=== PATIENT | female | born 1940 | race Caucasian/White ===

== ENCOUNTER → 2017-08-12 17:38 | Outpatient (CLI) | payer MEDICARE, SELFPAY ==
--- NOTE | 2017-08-12 17:50 | MRI_ITS ---
STUDY: MRI BRAIN WITH AND WITHOUT CONTRAST REASON FOR EXAM: Female, 76 years old. Malignant melanoma staging TECHNIQUE: Standardized multiplanar fat and water weighted pulse sequences were obtained. 8 ml of Gadavist contrast material was administered intravenously for the contrast portion of the examination. COMPARISON: None. FINDINGS: Mild atrophy and periventricular white matter ischemic changes.. Chronic ischemic changes within the lance. Normal bilateral basal ganglia. Normal thalami. There is no extra-axial fluid accumulation. Normal flow voids within the major intracranial circulation suggesting patency by spin echo criteria. Normal venous enhancement. There is no enhancing intra-axial or extra-axial abnormality. Normal sella turcica, pituitary gland, infundibular stalk, optic chiasm and hypothalamus. Normal tectal plate and pineal gland. Normal midbrain, and medulla. Normal cerebellum. Normal basal cisterns. Normal bilateral temporal bones. Normal bilateral internal auditory canals. No demonstrated orbital abnormality, within the constraints of a routine brain study. Normal visualized paranasal sinuses. Normal calvarium and skull base. There are multiple small nodules within the scalp which enhance following contrast administration. These may be consistent with known neurofibromatosis however. Clinical correlation is recommended in this regard. Normal visualized upper cervical spine. MRI/Brain W/WO Contrast IMPRESSION: Mild atrophy and periventricular white matter ischemic changes with chronic ischemic changes in the lance but no evidence for acute infarct. No evidence for brain metastasis. 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 Electronically Signed: Suleman Wiley MD at 19:40 EDT , Service support ,
== END ==
PROVIDERS: Family Provider Family Medicine; PCP Family Medicine; Visit Provider Internal Medicine Hematology & Oncology
DX: C43.9 Malignant melanoma of skin, unspecified (principal)
CPT/HCPCS: 70553; A9585

== ENCOUNTER → 2017-08-23 08:42 | Outpatient (CLI) | payer MEDICARE, SELFPAY ==
--- NOTE | 2017-08-23 08:51 | NM_ITS ---
CLINICAL: 76-year-old female with history of malignant melanoma. WHOLE BODY 99m Tc MDP RADIONUCLIDE BONE SCINTIGRAPHY COMPARISON: None available FINDINGS: Following the intravenous administration of 25.5 mCi of 99m Tc MDP, whole body bone images reveal: 1. Increased radiopharmaceutical concentration is identified in the acromioclavicular and sternoclavicular compartments of both shoulders, ninth thoracic vertebra posteriorly on the left, bilateral wrist articulations, the right midfoot. 2. The remaining skeletal structures are scintigraphically unremarkable with normal-appearing renal images and urinary bladder activity identified. An increase in tracer concentration appears evident in the femoral and tibial components of the presumably asymptomatic bilateral knee arthroplasties most consistent with normal postsurgical change. Prominent uptake is defined at the sternomanubrial synchondrosis is consistent with a normal variant. NM/Bone Scan Whole Body IMPRESSION: 1. The increase in radiopharmaceutical concentration identified in the bilateral shoulders, thoracic spine, right and left wrists, the right midfoot is most consistent with degenerative arthritis. 2. There is no typical scintigraphic evidence of diffuse axial skeletal metastatic disease on the current examination. Electronically Signed: Baldo Sheikh DO at 23:05 EDT Tel , Service support ,
== END ==
PROVIDERS: Family Provider Family Medicine; PCP Family Medicine; Visit Provider Nurse Practitioner Family
DX: C43.9 Malignant melanoma of skin, unspecified (principal)
CPT/HCPCS: 78306

== ENCOUNTER → 2017-08-26 16:03 | Outpatient (CLI) | payer MEDICARE, SELFPAY ==
--- NOTE | 2017-08-26 16:05 | CT_ITS ---
STUDY: CT CHEST WITH CONTRAST REASON FOR EXAM: Female, 76 years old. Malignant melanoma of the skin. RADIATION DOSAGE (If Supplied By Facility): CTDIvol = ( 11.22 ) mGy, DLP = ( 314.95 ) mGycm TECHNIQUE: Transaxial imaging was performed following intravenous administration of 100 ml of Isovue 300 contrast material. Multiplanar coronal and sagittal images were reformatted. Individualized dose optimization techniques were used for this CT. COMPARISON: None. FINDINGS: The lungs are normal. There is no demonstrated pleural abnormality. Normal heart and pericardium. There are calcifications of the coronary arteries. Normal mediastinum. Normal hilar regions. Normal enhanced pulmonary arteries. There is atherosclerotic calcification of the aortic arch with tortuosity and elongation of the aortic arch and descending thoracic aorta. Degenerative changes of the thoracic spine with mildly exaggerated kyphosis. There is no axillary lymphadenopathy. There is no visualized skin lesions. There is fatty infiltration liver. There is a 1 cm fluid attenuation focus in the dome of the right liver. A 9 mm fluid attenuation focus is seen in segment 6. CT/Chest WITH Contrast IMPRESSION: 1. No acute cardiopulmonary disease. 2. Atherosclerotic changes of coronary arteries and thoracic aorta. 3. Probable hepatic cysts. Electronically Signed: Duke Vega DO at 17:08 EDT Tel [phone], Service support ,
== END ==
PROVIDERS: Family Provider Family Medicine; PCP Family Medicine; Visit Provider Nurse Practitioner Family
DX: C43.9 Malignant melanoma of skin, unspecified (principal)
CPT/HCPCS: 71260; Q9967

== ENCOUNTER → 2017-09-02 15:53 | Outpatient (CLI) | payer MEDICARE, SELFPAY | PROVIDERS: Family Provider Family Medicine; PCP Family Medicine; Visit Provider Internal Medicine Hematology & Oncology | DX: D50.9 Iron deficiency anemia, unspecified (principal); D64.9 Anemia, unspecified | CPT/HCPCS: 36415; 86850; 86900; 86920; 86922 ==

== ENCOUNTER 2017-09-08 05:35 | Day surgery (SDC) | payer MEDICARE, SELFPAY ==
[2017-09-08] VITALS (13 sets, daily range): BP systolic 96–118; BP diastolic 66–91; PULSE 113–132; RESP 16–24; TEMP 36.2–37.1; O2SAT 97–100; BMI 33.6
--- NOTE | 2017-09-08 | IMM_PTH ---
PATIENT: DENNISE ROBLEDO LOC: EN U#:[id number] AGE/SX: 77/F ROOM: RE09/08/[address]: Dr. Boston Hester MD : 1940 BED: DIS: 09/08/2017 SPEC #: [id number] RECD: 09/10/17 12:32 STATUS: TUAN RERodri #: [id number] PRECIOUS: 09/08/17 00:[address]: Boston Hester DEPT: IMMUNOHISTOCHEMISTRY RECD BY: Munira Roque ENTERED: 09/10/17 12:32 SP TYPE: IMMUNO OTHR DR: Dr. Jack Ernst MD Tissues: Stomach, NOS Procedures: H Pylori (initial) PHYSICIAN & INSTITUTION [place] [address] SPECIMEN INFORMATION: Tissue Source: Gastric mass biopsy Clinical Info: Iron deficiency anemia, weight loss Specimen Number: [id number] CPT code: 68519 METHODOLOGY: Deparaffinized sections of prefer/formalin-fixed tissue or PAP/DQ stained slides are incubated with monoclonal/polyclonal antibodies/oligonucleotide probes. Localization is made via biotin free immunoperoxidase method. Appropriate controls are performed and reacted as expected. Results on target cell population are indicated in the following table: RESULTS: ANTIBODY / CLONE RESULT H Pylori (polyclonal) negative These tests were developed and their performance characteristics determined by [facility]. They may not have been cleared or approved by the U.S. Food and Drug Administration. The FDA has determined that such clearance or approval is not necessary. INTERPRETATION: Gastric mass, biopsy: Negative for Helicobacter pylori organisms. SJ:leonarda 09/10/17
--- NOTE | 2017-09-08 08:10 | GASB_PTH ---
PATIENT: DENNISE ROBLEDO LOC: EN U#:[id number] AGE/SX: 77/F ROOM: RE09/08/[address]: Dr. Boston Hester MD : 1940 BED: DIS: 09/08/2017 SPEC #: [id number] RECD: 09/08/17 09:57 STATUS: TUAN ELIEL #: [id number] PRECIOUS: 09/08/17 08:[address]: Boston Hester DEPT: SURGICAL PATHOLOGY RECD BY: Baldo Daniels ENTERED: 09/08/17 10:20 SP TYPE: Gastric Bx OTHR DR: Dr. Jack Ernst MD Tissues: Gastric mucous membrane Procedures: Surgery Specimen Level IV HEADER OPERATION: EGD PRE-OP DIAGNOSIS: Iron deficiency anemia, weight loss TISSUE SUBMITTED: Gastric mass biopsies MICROSCOPIC DIAGNOSIS Gastric mass, biopsy: Mild gastritis. Negative for malignancy. SJ:leonarda 09/09/17 COMMENT The results of immunohistochemistry for Helicobacter pylori will be reported separately ([id number]). If there is a high suspicion of malignancy, rebiopsy of the mass is suggested if clinically indicated. This case is discussed with Dr. Hester on 09/10/17. Case has been reviewed in consultation with Dr. Hardy who concurs with the above diagnosis. IDC:TU MICROSCOPIC DESCRIPTION Slides are reviewed. The specimen shows fragments of gastric mucosa with chronic inflammatory cell infiltrates in the lamina propria consisting of lymphocytes and plasma cells, consistent with mild chronic gastritis. Inflammatory cell infiltrates consist of lymphocytes, plasma cells and a few eosinophils. GROSS DESCRIPTION Received in fixative is one container labeled with the patient's name and designated gastric mass biopsy. The specimen consists of multiple irregular fragments of light gonzalez soft tissue that in aggregate measure 1 x 0.5 x 0.1 cm. The specimen is totally submitted in one cassette. / AM:leonarda 09/08/17 TC:3 CPT: 15016
--- NOTE | 2017-09-08 08:26 | PCM.OPRPT ---
Problem List (1) Abnormal weight loss Status: Acute (2) Iron deficiency anemia Status: Chronic Qualifiers: Iron deficiency anemia type: unspecified iron deficiency Qualified Code(s): D50.9 - Iron deficiency anemia, unspecified Report of Operation Date of Procedure: 09/08/17 Pre-Operative Diagnosis: r63.4 abnormal weight loss. d50.9 iron deficiency anemia unspecified Post-Operative Diagnosis: Same plus gastric mass Surgery/Procedure Performed:: 84727 esophagogastroduodenoscopy with biopsy. 22113 colonoscopy Type of Anesthesia:: MAC Anesthesiologist: Donta Anand Description of Procedure: Patient was brought into the endoscopy suite. Back of her throat was sprayed with Cetacaine spray. Bite-block was placed. She was placed in the left lateral decubitus position. Graded anesthesia was given. Scope was inserted in the oropharynx and directed down through the esophagus into the stomach and into the duodenum without difficulty. Operative findings: 1. Duodenum: Normal appearance no mass lesions no ulcerations no signs of bleeding mucosal all look normal. 2. Stomach: There was a definitive gastric mass just in the prepyloric area. It is difficult to ascertain if this was arising from the pylorus or not. Numerous biopsies of this were obtained. I was able to get around it and into the duodenum. 3. Esophagus: Normal appearance no mass lesions no signs of esophagitis Z line was right at about 40 cm approximately rest of the esophagus looked entirely normal. There were no signs of active bleeding in her upper scope. Colonoscope was inserted into the rectum. Scope was directed through the sigmoid colon, descending colon, transverse colon, to the anastomosis. Operative findings: #1 cecum: Normal appearance no mass lesions normal ileocecal valve. 2. Ascending colon: Normal appearance no mass lesions. 3. Transverse colon: Normal appearance no mass lesions. 4. Descending colon: Normal appearance no mass lesions. 5. Sigmoid colon: Normal appearance no mass lesions. 6. Rectum: Normal appearance no mass lesions internal and external hemorrhoids were identified. Scope was withdrawn digital rectal exam was performed showing no masses within the anus. With a gastric mass she will need to have a CT scan of the abdomen and pelvis with IV and p.o. contrast. Given the fact that she is having elevated heart rate we will more likely needed contact medicine for admission and correction of said heart rate with getting her back on her normal diltiazem. - Admit VTE Documentation VTE Present on Admission: No VTE Mechan Device Prophylaxis: None VTE Pharm Prophylaxis ordered?: No Reason prophylaxis not ordered:: Treatment Not Indicated
--- NOTE | 2017-09-08 08:31 | OP.PCM_ITS ---
Problem List (1) Abnormal weight loss Status: Acute (2) Iron deficiency anemia Status: Chronic Qualifiers: Iron deficiency anemia type: unspecified iron deficiency Qualified Code(s) : D50.9 - Iron deficiency anemia, unspecified Report of Operation Date of Procedure: 09/08/17 Pre-Operative Diagnosis: r63.4 abnormal weight loss. d50.9 iron deficiency anemia unspecified Post-Operative Diagnosis: Same plus gastric mass Surgery/Procedure Performed:: 31502 esophagogastroduodenoscopy with biopsy. 41858 colonoscopy Type of Anesthesia:: MAC Anesthesiologist: Donta Anand Description of Procedure: Patient was brought into the endoscopy suite. Back of her throat was sprayed with Cetacaine spray. Bite-block was placed. She was placed in the left lateral decubitus position. Graded anesthesia was given. Scope was inserted in the oropharynx and directed down through the esophagus into the stomach and into the duodenum without difficulty. Operative findings: 1. Duodenum: Normal appearance no mass lesions no ulcerations no signs of bleeding mucosal all look normal. 2. Stomach: There was a definitive gastric mass just in the prepyloric area. It is difficult to ascertain if this was arising from the pylorus or not. Numerous biopsies of this were obtained. I was able to get around it and into the duodenum. 3. Esophagus: Normal appearance no mass lesions no signs of esophagitis Z line was right at about 40 cm approximately rest of the esophagus looked entirely normal. There were no signs of active bleeding in her upper scope. Colonoscope was inserted into the rectum. Scope was directed through the sigmoid colon, descending colon, transverse colon, to the anastomosis. Operative findings: #1 cecum: Normal appearance no mass lesions normal ileocecal valve. 2. Ascending colon: Normal appearance no mass lesions. 3. Transverse colon: Normal appearance no mass lesions. 4. Descending colon: Normal appearance no mass lesions. 5. Sigmoid colon: Normal appearance no mass lesions. 6. Rectum: Normal appearance no mass lesions internal and external hemorrhoids were identified. Scope was withdrawn digital rectal exam was performed showing no masses within the anus. With a gastric mass she will need to have a CT scan of the abdomen and pelvis with IV and p.o. contrast. Given the fact that she is having elevated heart rate we will more likely needed contact medicine for admission and correction of said heart rate with getting her back on her normal diltiazem. - Admit VTE Documentation VTE Present on Admission: No VTE Mechan Device Prophylaxis: None VTE Pharm Prophylaxis ordered?: No Reason prophylaxis not ordered:: Treatment Not Indicated
== END 2017-09-08 10:33 | disposition home or self-care (01) ==
LOC: EN 05:35 → AC 05:37
PROVIDERS: Family Provider Family Medicine; PCP Family Medicine; Visit Provider Surgery
PROC: 0DJD8ZZ Inspection of Lower Intestinal Tract, Via Natural or Artificial Opening Endoscopic (ICD-10-PCS; CPT 45378; principal; 2017-09-08 06:55)
DX: K29.70 Gastritis, unspecified, without bleeding (principal); K64.8 Other hemorrhoids; K64.4 Residual hemorrhoidal skin tags; D50.9 Iron deficiency anemia, unspecified; R63.4 Abnormal weight loss; N15.9 Renal tubulo-interstitial disease, unspecified; I10 Essential (primary) hypertension; C43.9 Malignant melanoma of skin, unspecified; Q85.00 Neurofibromatosis, unspecified; Z87.19 Personal history of other diseases of the digestive system; Z78.0 Asymptomatic menopausal state; Z96.653 Presence of artificial knee joint, bilateral; Z90.49 Acquired absence of other specified parts of digestive tract; Z79.82 Long term (current) use of aspirin; Z79.899 Other long term (current) drug therapy
CPT/HCPCS: 43239; 45378; 88305; 88342; J7120

== ENCOUNTER 2018-03-28 07:29 | Day surgery (SDC) | payer MEDICARE, SELFPAY ==
[2018-03-17 10:17] VITALS: BMI 31.3
[2018-03-28 07:59] VITALS: BP 120/68; PULSE 79; RESP 16; TEMP 36.9; O2SAT 98; BMI 30.9
[2018-03-28 08:16] LABS: Bedside Glucose 84 mg/dL (70-110)
[2018-03-28 08:45] VITALS: BP 120/68; BP 99/52; PULSE 85; RESP 14; TEMP 36.4; O2SAT 97
--- NOTE | 2018-03-28 08:48 | OP.ENDO_ITS ---
Patient Name: Dionne Frausto Procedure Date: 03/28/2018 8:29 AM Date of : 1940 Age: 77 Procedure: Upper GI endoscopy Indications: Chronic gastric ulcer Providers: Boston Hester MD Referring MD: Jack Ernst MD Requesting Provider: Nidhi Ruffin Medicines: See the Anesthesia note for documentation of the administered medications Patient Profile: This is a 77 year old female. Refer to note in patient chart for documentation of history and physical. Complications: No immediate complications. Procedure: Pre-Anesthesia Assessment: - Prior to the procedure, a History and Physical was performed, and patient medications and allergies were reviewed. The patient's tolerance of previous anesthesia was also reviewed. The risks and benefits of the procedure and the sedation options and risks were discussed with the patient. All questions were answered, and informed consent was obtained. Prior Anticoagulants: The patient has taken no previous anticoagulant or antiplatelet agents. ASA Grade Assessment: III - A patient with severe systemic disease. After reviewing the risks and benefits, the patient was deemed in satisfactory condition to undergo the procedure. After obtaining informed consent, the endoscope was passed under direct vision. Throughout the procedure, the patient's blood pressure, pulse, and oxygen saturations were monitored continuously. The gastroscope was introduced through the mouth, and advanced to the second part of duodenum. The upper GI endoscopy was accomplished without difficulty. The patient tolerated the procedure well. Scope In: 8:37:08 AM Scope Out: 8:41:01 AM Total Procedure Duration Time 0 hours 3 minutes 53 seconds Findings: The examined esophagus was normal. The entire examined stomach was normal. No biopsies or other specimens were collected for this exam. The examined duodenum was normal. No biopsies or other specimens were collected for this exam. A medium-sized hiatal hernia was present. Impression: - Normal esophagus. - Normal stomach. No specimens collected. - Normal examined duodenum. No specimens collected. - The site of the previous ulcer looked entirely normal. There was no mass seen. Recommendation: - Discharge patient to home. - Resume previous diet. - Continue present medications. - Repeat upper endoscopy in 1 year for surveillance. - Return to my office in 1 week. Procedure Code(s): --- Professional --- 46492, Esophagogastroduodenoscopy, flexible, transoral; diagnostic, including collection of specimen(s) by brushing or washing, when performed (separate procedure) Diagnosis Code(s): --- Professional --- K25.7, Chronic gastric ulcer without hemorrhage or perforation CPT copyright 2017 [employer]. All rights reserved. The codes documented in this report are preliminary and upon wind energy technician review may be revised to meet current compliance requirements. MD Boston Arnold MD 03/28/2018 8:47:48 AM This report has been signed electronically. Number of Addenda: 0 Note Initiated On: 03/28/2018 8:29 AM
[2018-03-28 08:50] VITALS: BP 120/68; BP 81/51; PULSE 80; RESP 14; O2SAT 96
[2018-03-28 08:55] VITALS: BP 107/63; BP 120/68; PULSE 77; RESP 14; O2SAT 98
[2018-03-28 09:04] VITALS: BP 108/71; BP 120/68; PULSE 84; RESP 16; TEMP 36.6; O2SAT 99
[2018-03-28 09:51] VITALS: BP 120/68
== END 2018-03-28 09:57 | disposition home or self-care (01) ==
LOC: EN 07:29 → AC 07:30
PROVIDERS: Family Provider Family Medicine; PCP Family Medicine; Referring Provider Surgery; Visit Provider Surgery
PROC: 0DJ08ZZ Inspection of Upper Intestinal Tract, Via Natural or Artificial Opening Endoscopic (ICD-10-PCS; CPT 43235; principal; 2018-03-28 08:40)
DX: K25.7 Chronic gastric ulcer without hemorrhage or perforation (principal); K44.9 Diaphragmatic hernia without obstruction or gangrene; D64.9 Anemia, unspecified; I10 Essential (primary) hypertension; I49.9 Cardiac arrhythmia, unspecified; K21.9 Gastro-esophageal reflux disease without esophagitis; K59.00 Constipation, unspecified; Q85.00 Neurofibromatosis, unspecified; Z85.820 Personal history of malignant melanoma of skin; Z87.19 Personal history of other diseases of the digestive system; Z78.0 Asymptomatic menopausal state; Z90.49 Acquired absence of other specified parts of digestive tract; Z79.82 Long term (current) use of aspirin; Z79.899 Other long term (current) drug therapy
CPT/HCPCS: 43235; 82962; J7120

== ENCOUNTER 2019-04-21 18:46 | Inpatient (IN) | payer MEDICARE, SELFPAY ==
[2018-09-05 13:47] VITALS: BMI 34.1
[2019-04-21 18:47] VITALS: BP 123/76; PULSE 77; RESP 18; TEMP 36.4; O2SAT 95; BMI 33.6
--- NOTE | 2019-04-21 21:26 | US_ITS ---
STUDY: VENOUS DOPPLER ULTRASOUND - RIGHT LOWER EXTREMITY REASON FOR EXAM: Female, 78 years old. RT FOOT SWELLING AT FIRST NOW LEG HURTING TECHNIQUE: Ultrasound evaluation of the deep vein system to include sunshine-scale imaging and compression was performed. Sunshine-scale imaging and Doppler sonographic evaluation, including duplex spectral analysis and qualitative color flow sonography, was performed. COMPARISON: None. FINDINGS: Common Femoral Vein: Normal compression, spontaneity and augmentation. Normal color Doppler. Common Femoral Vein/Greater Saphenous Junction: Normal compression. No internal echoes. Deep Femoral Vein: Not imaged Femoral Proximal: Normal compression. No internal echoes. Femoral Middle: Normal compression, spontaneity and augmentation. Normal color Doppler. Femoral Distal: Normal compression. No internal echoes. Popliteal Vein: Normal compression, spontaneity and augmentation. Normal color Doppler. Posterior Tibial Vein: Normal compression. No internal echoes. Peroneal Vein: Normal compression. No internal echoes. US/Venous Duplex Imag/Limited/Uni IMPRESSION: There is no evidence of deep venous fibrosis of the visualized venous structures of the right lower extremity. Electronically Signed: Serge De Oliveira MD at 22:18 EST , Service support ,
[2019-04-21 21:56] LABS: Absolute Lymphocyte Count 1.49 X10^3/uL (0.83-4.51); Absolute Neutrophil Count 13.7 X10^3/uL (2.0-7.7); Basophil# 0.06 X10^3/uL; Basophil% 0.3 % (0-1); Eosinophil# 0.03 X10^3/uL; Eosinophils% 0.2 % (0-5); Hematocrit 43.6 % (37-47); Hemoglobin 13.5 g/dL (12.0-15.0); Lymphocyte # 1.49 X10^3/ul (4.0); Lymphocyte % 8.7 % (19-41); Mean Corpuscular Volume 90.5 fL (81-99); Mean Platelet Vol. 10.1 fl (6.2-12.0); Monocyte# 1.42 X10^3/uL; Monocyte% 8.3 % (0-10); NRBC Flagged by Analyzer 0 % (0-5); Neutrophil # 13.72 X10^3/uL (2.7-7.7); Neutrophil % 79.8 % (47-70); Platelet Count 324 K/mm3 (150-450); RBC Distribution Width CV 13.9 % (11.6-14.6); RBC Distribution Width SD 45.2 fl (35.1-43.9); Red Blood Count 4.82 M/mm3 (4.2-5.4); White Blood Count 17.2 K/mm3 (4.4-11.0)
[2019-04-21 22:05] LABS: Erythrocyte Sedimentation Rate 28 mm/hr (0-30)
[2019-04-21 22:09] LABS: Anion Gap 7 (5-15); BUN 27 mg/dL (7-18); BUN/Creat Ratio 18.8 RATIO (10-20); Calcium,Total 9.6 mg/dL (8.5-10.1); Chloride 108 mmol/L (98-107); Creatinine, Serum 1.44 mg/dL (0.55-1.02); EST Glomerular Filtration Rate 37 mL/min (>60); Est Glom Filt Rate - Afr Amer 45 mL/min (>60); Estimated Creatinine Clearance 36.52 ml/min; Glucose 118 mg/dL (74-106); Potassium 3.9 mmol/L (3.5-5.1); Sodium Level 140 mmol/L (136-145)
--- NOTE | 2019-04-21 22:20 | ED.RN ---
lab called with lactic acid results of 2.2. Dr. Jl hu.
[2019-04-21 22:21] LABS: Lactic Acid 2.2 mmol/L (0.4-1.9)
[2019-04-21 22:27] VITALS: BP 135/88; PULSE 82; RESP 16; O2SAT 98
--- NOTE | 2019-04-21 23:52 | PCM.HP.STD ---
Problem List (1) Cellulitis of right leg Status: Acute (2) Iron deficiency anemia Status: Chronic Qualifiers: Iron deficiency anemia type: unspecified iron deficiency Qualified Code(s): D50.9 - Iron deficiency anemia, unspecified (3) Abnormal weight loss Status: Resolved (4) Chronic GI bleeding Status: Chronic (5) Subepithelial gastric mass Status: Inactive (6) Anemia Status: Chronic (7) History of total knee arthroplasty Status: Chronic (8) Benign essential hypertension Status: Chronic (9) Melanoma of skin Status: Chronic (10) Neurofibromatosis Status: Chronic History of Present Illness Date of Admission: 04/21/19 Chief Complaint: Swelling of right leg The patient is a 78 year old F with a significant history of neurofibromatosis; essential hypertension who presented to the emergency department with 2-week history of right leg swelling. Associated with her symptoms symptoms is erythema and pain of the same right leg extremity;. Patient denies any fever; chills, nausea or anorexia. Past Medical History Past Medical History (Chronic Problems): Chronic Problems (Last Reviewed 09/05/18 @ 13:45 by Lalitha Mccullough) Iron deficiency anemia (Chronic) Chronic GI bleeding (Chronic) Anemia (Chronic) History of total knee arthroplasty (Chronic) Benign essential hypertension (Chronic) Melanoma of skin (Chronic) Neurofibromatosis (Chronic) Medical History: Medical History (Last Reviewed 04/22/19 @ 08:58 by Clifford Simental MD) Anemia (Chronic) D64.9 Benign essential hypertension (Chronic) I10 Melanoma of skin (Chronic) C43.9 Neurofibromatosis (Chronic) Q85.00 Common bile duct dilatation K83.8 Constipation K59.00 Weight loss R63.4 Hypertension I10 Allergies niacin Adverse Reaction (Intermediate, Verified 04/21/19 18:46) Rash REDNESS TO SKIN Home Medications: Ambulatory Orders Medication Instructions Recorded Aspirin [Lo-Dose Aspirin EC] 81 mg PO DAILY 08/09/17 Benazepril HCl [Lotensin] 10 mg PO DAILY 08/09/17 Folic Acid 800 mcg PO DAILY 08/09/17 Atenolol [Tenormin] 25 mg PO DAILY 09/02/17 Hydrochlorothiazide [Hctz] 25 mg PO DAILY 10/26/17 docusate sodium 100 mg capsule 100 mg PO DAILY PRN 03/17/18 omeprazole 20 mg capsule,delayed 20 mg PO BID cap 03/17/18 release potassium chloride 10 mEq 10 meq PO DAILY 03/17/18 capsule,extended release Acetaminophen [Tylenol Extra 500 - 1,000 mg PO Q6H PRN PRN 04/22/19 Strength] Ferrous Sulfate [Iron] 325 mg PO DAILY 04/22/19 Surgical History: Surgical History (Last Reviewed 04/22/19 @ 08:58 by Clifford Simental MD) History of total knee arthroplasty (Chronic) Z96.659 History of appendectomy Z90.49 History of bilateral knee replacement Z96.653 History of cholecystectomy Z90.49 History of melanoma excision Z98.890, Z85.820 10-05-17 [facility] [address] LEFT LATERAL SHOULDER Lives: Alone Smoking Status: Never smoker Alcohol: None - *Family History Maternal Family History: Family History (Last Reviewed 04/22/19 @ 08:59 by Clifford Simental MD) Father Heart disease Lung disease Alcohol abuse Sister Brain tumor Non-Hodgkin lymphoma Grandmother Stomach cancer Mother Cancer Review of Systems Constitutional: Denies: Chills, Fever, Weight Change HEENT: Denies: Head Aches, Sinus Congestion, Sinus Drainage Cardiovascular: Reports: Edema - Right leg. Denies: Chest Pain, Palpitations Respiratory: Denies: Cough, Shortness of breath at rest, Sputum production Gastrointestinal: Denies: Abdominal Pain, Nausea, Vomiting Genitourinary: Denies: Dysuria Musculoskeletal: Reports: Leg Pain - Right leg. Denies: Joint Pain, Joint Tenderness Skin: Reports: Skin Changes - Erythema of right leg. Denies: Rash, Wounds Neurological: Denies: Numbness, Tingling, Focal weakness Psychiatric: Denies: Anxiety, Depression, Homicidal Ideations, Suicidal Ideations Hematologic/ Lymphatic: Denies: Easy Bruising, Easy Bleeding VTE Information - Inpt Only VTE Present on Admission: No VTE Mechan Device Prophylaxis: None VTE Pharm Prophylaxis ordered?: Yes Patient Problems: Active and Suspected Problems (Last Reviewed 09/05/18 @ 13:45 by Lalitha Mccullough) Cellulitis of right leg (Acute) - Physical Exam Vitals/I&O's: Vital Signs Temp Pulse Resp BP Pulse Ox 97.6 F L 82 16 135/88 H 98 04/21/19 18:47 04/21/19 22:27 04/21/19 22:27 04/21/19 22:27 04/21/19 22:27 Oxygen Delivery Method Room Air Weight: 73.028 kg Body Mass Index (BMI) 33.6 General: Alert, Oriented x3, Cooperative HEENT: Atraumatic, PERRLA, EOMI, Normocephalic Neck: Supple, No JVD, Negative Carotid Bruits Lungs: Clear to auscultation, Normal air movement Cardiovascular: Regular rate, Normal S1, Normal S2, No murmurs Abdomen: Bowel Sounds Present, Soft, Non Tender Extremities: Capillary Refill Less than 3 Seconds, Edema - Right leg, Tenderness - right leg Skin: - - Erythema of right leg. Fleshy colored lesions scattered throughout body. Musculoskeletal: No Tenderness to Palpation of Joints or Extremities Neurological: Cranial nerves II-XII grossly intact Psych/Mental Status: Normal Affect, Appropriate Laboratory Results 04/21/19 21:39: WBC 17.2 H, RBC 4.82, Hgb 13.5, Hct 43.6, MCV 90.5, MCH 28.0, MCHC 31.0 L, RDW Std Deviation 45.2 H, RDW Coeff of Bam 13.9, Plt Count 324, MPV 10.1, Immature Gran % (Auto) 2.700 H, Neut % (Auto) 79.8 H, Lymph % (Auto) 8.7 L, [place] % (Auto) 8.3, Eos % (Auto) 0.2, Baso % (Auto) 0.3, Absolute Neuts (auto) 13.7 H, Absolute Lymphs (auto) 1.49, Nucleated RBC % 0, ESR 28 04/21/19 21:39: Sodium 140, Potassium 3.9, Chloride 108 H, Carbon Dioxide 25.0, Anion Gap 7, BUN 27 H, Creatinine 1.44 H, Estim Creat Clear Calc 36.52, Est GFR (MDRD) Af Amer 45 L, Est GFR (MDRD) Non-Af 37 L, BUN/Creatinine Ratio 18.8, Glucose 118 H, Calcium 9.6, C-React Prot Ext Range 137.00 H 04/21/19 21:39: Lactic Acid 2.2 H* Assessment/Plan All Active Problems (Last Reviewed 09/05/18 @ 13:45 by Lalitha Mccullough) Abnormal weight loss (Resolved) Cellulitis of right leg (Acute) The patient is a 78 year old F with a significant history of neurofibromatosis; essential hypertension who presented to the emergency department with 2-week history of right leg swelling; erythema and pain of the same right lower extremity consistent with right leg cellulitis. Right leg cellulitis Ultrasound of the right leg at the emergency department was negative. Discussed with emergency department doctor to start patient on Ancef. Trend CBC and BMP. Lactic acid was elevated on presentation. SIRS criteria not present. Patient is not septic. Trend lactic acid. Consider Lasix if patient is not improving. ANISH On presentation creatinine was 1.44 Baseline creatinine is around 1.10. Gentle IV hydration. Avoid nephrotoxins. Hold ALEXX inhibitor held. Trend BMP. Hypertension Her blood pressure is stable in regard to her age ALEXX inhibitor held due to ANISH. Atenolol continued Trend blood pressure and adjust blood pressure medications. DVT prophylaxis Subcutaneous Lovenox. Code Visit Inpatient E&M: 83436 Init Hosp L3
--- NOTE | 2019-04-22 | ED.VISSUMM ---
- ER Visit Summary Date of Service: 04/22/19 Chief Complaint: Right lower extremity redness and swelling History of Present Illness: The patient is a 78 F presenting with right lower extremity redness and swelling which started yesterday. She went to urgent care today was sent to the ED for further evaluation. She denies fever. Denies chest pain or shortness of breath. Denies recent travel or recent surgery. No history of blood clots. Denies other complaints. Physical Examination: Vitals are stable. Patient is afebrile. Alert no acute distress. HEENT exam is unremarkable. Neck is supple. Lungs are clear and equal bilaterally. Heart is regular rate and rhythm. Abdomen is soft nontender nondistended. Extremities right lower extremity swelling and erythema. Normal distal pulses. Skin is warm and dry. No focal neurologic deficit. Remainder of exam is unremarkable. Emergency Department Course and Treatment: CBC shows white count 17.2. Chemistries show glucose 118, BUN 27, creatinine 1.44. Lactic acid 2.2. CRP 137. Ultrasound right lower extremity shows there is no evidence of deep venous fibrosis of the visualized venous structures of the right lower extremity. Discussed with the hospitalist. She was given Ancef IV. She will be admitted. Disposition: Admission Impression: Right lower extremity cellulitis This note was generated with [employer] dictation software. It may contain incorrect words, spelling, and punctuation that were not noted in review of the chart prior to signing ED Disposition - Plan for ED Patient: Disposition: Acute [facility]
[2019-04-22] MEDS: 0.9% Normal Saline 1,000 ML 999 ML IV (00:41)
[2019-04-22] MEDS: Cefazolin 1 GM/50 ML BAG IV ×4 (00:41→22:09)
[2019-04-22 01:15] VITALS: BMI 31.8
[2019-04-22 01:19] VITALS: BP 128/70; PULSE 85; RESP 24; TEMP 37.2; O2SAT 97
[2019-04-22 01:23] VITALS: BMI 31.9
[2019-04-22 01:46] LABS: Reflex Lactate? Y
[2019-04-22] MEDS: Acetaminophen 325 MG Tablet 650 MG PO ×2 (02:02→13:46)
[2019-04-22] MEDS: 0.9% Normal Saline 1,000 ML 100 ML IV (02:22)
[2019-04-22 02:50] LABS: Absolute Lymphocyte Count 0.83 X10^3/uL (0.83-4.51); Absolute Neutrophil Count 10.2 X10^3/uL (2.0-7.7); Basophil# 0.03 X10^3/uL; Basophil% 0.2 % (0-1); Eosinophil# 0.03 X10^3/uL; Eosinophils% 0.2 % (0-5); Hematocrit 35.5 % (37-47); Hemoglobin 11.2 g/dL (12.0-15.0); Lymphocyte # 0.83 X10^3/ul (4.0); Lymphocyte % 6.8 % (19-41); Mean Corp Hgb Conc 31.5 g/dL (32-36); Mean Corpuscular Hgb 27.9 pg (27.0-32.0); Mean Corpuscular Volume 88.3 fL (81-99); Mean Platelet Vol. 10.2 fl (6.2-12.0); Monocyte# 0.85 X10^3/uL; NRBC Flagged by Analyzer 0 % (0-5); Neutrophil # 10.23 X10^3/uL (2.7-7.7); Neutrophil % 83.8 % (47-70); Platelet Count 248 K/mm3 (150-450); RBC Distribution Width CV 13.8 % (11.6-14.6); RBC Distribution Width SD 44.5 fl (35.1-43.9); Red Blood Count 4.02 M/mm3 (4.2-5.4); White Blood Count 12.2 K/mm3 (4.4-11.0)
[2019-04-22 03:10] LABS: Anion Gap 5 (5-15); BUN 22 mg/dL (7-18); BUN/Creat Ratio 21.2 RATIO (10-20); Calcium,Total 8.5 mg/dL (8.5-10.1); Chloride 111 mmol/L (98-107); Creatinine, Serum 1.04 mg/dL (0.55-1.02); EST Glomerular Filtration Rate 54 mL/min (>60); Est Glom Filt Rate - Afr Amer 66 mL/min (>60); Estimated Creatinine Clearance 47.92 ml/min; Glucose 101 mg/dL (74-106); Potassium 3.7 mmol/L (3.5-5.1); Sodium Level 140 mmol/L (136-145)
[2019-04-22 06:21] VITALS: BP 116/59; PULSE 75; RESP 18; TEMP 37.2; O2SAT 96
[2019-04-22] MEDS: Aspirin E.C. 81 MG Tablet PO (07:45)
[2019-04-22] MEDS: Folic Acid 1 MG Tablet PO (07:45)
[2019-04-22] MEDS: Pantoprazole Sodium 20 MG Tablet PO ×2 (07:45→22:10)
[2019-04-22] MEDS: Enoxaparin 40 MG/0.4 ML Syringe SC (07:46)
[2019-04-22] MEDS: Atenolol 25 MG Tablet PO (07:48)
[2019-04-22] MEDS: 0.9% Saline Lock 10 ML Syringe IV ×2 (08:29→15:55)
[2019-04-22 08:33] VITALS: O2SAT 96
[2019-04-22] MEDS: Ferrous Sulfate 325 MG Tablet PO (09:06)
[2019-04-22 13:52] VITALS: BP 118/52; PULSE 94; RESP 18; TEMP 36.9; O2SAT 96
--- NOTE | 2019-04-22 15:15 | PCM.PN.HOSP ---
Patient Problems: Active and Suspected Problems (Last Reviewed 04/22/19 @ 08:58 by Clifford Simental MD) Cellulitis of right leg (Acute) Reason for Visit: Cellulitis. Patient has leukocytosis. Objective: No fever or chills. Patient has diffuse neurofibromatosis all over the body. Pain tenderness, swelling and induration is better on right lower leg. Vitals/I&O's: Vital Signs Temp Pulse Resp BP Pulse Ox 98.5 F 94 18 118/52 L 96 04/22/19 13:52 04/22/19 13:52 04/22/19 13:52 04/22/19 13:52 04/22/19 13:52 Oxygen Delivery Method Room Air Weight: 152 lb 8.958 oz Body Mass Index (BMI) 31.8 Intake and Output for Last 24 Hours 04/20/19 04/21/19 04/22/19 23:59 23:59 23:59 Intake Total 2099 Balance 2099 General: Alert, Oriented x3, Cooperative HEENT: Atraumatic, PERRLA, EOMI, Normocephalic Neck: Supple, No JVD, Negative Carotid Bruits Lungs: Clear to auscultation, Normal air movement, No rhonchi, No wheeze, No rales Cardiovascular: Regular rate, Regular Rhythm, Normal S1, Normal S2, No murmurs Abdomen: Bowel Sounds Present, Soft, Non Tender, Non-Distended Extremities: No edema, Capillary Refill Less than 3 Seconds Skin: Rash Present - Erythema, swelling and induration present on right lower leg. Tenderness resolved., - - Diffuse nodular lesions in all over the skin consistent with neurofibromatosis Musculoskeletal: No Tenderness to Palpation of Joints or Extremities, Arthritic Changes Lymphatic: No Cervical, Supraclavicular, or Inguinal Adenopathy Neurological: Cranial nerves II-XII grossly intact, Deep Tendon Reflexes 2+/4 and Symmetrical, Neuro grossly intact Psych/Mental Status: Normal Affect, Appropriate Laboratory Results 04/21/19 21:39: WBC 17.2 H, RBC 4.82, Hgb 13.5, Hct 43.6, MCV 90.5, MCH 28.0, MCHC 31.0 L, RDW Std Deviation 45.2 H, RDW Coeff of Bam 13.9, Plt Count 324, MPV 10.1, Immature Gran % (Auto) 2.700 H, Neut % (Auto) 79.8 H, Lymph % (Auto) 8.7 L, [place] % (Auto) 8.3, Eos % (Auto) 0.2, Baso % (Auto) 0.3, Absolute Neuts (auto) 13.7 H, Absolute Lymphs (auto) 1.49, Nucleated RBC % 0, ESR 28 04/21/19 21:39: Sodium 140, Potassium 3.9, Chloride 108 H, Carbon Dioxide 25.0, Anion Gap 7, BUN 27 H, Creatinine 1.44 H, Estim Creat Clear Calc 36.52, Est GFR (MDRD) Af Amer 45 L, Est GFR (MDRD) Non-Af 37 L, BUN/Creatinine Ratio 18.8, Glucose 118 H, Calcium 9.6, C-React Prot Ext Range 137.00 H 04/21/19 21:39: Lactic Acid 2.2 H* 04/22/19 02:40: WBC 12.2 H, RBC 4.02 L, Hgb 11.2 L, Hct 35.5 L, MCV 88.3, MCH 27.9, MCHC 31.5 L, RDW Std Deviation 44.5 H, RDW Coeff of Bam 13.8, Plt Count 248, MPV 10.2, Immature Gran % (Auto) 2.000 H, Neut % (Auto) 83.8 H, Lymph % (Auto) 6.8 L, [place] % (Auto) 7.0, Eos % (Auto) 0.2, Baso % (Auto) 0.2, Absolute Neuts (auto) 10.2 H, Absolute Lymphs (auto) 0.83, Nucleated RBC % 0 04/22/19 02:40: Sodium 140, Potassium 3.7, Chloride 111 H, Carbon Dioxide 24.0, Anion Gap 5, BUN 22 H, Creatinine 1.04 H, Estim Creat Clear Calc 47.92, Est GFR (MDRD) Af Amer 66, Est GFR (MDRD) Non-Af 54 L, BUN/Creatinine Ratio 21.2 H, Glucose 101, Calcium 8.5 04/22/19 02:40: Lactic Acid 1.0 Current Medications Acetaminophen (Tylenol) 650 mg PO Q6H PRN PRN PRN Reason: Pain Score 1-10/Temp > 100.7 F Last Admin: 04/22/19 13:46 Dose: 650 mg Documented by: Aspirin (Ecotrin) 81 mg PO DAILY [facility] Last Admin: 04/22/19 07:45 Dose: 81 mg Documented by: Atenolol (Tenormin (Beta Claudia)) 25 mg PO DAILY [facility] Last Admin: 04/22/19 07:48 Dose: 25 mg Documented by: Docusate Sodium (Colace) 100 mg PO DAILY PRN PRN PRN Reason: Constipation Enoxaparin Sodium (Lovenox) 40 mg SC DAILY [facility] Last Admin: 04/22/19 07:46 Dose: 40 mg Documented by: Ferrous Sulfate (Ferrous Sulfate) 325 mg PO DAILYCM [facility] Last Admin: 04/22/19 09:06 Dose: 325 mg Documented by: Folic Acid (Folic Acid) 1 mg PO DAILY@0800 [facility] Last Admin: 04/22/19 07:45 Dose: 1 mg Documented by: Glucagon () 1 mg IM .X1 PRN PRN Reason: Hypoglycemia Hydralazine HCl (Apresoline Iv) 5 mg IV Q4H PRN PRN PRN Reason: SBP > 160 Sodium Chloride () 250 mls @ 15 mls/hr IV .[id number] PRN PRN Reason: Saline Flush Sodium Chloride () 250 mls @ 15 mls/hr IV .[id number] PRN PRN Reason: Additional IVPB Infusion Cefazolin Sodium () 1 gm in 50 mls @ 100 mls/hr IV Q8 [facility] Last Admin: 04/22/19 13:47 Dose: 100 mls/hr Documented by: Dextrose (Dextrose 10%-Water) 250 mls @ 999 mls/hr IV .Q16M PRN; Protocol PRN Reason: HYPOGLYCEMIA Nutritional Formula (Lactose Free) (Ensure Enlive) 120 ml PO 4X/DAY [facility] Last Admin: 04/22/19 13:46 Dose: 120 ml Documented by: Ondansetron HCl (Zofran) 4 mg IV Q8H PRN PRN PRN Reason: NAUSEA/VOMITING Pantoprazole Sodium (Protonix) 20 mg PO BID [facility] Last Admin: 04/22/19 07:45 Dose: 20 mg Documented by: Potassium Chloride (K-Dur) 10 meq PO DAILY [facility] Last Admin: 04/22/19 07:45 Dose: 10 meq Documented by: Sodium Chloride () 10 - 40 ml IV UD PRN PRN Reason: SALINE FLUSH Last Admin: 04/22/19 08:29 Dose: 10 ml Documented by: STROKE Vital Signs/Narrative: Vital Signs Temp Pulse Resp BP Pulse Ox 04/22/19 13:52 98.5 F 94 18 118/52 L 96 Medical Necessity - Tobacco Use Smoking Status: Never smoker Assessment/Plan All Active Problems (Last Reviewed 04/22/19 @ 08:58 by Clifford Simental MD) Abnormal weight loss (Resolved) Cellulitis of right leg (Acute) The patient is a 78 year old F with a significant history of neurofibromatosis; essential hypertension who is being admitted on [facility] floor through ER for 2-week history of right leg swelling; erythema and pain of the same right lower extremity consistent with right leg cellulitis. 1. Right leg cellulitis: Patient does 04/22 Sirs criteria of leukocytosis with left shift. Lactic acidosis present. Ultrasound of right lower extremity is negative. On IV Ancef. Cellulitis is improving. Leukocytosis has decreased. Repeat lactic acid normal. Continue IV Ancef. 2. ANISH Baseline creatinine is around 1.10. On presentation creatinine was 1.44. Repeat BUN/creatinine 22/1.04. Discontinue IV fluid. ANISH is resolved. Resume benazepril from tomorrow a.m. Hold HCTZ. Hypertension Blood pressure is controlled. Atenolol continued DVT prophylaxis Subcutaneous Lovenox. Laboratory Results 04/21/19 21:39: WBC 17.2 H, RBC 4.82, Hgb 13.5, Hct 43.6, MCV 90.5, MCH 28.0, MCHC 31.0 L, RDW Std Deviation 45.2 H, RDW Coeff of Bam 13.9, Plt Count 324, MPV 10.1, Immature Gran % (Auto) 2.700 H, Neut % (Auto) 79.8 H, Lymph % (Auto) 8.7 L, [place] % (Auto) 8.3, Eos % (Auto) 0.2, Baso % (Auto) 0.3, Absolute Neuts (auto) 13.7 H, Absolute Lymphs (auto) 1.49, Nucleated RBC % 0, ESR 28 04/21/19 21:39: Sodium 140, Potassium 3.9, Chloride 108 H, Carbon Dioxide 25.0, Anion Gap 7, BUN 27 H, Creatinine 1.44 H, Estim Creat Clear Calc 36.52, Est GFR (MDRD) Af Amer 45 L, Est GFR (MDRD) Non-Af 37 L, BUN/Creatinine Ratio 18.8, Glucose 118 H, Calcium 9.6, C-React Prot Ext Range 137.00 H 04/21/19 21:39: Lactic Acid 2.2 H* 04/22/19 02:40: WBC 12.2 H, RBC 4.02 L, Hgb 11.2 L, Hct 35.5 L, MCV 88.3, MCH 27.9, MCHC 31.5 L, RDW Std Deviation 44.5 H, RDW Coeff of Bam 13.8, Plt Count 248, MPV 10.2, Immature Gran % (Auto) 2.000 H, Neut % (Auto) 83.8 H, Lymph % (Auto) 6.8 L, [place] % (Auto) 7.0, Eos % (Auto) 0.2, Baso % (Auto) 0.2, Absolute Neuts (auto) 10.2 H, Absolute Lymphs (auto) 0.83, Nucleated RBC % 0 04/22/19 02:40: Sodium 140, Potassium 3.7, Chloride 111 H, Carbon Dioxide 24.0, Anion Gap 5, BUN 22 H, Creatinine 1.04 H, Estim Creat Clear Calc 47.92, Est GFR (MDRD) Af Amer 66, Est GFR (MDRD) Non-Af 54 L, BUN/Creatinine Ratio 21.2 H, Glucose 101, Calcium 8.5 04/22/19 02:40: Lactic Acid 1.0 The patient is expected to be discharged tomorrow a.m. Code Visit Inpatient E&M: 16990 Subs Hosp L2
[2019-04-22 15:58] VITALS: BP 94/59; PULSE 91; RESP 18; TEMP 37.2; O2SAT 96
[2019-04-22 21:55] VITALS: BP 131/67; PULSE 78; RESP 16; TEMP 37.3; O2SAT 98
[2019-04-23 03:55] VITALS: BP 146/79; PULSE 98; RESP 16; TEMP 37.2; O2SAT 99
[2019-04-23] MEDS: Cefazolin 1 GM/50 ML BAG IV (05:09)
[2019-04-23 07:46] VITALS: O2SAT 97
[2019-04-23 08:05] VITALS: BP 113/56; PULSE 89; RESP 18; TEMP 36.9; O2SAT 96
[2019-04-23] MEDS: Aspirin E.C. 81 MG Tablet PO (08:07)
[2019-04-23] MEDS: Folic Acid 1 MG Tablet PO (08:07)
[2019-04-23] MEDS: Pantoprazole Sodium 20 MG Tablet PO (08:07)
[2019-04-23] MEDS: Atenolol 25 MG Tablet PO (08:08)
[2019-04-23] MEDS: Enoxaparin 40 MG/0.4 ML Syringe SC (08:08)
[2019-04-23] MEDS: Lisinopril 10 MG Tablet PO (08:10)
[2019-04-23] MEDS: Ferrous Sulfate 325 MG Tablet PO (08:10)
--- NOTE | 2019-04-23 12:08 | PCM.DC ---
- Discharge Diagnoses Current Active Problems: Current Active and Chronic Problems (Last Reviewed 04/22/19 @ 08:58 by Clifford Simental MD) Cellulitis of right leg (Acute) You will use the following diet at home:: Other - Resume previous diet Discharge Activity: - - make sure to elevate your legs when you are sitting in a chair to help keep the swelling down. Keep extremity elevated above heart level: Right Leg Call your doctor if you observe: Fever of 101 or Higher, Shortness of breath, Dizziness, Fainting spells, Swelling in the ankles, Chest pain, Uncontrolled pain, - - Call your PCP if severe diarrhea ( > 5 stools a day), painful sores in the mouth, painful swallowing, rash or itching. Taking a probiotic such as Lactobacillus or Kefir can help with loose stools while taking antibiotics. If you have vaginal itching or a white vaginal discharge you probably have a yeast infection from the antibiotics. If this happens you can orange picking supervisor Monistat vaginal cream at the drug store and you do not need a prescrition for this. The other alternative is to call your PCP and get a RX for Diflucan which is a pill you can take once to treat yeast. You do need a prescription for Diflucan to be able to get it from the pharmacy. Pending Tests on Discharge: none Allergies/Adverse Reactions: Allergies niacin Adverse Reaction (Intermediate, Verified 04/21/19 18:46) Rash REDNESS TO SKIN Medications to take at Discharge Aspirin [Lo-Dose Aspirin EC] 81 mg PO DAILY 08/09/17 Benazepril HCl [Lotensin] 10 mg PO DAILY 08/09/17 Folic Acid 800 mcg PO DAILY 08/09/17 Atenolol [Tenormin] 25 mg PO DAILY 09/02/17 Hydrochlorothiazide [Hctz] 25 mg PO DAILY 10/26/17 docusate sodium 100 mg capsule 100 mg PO DAILY PRN 03/17/18 omeprazole 20 mg capsule,delayed release 20 mg PO BID cap 03/17/18 potassium chloride 10 mEq capsule,extended release 10 meq PO DAILY 03/17/18 Acetaminophen [Tylenol] 500 - 1,000 mg PO Q6H PRN PRN 04/22/19 Ferrous Sulfate [Iron] 325 mg PO DAILY 04/22/19 Cefadroxil [Duracef] 500 mg PO BID #14 cap 04/23/19 The following prescriptions were given: Cefadroxil [Duracef] 500 mg PO BID #14 cap Transmission Status: Pending to [id number] Primary Care Physician: Jack Ernst MD [Primary Care Provider] - Please follow up with your Primary Care Physician in: 1 week Test Results: Test results from this visit will be discussed in further detail at your follow-up appointment, if applicable. Proposed Discharge Date: 04/23/19
--- NOTE | 2019-04-23 12:15 | DS.PCM_ITS ---
Discharge Date and Diagnosis - Problem List Patient Problems: Active and Suspected Problems (Last Reviewed 04/22/19 @ 08:58 by Clifford Simental MD) Cellulitis of right leg (Acute) Date of Admission: 04/21/19 Date of Discharge: 04/23/19 - Primary Discharge Diagnosis Active and Suspected Problems (Last Reviewed 04/22/19 @ 08:58 by Clifford Simental MD) Cellulitis of right leg (Acute) ANISH - resolved, more likely than not related to dehydration from HCTZ - Secondary Discharge Diagnosis Chronic Problems (Last Reviewed 04/22/19 @ 08:58 by Clifford Simental MD) Iron deficiency anemia (Chronic) Chronic GI bleeding (Chronic) Anemia (Chronic) History of total knee arthroplasty (Chronic) Benign essential hypertension (Chronic) Melanoma of skin (Chronic) Neurofibromatosis (Chronic) Hospital Course and Treatment Imaging Results: Clinical Impression(s) from Imaging Studies Venous Duplex 04/21/19 21:26 IMPRESSION: There is no evidence of deep venous fibrosis of the visualized venous structures of the right lower extremity. Electronically Signed: Serge De Oliveira MD at 22:18 EST , Service support , none Operations: None Procedures: None Summary of Care Provided: The patient is a 78 year old F with a past medical history of neurofibromatosis, chronic renal failure stage III, iron deficiency anemia, pretension, and obesity who presented to the ED at [facility] on 04/21/2019 complaining of swelling and redness of her right lower extremity. She denied fever or shaking chills. White blood cell count was elevated at 17.2 with a left shift at admission. Sed rate was 28 but the CRP was markedly elevated at 137. Lactic acid was elevated at 2.2. Creatinine was 1.44, up from 1.09 in August 2018. On physical examination there was redness, swelling and increased warmth to touch of the distal right lower extremity consistent with acute cellulitis. She was admitted to the hospital and started on Ancef. The ALEXX inhibitor was held due to acute kidney injury and she was hydrated. On 04/22/2019 the white blood cell count had decreased to 12.2 but she maintained a left shift. Following hydration the creatinine decreased to 1.04 and lisinopril was restarted for hypertension. Hydrochlorothiazide was not restarted. Since was afebrile for the duration of her hospital stay. On 04/23/19 she stated the swelling was much better and the redness was much better as well. She still had erythema of the distal RLE but, the erythema was well within the border marked at admission. There was mild increased warmth to touch and there were no openings in the skin. she was discharged home on Cefadrozil 500 mg BID for 7 days and instructed to take ALL of the medication to prevent a recurrence. She will follow up with Dr. Ernst in 1 week. Alert, sitting in the bedside recliner, legs are elevated, no apparent distress, appropriate, oriented x3 Lungs-clear to auscultation, not tachypneic, no conversational dyspnea, symmetric chest expansion Heart-irregular with controlled ventricular response, no murmurs, no gallop, normal S1, normal S2 Abdomen-obese, soft, nontender, nondistended, normal bowel sounds in all 4 quadrants, no guarding with palpation Please see above for the description of the RLE cellulitis. She has flesh colored nodules diffusely on her body due to neurofibromatosis This note was generated with [employer] dictation software. It may contain incorrect words, spelling, and punctuation that were not noted in checking the note before signing. Patient Problems: Active and Suspected Problems (Last Reviewed 04/22/19 @ 08:58 by Clifford Simental MD) Cellulitis of right leg (Acute) - Physical Exam Vitals/I&O's: Vital Signs Temp Pulse Resp BP Pulse Ox 98.4 F 89 18 113/56 L 96 04/23/19 08:05 04/23/19 08:05 04/23/19 08:05 04/23/19 08:05 04/23/19 08:05 Oxygen Delivery Method Room Air Weight: 152 lb 8.958 oz Body Mass Index (BMI) 31.8 Intake and Output for Last 24 Hours 04/21/19 04/22/19 04/23/19 23:59 23:59 23:59 Intake Total 2400 / 2400 250 / 250 Balance 2400 / 2400 250 / 250 Current Medications Acetaminophen (Tylenol) 650 mg PO Q6H PRN PRN PRN Reason: Pain Score 1-10/Temp > 100.7 F Last Admin: 04/22/19 13:46 Dose: 650 mg Documented by: Aspirin (Ecotrin) 81 mg PO DAILY [facility] Last Admin: 04/23/19 08:07 Dose: 81 mg Documented by: Atenolol (Tenormin (Beta Claudia)) 25 mg PO DAILY [facility] Last Admin: 04/23/19 08:08 Dose: 25 mg Documented by: Docusate Sodium (Colace) 100 mg PO DAILY PRN PRN PRN Reason: Constipation Enoxaparin Sodium (Lovenox) 40 mg SC DAILY [facility] Last Admin: 04/23/19 08:08 Dose: 40 mg Documented by: Ferrous Sulfate (Ferrous Sulfate) 325 mg PO DAILYCM [facility] Last Admin: 04/23/19 08:10 Dose: 325 mg Documented by: Folic Acid (Folic Acid) 1 mg PO DAILY@0800 [facility] Last Admin: 04/23/19 08:07 Dose: 1 mg Documented by: Glucagon () 1 mg IM .X1 PRN PRN Reason: Hypoglycemia Hydralazine HCl (Apresoline Iv) 5 mg IV Q4H PRN PRN PRN Reason: SBP > 160 Sodium Chloride () 250 mls @ 15 mls/hr IV .[id number] PRN PRN Reason: Saline Flush Cefazolin Sodium () 1 gm in 50 mls @ 100 mls/hr IV Q8 [facility] Last Infusion: 04/23/19 05:41 Dose: Infused Documented by: Dextrose (Dextrose 10%-Water) 250 mls @ 999 mls/hr IV .Q16M PRN; Protocol PRN Reason: HYPOGLYCEMIA Lisinopril (Zestril) 10 mg PO DAILY [facility] Last Admin: 04/23/19 08:10 Dose: 10 mg Documented by: Nutritional Formula (Lactose Free) (Ensure Enlive) 120 ml PO 4X/DAY [facility] Last Admin: 04/23/19 08:13 Dose: Not Given Documented by: Ondansetron HCl (Zofran) 4 mg IV Q8H PRN PRN PRN Reason: NAUSEA/VOMITING Pantoprazole Sodium (Protonix) 20 mg PO BID [facility] Last Admin: 04/23/19 08:07 Dose: 20 mg Documented by: Potassium Chloride (K-Dur) 10 meq PO DAILY [facility] Last Admin: 04/23/19 08:07 Dose: 10 meq Documented by: Sodium Chloride () 10 - 40 ml IV UD PRN PRN Reason: SALINE FLUSH Last Admin: 04/22/19 15:55 Dose: 10 ml Documented by: Discharge Activity: - - make sure to elevate your legs when you are sitting in a chair to help keep the swelling down. Keep extremity elevated above heart level: Right Leg Call your doctor if you observe: Fever of 101 or Higher, Shortness of breath, Dizziness, Fainting spells, Swelling in the ankles, Chest pain, Uncontrolled pain, - - Call your PCP if severe diarrhea ( > 5 stools a day), painful sores in the mouth, painful swallowing, rash or itching. Taking a probiotic such as Lactobacillus or Kefir can help with loose stools while taking antibiotics. If you have vaginal itching or a white vaginal discharge you probably have a yeast infection from the antibiotics. If this happens you can waste picker Monistat vaginal cream at the drug store and you do not need a prescrition for this. The other alternative is to call your PCP and get a RX for Diflucan which is a pill you can take once to treat yeast. You do need a prescription for Diflucan to be able to get it from the pharmacy. Home Medications: Medications to take at Discharge Aspirin [Lo-Dose Aspirin EC] 81 mg PO DAILY 08/09/17 Benazepril HCl [Lotensin] 10 mg PO DAILY 08/09/17 Folic Acid 800 mcg PO DAILY 08/09/17 Atenolol [Tenormin] 25 mg PO DAILY 09/02/17 Hydrochlorothiazide [Hctz] 25 mg PO DAILY 10/26/17 docusate sodium 100 mg capsule 100 mg PO DAILY PRN 03/17/18 omeprazole 20 mg capsule,delayed release 20 mg PO BID cap 03/17/18 potassium chloride 10 mEq capsule,extended release 10 meq PO DAILY 03/17/18 Acetaminophen [Tylenol] 500 - 1,000 mg PO Q6H PRN PRN 04/22/19 Ferrous Sulfate [Iron] 325 mg PO DAILY 04/22/19 Cefadroxil [Duracef] 500 mg PO BID #14 cap 04/23/19 Following Prescrptions Were Given to Patient: Cefadroxil [Duracef] 500 mg PO BID #14 cap Transmission Status: Pending to [facility] Primary Care Physician: Jack Ernst MD [Primary Care Provider] - Please follow up with your Primary Care Physician in: 1 week Minutes spent on discharge:: 30 Patient Condition:: Good Medical Necessity - Tobacco Use Smoking Status: Never smoker Tobacco Use: Non-smoker Meaningful Use Info Meaningful Use Diagnoses (Choose all that apply): None applicable Code Visit Inpatient E&M: 18315 Disch Hosp
--- NOTE | 2019-04-24 14:59 | CASEMGMT ---
RN SANDEE BARKSDALE PHONE CALL DC DATE: 04.21.2019 DC Disposition: Home Diagnosis on Discharge: Cellulitis R leg LACE/STRATA: 12/20 Intro role of CM to patient via phone. Pt states she is doing well, no concerns re: medications, f/u or instructions. No care improvement suggestions were given. Aida RHODESN RN ACM
== END 2019-04-23 12:47 | disposition home or self-care (01) | DRG 603 ==
LOC: ED 23:59 → MS3 04-22 01:24
PROVIDERS: Admitting Provider Hospitalist; Emergency Provider Emergency Medicine; Family Provider Family Medicine; PCP Family Medicine; Visit Provider Internal Medicine
DX: L03.115 Cellulitis of right lower limb (principal); N17.9 Acute kidney failure, unspecified; Q85.00 Neurofibromatosis, unspecified; I10 Essential (primary) hypertension; D50.9 Iron deficiency anemia, unspecified
CPT/HCPCS: 80048; 83605; 85025; 85652; 86140; 93971; 97161; 97165; 97802; 99284; J7030; A4216

== ENCOUNTER 2022-06-12 09:53 | Emergency (ER) | payer MEDICARE, SELFPAY ==
[2022-06-12 09:54] VITALS: BP 145/89; PULSE 81; RESP 18; TEMP 36.2; O2SAT 95
[2022-06-12 10:01] VITALS: BMI 31.1
--- NOTE | 2022-06-12 10:18 | VDLE_ITS ---
Reason For Study: LEG PAIN RIGHT LEFT CFV is compressible, spontaneous, competent CFV is compressible, spontaneous, competent, and demonstrates pulsatile venous flow. and demonstrates pulsatile venous flow. FV is compressible, spontaneous, competent and demonstrates pulsatile venous flow. POP V is compressible, spontaneous, competent and demonstrates pulsatile venous flow. T/P Trunk is compressible. PTV is compressible. RT PerV is compressible. Edema noted in Rt calf. Procedure This is a venous duplex using B-mode, color flow and spectral Doppler. Exam performed portable in ED. The exam was diagnostic. A preliminary report was called and/or faxed to ED RN responsible for patient. VL/Venous Duplex US, Unilateral Interpretation Summary There is no evidence of right lower extremity deep vein thrombosis. Right great saphenous vein appears patent and compressible segmentally. Normal flow patterns left common f emoral vein Pulsatile venous flow was noted bilaterally consistent with proximal venous hyp ertension or obstruction Ordering Physician: Esperanza Mack Referring Physician: MD Jack Ernst Performed By: Arnaldo Gaming RVT
--- NOTE | 2022-06-12 10:33 | EDS_ITS ---
HPI History of Present Illness Chief Complaint: Lower Extremity Injury Informant: patient Narrative Narrative: Patient is an 81-year-old female with history of cellulitis of her lower extremities, chronic lymphedema and neurofibromatosis presenting with increased pain and redness of her right foot. She states that started yesterday. Feels like her prior cellulitis. Is worse when she tries to move her foot or walk on it. Denies any associated trauma. Denies any systemic symptoms including fever, chills, nausea, vomiting or generalized malaise. Does not follow with podiatry. Denies any other complaints at this time. Denies any history of DVT or PE. Is not on any blood thinners. [facility] Medical History (Updated 06/12/22 @ 12:[address] Esperanza Mack, ) Anemia Benign essential hypertension Common bile duct dilatation Constipation Hypertension Melanoma of skin Neurofibromatosis Weight loss Home Medications Folic Acid 800 mcg PO DAILY supplement 08/09/17 [History Last Taken 04/21/19] aspirin 81 mg tablet,delayed release 81 mg PO DAILY heart health 08/09/17 [History Last Taken 04/21/19] benazepril 20 mg tablet 10 mg PO DAILY HTN 08/09/17 [History Last Taken 04/21/19] atenolol 25 mg tablet 25 mg PO DAILY HTN 09/02/17 [History Last Taken 04/21/19] hydrochlorothiazide 25 mg tablet 25 mg PO DAILY diuretic 10/26/17 [History Last Taken 04/21/19] docusate sodium 100 mg capsule 100 mg PO DAILY PRN Constipation 03/17/18 [History Last Taken Unknown] omeprazole 20 mg capsule,delayed release 20 mg PO BID GERD 03/17/18 [History Last Taken 04/21/19] potassium chloride 10 mEq capsule,extended release 10 meq PO DAILY supplement 03/17/18 [History Last Taken 04/21/19] acetaminophen 500 mg tablet 500 - 1,000 mg PO Q6H PRN PRN Pain Or Fever 04/22/19 [History Last Taken Unknown] ferrous sulfate 325 mg (65 mg iron) tablet 325 mg PO DAILY supplement 04/22/19 [History Last Taken 04/21/19] cefadroxil 500 mg capsule 500 mg PO BID #14 caps 04/23/19 [Rx Last Taken Unknown] cephalexin 500 mg capsule 500 mg PO Q6 #40 CAPSULES 06/12/22 [Rx Last Taken Unknown] Allergy/AdvReac Type Severity Reaction Status Date / Time niacin AdvReac Intermediate Rash Verified 04/21/19 18:46 Family History Father Heart disease Lung disease Alcohol abuse Sister Brain tumor Non-Hodgkin lymphoma Grandmother Stomach cancer Mother Cancer Surgical History History of appendectomy History of bilateral knee replacement History of cholecystectomy History of melanoma excision History of total knee arthroplasty Social History Smoking Status: Never smoker alcohol intake: never substance use type: does not use ROS ROS ED Constitutional Constitutional ED: Denies chills or fever(s) Cardiovascular Cardiovascular: Denies chest pain Respiratory/Chest Respiratory/Chest: Denies dyspnea Gastrointestinal Gastrointestinal: Denies nausea or vomiting Musculoskeletal Musculoskeletal: Reports other Details: right foot pain Integumentary Reports rash Neurologic Neurologic: Denies paresthesias or weakness Hematologic/Lymphatic Hematologic/Lymphatic: Denies easy bleeding or easy bruising EXAM Physical Exam Const Vital Signs: 06/12/22 09:54 Temperature 97.2 F L Temperature Source Temporal Pulse Rate 81 Respiratory Rate 18 Blood Pressure 145/89 H Blood Pressure Mean 107 Pulse Ox 95 Oxygen Delivery Method Room Air Positive well nourished and well developed General Appearance ED: well developed and NAD HEENT Reports moist mucous membranes normocephalic and atraumatic Neck Neck Narrative: Slight torticollis of the left neck which appears to be patient's baseline Chest Wall inspection of chest normal Resp normal respiratory effort and clear to auscultation bilaterally Cardio regular rate, regular rhythm and no murmurs Extremity Extremity Narrative: Nonpitting bilateral pedal edema. Range of motion intact patient is some mild tenderness. No significant pinpoint bony tenderness. No joint effusions appreciated. Neuro oriented x3 and moves all extremities Motor Exam: Negative for general weakness Psych mental status grossly normal Skin Skin Narrative: Multiple nodules throughout the patient's body consistent with her history of neurofibromatosis. Erythema of the dorsum of the right foot centered around the first through third MCP joint with associated warmth. No associated lymphangitic streaking. There is also mild area of erythema of the right distal forbes on the anterior aspect. No blistering or drainage appreciated. No area of fluctuance. No significant induration. MDM MDM MDM Narrative Medical decision making narrative: Patient is evaluated for 1 day of redness and increased pain of her right lower extremity. Differential includes cellulitis, DVT, trauma and gout. Patient does not have pain with light touch or pain on proportion so I have a lower suspicion for acute gouty arthritis. She denies any trauma so do not think imaging is indicated. Venous duplex obtained which is negative for DVT. Will be started on Keflex. No abscess or purulent drainage to lower suspicion for MRSA. Patient is given referral for podiatry. Is counseled on elevation and using compression stockings. Given return precautions. As patient has no systemic symptoms and overall is well-appearing with normal vital signs I do not think lab work is indicated. Patient agreeable plan of care and is eager to go home. Radiography Diagnostic Testing: Clinical Impression(s) from Imaging Studies Venous Doppler Study 06/12/22 10:18 Interpretation Summary There is no evidence of right lower extremity deep vein thrombosis. Right great saphenous vein appears patent and compressible segmentally. Normal flow patterns left common femoral vein Pulsatile venous flow was noted bilaterally consistent with proximal venous hypertension or obstruction Ordering Physician: Esperanza Mack Referring Physician: MD Klever Jack Performed By: Arnaldo Gaming RVT Discharge Plan Triage Chief Complaint: Lower Extremity Injury ED Provider: Esperanza Mack Dx/Rx/DC Orders Clinical Impression: Cellulitis of right leg, Pain and swelling of right lower leg Instructions: ED Cellulitis Prescriptions: New cephalexin 500 mg capsule 500 mg PO Q6 Qty: 40 0RF No Action potassium chloride 10 mEq capsule, extended release 10 meq PO DAILY docusate sodium 100 mg capsule 100 mg PO DAILY PRN (Reason: Constipation) aspirin 81 MG tablet,delayed release (DR/EC) 81 mg PO DAILY Label Comments: will stop 5 days prior benazepril 20 MG tablet 10 mg PO DAILY Folic Acid 800 mcg PO DAILY atenolol 25 MG tablet 25 mg PO DAILY hydrochlorothiazide 25 MG tablet 25 mg PO DAILY omeprazole 20 mg capsule,delayed release(DR/EC) 20 mg PO BID acetaminophen 500 MG tablet 500 - 1,000 mg PO Q6H PRN PRN (Reason: Pain Or Fever) ferrous sulfate 325 MG tablet 325 mg PO DAILY cefadroxil 500 MG capsule 500 mg PO BID Qty: 14 0RF Primary Care Provider: Jack Ernst Referrals: Suleman Andino DPM [Med Staff - Active Staff] - 2 Days for wound check Jack Ernst MD [Primary Care Provider] - Activity Restrictions/Additional Instructions: Take Tylenol as needed for pain. Use compression stockings as we discussed and try to elevate your leg is much as possible. Especially after 2 days if you have progression or worsening of your symptoms please return to the emergency room. Disposition Disposition: Home, Self Care Discharge Date/Time: 06/12/22 12:31
[2022-06-12] MEDS: Cephalexin 250 MG Capsule 500 MG PO (12:19)
== END 2022-06-12 12:31 | disposition home or self-care (01) ==
PROVIDERS: Emergency Provider Emergency Medicine; PCP Family Medicine; Visit Provider Emergency Medicine
DX: L03.115 Cellulitis of right lower limb (principal); M79.604 Pain in right leg; I10 Essential (primary) hypertension; M79.89 Other specified soft tissue disorders; M79.671 Pain in right foot; Z79.82 Long term (current) use of aspirin; Z79.899 Other long term (current) drug therapy; D64.9 Anemia, unspecified
CPT/HCPCS: 93971; 99283; A4216

== ENCOUNTER 2024-06-01 11:31 | Observation (INO) | payer MEDICARE, SELFPAY ==
[2024-06-01 11:32] VITALS: BP 131/82; PULSE 83; RESP 18; TEMP 36.4; O2SAT 96; BMI 26.9
--- NOTE | 2024-06-01 11:47 | CT_ITS ---
EXAM: BRAIN/HEAD WITHOUT CONTRAST CLINICAL HISTORY: Head injury due to a fall. COMPARISON: None. TECHNIQUE: Multiple axial tomographic images were obtained without intravenous contrast administration. Coronal and sagittal reconstruction were obtained as well. FINDINGS: There is evidence of hematoma within the soft tissues overlying the left frontal parietal bone in keeping with history of trauma. No skull fracture is seen. There is evidence of cerebral atrophy with decreased attenuation the periventricular white matter bilaterally suggestive of chronic ischemic change. Focal encephalomalacia is seen in the region of the right temporal lobe in keeping with prior infarct. 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 CT/Brain/Head without Contrast IMPRESSION: Scalp hematoma overlying the left frontal parietal bones. Cerebral atrophy. Reading Location: [place] [id number]
--- NOTE | 2024-06-01 11:47 | CT_ITS ---
PROCEDURE: SPINE THORACIC WITHOUT CONTRAS REASON FOR EXAM: Back pain following a fall. TECHNIQUE: Thoracic spine CT without contrast. COMPARISON: None. FINDINGS: Alignment: Normal. Bones: Diffuse osteopenia of the thoracic vertebrae. Findings suggestive of hemangioma of the T5 vertebrae. Multilevel disc space narrowing and disc degeneration and anterior spondylosis. Fusion at the T8-T9 level. Soft Tissues: Atherosclerotic calcification of the thoracic aorta. Coronary artery calcification. Bibasilar atelectasis slightly worse on the right side. Other: Visualized portions of the lungs are unremarkable. CT/Spine Thoracic without Contras IMPRESSION: NO ACUTE THORACIC FRACTURE. DEGENERATIVE CHANGES. One or more dose reduction techniques were used (e.g., Automated exposure contr ol, adjustment of the mA and/or kV according to patient size, use of iterative reconstruction technique). Reading Location: [place] [id number]
--- NOTE | 2024-06-01 11:47 | CT_ITS ---
PROCEDURE: SPINE CERVICAL WITHOUT CONTRAS REASON FOR EXAM: Head and neck injury due to a fall. TECHNIQUE: Cervical spine CT without contrast. Coronal and sagittal reconstruction was obtained as well. COMPARISON: None. FINDINGS: Alignment: There is grade 2 anterior listhesis of C4 on C5 most likely secondary to facet joint osteoarthritis. Vertebrae: No acute fracture C2-C3 level: Disc space narrowing. Facet joint osteoarthritis and hypertrophy worse on the right side. No significant stenosis seen. C3-C4: Moderate degree of disc space narrowing and spondylosis. Facet joint osteoarthritis and hypertrophy worse on the left side. C4-C5: Marked degree of disc space narrowing. Grade 2 anterior listhesis of C4 on C5. No evidence of fracture. Facet joint osteoarthritis and hypertrophy worse on the left side. C5-C6: Marked degree of disc space narrowing. Mild degree of bilateral neural foraminal stenosis. C6-C7 level. Marked degree of disc space narrowing. Soft Tissues: Calcification of the carotid bifurcations bilaterally. CT/Spine Cervical without Contras IMPRESSION: Multilevel disc space narrowing and facet joint osteoarthritis and anterior lis thesis of C4 on C5. No acute fracture is seen. One or more dose reduction techniques were used (e.g., Automated exposure contr ol, adjustment of the mA and/or kV according to patient size, use of iterative reconstruction technique). Reading Location: [place] [id number]
--- NOTE | 2024-06-01 11:47 | CT_ITS ---
PROCEDURE: SPINE LUMBAR WITHOUT CONTRAST REASON FOR EXAM: Back injury due to a recent fall. TECHNIQUE: Lumbar spine CT without contrast. Coronal and sagittal reconstruction was obtained as well. COMPARISON: None. FINDINGS: Vertebrae: Normal lumbar vertebral body heights. No evidence of fracture. No spondylolysis. Alignment: Grade 1 anterior listhesis of L5 on S1. L1-2: Mild degree of disc space narrowing. No significant stenosis seen. L2-3: Mild degree of disc space narrowing. L3-4: Mild degree of facet joint osteoarthritis and hypertrophy of the ligamentum flava. Mild bilateral neural foraminal stenosis worse on the right side. L4-5: Grade 1 anterior listhesis of L4 on L5. Facet joint osteoarthritis and hypertrophy. Disc space narrowing in this degeneration. Facet joint osteoarthritis and hypertrophy. L5-S1: Marked degree of disc space narrowing and disc degeneration. Grade 1 to grade 2 anterior listhesis of L5 on S1. Spondylolysis of the L5 pars interarticularis. Sacrum: Visualized upper sacrum and SI joints are unremarkable. Visualized retroperitoneal structures are unremarkable. Calcification of the abdominal aorta. CT/Spine Lumbar without Contrast IMPRESSION: LUMBAR DEGENERATIVE DISC AND FACET DISEASE. Anterior listhesis of L4 on L5 and L5-S1. 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 One or more dose reduction techniques were used (e.g., Automated exposure contr ol, adjustment of the mA and/or kV according to patient size, use of iterative reconstruction technique). Reading Location: [place] [address]
--- NOTE | 2024-06-01 11:47 | RAD_ITS ---
PROCEDURE: TIBIA FIBULA 2 VIEWS REASON FOR EXAM: Injury. TECHNIQUE: AP and lateral left tibia and fibula COMPARISON: None provided.. RAD/Tibia & Fibula 2 Views IMPRESSION: Prominent arterial calcification is seen. Partially visualized left total knee prosthesis without apparent complication. Loose intra-articular body may be present posteriorly. The left ankle demonstrates mild degenerative changes. Normal contour of the Achilles tendon is seen on lateral view. No acute fracture or dislocation is seen. If clinical concern persists, short-term follow-up imaging may be obtained to r ule out a currently occult fracture. Reading Location: [id number]
--- NOTE | 2024-06-01 11:47 | RAD_ITS ---
EXAM: FEMUR MIN 2 VIEWS CLINICAL HISTORY: Pain following a fall. COMPARISON: None. TECHNIQUE: Four views were obtained. FINDINGS: The patient is status post total knee replacement. There is good alignment. No acute fracture or dislocation is seen. RAD/Femur Min 2 Views IMPRESSION: No acute fracture or dislocation is seen. Patient is status post left knee replacement. Reading Location: [place] [address]
--- NOTE | 2024-06-01 11:47 | RAD_ITS ---
EXAM: HAND MIN 3 VIEWS CLINICAL HISTORY: Pain following injury. COMPARISON: None. TECHNIQUE: Four views were obtained. FINDINGS: Degenerative changes of the 1st carpometacarpal joint. Joint space narrowing in the proximal and distal interphalangeal joints suggestive of osteoarthritis. Soft tissue laceration overlying the distal phalanges of the 2nd and 3rd digits. Diffuse soft tissue swelling. RAD/Hand Min 3 Views IMPRESSION: Degenerative changes as described. Laceration overlying the distal phalanges of the 2nd and 3rd digits. Diffuse soft tissue swelling. Reading Location: [place] [id number]
--- NOTE | 2024-06-01 11:49 | EX.ED.GENINJ ---
HPI History of Present Illness Chief Complaint: Laceration Informant: patient and family Narrative Narrative: Brought in by EMS from home mechanical fall, head injury. Patient takes baby aspirin. Tetanus in last 5 years. Reports headache. Also bruising left knee /leg. Reports right thumb pain. She tripped over her cane coming on the house. She was going to lunch. Bilateral total knee arthroplasty in the past. Tetanus Immunization: <5 years [facility] Medical History (Updated 06/01/24 @ 17:[address] Kassandra Elizabeth DO) Constipation Common bile duct dilatation Weight loss Anemia Neurofibromatosis Melanoma of skin Hypertension Benign essential hypertension Home Medications ?Medication ?Instructions ?Recorded ?Last Taken ?Type aspirin 81 mg tablet,delayed 81 mg PO DAILY heart health 08/09/17 06/01/24 History release benazepril 20 mg tablet 10 mg PO DAILY HTN 08/09/17 06/01/24 History atenolol 25 mg tablet 25 mg PO DAILY HTN 09/02/17 06/01/24 History hydrochlorothiazide 25 mg tablet 25 mg PO DAILY diuretic 10/26/17 06/01/24 History docusate sodium 100 mg capsule 100 mg PO DAILY PRN Constipation 03/17/18 Unknown History omeprazole 20 mg capsule,delayed 20 mg PO BID GERD 03/17/18 06/01/24 History release potassium chloride 10 mEq 10 meq PO DAILY supplement 03/17/18 06/01/24 History capsule,extended release acetaminophen 325 mg tablet 325 mg PO DAILY PRN pain 06/01/24 Unknown History folic acid 800 mcg tablet 800 mcg PO DAILY 06/01/24 06/01/24 History mupirocin 2 % topical ointment 1 applic topical DAILY 06/01/24 06/01/24 History (Sukhdevany) Allergy/AdvReac Type Severity Reaction Status Date / Time niacin AdvReac Intermediate Rash Verified 06/01/24 11:32 Family History Father Heart disease Lung disease Alcohol abuse Sister Brain tumor Non-Hodgkin lymphoma Grandmother Stomach cancer Mother Cancer Surgical History History of melanoma excision History of cholecystectomy History of bilateral knee replacement History of appendectomy History of total knee arthroplasty Social History Smoking Status: Never smoker alcohol intake: never substance use type: does not use ROS ROS ED Constitutional Constitutional ED: Denies chills, fever(s) or sweats ENT ENT ED: Denies sore throat Cardiovascular Cardiovascular: Denies chest pain, leg edema, palpitations or racing heartbeat Respiratory/Chest Respiratory/Chest: Denies cough, dyspnea or dyspnea on exertion Gastrointestinal Gastrointestinal: Denies abdominal pain, diarrhea, nausea or vomiting Genitourinary Genitourinary ED: Denies dysuria, hematuria or urinary frequency Musculoskeletal Musculoskeletal: Reports extremity pain; Denies back pain or neck pain Integumentary Reports wounds; Denies rash Neurologic Neurologic: Reports headache(s); Denies paresthesias or weakness EXAM Physical Exam Const Vital Signs: 06/01/24 11:32 06/01/24 13:31 06/01/24 15:37 Temperature 97.6 F L Temperature Source Oral Pulse Rate 83 85 93 Respiratory Rate 18 16 20 H Blood Pressure 131/82 H 123/77 H 109/58 L Blood Pressure Mean 98 92 75 Pulse Ox 96 93 97 Oxygen Delivery Method Room Air Room Air Room Air 06/01/24 17:12 Temperature Temperature Source Pulse Rate 84 Respiratory Rate 30 H Blood Pressure 109/72 Blood Pressure Mean 84 Pulse Ox 98 Oxygen Delivery Method Room Air Positive well nourished and well developed Constitutional Narrative: GCS 15. General Appearance ED: well developed and NAD HEENT Reports moist mucous membranes HEENT Narrative: Dressing placed from the forehead, a total of 12 cm area of flap laceration left frontal area bleeding controlled with pressure. normocephalic and atraumatic Eyes General Eye ED: Yes normal appearance of both eyes Neck full ROM Chest Wall Chest: Negative for tenderness Resp normal respiratory effort and normal air movement Effort and Inspection: symmetric chest movement; Negative for respiratory distress Cardio regular rate, regular rhythm and no murmurs Peripheral Pulses: pulses 2+ throughout GI normal to inspection, nondistended, normoactive bowel sounds and non-tender Palpation: Negative for guarding or rebound tenderness present Back/Spine Back/Spine Narrative: Kyphosis thoracic spine tender palpation lower thoracic region. No step-offs. Extremity Extremity Narrative: Lower extremities negative logroll bilaterally. Bilateral scarring of both knees. Left lower leg: Ecchymosis medial aspect of the left knee. No deformities tender palpation proximal leg. Soft compartments. Pulses intact distally. Right upper extremity: Tender palpation at the MCP of the thumb no deformities. Full range of motion of the digits. General Extremety ED: Yes tenderness; Negative for edema General Extremity: Negative for edema Neuro oriented x3, CN's II-XII intact bilaterally and no sensory deficits noted Sensorium / Orientation: awake and alert Skin Skin Narrative: See above MDM MDM MDM Narrative Medical decision making narrative: Interventions / MDM: Differential diagnosis: Fall, scalp laceration, closed head injury, unstable gait Diagnosis considered but do not suspect: Intracranial hemorrhage however CT negative. My EKG interpretation: N/A Imaging independently reviewed and interpreted by myself: 2 view left femur: No fracture noted. 2 view left tib-fib: No fracture. 3 view right hand: No fracture. Also read by radiology. CT brain/cervical spine/thoracic lumbar spine: No intracranial hemorrhage no fracture degenerative changes noted of the spine. Patient repeat CT brain: No acute process External documents reviewed: N/A Test considered but not ordered:N/A ED course: Patient mechanical fall head injury stellate complex laceration left frontal. Pain thoracic on palpation pain to the knee and lower leg with history of prosthesis. Trauma scans head neck thoracic lumbar spine. X-ray left femur left lower leg ordered. Right hand x-ray ordered. Trauma scans all negative. X-rays were negative. Procedure note: Laceration repair: Normal sterile conditions. Total 8 cc local analgesia with 1% lidocaine without epinephrine used. Initial upper laceration repair using a total of 9, 4-0 nylon simple interrupted sutures. Additional 4, 5-0 nylon interrupted sutures repaired of the wound using the flap. Good approximation of the wound was performed. Hemostasis achieved. Patient tolerated procedure well. Bacitracin placed over the wound. 1530: Interim attempted ambulation the patient, per nursing with a cane she is unsteady going to the restroom. In the restroom she had bleeding from her fingertips he is trying to clean it she fell backwards hitting her head. She was brought back by wheelchair. She denies any worsening headache. There was small avulsions of the tips of the second and third digits with no active bleeding with dressing placed. With recurrent head injury, will reCT her brain. Will check labs. Nursing felt she is too unsteady to be at home she lives alone. Will plan for admission. 1645: I reviewed the CT brain, no intra hemorrhage noted. Labs are stable. Will discuss with hospitalist for admission. I spoke with Dr. Kassandra Elizabeth for admission. Re-evaluation: stable Disposition discussed with patient/family/significant other: Patient and family Case discussed with consulting clinician: Hospitalist This note was generated with [employer] dictation software. It may contain incorrect words, spelling, and punctuation that were not noted in checking the note before signing. Lab Data Attestation: I reviewed the patient's lab results. Labs: Laboratory Results - last 24 hr 06/01/24 16:00 WBC 7.9 RBC 4.01 L Hgb 11.3 L Hct 36.3 L MCV 90.5 MCH 28.2 MCHC 31.1 L RDW Std Deviation 46.0 H RDW Coeff of Bam 13.8 Plt Count 205 MPV 10.6 Immature Gran % (Auto) 1.400 H Neut % (Auto) 78.5 H Lymph % (Auto) 9.7 L [place] % (Auto) 9.1 Eos % (Auto) 1.0 Baso % (Auto) 0.3 Absolute Neuts (auto) 6.2 Absolute Lymphs (auto) 0.77 L Nucleated RBC % 0 PT 14.5 INR 1.1 APTT 26.3 Sodium 140 Potassium 4.4 Chloride 112 H Carbon Dioxide 23.0 Anion Gap 5 BUN 31 H Creatinine 1.02 Estim Creat Clear Calc 32.86 Est GFR (MDRD) Af Amer 66 Est GFR (MDRD) Non-Af 55 L BUN/Creatinine Ratio 30.4 H Glucose 116 H Calcium 9.0 Radiography Diagnostic Testing: Clinical Impression(s) from Imaging Studies Brain CT 06/01/24 11:47 IMPRESSION: Scalp hematoma overlying the left frontal parietal bones. Cerebral atrophy. Reading Location: [facility] 06/01/24 11:47 IMPRESSION: Multilevel disc space narrowing and facet joint osteoarthritis and anterior listhesis of C4 on C5. No acute fracture is seen. One or more dose reduction techniques were used (e.g., Automated exposure control, adjustment of the mA and/or kV according to patient size, use of iterative reconstruction technique). Reading Location: [facility] Femur X-Ray 06/01/24 11:47 IMPRESSION: No acute fracture or dislocation is seen. Patient is status post left knee replacement. Reading Location: [facility] Hand X-Ray 06/01/24 11:47 IMPRESSION: Degenerative changes as described. Laceration overlying the distal phalanges of the 2nd and 3rd digits. Diffuse soft tissue swelling. Reading Location: [facility] 06/01/24 11:47 IMPRESSION: LUMBAR DEGENERATIVE DISC AND FACET DISEASE. Anterior listhesis of L4 on L5 and L5-S1. Spondylolysis of the pars interarticularis of the L5 vertebrae. One or more dose reduction techniques were used (e.g., Automated exposure control, adjustment of the mA and/or kV according to patient size, use of iterative reconstruction technique). Reading Location: [facility] 06/01/24 11:47 IMPRESSION: NO ACUTE THORACIC FRACTURE. DEGENERATIVE CHANGES. One or more dose reduction techniques were used (e.g., Automated exposure control, adjustment of the mA and/or kV according to patient size, use of iterative reconstruction technique). Reading Location: [facility] Tibia/Fibula X-Ray 06/01/24 11:47 IMPRESSION: Prominent arterial calcification is seen. Partially visualized left total knee prosthesis without apparent complication. Loose intra-articular body may be present posteriorly. The left ankle demonstrates mild degenerative changes. Normal contour of the Achilles tendon is seen on lateral view. No acute fracture or dislocation is seen. If clinical concern persists, short-term follow-up imaging may be obtained to rule out a currently occult fracture. Reading Location: [id number] Discharge Plan Dx/Rx/DC Orders Clinical Impression: CHI (closed head injury), Fall, Complex laceration of scalp, Sprain of hand, thumb, right, Contusion of knee, left, Unstable gait Disposition Disposition: Acute Care Hospital [facility]
[2024-06-01] MEDS: Lidocaine 1% (20 ml mdv) 20 ML Vial INFILT (11:57)
[2024-06-01] MEDS: Acetaminophen 500 MG Tablet 1000 MG PO ×2 (13:12→20:30)
[2024-06-01 13:31] VITALS: BP 123/77; PULSE 85; RESP 16; O2SAT 93
--- NOTE | 2024-06-01 15:14 | EKG12_ITS ---
Test Reason : Blood Pressure : */* mmHG Vent. Rate : 75 BPM Atrial Rate : * BPM P-R Int : * ms QRS Dur : 66 ms QT Int : 418 ms P-R-T Axes : * -17 4 degrees QTcB Int : 466 ms Atrial fibrillation Inferior infarct , age undetermined Cannot rule out Anterior infarct , age undetermined Abnormal ECG Confirmed by ELFEGO CUEVAS, MIGUELITO ([id number]), metropolitan editor LILLIAM BAUMANN ([id number]) on 06/05/2024 8:10:26 AM Referred By: Confirmed By: MIGUELITO TELLES MD
--- NOTE | 2024-06-01 15:16 | ED.RN ---
THIS RN WALKED PATIENT TO BATHROOM PER DR. KLINE'S ORDER. DEBO RN HEARD A TRASHCAN FALL IN BATHROOM AND FOUND PATIENT ON FLOOR. PATIENT ALERT AND ORIENTED. PT DENIES INJURY OR PAIN. PT DENIES LOC. PT INFORMS NURSE THAT SHE TURNED TO GET A PAPER TOWEL, LETTING GO OF CANE. PT STATES SHE LOST BALANCE AND FELL BACKWARDS, LANDING ON BUTTOCKS. SHE STATES SHE MAY HAVE HIT HER HEAD LIGHTLY ON THE TRASH CAN BUT DENIES INCREASING HEADACHE. PATIENT ASSISTED TO BATHROOM AND TAKEN BACK TO ROOM IN WHEELCHAIR. VITALS STABLE WITH BP 113/74, HR 78, RR 14, AND SPO2 97% ON RA. MD AWARE. PER FAMILY, THERE HAS BEEN AN INCREASE IN FALLS AT HOME. PT DOES LIVE BY HERSELF AT HOME. PT HAD AN UNSTEADY GAIT WHEN WALKING.
--- NOTE | 2024-06-01 15:31 | CT_ITS ---
EXAM: BRAIN/HEAD WITHOUT CONTRAST CLINICAL HISTORY: 83-year-old female, head injury, fell and hit head. COMPARISON: CT head earlier same day at 12:03 p.m. MRI head 08/12/2017. TECHNIQUE: Routine CT imaging of the head without IV contrast. Additional multiplanar reformats were obtained. Dose reduction techniques were used including intermediate exposure control (AEC),iterative reconstruction technique, and/or mA and/or KV dose adjustments based on patient's size. FINDINGS: Moderate generalized cerebral and cerebellar volume loss with concordant prominence of the ventricles and subarachnoid spaces. Patchy supratentorial white matter hypodensities. Small lacunar type infarcts within the bilateral caudate heads and right basal ganglia. 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 The christianson-white matter interfaces are otherwise maintained. No acute intracranial hemorrhage or herniation. Large laceration and hematoma overlying the left frontoparietal scalp. The mastoids and visualized paranasal sinuses are well-aerated. The orbits are unremarkable. CT/Brain/Head without Contrast IMPRESSION: 1. Stable large laceration and hematoma overlying the left frontoparietal scalp . 2. No acute intracranial hemorrhage or herniation. 3. Unchanged findings of chronic microvascular ischemic changes and age-related changes as described. Reading Location: [id number]
[2024-06-01 15:37] VITALS: BP 109/58; PULSE 93; RESP 20; O2SAT 97
[2024-06-01 16:19] LABS: Absolute Lymphocyte Count 0.77 X10^3/uL (0.83-4.51); Absolute Neutrophil Count 6.2 X10^3/uL (2.0-7.7); Basophil# 0.02 X10^3/uL; Basophil% 0.3 % (0-1); Eosinophil# 0.08 X10^3/uL; Hematocrit 36.3 % (37-47); Hemoglobin 11.3 g/dL (12.0-15.0); Lymphocyte # 0.77 X10^3/ul (0.83-4.51); Lymphocyte % 9.7 % (19-41); Mean Corp Hgb Conc 31.1 g/dL (32-36); Mean Corpuscular Hgb 28.2 pg (27.0-32.0); Mean Corpuscular Volume 90.5 fL (81-99); Mean Platelet Vol. 10.6 fl (6.2-12.0); Monocyte# 0.72 X10^3/uL; Monocyte% 9.1 % (0-10); NRBC Flagged by Analyzer 0 % (0-5); Neutrophil # 6.24 X10^3/uL (2.7-7.7); Neutrophil % 78.5 % (47-70); Platelet Count 205 K/mm3 (150-450); RBC Distribution Width CV 13.8 % (11.6-14.6); Red Blood Count 4.01 M/mm3 (4.2-5.4); White Blood Count 7.9 K/mm3 (4.4-11.0)
[2024-06-01 16:25] LABS: International Normalized Ratio 1.1; Prothrombin Time (Protime)PT. 14.5 SECONDS (11.7-14.9)
[2024-06-01 16:30] LABS: Partial Thromboplast Time 26.3 Seconds (24.1-36.2)
[2024-06-01 16:34] LABS: Anion Gap 5 (5-15); BUN 31 mg/dL (7-18); BUN/Creat Ratio 30.4 RATIO (10-20); Chloride 112 mmol/L (98-107); Creatinine, Serum 1.02 mg/dL (0.55-1.02); EST Glomerular Filtration Rate 55 mL/min (>60); Est Glom Filt Rate - Afr Amer 66 mL/min (>60); Estimated Creatinine Clearance 32.86 ml/min; Glucose 116 mg/dL (74-106); Potassium 4.4 mmol/L (3.5-5.1); Sodium Level 140 mmol/L (136-145)
--- NOTE | 2024-06-01 17:11 | PCM.HP.STD ---
HPI - General General Date of Admission: 06/01/24 Date of Service: 06/01/24 Chief Complaint: Falls/gait instability HPI Narrative DENNISE ROBLEDO, is a 83 F who presented to the emergency department at [facility] on 06/01/2024 after sustaining a mechanical fall at home. She states she was on her ramp and is at baseline either uses a walker or a quad cane. At that time she was using her quad cane and tripped on it and fell forward. She hit her head and had multiple other injuries falling on both knees left greater than right and had pain in her right thumb. She has not been having frequent falls at home. She then was taken to the bathroom in the emergency department and fell in the bathroom. She states typically she uses a quad cane and they did not give her that in the emergency department and she lost her balance and fell there to. She did not initially want to be admitted however family was concerned about taking her home given the 2 falls she had a day and the pain she may have tomorrow and later tonight. She has been feeling well otherwise and not having any problems with any mobility issues other than her baseline gait instability for which she uses assistive device. She has had no systemic symptoms and denies any fever or chills. Vital signs on presentation showed temperature of 97.6, heart rate 83, respiratory rate 18, blood pressure is 131/82 and pulse ox was 96% on room air. CBC was unremarkable with the chronic stable anemia having a hemoglobin of 11.3. Coags are normal. Chemistry panel was unremarkable. Extensive imaging was performed due to the nature of her presentation. CT of the scalp showed a hematoma overlying the left parietal and frontal bones with cerebral atrophy but was otherwise unremarkable. CT of the cervical spine showed multilevel disc narrowing with arthritis and anterior listhesis of C4 and C5 but no acute fractures. Thoracic spine CT showed no acute abnormalities. 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 Femoral fracture shows no acute fracture or dislocation status post knee replacement. Hand x-ray showed degenerative changes with laceration over the distal phalanges of the second and third digits and soft tissue swelling. Left tibia and fibula x-ray relatively unremarkable with no significant bleeding noted acute fractures [facility] Medical History (Updated 06/01/24 @ 17:[address] Kassandra Elizabeth DO) Constipation Common bile duct dilatation Weight loss Anemia Neurofibromatosis Melanoma of skin Hypertension Benign essential hypertension Home Medications ?Medication ?Instructions ?Recorded ?Last Taken ?Type aspirin 81 mg tablet,delayed 81 mg PO DAILY heart health 08/09/17 06/01/24 History release benazepril 20 mg tablet 10 mg PO DAILY HTN 08/09/17 06/01/24 History atenolol 25 mg tablet 25 mg PO DAILY HTN 09/02/17 06/01/24 History hydrochlorothiazide 25 mg tablet 25 mg PO DAILY diuretic 10/26/17 06/01/24 History docusate sodium 100 mg capsule 100 mg PO DAILY PRN Constipation 03/17/18 Unknown History omeprazole 20 mg capsule,delayed 20 mg PO BID GERD 03/17/18 06/01/24 History release potassium chloride 10 mEq 10 meq PO DAILY supplement 03/17/18 06/01/24 History capsule,extended release acetaminophen 325 mg tablet 325 mg PO DAILY PRN pain 06/01/24 Unknown History folic acid 800 mcg tablet 800 mcg PO DAILY 06/01/24 06/01/24 History mupirocin 2 % topical ointment 1 applic topical DAILY 06/01/24 06/01/24 History (Centany) Allergy/AdvReac Type Severity Reaction Status Date / Time niacin AdvReac Intermediate Rash Verified 06/01/24 11:32 Family History Father Heart disease Lung disease Alcohol abuse Sister Brain tumor Non-Hodgkin lymphoma Grandmother Stomach cancer Mother Cancer Surgical History History of melanoma excision History of cholecystectomy History of bilateral knee replacement History of appendectomy History of total knee arthroplasty Social History Smoking Status: Never smoker alcohol intake: never substance use type: does not use ROS Constitutional Constitutional: Denies anorexia, change in weight, chills, fatigue, fever(s), malaise, night sweats, weakness or other Eyes Eyes: Denies blurry vision, change in eye color, change in vision, discharge from eye(s), double vision, erythema, eye pain, loss of vision or other ENT HEENT: Denies abnormal hearing, dysphagia, ear pain, epistaxis, headache(s), hearing loss, nasal congestion, nasal discharge, post nasal drip, sinus pressure, sore throat or other Respiratory/Chest Respiratory/Chest: Denies cough, dyspnea, excessive phlegm production, hemoptysis, productive cough, shortness of breath at rest, shortness of breath with exertion, wheezing or other Gastrointestinal Gastrointestinal: Denies abdominal pain, coffee ground emesis, constipation, diarrhea, dyspepsia, hematemesis, hematochezia, loose stools, melena, nausea, vomiting or other Genitourinary Genitourinary: Denies burning urination, difficulty urinating, dysuria, hematuria, nocturia, urinary frequency, urinary hesitancy, urinary incontinence, urinary urgency or other Neurologic Neurologic: Denies abnormal gait, abnormal speech, confusion, disequilibrium, dizziness, focal weakness, headache(s), numbness, paresthesias, seizure-like activity, seizures, syncope, tingling, tremor(s) or other Psychiatric Psychiatric: Denies anxiety, depression, homicidal ideation, suicidal ideation or other Endocrine Endocrinology: Denies change in body appearance, cold intolerance, excessive sweating, heat intolerance, polydipsia, polyuria or other Hematologic/Lymphatic Hematologic/Lymphatic: Denies anemia, easy bleeding, easy bruising, lymphadenopathy or other Allergic/Immunologic Allergic/Immunologic: Denies rhinitis, hives, eczemia, asthma or other Vital Signs Vital Signs Vital Signs: 06/01/24 11:32 06/01/24 13:31 06/01/24 15:37 Temperature 97.6 F L Temperature Source Oral Pulse Rate 83 85 93 Respiratory Rate 18 16 20 H Blood Pressure 131/82 H 123/77 H 109/58 L Blood Pressure Mean 98 92 75 Pulse Ox 96 93 97 Oxygen Delivery Method Room Air Room Air Room Air Weight Weight: 58.5 kg Body Mass Index (BMI) 26.9 Physical Exam Const alert, oriented x3, no apparent distress and well nourished Constitutional Narrative: Elderly, white female, sitting up in bed, family at bedside, patient anxious to go home but understands she needs to stay, appears comfortable, nontoxic HEENT normocephalic and moist oral mucous membranes HEENT Narrative: Mallampati 3, no thrush, large area of edema and ecchymosis of left frontal parietal area Eyes EOMs intact bilaterally and conjunctivae normal Eyes Narrative: No scleral icterus Neck supple Neck Narrative: Trachea midline Resp normal respiratory effort, no retractions, no use of accessory muscles and clear to auscultation bilaterally Auscultation: Negative for rales, rhonchi or wheezes Cardio regular rate, regular rhythm, S1 normal heart sound, S2 normal heart sound, no murmurs, no rub, no gallops and no clicks GI normal to inspection, nondistended, normoactive bowel sounds, soft to palpation and non-tender Extremity Extremity Narrative: Bilateral knee ecchymosis left greater than right with left-sided swelling, significant right thumb ecchymosis with swelling but no mobility deficits, scattered other ecchymotic areas, no clubbing or cyanosis, no significant edema Neuro oriented x3, moves all extremities and no focal motor deficits Speech: speech normal Psych affect normal Psych Narrative: Extremely pleasant, interacts appropriately Results Lab / Micro Data 06/01/24 16:00 06/01/24 16:00 Labs: Laboratory Results - last 24 hr 06/01/24 16:00: WBC 7.9, RBC 4.01 L, Hgb 11.3 L, Hct 36.3 L, MCV 90.5, MCH 28.2, MCHC 31.1 L, RDW Std Deviation 46.0 H, RDW Coeff of Bam 13.8, Plt Count 205, MPV 10.6, Immature Gran % (Auto) 1.400 H, Neut % (Auto) 78.5 H, Lymph % (Auto) 9.7 L, [place] % (Auto) 9.1, Eos % (Auto) 1.0, Baso % (Auto) 0.3, Absolute Neuts (auto) 6.2, Absolute Lymphs (auto) 0.77 L, Nucleated RBC % 0, PT 14.5, INR 1.1, APTT 26.3, Sodium 140, Potassium 4.4, Chloride 112 H, Carbon Dioxide 23.0, Anion Gap 5, BUN 31 H, Creatinine 1.02, Estim Creat Clear Calc 32.86, Est GFR (MDRD) Af Amer 66, Est GFR (MDRD) Non-Af 55 L, BUN/Creatinine Ratio 30.4 H, Glucose 116 H, Calcium 9.0 Imaging Radiology Impression Brain CT 06/01/24 11:47 IMPRESSION: Scalp hematoma overlying the left frontal parietal bones. Cerebral atrophy. Reading Location: [facility] 06/01/24 11:47 IMPRESSION: Multilevel disc space narrowing and facet joint osteoarthritis and anterior listhesis of C4 on C5. No acute fracture is seen. One or more dose reduction techniques were used (e.g., Automated exposure control, adjustment of the mA and/or kV according to patient size, use of iterative reconstruction technique). Reading Location: [facility] Femur X-Ray 06/01/24 11:47 IMPRESSION: No acute fracture or dislocation is seen. Patient is status post left knee replacement. Reading Location: [facility] Hand X-Ray 06/01/24 11:47 IMPRESSION: Degenerative changes as described. Laceration overlying the distal phalanges of the 2nd and 3rd digits. Diffuse soft tissue swelling. Reading Location: [facility] [address] 06/01/24 11:47 IMPRESSION: LUMBAR DEGENERATIVE DISC AND FACET DISEASE. Anterior listhesis of L4 on L5 and L5-S1. Spondylolysis of the pars interarticularis of the L5 vertebrae. One or more dose reduction techniques were used (e.g., Automated exposure control, adjustment of the mA and/or kV according to patient size, use of iterative reconstruction technique). Reading Location: [facility] [address] 06/01/24 11:47 IMPRESSION: NO ACUTE THORACIC FRACTURE. DEGENERATIVE CHANGES. One or more dose reduction techniques were used (e.g., Automated exposure control, adjustment of the mA and/or kV according to patient size, use of iterative reconstruction technique). Reading Location: [facility] Tibia/Fibula X-Ray 06/01/24 11:47 IMPRESSION: Prominent arterial calcification is seen. Partially visualized left total knee prosthesis without apparent complication. Loose intra-articular body may be present posteriorly. The left ankle demonstrates mild degenerative changes. Normal contour of the Achilles tendon is seen on lateral view. No acute fracture or dislocation is seen. If clinical concern persists, short-term follow-up imaging may be obtained to rule out a currently occult fracture. Reading Location: [address] Assessment & Plan Assessment/Plan (1) Unstable gait: (2) Contusion of knee, left: (3) Sprain of hand, thumb, right: (4) Complex laceration of scalp: (5) Fall: (6) CHI (closed head injury): (7) Debility: PLAN: Plan Mechanical fall/unstable gait -Patient with multiple areas of ecchymosis but no fractures identified on any imaging -If pain develops and is persistent may need further imaging -Scheduled Tylenol -As needed oxycodone -PT/OT consultation Case management/social work consultation for assistance with discharge planning Bilateral knee contusions -As noted above Sprain of right thumb -No fracture identified -Is quite ecchymotic -Will likely need OT after discharge Closed head injury without loss of consciousness -CT of the brain is unremarkable -Monitor clinically Scalp laceration -Closed by ED -Sutures to be removed in 7 to 10 days Neurofibromatosis -Chronic and stable Chronic anemia -Mild and stable GERD Can continue on PPI Essential hypertension -Continue home hydrochlorothiazide -Continue home benazepril -Continue home atenolol History of melanoma -Remote DVT prophylaxis -Subcu Lovenox CODE STATUS -Full code Charges/Coding Visit Charges Inpatient E&M: 92787 Init Hosp L2
[2024-06-01 17:12] VITALS: BP 109/72; PULSE 84; RESP 30; O2SAT 98
[2024-06-01 17:30] VITALS: BP 110/77; PULSE 104; RESP 22; TEMP 36.3; O2SAT 96
[2024-06-01 18:33] VITALS: BMI 24.7
[2024-06-01] MEDS: Menthol/Lanolin/Calamine/Znox 113 GM Tube 1 APPLIC TOPICAL (20:29)
[2024-06-01] MEDS: Pantoprazole Sodium 20 MG Tablet PO (20:31)
[2024-06-01 20:32] VITALS: BP 106/55; PULSE 77; RESP 14; TEMP 36.6; O2SAT 97
--- NOTE | 2024-06-01 23:00 | NURSING ---
This RN taking over care for this patient at this time.
[2024-06-02 03:45] VITALS: BP 121/73; PULSE 81; RESP 16; TEMP 36.7; O2SAT 98
[2024-06-02 05:26] VITALS: BMI 25.9
[2024-06-02] MEDS: Acetaminophen 500 MG Tablet 1000 MG PO ×2 (05:38→13:52)
[2024-06-02] MEDS: Menthol/Lanolin/Calamine/Znox 113 GM Tube 1 APPLIC TOPICAL ×2 (05:39→13:52)
[2024-06-02 06:43] LABS: Absolute Lymphocyte Count 0.73 X10^3/uL (0.83-4.51); Absolute Neutrophil Count 4.3 X10^3/uL (2.0-7.7); Basophil# 0.03 X10^3/uL; Basophil% 0.5 % (0-1); Eosinophil# 0.14 X10^3/uL; Eosinophils% 2.4 % (0-5); Hematocrit 35.6 % (37-47); Hemoglobin 11.2 g/dL (12.0-15.0); Lymphocyte # 0.73 X10^3/ul (0.83-4.51); Lymphocyte % 12.4 % (19-41); Mean Corp Hgb Conc 31.5 g/dL (32-36); Mean Corpuscular Hgb 28.1 pg (27.0-32.0); Mean Corpuscular Volume 89.2 fL (81-99); Mean Platelet Vol. 10.8 fl (6.2-12.0); Monocyte# 0.64 X10^3/uL; Monocyte% 10.9 % (0-10); NRBC Flagged by Analyzer 0 % (0-5); Neutrophil % 73.1 % (47-70); Platelet Count 195 K/mm3 (150-450); RBC Distribution Width CV 13.9 % (11.6-14.6); RBC Distribution Width SD 45.1 fl (35.1-43.9); Red Blood Count 3.99 M/mm3 (4.2-5.4); White Blood Count 5.9 K/mm3 (4.4-11.0)
[2024-06-02 06:59] LABS: ALB/GLOB Ratio 0.9 RATIO (0.9-2.4); AST(SGOT) 34 U/L (15-37); Alanine Aminotransfer ALT/SGPT 26 U/L (13-56); Albumin, Serum 3.4 g/dL (3.2-5.0); Alkaline Phosphatase 152 U/L (45-117); Anion Gap 6 (5-15); BUN 25 mg/dL (7-18); BUN/Creat Ratio 25.8 RATIO (10-20); Calcium,Total 9.2 mg/dL (8.5-10.1); Chloride 109 mmol/L (98-107); Creatinine, Serum 0.97 mg/dL (0.55-1.02); EST Glomerular Filtration Rate 58 mL/min (>60); Est Glom Filt Rate - Afr Amer 70 mL/min (>60); Estimated Creatinine Clearance 33.96 ml/min; Globulin 3.6 g/dL (2.2-4.2); Glucose 99 mg/dL (74-106); Magnesium 2.2 mg/dL (1.6-2.6); Phosphorus 3.2 mg/dL (2.5-4.9); Potassium 4.1 mmol/L (3.5-5.1); Sodium Level 140 mmol/L (136-145)
[2024-06-02 08:24] VITALS: O2SAT 95
[2024-06-02 08:26] VITALS: BP 114/65; PULSE 94; RESP 18; TEMP 36.7; O2SAT 94
[2024-06-02] MEDS: Folic Acid 1 MG Tablet PO (08:49)
[2024-06-02] MEDS: Aspirin E.C. 81 MG Tablet PO (08:49)
[2024-06-02] MEDS: oxyCODONE 5 MG Tablet PO (08:49)
[2024-06-02] MEDS: Mupirocin Ointment 22gm Tube 1 APPLIC TOPICAL (10:32)
[2024-06-02] MEDS: Enoxaparin 40 MG/0.4 ML Syringe SC (10:33)
[2024-06-02] MEDS: Potassium Chloride Oral Tablet 10 MEQ PO (10:33)
[2024-06-02] MEDS: Lisinopril 10 MG Tablet PO (10:34)
[2024-06-02] MEDS: Pantoprazole Sodium 20 MG Tablet PO (10:34)
[2024-06-02] MEDS: Atenolol 25 MG Tablet PO (10:34)
[2024-06-02 12:34] VITALS: BP 95/65; PULSE 78; RESP 17; TEMP 36.8; O2SAT 95
--- NOTE | 2024-06-02 14:29 | PCM.DC ---
Discharge Instructions Diet Discharge Diet: Low fat / Low cholesterol DC O2, CPAP, BIPAP needs Home O2 Discharge instructions: No Dressing / Incision Discharge Activity: Return to Normal Activity Dressing / Incision Call your doctor if you observe: Fever of 101 or Higher, Shortness of breath, Dizziness, Fainting spells, Swelling in the ankles, Chest pain and Increased palpitations (irregular heartbeat) Follow Up Care Test Results: Test results from this visit will be discussed in further detail at your follow-up appointment, if applicable. Discharge Plan Admission Admit Date/Time: 06/01/24 16:57 Attending Provider: Radhames Carter Primary Care Provider: Jack Ernst Consulting Providers: Kassandra Elizabeth Instructions Additional Instructions / Restrictions: Use Tylenol for pain control and follow-up with your primary care doctor in 7-10 days to check the healing of your wound and potentially remove sutures. Discharge Orders/Prescriptions Prescriptions: Continued potassium chloride 10 mEq capsule, extended release 10 meq PO DAILY docusate sodium 100 mg capsule 100 mg PO DAILY PRN (Reason: Constipation) aspirin 81 MG tablet,delayed release (DR/EC) 81 mg PO DAILY Patient Comments: will stop 5 days prior benazepril 20 MG tablet 10 mg PO DAILY atenolol 25 MG tablet 25 mg PO DAILY hydrochlorothiazide 25 MG tablet 25 mg PO DAILY omeprazole 20 mg capsule,delayed release(DR/EC) 20 mg PO BID mupirocin [Centany] 2 % ointment 1 applic topical DAILY folic acid 800 mcg tablet 800 mcg PO DAILY acetaminophen 325 mg tablet 325 mg PO DAILY PRN (Reason: pain) Referrals / Follow Up: Jack Ernst MD [Primary Care Provider] - Within 1 Week Disposition Disposition (needs filled in before D/C Order can be placed): Home, Self Care
--- NOTE | 2024-06-02 14:36 | CASEMGMT ---
Discharge Planning A list of HH providers including quality and resource use data and consistent with the patient's preferred geographic region, medical needs, and insurance network was created in [employer] Guide.? This list was provided to the RN SANDEE. Betty Lloyd, Discharge Planning Asst.
--- NOTE | 2024-06-02 15:03 | CASEMGMT ---
Addendum entered by Anayeli Baez 06/02/24 16:13: [facility] is able to accept patient with start of care for Wednesday. RN SANDEE updated patient and family Original Note: Patient has order for discharge. RN CM in to discuss needs at discharge, family at bedside. Patient and family interested in [facility], list provided and prefers [facility]. Patient and family had no further questions or concern. GURMEET IGNACIO made referral to [facility], awaiting acceptance.
--- NOTE | 2024-06-02 15:48 | CHAPLAIN ---
Type of Pastoral Visit _x__ Initial Visit ___ Follow-up Visit ___ On-call Visit ___ General Patient Visit ___ Spiritual Assessment ___ Family Conference ___ Bereavement ___ Rapid Response ___ Code Blue ___ Other (describe below) Pastoral Care Referral From _x__ Patient ___ Family ___ Nurse ___ Physician ___ Clinical Trials Systems Administrator ___ Financial Dealers ___ Other (describe below) Sacrament/Intervention _x__ Active listening ___ Anointing ___ Restorationism ___ Bereavement ___ Communion ___ Marla exploration ___ ___ Life review ___ Prayer ___ Reconciliation ___ Sacrament of Sick _x__ Supportive presence ___ Wedding ___ Other (describe below) Pastoral Comments patient has many bruises from a fall that is discussed in this visit; two nieces are with pt in the room; pt is to be discharged yet today and is happy about that; pt denies any further needs or concerns
--- NOTE | 2024-06-02 16:38 | PCM.DC.SUM ---
Providers Date of Admission: 06/01/24 Primary Care Physician: Dr. Jack Ernst MD Reason For Visit: FALLS/DEBILITY Diagnosis Discharge Diagnosis (1) Unstable gait: Status: Acute Code(s): R26.81 - Unsteadiness on feet (2) Contusion of knee, left: Status: Acute Code(s): S80.02XA - Contusion of left knee, initial encounter (3) Sprain of hand, thumb, right: Status: Acute Code(s): S63.601A - Unspecified sprain of right thumb, initial encounter (4) Complex laceration of scalp: Status: Acute Code(s): S01.01XA - Laceration without foreign body of scalp, initial encounter (5) Fall: Status: Acute Code(s): W19.XXXA - Unspecified fall, initial encounter (6) CHI (closed head injury): Status: Acute Code(s): S09.90XA - Unspecified injury of head, initial encounter (7) Debility: Status: Acute Code(s): R53.81 - Other malaise Medications at Discharge Home Medications aspirin 81 mg tablet,delayed release 81 mg PO DAILY heart health 08/09/17 benazepril 20 mg tablet 10 mg PO DAILY HTN 08/09/17 atenolol 25 mg tablet 25 mg PO DAILY HTN 09/02/17 hydrochlorothiazide 25 mg tablet 25 mg PO DAILY diuretic 10/26/17 docusate sodium 100 mg capsule 100 mg PO DAILY PRN Constipation 03/17/18 omeprazole 20 mg capsule,delayed release 20 mg PO BID GERD 03/17/18 potassium chloride 10 mEq capsule,extended release 10 meq PO DAILY supplement 03/17/18 acetaminophen 325 mg tablet 325 mg PO DAILY PRN pain 06/01/24 folic acid 800 mcg tablet 800 mcg PO DAILY 06/01/24 mupirocin 2 % topical ointment (Centany) 1 applic topical DAILY 06/01/24 Hospital Course Operations None Procedures None Summary of Care Provided Minutes Spent on Discharge: 36 Hospital Course: Per HPI: DENNISE ROBLEDO, is a 83 F who presented to the emergency department at [facility] on 06/01/2024 after sustaining a mechanical fall at home. She states she was on her ramp and is at baseline either uses a walker or a quad cane. At that time she was using her quad cane and tripped on it and fell forward. She hit her head and had multiple other injuries falling on both knees left greater than right and had pain in her right thumb. She has not been having frequent falls at home. She then was taken to the bathroom in the emergency department and fell in the bathroom. She states typically she uses a quad cane and they did not give her that in the emergency department and she lost her balance and fell there to. She did not initially want to be admitted however family was concerned about taking her home given the 2 falls she had a day and the pain she may have tomorrow and later tonight. She has been feeling well otherwise and not having any problems with any mobility issues other than her baseline gait instability for which she uses assistive device. She has had no systemic symptoms and denies any fever or chills. Vital signs on presentation showed temperature of 97.6, heart rate 83, respiratory rate 18, blood pressure is 131/82 and pulse ox was 96% on room air. CBC was unremarkable with the chronic stable anemia having a hemoglobin of 11.3. Coags are normal. Chemistry panel was unremarkable. Extensive imaging was performed due to the nature of her presentation. CT of the scalp showed a hematoma overlying the left parietal and frontal bones with cerebral atrophy but was otherwise unremarkable. CT of the cervical spine showed multilevel disc narrowing with arthritis and anterior listhesis of C4 and C5 but no acute fractures. Thoracic spine CT showed no acute abnormalities. 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 Femoral fracture shows no acute fracture or dislocation status post knee replacement. Hand x-ray showed degenerative changes with laceration over the distal phalanges of the second and third digits and soft tissue swelling. Left tibia and fibula x-ray relatively unremarkable with no significant bleeding noted acute fractures Hospital Course: 1. Weakness and debility with mechanical fall and a head laceration?83-year-old female presented to the hospital after a fall at home. She was brought in for evaluation and had no obvious fractures though she has some degenerative changes. In her fall at home she hit her head so she had a CT scan of the brain which was negative for any type of hemorrhage. While in the ER she tripped and fell in the bathroom and had a repeat CT scan of the brain which was negative. She was admitted for physical therapy evaluation and possible placement however she was able to walk 100 feet contact-guard so it does appear that as long as she has the right assistive device either a walker or quad cane she should be able to do well physically. I discussed with her and her sister the possibility for discharge today and they expressed understanding of the risks and benefits of going home and would be okay with going home today especially since she would not be able to be placed in halfway. She does have a head laceration that was repaired in the ER with multiple sutures that we will need to be followed up in the office for removal by her PCP. Given her age would recommend Tylenol or Advil for pain control, my concern would be that oxycodone would cause greater instability and high risk of fall at home. 2. Neurofibromatosis, chronic anemia, GERD, essential hypertension, history of melanoma are all chronic medical conditions which complicate her care. Her home medications were continued with appropriate Physical Exam Narrative General: Alert, Oriented x3, Cooperative, No apparent distress HEENT: Atraumatic, PERRLA, EOMI, Normocephalic left scalp laceration Oral: Moist Mucosa Neck: Supple, No JVD Lungs: Diminished, Normal air movement, No rhonchi, No wheeze, No rales Cardiovascular: Regular rate, Regular Rhythm, Normal S1, Normal S2, No murmurs Abdomen: Soft, Non Tender, Non-Distended, No Hepato-splenomegaly Extremities: No edema, Capillary Refill Less than 3 Seconds Skin: No rashes, No breakdown, multiple nodules consistent with her neurofibromatosis Musculoskeletal: Bilateral knee contusions with dressings over her right fingers Neurological: No focal neurological deficits, Motor Exam 5/5 strength throughout, Sensory exam intact to light touch and pain Psych/Mental Status: Normal Affect, Appropriate Weight / BMI Weight Weight: 124 lb 1.924 oz Body Mass Index (BMI) 25.9 ABG / Lab / Microbiology Data 06/02/24 05:20 06/02/24 05:20 Laboratory: Laboratory Results - last 24 hr 06/02/24 05:20: WBC 5.9, RBC 3.99 L, Hgb 11.2 L, Hct 35.6 L, MCV 89.2, MCH 28.1, MCHC 31.5 L, RDW Std Deviation 45.1 H, RDW Coeff of Bam 13.9, Plt Count 195, MPV 10.8, Immature Gran % (Auto) 0.700, Neut % (Auto) 73.1 H, Lymph % (Auto) 12.4 L, [place] % (Auto) 10.9 H, Eos % (Auto) 2.4, Baso % (Auto) 0.5, Absolute Neuts (auto) 4.3, Absolute Lymphs (auto) 0.73 L, Nucleated RBC % 0, Sodium 140, Potassium 4.1, Chloride 109 H, Carbon Dioxide 25.0, Anion Gap 6, BUN 25 H, Creatinine 0.97, Estim Creat Clear Calc 33.96, Est GFR (MDRD) Af Amer 70, Est GFR (MDRD) Non-Af 58 L, BUN/Creatinine Ratio 25.8 H, Glucose 99, Calcium 9.2, Phosphorus 3.2, Magnesium 2.2, Total Bilirubin 0.70, AST 34, ALT 26, Alkaline Phosphatase 152 H, Total Protein 7.0, Albumin 3.4, Globulin 3.6, Albumin/Globulin Ratio 0.9 Radiography Diagnostic Testing: Radiology Impression Brain CT 06/01/24 15:31 IMPRESSION: 1. Stable large laceration and hematoma overlying the left frontoparietal scalp. 2. No acute intracranial hemorrhage or herniation. 3. Unchanged findings of chronic microvascular ischemic changes and age-related changes as described. Reading Location: [facility] D/C Instructions Discharge Diet: Low fat / Low cholesterol Call your doctor if you observe: Fever of 101 or Higher, Shortness of breath, Dizziness, Fainting spells, Swelling in the ankles, Chest pain and Increased palpitations (irregular heartbeat) DC O2, CPAP, BIPAP Needs Home O2 Discharge instructions: No Meaningful Use Info Meaningful Use Meaningful Use Diagnoses (Choose all that apply): None applicable Ischemic Stroke Statin Dosing Therapy Reference: STATIN DOSE THERAPY REFERENCE: * Patients > 75 years receive moderate or high dose statin therapy. * Patients 75 years or YOUNGER should receive HIGH intensity statin dose unless contraindicated. You will be required to document reason for non-treatment if statin daily dose does not meet guidelines. HIGH DOSE STATIN THERAPY DAILY Atorvastatin > than or = to 40 mg Rosuvastatin > than or = to 20 mg Amlodipine + Atorvastatin > than or = to 2.5/40 mg Ezetimibe + Simvastatin 10/80 mg Simvastatin 80mg Discharge Plan Admission Admit Date/Time: 06/01/24 16:57 Attending Provider: Radhames Carter Primary Care Provider: Jack Ernst Consulting Providers: Kassandra Elizabeth Instructions Additional Instructions / Restrictions: Use Tylenol for pain control and follow-up with your primary care doctor in 7-10 days to check the healing of your wound and potentially remove sutures. Discharge Orders/Prescriptions Prescriptions: Continued potassium chloride 10 mEq capsule, extended release 10 meq PO DAILY docusate sodium 100 mg capsule 100 mg PO DAILY PRN (Reason: Constipation) aspirin 81 MG tablet,delayed release (DR/EC) 81 mg PO DAILY Patient Comments: will stop 5 days prior benazepril 20 MG tablet 10 mg PO DAILY atenolol 25 MG tablet 25 mg PO DAILY hydrochlorothiazide 25 MG tablet 25 mg PO DAILY omeprazole 20 mg capsule,delayed release(DR/EC) 20 mg PO BID mupirocin [Centany] 2 % ointment 1 applic topical DAILY folic acid 800 mcg tablet 800 mcg PO DAILY acetaminophen 325 mg tablet 325 mg PO DAILY PRN (Reason: pain) Referrals / Follow Up: Jack Ernst MD [Primary Care Provider] - Within 1 Week Disposition Disposition (needs filled in before D/C Order can be placed): Home Health Service Charges/Coding Visit Charges Inpatient E&M: 85619 Disch Hosp >30min
[2024-06-02 17:13] VITALS: BP 82/56; PULSE 79; RESP 16; TEMP 36.8; O2SAT 96
[2024-06-02 17:42] VITALS: BP 96/53; PULSE 73; RESP 16; O2SAT 96
--- NOTE | 2024-06-02 17:51 | NURSING ---
Regarding most recent physician notification. This RN notified Dr Carter via text, got pt vitals for discharge and BP was 82/56 heart rate 79. Map 65. Pt not reporting dizziness or feeling woozy. Been running on the lower side but this is the lowest reading by far. I already removed her IV. Dr Carter called this RN and replied that pt map is fine and requested that this RN tell her to stop taking her hydrochlorothiazide when she goes home. He also requested that this RN educate pt to stand up/change positions slowly and hold on to something while she is changing positions/standing. Requested that if family/patient is comfortable with going home, then to send pt home as planned but to tell her to hold the hydrochlorothiazide. This RN explained this conversation to the family, reiterating that the patient is to stop taking her hydrochlorothiazide as well as to make sure when the pt changes position from lying to sitting to take a small break to evaluate for dizziness and do the same when going from sitting to standing, taking a small break/pause to ensure that the pt is not feeling dizzy or lightheaded. The pt replied, I usually do that anyway This RN also explained to the pt to let the her primary care physician know about the blood pressure when they make the follow up appointment for the her suture removal. This RN gave the family some time to contemplate their decision. A family member came to the nurses station and told this RN, she decided she wants to go (referring to the pt). This RN went into the pts room where the pt confirmed that she would like to go home. This RN remeasured the pts blood pressure and the new blood pressure reading was 96/53 and the heart rate was 73. This RN reinforced teaching about changing positions slowly and making sure to hold on to something as she gets up to ambulate. The pt and family were provided with the discharge teaching paperwork and acknowledged that they will stop the hydrochlorothiazide. The family member mentioned to this RN as I was leaving the room that, someone is planning on staying with the pt this evening. This RN then exited the pts room and texted Dr. Carter, pt decided to go home. Dr. Carter responded, Ok. [END]
== END 2024-06-02 14:32 | disposition home health service (06) ==
LOC: ED 17:31 → PCU 18:07
PROVIDERS: Admitting Provider Internal Medicine; Emergency Provider Emergency Medicine; PCP Family Medicine; Visit Provider Family Medicine
DX: S01.01XA Laceration without foreign body of scalp, initial encounter (principal); Q85.00 Neurofibromatosis, unspecified; W01.0XXA Fall on same level from slipping, tripping and stumbling without subsequent striking against object, initial encounter; K21.9 Gastro-esophageal reflux disease without esophagitis; R53.81 Other malaise; S80.02XA Contusion of left knee, initial encounter; D64.9 Anemia, unspecified; S63.601A Unspecified sprain of right thumb, initial encounter; Z79.82 Long term (current) use of aspirin; M48.02 Spinal stenosis, cervical region; I10 Essential (primary) hypertension; R26.81 Unsteadiness on feet; Y92.019 Unspecified place in single-family (private) house as the place of occurrence of the external cause; Z79.899 Other long term (current) drug therapy; S80.01XA Contusion of right knee, initial encounter; S09.90XA Unspecified injury of head, initial encounter
CPT/HCPCS: 12004; 36415; 70450; 72125; 72128; 72131; 73130; 73552; 73590; 80048; 80053; 83735; 84100; 85025; 85610; 85730; 93005; 94668; 96372; 97162; 97166; 97802; 99221; 99252; 99285; A4216; G0378; G0463

== ENCOUNTER 2025-04-15 12:40 | Inpatient (IN) | payer MEDICARE, SELFPAY ==
[2025-04-15] VITALS (8 sets, daily range): BP systolic 91–133; BP diastolic 56–72; PULSE 75–100; RESP 16–20; TEMP 36.4–37.2; O2SAT 94–100; BMI 27.3; BMI 25.9
--- NOTE | 2025-04-15 13:24 | EX.ED.DYSGE1 ---
HPI History of Present Illness Chief Complaint: Edema Informant: patient Narrative Narrative: 84-year-old female is brought in by family with a chief complaint of bilateral lower leg swelling. They note the patient typically will have some mild swelling of the legs over the past 3 weeks they have gotten substantially worse. No reported fevers or shortness of breath. She does not know which she typically weighs. They note some sores have opened up on the legs and they are leaking fluid. She states she does not have any known kidney issues. She reportedly takes HCTZ at 25 mg a day. [facility] Medical History (Updated 04/15/25 @ 16:[address] Boston Gonzalez, DO) Constipation Common bile duct dilatation Weight loss Anemia Neurofibromatosis Melanoma of skin Hypertension Benign essential hypertension Home Medications ?Medication ?Instructions ?Recorded ?Last Taken ?Type aspirin 81 mg tablet,delayed 81 mg PO DAILY heart health 08/09/17 06/01/24 History release benazepril 20 mg tablet 10 mg PO DAILY HTN 08/09/17 06/01/24 History atenolol 25 mg tablet 25 mg PO DAILY HTN 09/02/17 06/01/24 History hydrochlorothiazide 25 mg tablet 25 mg PO DAILY diuretic 10/26/17 06/01/24 History docusate sodium 100 mg capsule 100 mg PO DAILY PRN Constipation 03/17/18 Unknown History omeprazole 20 mg capsule,delayed 20 mg PO BID GERD 03/17/18 06/01/24 History release potassium chloride 10 mEq 10 meq PO DAILY supplement 03/17/18 06/01/24 History capsule,extended release acetaminophen 325 mg tablet 325 mg PO DAILY PRN pain 06/01/24 Unknown History folic acid 800 mcg tablet 800 mcg PO DAILY 06/01/24 06/01/24 History mupirocin 2 % topical ointment 1 applic topical DAILY 06/01/24 06/01/24 History (Centany) Allergy/AdvReac Type Severity Reaction Status Date / Time niacin AdvReac Intermediate Rash Verified 04/15/25 12:40 Family History Father Heart disease Lung disease Alcohol abuse Sister Brain tumor Non-Hodgkin lymphoma Grandmother Stomach cancer Mother Cancer Surgical History History of melanoma excision History of cholecystectomy History of bilateral knee replacement History of appendectomy History of total knee arthroplasty Social History Smoking Status: Never smoker alcohol intake: never substance use type: does not use ROS ROS ED Constitutional Constitutional ED: Denies chills or weight loss Eyes Eyes: Denies change in vision or diplopia ENT ENT ED: Denies ear pain, rhinorrhea or sore throat Cardiovascular Cardiovascular: Denies chest pain, orthopnea, palpitations or racing heartbeat Respiratory/Chest Respiratory/Chest: Denies cough, dyspnea or orthopnea Gastrointestinal Gastrointestinal: Denies abdominal pain, diarrhea, nausea or vomiting Genitourinary Genitourinary ED: Denies dysuria, hematuria or urinary frequency Musculoskeletal Musculoskeletal: Reports other Details: Bilateral lower leg swelling ; Denies arthralgias or myalgias Integumentary Reports other Details: Open sores neurofibromatosis ; Denies abscess or rash Neurologic Neurologic: Denies headache(s) or weakness Psychiatric Psychiatric: Denies anxiety, depression, suicidal ideation or suicidal thoughts Endocrine Endocrinology: Denies polydipsia, polyphagia or polyuria Allergic/Immunologic Allergic/Immunologic ED: Denies mouth swelling, tongue swelling or urticaria EXAM Physical Exam Const Vital Signs: 04/15/25 12:40 04/15/25 14:11 04/15/25 14:40 Temperature 97.6 F L Temperature Source Temporal Pulse Rate 98 90 Respiratory Rate 16 18 Respiratory Effort Normal Respiratory Pattern Normal Blood Pressure 120/56 L Blood Pressure Mean 77 Pulse Ox 94 100 Oxygen Delivery Method Room Air Room Air Positive well nourished and well developed General Appearance ED: well developed and NAD HEENT Reports normocephalic, head/scalp atraumatic and moist mucous membranes Eyes PERRL and EOMs intact bilaterally Neck no lymphadenopathy, supple and no JVD Resp normal respiratory effort and clear to auscultation bilaterally Cardio regular rhythm and no murmurs Rhythm: abnormal rhythm irregularly irregular GI normal to inspection, nondistended, normoactive bowel sounds and non-tender Palpation: soft Back/Spine no CVA tenderness and normal ROM Extremity Extremity Narrative: There is significant lower extremity swelling bilaterally. They are leaking fluid from multiple sites. There are some open sores. There is some faint pink hue to the skin but not overt erythema or any lymphangitic streaking. The swelling extends up to around the tibial tuberosity most pronounced at the ankle joints. General Extremety ED: Yes edema General Extremity: edema bilateral lower extremity Details: severe Neuro oriented x3 and CN's II-XII intact bilaterally Sensorium / Orientation: alert Motor Exam: strength 5/5 throughout Psych mental status grossly normal Mood & Affect: Negative for depressed or tearful Skin no rashes or lesions noted and no wounds MDM MDM MDM Narrative Medical decision making narrative: Differential diagnosis includes but not limited to lymphedema congestive heart failure malnutrition acute kidney injury electrolyte abnormalities DVT cellulitis Patient's white count is mildly elevated 12.9 hemoglobin 12.1 platelet 247. Creatinine 1.39 with a BUN of 29 potassium 5 1 sodium 138. proBNP is significantly elevated at 3517 EKG shows atrial fibrillation at a rate of 96 bpm. She is not anticoagulated. My independent interpretation of the chest x-ray is no acute process. EKG shows atrial fibrillation at a rate of 96. Urinalysis demonstrates 10-25 white cells 1+ bacteria positive nitrates positive leukocyte esterase. Sent for culture the patient received a dose of Rocephin. Patient does not believe that she has a history of atrial fibrillation and family states that they do not recall that as a diagnosis. Plan of care is diuresis. I gave her 60 mg of Lasix. She will be admitted into the hospital. History & Record Review Discussion w/independent historian: Patient and Family Lab Data Attestation: I reviewed the patient's lab results. Labs: Laboratory Results - last 24 hr 04/15/25 04/15/25 14:05 15:20 WBC 12.9 H RBC 4.26 Hgb 12.1 Hct 37.8 MCV 88.7 MCH 28.4 MCHC 32.0 RDW Std Deviation 46.6 H RDW Coeff of Bam 14.7 H Plt Count 247 MPV 11.1 Immature Gran % (Auto) 0.600 Neut % (Auto) 82.4 H Lymph % (Auto) 7.4 L [place] % (Auto) 9.3 Eos % (Auto) 0.1 Baso % (Auto) 0.2 Absolute Neuts (auto) 10.7 H Absolute Lymphs (auto) 0.95 Nucleated RBC % 0 Sodium 138 Potassium 5.1 Chloride 104 Carbon Dioxide 23.0 Anion Gap 12 BUN 29 H Creatinine 1.31 H Estim Creat Clear Calc 25.28 L Est GFR (MDRD) Non-Af 40 L BUN/Creatinine Ratio 22.2 H Glucose 116 H Calcium 9.1 Magnesium 2.1 Total Bilirubin 1.07 Direct Bilirubin 0.55 H AST 42 H ALT 30 Alkaline Phosphatase 370 H NT pro BNP II 3517 H Total Protein 7.4 Albumin 3.9 Globulin 3.6 Urine Color Straw Urine Clarity Clear Urine pH 7.0 Ur Specific [place] 1.005 Urine Protein Negative Urine Glucose (UA) Normal Urine Ketones Negative Urine Occult Blood Negative Urine Nitrite Positive H Urine Bilirubin Negative Urine Urobilinogen Normal Ur Leukocyte Esterase 25 H Urine RBC 0-5 SEEN Urine WBC 10-25 SEEN Ur Squamous Epith Cells 0-5 SEEN Urine Bacteria 1+ Urine Mucus 0 SEEN Radiography Diagnostic Testing: Clinical Impression(s) from Imaging Studies Chest X-Ray 04/15/25 14:55 IMPRESSION: No acute cardiopulmonary findings. Reading Location: [facility] EK Initial EKG: Attestation: I personally reviewed and interpreted this EKG as follows: Comments: Atrial fibrillation ventricular rate of 96 bpm Management Discussion w/another healthcare provider: Hospitalist Discharge Plan Dx/Rx/DC Orders Clinical Impression: CHF (congestive heart failure), Lymphedema, Atrial fibrillation, UTI (urinary tract infection) Disposition Disposition: Acute Care [facility]
--- OUTSIDE RECORDS SUMMARY | 2025-04-15 13:35 | XMS RPT_ITS | CCD ---
Author Organization [facility] Care Team Providers Care Coordinate Measuring Machine Operator Name Role Phone ISABEL, DARINEL E Unavailable Unavailable ISABEL, DARINEL E Unavailable Unavailable ISABEL, DARINEL E Unavailable Unavailable ISABEL, DARINEL E Unavailable Unavailable CHARLENE ERNST Unavailable Unavailable CERVINO, A KATIANA Unavailable Unavailable ISABEL, DARINEL Unavailable Unavailable ISABEL, DARINEL Unavailable Unavailable ElderCharlene messer Unavailable Unavailable ISABEL, DARINEL Unavailable Unavailable ElderCharlene messer Unavailable Unavailable ISABEL, DARINEL Unavailable Unavailable ISABEL, DARINEL Unavailable Unavailable ElderCharlene messer Unavailable Unavailable ISABEL, DARINEL Unavailable Unavailable Charlene Ernst Unavailable Unavailable Charlene Ernst Unavailable Unavailable WIESEN, MANNY J Unavailable Unavailable WIESEN, MANNY J Unavailable Unavailable Charlene Ernst MD Primary Care Provider Charlene Ernst MD Primary Care Provider Charlene Ernst MD Primary Care Provider Charlene Ernst MD Primary Care Provider Nimo BOOM STICK WORKER.Aziza HERRMANN Unavailable Oneyda BOOM STICK WORKER.Hany HERRMANN Unavailable Kassandra Elizabeth Admitting Unavailable Radhames Carter Attending Unavailable Charlene Ernst Primary Care Unavailable Kassandra Elizabeth Consulting Unavailable Kassandra Elizabeth Consulting Unavailable Kassandra Elizabeth Admitting Unavailable Radhames Carter Attending Unavailable Charlene Ernst Primary Care Unavailable Radhames Carter Consulting Unavailable Wendy Elizabethyn Attending Unavailable CHARLENE ERNST Primary Care Unavailable JENNIFER CALLSSE Referring Unavailable AARON CALLE Attending Unavailable CHARLENE ERNST Primary Care Unavailable HANY CALL Attending Unavailable CHARLENE ERNST Primary Care Unavailable HANY CALL Attending Unavailable CHARLENE ERNST Primary Care Unavailable Allergies Allergy Classification Reported Allergen(s) Allergy Type Date of Onset Reaction(s) Facility Niacin (1 source) Niacin Drug Allergy 11-30-2006 [facility] (20 sources) niacin; Translations: [NIACIN] Drug Allergy 11-30-2006 [facility] Other [place] [facility] Medications Current Medications Medication Drug Class(es) Dates Sig (Normalized) Sig (Original) acetaminophen 325 mg oral capsule (20 sources) Start: 04-22-2019 acetaminophen 325 mg cap Acetaminophen Active 500 - 1000 MG EVERY 6 HOURS NEEDED April 22, 2019 1:31am 04/22/2019 Active Start: 04-22-2019 take 500-1000 mg by mouth every six hours as needed Acetaminophen Active 500 - 1000 MG PO EVERY 6 HOURS NEEDED April 22, 2019 12:00am Comment on above: Acetaminophen Active 500 - 1000 MG EVERY 6 HOURS NEEDED April 22, 2019 1:31am aspirin 81 mg delayed release oral tablet (20 sources) Platelet Aggregation Inhibitor, Nonsteroidal Anti-inflammatory Drug Start: 08-09-2017 take 81 mg by mouth once daily Aspirin Active 81 MG PO DAILY August 08, 2017 11:00pm Start: 09-03-2011 take 1 tablet by omar th once daily at mealtime Aspirin 81 mg Tab Take 1 tablet by mouth once daily. Take with food. 30 tablet 11 09/03/2011 Active Comment on above: Take 1 tablet by omar th once daily. Take with food. atenolol 25 mg oral tablet (20 sources) beta-Adrenergic Ambar Start: 10-02-2024 End: 10-02-2025 take 1 tablet by mouth once daily atenolol (TENORMIN) 25 mg tablet Indications: Essential hypertension, benign Take 1 tablet by mouth once daily. 90 tablet 3 10/02/2024 10/02/2025 Active Start: 09-02-2017 End: 09-29-2024 take 1 tablet by mouth once daily atenolol (TENORMIN) 25 mg tablet Indications: Essential hypertension, benign Take 1 tablet by mouth once daily. 90 tablet 3 08/24/2023 09/29/2024 Discontinued Comment on above: Take 1 tablet by omar th once daily. benazepril hydrochloride 20 mg oral tablet (20 sources) Angiotensin Converting Enzyme Inhibitor Start: 5 take 0.5 tablet by mouth once daily benazepril (LOTENSIN) 20 mg tablet Indications: Essential hypertension, benign Take 0.5 tablets by mouth once daily. 90 tablet 3 10/02/2024 Active Start: 09-07-2022 End: 09-29-2024 take 0.5 tablet by mouth once daily benazepril (LOTENSIN) 20 mg tablet Indications: Essential hypertension, benign Take 0.5 tablets by mouth once daily. 90 tablet 3 10/25/2023 09/29/2024 Discontinued Start: 08-29-2020 End: 10-17-2021 take 0.5 tablet by mouth once daily benazepril (LOTENSIN) 20 mg tablet Indications: Essential hypertension, benign Take 0.5 tablets by mouth once daily. 90 tablet 3 10/17/2021 Active Start: 08-09-2017 take 10 mg by mouth once daily Benazepril Active 10 MG PO DAILY August 08, 2017 11:00pm Comment on above: Take 0.5 tablets by mouth once daily. cefadroxil 500 mg oral capsule (1 source) Cephalosporin Antibacterial Start: 0 take 500 mg by mouth twice daily Cefadroxil Active 500 MG PO TWICE A DAY April 23, 2019 12:00am cephalexin 500 mg oral capsule (4 sources) Cephalosporin Antibacterial Start: 3 End: 3 take 1 capsule by mouth twice daily cephALEXin (KEFLEX) 500 mg capsule Indications: Cellulitis of right lower leg , Lymphedema Take 1 capsule by mouth two times a day for 7 days. 14 capsule 0 02/08/2023 02/15/2023 Active Start: 08-31-2022 End: 09-07-2022 take 1 capsule by mouth three times daily cephALEXin (KEFLEX) 500 mg capsule Indications: Abrasion of right lower extremity, initial encounter , Cellulitis of right lower leg Take 1 capsule by mouth three times daily for 7 days. 21 capsule 0 08/31/2022 09/07/2022 Active Start: 06-12-2022 take 500 mg by mouth every six hours Cephalexin Active 500 MG PO EVERY 6 HOURS June 12, 2022 12:00am Comment on above: Take 1 capsule by mo ut three times daily for 7 days. Take 1 capsule by mo uth two times a day for 7 days. ciprofloxacin 500 mg oral tablet (4 sources) Quinolone Antimicrobial Start: 06-09-19 End: 06-16-19 take 1 tablet by mouth twice daily ciprofloxacin HCl (CIPRO) 500 mg tablet Indications: UTI symptoms , Acute cystitis with hematuria Take 1 tablet by mouth two times a day for 7 days. 14 tablet 06/09/2024 06/16/2024 Active Start: 10-27-2021 End: 11-03-2021 take 1 tablet by mouth twice daily ciprofloxacin HCl (CIPRO) 500 mg tablet Indications: Acute cystitis with hematuria Take 1 tablet by mouth twice daily for 7 days. 14 tablet 0 10/27/2021 11/03/2021 Active Comment on above: Take 1 tablet by omar twice daily for 7 days. COMPOUNDED PRESCRIPTION (20 sources) Start: 10-01-2017 COMPOUNDED PRESCRIPTION Indications: Spondylosis of lumbosacral region, unspecified spinal osteoarthritis complication status , Primary osteoarthritis of both knees , Primary osteoarthritis of both hips 1 Electric Lift Chair/Recliner ICD-10: M47.817, M17.0, M16.0 1 Each 10/01/2017 Active Start: 10-01-2017 COMPOUNDED PRE SCRIPTION Indications: Spondylosis of lumbosacral region, unspecified spinal osteoarthritis complication status , Primary osteoarthritis of both knees , Primary osteoarthritis of both hips 1 Electric Lift Chair/Recliner ICD-10: M47.817, M17.0, M16.0 1 Each 0 10/01/2017 Active Start: 09-30-2017 COMPOUNDED PRE SCRIPTION Indications: Generalized weakness 1 Electric Lift Chair ICD-10: Generalized Weakness R53.1 1 Each 09/30/2017 Active Start: 09-30-2017 COMPOUNDED PRE SCRIPTION Indications: Generalized weakness 1 Electric Lift Chair ICD-10: Generalized Weakness R53.1 1 Each 0 09/30/2017 Active Start: 07-21-2017 COMPOUNDED PRE SCRIPTION Indications: Abnormality of gait Wheeled walker with seat and brakes. Patient needs 5 inch wheels. ICD-10: R26.9 Abnormality of gait 1 Each 07/21/2017 Active Start: 07-21-2017 COMPOUNDED PRE SCRIPTION Indications: Abnormality of gait Wheeled walker with seat and brakes. Patient needs 5 inch wheels. ICD-10: R26.9 Abnormality of gait 1 Each 0 07/21/2017 Active Comment on above: Wheeled walker with seat and brakes. Patient needs 5 inch wheels. ICD-10: R26.9 Abnormality of gait 1 Electric Lift Magdy r ICD-10: Generalized Weakness R53.1 1 Electric Lift Magdy r/Recliner ICD-10: M47.817, M17.0, M16.0 docusate sodium 100 mg oral capsule (20 sources) Start: 03-17-2018 take 100 mg by mouth once daily Docusate Sodium Active 100 MG PO DAILY March 17, 2018 12:00am take 1 capsule by mo [facility] twice daily as needed docusate sodium (COLACE) 100 mg capsule Take 100 mg by mouth twice daily. As needed Active Comment on above: Take 100 mg by mouth twice daily. As needed ferrous sulfate 325 mg oral tablet (4 sources) Start: 04-22-2019 take 325 mg by mouth once daily Ferrous Sulfate Active 325 MG PO DAILY April 22, 2019 12:00am Comment on above: Take 325 mg by mouth daily with breakfast. Folic Acid (20 sources) Start: 08-09-2017 take 800 ug by mouth once daily Folic Acid Active 800 MCG PO DAILY August 08, 2017 11:00pm Start: 07-21-2017 take 1 tablet by omar once daily folic acid 800 mcg tablet Indications: Folate deficiency Take 1 tablet by mouth once daily. 30 tablet 1 07/21/2017 Active Comment on above: Take 1 tablet by omar once daily. mupirocin 0.02 mg/mg topical ointment (20 sources) RNA Synthetase Inhibitor Antibacterial Start: 09-07-2022 End: 07-07-2024 mupirocin (BACTROBAN) 2 % ointment Indications: Cellulitis of skin , Abrasion of right lower extremity, subsequent encounter Apply to affected area three times a day. 15 g 02/15/2023 07/07/2024 Discontinued (Course of therapy completed) Start: 08-31-2022 mupirocin (JEFFERY TROBAN) 2 % ointment Apply to affected area three times daily. 15 g 0 08/31/2022 Active Comment on above: Apply to affected ar ea three times daily. Apply to affected ar ea three times a day. nitrofurantoin, macrocrystals 25 mg / nitrofurantoin, monohydrate 75 mg oral capsule (1 source) Nitrofuran Antibacterial Start: 10-18-19 End: 10-25-19 take 1 capsule by mouth twice daily nitrofurantoin monohydrate and macrocrystal (MACROBID) 100 mg capsule Indications: UTI symptoms Take 1 capsule by mouth twice daily for 7 days. 14 capsule 0 10/17/2021 10/24/2021 Active Comment on above: Take 1 capsule by mo [facility] twice daily for 7 days. omeprazole 20 mg delayed release oral capsule (20 sources) Proton Pump Inhibitor Start: 03-17-20 take 20 mg by mouth twice daily Omeprazole Active 20 MG PO TWICE A DAY March 17, 2018 10:14am Start: 10-26-2017 End: 03-17-2018 take 40 mg by mouth once daily Omeprazole Discontinued 40 MG PO DAILY October 25, 2017 11:00pm March 17, 2018 10:17am take 20 mg by mouth twice daily OMEPRAZOLE ORAL Take 20 mg by mouth twice daily. Active Comment on above: Take 20 mg by mouth twice daily. potassium chloride 10 meq extended release oral tablet (20 sources) Start: 10-02-2024 take 1 tablet by mouth once daily potassium chloride (K-TAB) 10 mEq tablet Indications: Low serum potassium level Take 1 tablet by mouth once daily. 90 tablet 3 10/02/2024 Active Start: 09-07-2022 End: 09-29-2024 take 1 tablet by mouth once daily potassium chloride (K-TAB) 10 mEq tablet Indications: Low serum potassium level Take 1 tablet by mouth once daily. 90 tablet 3 08/24/2023 09/29/2024 Discontinued Start: 08-29-2020 End: 10-17-2021 take 1 tablet by mouth once daily potassium chloride (K-TAB) 10 mEq tablet Indications: Low serum potassium level Take 1 tablet by mouth once daily. 90 tablet 3 10/17/2021 Active Start: 03-17-2018 take 10 mEq by mouth once erick y Potassium Chloride Active 10 MEQ PO DAILY March 17, 2018 12:00am Comment on above: Take 1 tablet by omar once daily. Take 1 tablet by omar th once daily Completed/Discontinued Medications Medication Drug Class(es) Dates Sig (Normalized) Sig (Original) doxycycline monohydrate 100 mg oral capsule (7 sources) Tetracycline- class Drug Start: 3 End: 4 take 1 capsule by mouth twice daily at mealtime doxycycline monohydrate (MONODOX) 100 mg capsule Indications: Cellulitis of skin Take 1 capsule by mouth two times a day. Take with food 20 capsule 0 02/15/2023 08/24/2023 Discontinued Comment on above: Take 1 capsule by mo [facility] two times a day. Take with food hydroCHLOROthiazide 25 mg oral tablet (20 sources) Thiazide Diuretic Start: 3 End: 5 take 1 tablet by mouth once daily hydroCHLOROthiazide 25 mg tablet Indications: Essential hypertension, benign Take 1 tablet by mouth once daily. 90 tablet 3 08/24/2023 06/06/2024 Discontinued (Course of therapy completed) Start: 10-26-2017 End: 10-17-2021 take 1 tablet by mouth once daily hydroCHLOROthiazide (HYDRODIURIL, ESIDRIX) 25 mg tablet Indications: Essential hypertension, benign Take 1 tablet by mouth once daily. 90 tablet 3 10/17/2021 Active Comment on above: [facility] Problems Active Problems Problem Classification Problem Date Documented Da te Episodic/Chronic Acute and unspecified renal failure (1 source) Injury of kidney; Translations: [Acute kidney failure, unspecified] 04-23-2019 Episodic Administrative/social admission (1 source) Impaired mobility; Translations: [Other reduced mobility] 08-24-2023 Episodic Cardiac dysrhythmias (20 sources) Paroxysmal atrial fibrillation; Translations: [Jane rhythm disorder] Onset: 1 05-02-2010 Chronic Chronic kidney disease (20 sources) Chronic kidney disease stage 3; Translations: [Chronic kidney disease, stage III (moderate)] Onset: 2 04-16-2022 Chronic Chronic kidney disease (1 source) Chronic kidney disease; Translations: [Stage 3a chronic kidney disease (HCC)] Onset: 2 Deficiency and other anemia (4 sources) Iron deficiency anemia; Translations: [Iron deficiency anemia, unspecified] Episodic Deficiency and other anemia (1 source) Anemia; Translations: [Anemia, unspecified] 04-22-2019 Episodic Deficiency and other anemia (1 source) Iron deficiency anemia, unspecified; Translations: [Iron deficiency anemia, unspecified iron deficiency anemia type] Onset: 5 Episodic Disorders of lipid metabolism (20 sources) Mixed hyperlipidemia; Translations: [Mixed hyperlipidemia] Onset: 8 08-19-2015 Chronic Essential hypertension (20 sources) Essential (primary) hypertension; Translations: [Benign essential hypertension] Onset: 7 Chronic Fluid and electrolyte disorders (20 sources) Low serum potassium level - finding; Translations: [Hypokalemia] Onset: 1 08-29-2020 Episodic Gastrointestinal hemorrhage (1 source) Chronic gastrointestinal hemorrhage; Translations: [Gastrointestinal hemorrhage, unspecified] 04-21-2019 Episodic Genitourinary symptoms and ill-defined conditions (20 sources) Urge incontinence of urine; Translations: [Urge incontinence] Onset: 1 08-29-2020 Chronic Genitourinary symptoms and ill-defined conditions (3 sources) Urinary symptoms ; Translations: [Unspecified symptoms and signs involving the genitourinary system] Episodic Heart valve disorders (20 sources) Non-rheumatic mitral regurgitation ; Translations: [Nonrheumatic mitral (valve) insufficiency] Onset: 8 08-03-2017 Chronic Hypertension with complications and secondary hypertension (20 sources) Chronic kidney disease stage 3 due to hypertension; Translations: [Hypertensive chronic kidney disease with stage 1 through stage 4 chronic kidney disease, or unspecified chronic kidney disease] Onset: 2 04-16-2022 Chronic Malaise and fatigue (1 source) Other malaise; Translations: [Other malaise] Onset: 5 Episodic Melanomas of skin (20 sources) Malignant melanoma of left upper limb, including shoulder; Translations: [Malignant melanoma] Onset: 8 08-23-2017 Chronic Nervous system congenital anomalies (1 source) Neurofibromatosis syndrome; Translations: [Neurofibromatosis, unspecified] 04-21-2019 Chronic Osteoarthritis (20 sources) Localized osteoarthrosis; Translations: [Unilateral primary osteoarthritis, unspecified knee] Onset: 7 03-16-2007 Chronic Other aftercare (1 source) Surgical follow-up; Translations: [Encounter for removal of sutures] 06-06-2024 Episodic Other aftercare (1 source) Post-discharge follow-up; Translations: [Encounter for follow-up examination after completed treatment for conditions other than malignant neoplasm] 06-09-2024 Episodic Other connective tissue disease (1 source) History of total knee arthroplasty; Translations: [Presence of unspecified artificial knee joint] 04-22-2019 Chronic Other connective tissue disease (1 source) Pain of right lower leg; Translations: [Pain in right lower leg] 06-12-2022 Episodic Other connective tissue disease (1 source) Paraparesis; Translations: [Other symptoms and signs involving the musculoskeletal system] 02-23-2023 Episodic Other diseases of veins and lymphatics (3 sources) Lymphedema; Translations: [Lymphedema, not elsewhere classified] 02-08-2023 Chronic Other injuries and conditions due to external causes (1 source) Closed injury of head; Translations: [Unspecified injury of head, subsequent encounter] 06-06-2024 Episodic Other injuries and conditions due to external causes (1 source) Unspecified injury of head, initial encounter; Translations: [Unspecified injury of head, initial encounter] Onset: 5 Episodic Other liver diseases (3 sources) Alkaline phosphatase raised; Translations: [Abnormal levels of other serum enzymes] Episodic Other nervous system disorders (2 sources) Abnormal gait; Translations: [Unsteadiness on feet] 06-06-2024 Episodic Other nutritional; endocrine; and metabolic disorders (1 source) Abnormal weight loss; Translations: [Abnormal weight loss] 04-21-2019 Episodic Residual codes; unclassified (1 source) Bilateral lower limb edema; Translations: [Localized edema] 08-24-2023 Episodic Residual codes; unclassified (1 source) Localized edema; Translations: [Localized edema] Onset: 5 Episodic Screening and history of mental health and substance abuse codes (2 sources) Encounter for screening for depression; Translations: [Encounter for screening examination for other mental health and behavioral disorders] Onset: 5 Episodic Skin and subcutaneous tissue infections (6 sources) Cellulitis of lower limb; Translations: [Cellulitis of right lower limb] 06-12-2022 Episodic Unclassified (2 sources) Unknown / UNK(Unknown) Onset: 7 Urinary tract infections (2 sources) Acute cystitis; Translations: [Acute cystitis with hematuria] Episodic Past or Other Problems Problem Classification Problem Date Documented Date Episodic/Chronic Appendicitis and other appendiceal conditions (20 sources) Acute appendicitis with generalized peritonitis; Translations: [Acute appendicitis with generalized peritonitis] Onset: 05-09-2008 Resolved: 08-22-2009 08-22-2009 Episodic E Codes: Fall (3 sources) Fall; Translations: [Unspecified fall, subsequent encounter] Onset: 06-02-2024 06-06-2024 Episodic Open wounds of head; neck; and trunk (4 sources) Scalp laceration; Translations: [Laceration without foreign body of scalp, subsequent encounter] Onset: 06-02-2024 06-06-2024 Episodic Other aftercare (1 source) Encounter for removal of sutures; Translations: [Encounter for staple removal] Onset: 06-09-2024 Episodic Other aftercare (1 source) Encounter for follow-up examination after completed treatment for conditions other than malignant neoplasm; Translations: [Hospital discharge follow-up] Onset: 06-09-2024 Episodic Other disorders of stomach and duodenum (20 sources) Mass of stomach; Translations: [Other diseases of stomach and duodenum] Onset: 09-30-2017 09-30-2017 Episodic Other injuries and conditions due to external causes (1 source) Unspecified injury of head, subsequent encounter; Translations: [Closed head injury, subsequent encounter] Onset: 06-09-2024 Episodic Other nervous system disorders (2 sources) Unsteadiness on feet; Translations: [Unsteadiness on feet] Onset: 06-02-2024 Episodic Residual codes; unclassified (20 sources) H/O Malignant melanoma; Translations: [Other specified postprocedural states] Onset: 08-23-2017 04-16-2022 Episodic Sprains and strains (3 sources) Sprain of right thumb; Translations: [Unspecified sprain of right thumb, subsequent encounter] Onset: 06-02-2024 06-06-2024 Episodic Superficial injury; contusion (5 sources) Abrasion of lower limb; Translations: [Abrasion, right lower leg, initial encounter] Onset: 06-02-2024 Episodic Results Test Name Value Interpretation Reference Range Facility [facility]OV[facility] 01-08-2025 [facility] DIONNE FRAUSTO ([id number]) 1940 F Date Time Provider Department 01/08/25 9:00 AM HANY CALL During your visit today, we recorded the following information about you: Pulse Respiration Blood pressure Weight 80/minute 16/minute 120/72 54 kg Hany Call, BASSEM.GRAIN ORIGINATION SPECIALIST 01/08/2025 9:25 AM Signed Chief Complaint Patient presents with: 6 Month Exam HPI Dionne Frausto is a 84 year old female who presents here today for above reason. Dionne Frausto is a 84-year-old female with a history of HTN, anemia, atrial fibrillation, and melanoma, presenting for a follow-up visit. Dionne reports doing well overall, taking it day by day. She is currently on atenolol and benazepril for blood pressure management, with the latter being taken at half a tablet once daily. She also uses a stool softener as needed for constipation and omeprazole for reflux, which is well-controlled. She is not currently taking an iron supplement but has a history of anemia. She is taking a potassium supplement, though she is unsure of the dosage. She denies any current issues with atrial fibrillation and is not under the care of a excel developer. She has a history of melanoma, which was excised, and reports no ongoing issues related to this. Dionne experienced a fall in May, after which hydrochlorothiazide was discontinued. She reports persistent lower extremity edema, which she notes has been a chronic issue. She also mentions frequent urination, which has been ongoing for quite some time. She denies any current symptoms of a urinary tract infection and denies experiencing weakness or confusion. She does not live alone and resides on a family compound. Past medical history, appointments, medications, allergies reviewed. EXAM: BP 120/72 Pulse 80 Resp 16 Wt 54 kg (119 lb) SpO2 100% BMI 24.87 kg/m? General Appearance: Well appearing, alert, in no acute distress, well-hydrated, well nourished.. Lungs: Lungs clear to auscultation. No wheezing, rhonchi, rales.. Heart: RRR without murmur, gallop, or rubs. No ectopy. Extremities: Edema: +2 non-pitting edema around the ankles and top of foot bilaterally. Baseline based on past visits. . Assessment and Plan 1. PAF (paroxysmal atrial fibrillation) ([facility]) (I48.0) No current symptoms of atrial fibrillation; managed with atenolol. - Continue atenolol as prescribed. 2. Malignant melanoma, unspecified site ([facility]) (C43.9) History of melanoma excised from the back; no current issues reported. - No follow-up required at this time. 3. Stage 3a chronic kidney disease (HCC) (N18.31) CKD has been stable but with intermittent underperformance; managed with benazepril. - Continue benazepril 10 mg daily. - Order repeat labs to monitor kidney function, liver enzymes, electrolytes, and iron levels. - Monitor potassium levels due to concurrent use of benazepril and potassium supplement. 4. Essential hypertension, benign (I10) Blood pressure well controlled on current regimen of atenolol and benazepril. - Continue current antihypertensive regimen. 5. Iron deficiency anemia, unspecified iron deficiency anemia type (D50.9) Reviewed previous labs from August, which showed no anemia; patient has a history of iron deficiency anemia but is not currently taking iron supplements. - Order repeat labs to monitor iron levels. 6. Localized edema (R60.0) Chronic lower extremity edema, likely related to lymphatic and vascular insufficiency; not cardiac in origin. - Educated patient on elevating legs when sitting and using ALEXX wraps during the day to manage edema. - Advised use of stamp machine servicer socks or slippers to prevent tripping hazards. 7. Screening for depression (Z13.31) 8. Encounter for screening examination for other mental health and behavioral disorders (Z13.39) Hany Call APRN.GRAIN ORIGINATION SPECIALIST RTO in 6 months, sooner if needed. This note was partly generated using TrabajoPanel voice recognition dictation and may contain some misspelled or inaccurate words missed on review. Recording using Pitchbrite software for draft documentation of the visit was discussed with the patient/authorized loan representative; all questions welcomed and answered. Patient/authorized loan representative agreed to proceed Allergies As of Date: 01/08/2025 Noted Allergy Reaction NIACIN 11/30/2006 9 - Itching Date Reviewed: 01/08/2025 Reviewed by: Kassandra Ramírez MA - Fully Assessed Reason for Visit: 6 Month Exam [189] Primary Visit Diagnosis:PAF (paroxysmal atrial fibrillation) (HCC) [I48.0] Other Visit Diagnoses:Malignant melanoma, unspecified site (HCC) [C43.9] Stage 3a chronic kidney disease (HCC) [N18.31] Essential hypertension, benign [I10] Iron deficiency anemia, unspecified iron deficiency anemia type [D50.9] Screening for depression [Z13.31] Encounter for screening examinatio (more content not included)... Normal [facility] CNOVon 07-07-2024 CNOV Office Visit (FAMPWS ) DIONNE FRAUSTO ([id number]) 1940 F Date Time Provider Department 07/07/24 9:00 AM HANY CALL During your visit today, we recorded the following information about you: Pulse Respiration Blood pressure 70/minute 16/minute 128/68 Hany Call APRN.GRAIN ORIGINATION SPECIALIST 07/07/2024 9:07 AM Signed Chief Complaint Patient presents with: Follow Up: 1 month HPI Dionne Frausto is a 83 year old female who presents here today for Above Complaints. Dionne is a 83-year-old female, with a history of HTN and a recent fall, presenting for a 1 month follow-up. Dionne reports no new falls since the incident last month, during which she sustained facial ecchymosis. She has been consistently using a rollator for ambulation. She denies any new pain, other than her usual weight-related discomfort. Last month, her HCTZ was discontinued due to hypotension. Since then, she has not noticed any significant changes in her condition. She has been monitoring her BP at home, with systolic readings in the 120s. She is currently on atenolol and benazepril for BP management. She had previously stopped taking aspirin, but has not yet resumed it. She has been participating in physical therapy, which she reports is going well. The therapy includes exercises aimed at strengthening her legs and improving stability. She has been given exercises to continue at home. She has a history of chronic lower extremity edema, but reports no increase in swelling since discontinuing HCTZ. She continues to elevate her legs as much as possible. She denies any new or ongoing fevers, chills, chest pain, or dyspnea. She completed a course of ciprofloxacin for a UTI caused by Klebsiella. She reports intermittent dysuria and is not currently taking iron supplements. Constitutional: (-) fever, (-) chills Cardiovascular: (-) chest pain Respiratory: (-) shortness of breath Genitourinary: (+) burning with urination Past medical history, appointments, medications, allergies reviewed. EXAM: BP 128/68 Pulse 70 Resp 16 SpO2 99% General Appearance: Well appearing, alert, in no acute distress, well-hydrated, well nourished.. Lungs: Lungs clear to auscultation. No wheezing, rhonchi, rales.. Heart: RRR without murmur, gallop, or rubs. No ectopy. Extremities: Pulses: 2+, Edema: +2 non pitting edema (consistent with prior exams) 1. Essential hypertension, benign (I10) Previously on hydrochlorothiazide, which was discontinued due to hypotension. Currently managed with atenolol and benazepril. Blood pressure readings have been in the 120s systolic. Aspirin therapy was paused but will be resumed as bruising has resolved. - Resume aspirin therapy. - Continue atenolol and benazepril. - Monitor blood pressure at home. - Follow-up in 6 months. 2. Dysuria (R30.0) Recent UTI treated with ciprofloxacin; urine culture showed Klebsiella. Currently experiencing intermittent burning sensation. - Ordered urinalysis to assess current status. - UA unremarkable, encouraged patient to keep hydrated. 3. Unstable gait (R26.81) No recent falls; using a rollator for mobility. Engaged in physical therapy focusing on leg strengthening and stability exercises. - Continue prescribed physical therapy exercises at home. - Elevate legs to reduce chronic swelling. 4. Iron deficiency anemia, unspecified iron deficiency anemia type (D50.9) Not currently on iron supplementation; maintaining iron levels through diet. - Ordered blood work to recheck iron levels in 6 months. RTO in 6 months, sooner if needed. This note was partly generated using TrabajoPanel voice recognition dictation and may contain some misspelled or inaccurate words missed on review. The patient consented to the use of Pitchbrite software for draft documentation of the visit consistent with [facility]?s Notice of Privacy Practices. Hany Call APRN.GRAIN ORIGINATION SPECIALIST 07/07/2024 8:57 AM Signed We discussed your follow-up after your fall last month: - You reported no new falls and no significant pain, aside from some usual discomfort related to your weight. Continue using your rollator for stability. - Physical therapy has been helpful, and you have exercises to continue at home. Please keep doing these exercises regularly to strengthen your legs and improve balance. - Keep elevating your legs as much as possible to help with chronic swelling. We discussed your blood pressure management: - Your blood pressure readings at home have been in the 120s for the top number, which is acceptable. I am not concerned about these levels as long as they do not go too high. - You are currently taking Atenolol and Benazepril for blood pressure. Continue these medications as prescribed. - We previously stopped Hydrochlorothiazide, and you have not noticed any changes in your legs or swelling sin (more content not included)... Normal [facility] UA DIP, URINE (POC)on 2024 BILIRUBIN UA (POCT) Negative Negative [facility] CLARITY UA (POCT) Cloudy [facility] COLOR UA (POCT) Dark yellow [facility] GLUCOSE UA (POCT) Negative Negative mg/dL [facility] Hemoglobin Ql (U) Negative Negative [facility] Interpretation and review of laboratory results Abnormal [facility] KETONE UA (POCT) Negative Negative mg/dL [facility] LEUKOCYTES UA (POCT) Negative Negative [facility] NITRITE UA (POCT) Negative Negative [facility] PH UA (POCT) 6 4.5 - 8.0 [facility] Protein Ql (U) 100 mg/dL Abnormal Negative [facility] SPECIFIC GRAVITY UA (POCT) 1.02 1.005 - 1.030 [facility] UROBILINOGEN UA (POCT) 1 Normal E.U./dL [facility] Location:[facility], [address], [place], [address] [facility] POINT OF CARE [facility] Krzysztof 06-12-2024 CNPN Telephone (FAMPWS) DIONNE FRAUSTO ([id number]) 1940 F Date Time Provider Department 06/12/24 [facility] During your visit today, we recorded the following information about you: Guerita Cleveland RN 06/12/2024 9:44 AM Signed Rosalinda OT calling from [facility] to report plan of care for patient and occupational therapy will visit patient 2 times a week for 3 weeks. Occupational therapy will work with patient on ADLs, IADLs. This was also a delay of care do to OT having a full schedule No Call back needed if agreeable GURMEET Haddad Jesse, APRN.ALIZE 06/12/2024 9:56 AM Signed Noted. Agree with plan. Hany Call APRN.GRAIN ORIGINATION SPECIALIST Allergies As of Date: 06/12/2024 Noted Allergy Reaction NIACIN 11/30/2006 9 - Itching Date Reviewed: 06/09/2024 Reviewed by: Briana Bahena LPN - Fully Assessed Reason for Visit: Occupation Therapy Plan of Care [Other] Prescriptions as of 06/12/2024 - ciprofloxacin HCl (CIPRO) 500 mg tablet Take 1 tablet by mouth two times a day for 7 days. - benazepril (LOTENSIN) 20 mg tablet Take 0.5 tablets by mouth once daily. - potassium chloride (K-TAB) 10 mEq tablet Take 1 tablet by mouth once daily. - atenolol (TENORMIN) 25 mg tablet Take 1 tablet by mouth once daily. - mupirocin (BACTROBAN) 2 % ointment Apply to affected area three times a day. - acetaminophen 325 mg cap Acetaminophen Active 500 - 1000 MG EVERY 6 HOURS NEEDED April 22, 2019 1:31am - docusate sodium (COLACE) 100 mg capsule Take 100 mg by mouth twice daily. As needed - OMEPRAZOLE ORAL Take 20 mg by mouth twice daily. - COMPOUNDED PRESCRIPTION 1 Electric Lift Chair/Recliner ICD-10: M47.817, M17.0, M16.0 - COMPOUNDED PRESCRIPTION 1 Electric Lift Chair ICD-10: Generalized Weakness R53.1 - folic acid 800 mcg tablet Take 1 tablet by mouth once daily. - COMPOUNDED PRESCRIPTION Wheeled walker with seat and brakes. Patient needs 5 inch wheels. ICD-10: R26.9 Abnormality of gait - Aspirin 81 mg Tab Take 1 tablet by mouth once daily. Take with food. Problem List As Of Date 06/12/2024 Noted Resolved BENIGN HYPERTENSION [I10] 11/02/2006 LOC OSTEOARTH NOS-L/LEG [M17.10] 03/16/2007 Mixed hyperlipidemia [E78.2] 11/04/2007 APPENDICITIS ACUTE W RUPTURE [K35.209] 05/09/2008 08/22/2009 Sinus arrhythmia [I49.8] 05/02/2010 Non-rheumatic mitral regurgitation [I34.0] 08/03/2017 History of melanoma excision [Z98.890, Z85.820] 08/23/2017 Gastric mass [K31.89] 09/30/2017 PAF (paroxysmal atrial fibrillation) (HCC) [I48*10/01/2017 Urge incontinence [N39.41] 08/29/2020 Low serum potassium level [E87.6] 08/29/2020 Chronic kidney disease, stage III (moderate) (H*04/16/2022 Hypertensive kidney disease with stage 3 chroni*04/16/2022 Malignant melanoma, unspecified site (HCC) [C43*08/24/2023 Encounter Status:Closed by HANY CALL on 06/12/24 Normal [facility] Bacteria Ur Culton 5 Bacteria identified Cx Nom (U) ORGANISM ID: [id number] >=100,000 CFU/ml Klebsiella pneumoniae ORGANISM ID: 1 (KLEBSIELLA PNEUMONIAE) ANTIBIOTIC INTERPRETATION NICOLETTE STATUS REFERENCE RANGE Ampicillin R F Cefazolin S <=4 F Susceptible 0-16 , Intermediate <0 or >16 , Resistant >16 For uncomplicated urinary tract infections, cefazolin results can be used to predict susceptibility or resistance to cephalexin. Ceftriaxone S <=1 F Susceptible <=1 , Intermediate >1 , Resistant >=4 Cefepime S <=1 F Susceptible <=2 , Susceptible-Dose Dependent >2 , Resistant >=16 Ertapenem S <=0.5 F Susceptible <=0.5 , Intermediate >.5 , Resistant >1 Meropenem S <=0.25 F Susceptible <=1 , Intermediate >1 , Resistant >2 Ampicillin/Sulbact S 4 F Susceptible <=8 , Intermediate >8 , Resistant >16 Piperacillin/Tazobac S <=4 F Susceptible <16 , Susceptible-Dose Dependent >=16 , Resistant >=32 Gentamicin S <=1 F Susceptible <=2 , Intermediate >2 , Resistant >=8 Tobramycin S <=1 F Susceptible <4 , Intermediate >=4 , Resistant >=8 Trimeth sulfameth S <=20 F Susceptible <=40 , Resistant >40 Ciprofloxacin S <=0.25 F Susceptible <0.5 , Intermediate >=.5 , Resistant >=1 Nitrofurantoin I 64 F Susceptible <=32 , Intermediate >32 , Resistant >64 Abnormal [facility] Comment on above: Performed By: #### 630-4 ####NEERU Roman [facility] [id number] [address] [address] [place] [facility] CNOVon 06-09-2024 CNOV Office Visit (FAMPWS ) DIONNE FRAUSTO ([id number]) 1940 F Date Time Provider Department 06/09/24 8:20 AM HANY CALLWS During your visit today, we recorded the following information about you: Pulse Respiration Blood pressure 80/minute 16/minute 117/68 Hany Call APRN.GRAIN ORIGINATION SPECIALIST 06/09/2024 9:40 AM Signed Chief Complaint Patient presents with: Transition Of Care: [facility] fall 06/01/2023 Possible suture removal HPI Dionne Frausto is a 83 year old female who presents here today for Hospital Discharge Follow up. follow up for fall, suture removal, head contusion. Patient is here for hospital follow-up and also evaluation for suture removal. Patient went to [facility] on June 01 as for sustaining a fall at the home. Using her cane, tripped on it, fell forward. Hit her head, knee, right hand. CBC unremarkable, stable chronic anemia with hemoglobin of 11.3. CMP unremarkable, CT of the scalp showed hematoma overlying the left parietal and frontal bones with cerebral atrophy but otherwise unremarkable. CT of the cervical spine showed multilevel disc narrowing with arthritis without any acute fractures. Thoracic spine CT showed no acute abnormalities. Lumbar spine showed no acute findings. X-ray of the right knee revealed no acute fracture or dislocation. X-ray of the right hand showed degenerative changes with no acute findings. Left tibia/fibula x-ray was unremarkable. She was admitted overnight, she received sutures to her scalp. She was discharged home on 06/02 in stable condition. Reviewing the emergency room documentation, there was a total of 9 sutures, simple interrupted sutures placed to the scalp. An additional 4 interrupted sutures also were placed using flap. For a total of 13 total sutures. Patient presents with family. She also has been receiving home PT, OT, nursing. She states that she is doing okay. Still has some swelling, discomfort of the left knee. On Wednesday she started to develop some lower back pain. She states that she gets a urinary tract infection when this occurs. Wondering if she needs to give a urine sample. She denies any urinary symptoms. She has not fallen since she is gone home. She is using walker, cane to ambulate. She denies any headaches, syncope, lightheadedness. Her blood pressure is well-controlled today without hydrochlorothiazide for the last 1 week. We will continue to hold and likely discontinue. Her aspirin has also been held for the last week, we will also continue to hold for the next 2 to 3 weeks. Past medical history, appointments, medications, allergies reviewed. EXAM: BP 117/68 (BP Position: Sitting) Pulse 80 Resp 16 SpO2 99% General Appearance: Well appearing, alert, in no acute distress, well-hydrated, well nourished. and Thin. Skin: Patient has 13 sutures present on the left side of her scalp. There is dried blood present. She has ecchymosis diffuse of her scalp, face, neck, and various stages including purple, red, yellow, green.. Eyes: Anicteric sclera. Pupils are equally round and reactive to light. Extraocular movements are intact. . Lungs: Lungs clear to auscultation. No wheezing, rhonchi, rales.. Heart: RRR without murmur, gallop, or rubs. No ectopy. Musculoskeletal: Left knee: There is swelling of the left knee with various stages of ecchymosis, it is tender. Right hand: There is mild ecchymosis in the thumb area, no swelling, patient is able to extend, flex her wrist, fingers without difficulty.. ASSESSMENT/PLAN: 1. Unstable gait - ICD9: 781.2, ICD10: R26.81 (primary diagnosis) -Continue to work with home health PT for now. Patient's family asked for referral to home health for further assistance long-term. They were referred over this summer previously, I gave them information for contacting the agency that was within patient is at work. They will make a call and let me know if I need to send any orders to that agency. 2. Contusion of left knee, subsequent encounter - ICD9: V58.89, 924.11, ICD10: S80.02XD -Advised to keep elevated, could expect some swelling in the lower left extremity as this resolved, can apply ice. X-ray in the ER was normal 3. Sprain of right thumb, unspecified site of digit, subsequent encounter - ICD9: V58.89, 842.10, ICD10: S63.601D -Improving, resolved almost. 4. Laceration of scalp, subsequent encounter - ICD9: V58.89, 873.0, ICD10: S01.01XD -See #5. Keep open to air 5. Encounter for staple removal - ICD9: V58.32, ICD10: Z48.02 -I was able to remove 5 sutures from her scalp and then noticed some movement with the edges of the laceration. Home health nursing had contacted me yesterday in regards to being able to take the rest out if needing. We will give home health a call to advise them that 8 sutures need to be removed either on Wednesday or Wednesday. Patient tolerated (more content not included)... Normal [facility] UA DIP, URINE (POC)on 2024 BILIRUBIN UA (POCT) Negative Negative [facility] CLARITY UA (POCT) Cloudy [facility] COLOR UA (POCT) Dark yellow [facility] GLUCOSE UA (POCT) Negative Negative mg/dL [facility] Hemoglobin Ql (U) Trace-intact Abnormal Negative [facility] Interpretation and review of laboratory results Abnormal [facility] KETONE UA (POCT) Negative Negative mg/dL [facility] LEUKOCYTES UA (POCT) Small Abnormal Negative [facility] NITRITE UA (POCT) Positive Abnormal Negative [facility] PH UA (POCT) 5.5 4.5 - 8.0 [facility] Protein Ql (U) Trace Abnormal Negative mg/dL [facility] SPECIFIC GRAVITY UA (POCT) 1.02 1.005 - 1.030 [facility] UROBILINOGEN UA (POCT) 0.2 Normal E.U./dL [facility] Location:[facility], [address] [place] [address], [place], [place], [id number] [place] [address] POINT OF CARE [facility] CNPXin 06-07-2024 CNPN Telephone (FAMWS) VENKATDIONNE ([id number]) 1940 F Date Time Provider Department 06/07/24 CHARLENE ERNST During your visit today, we recorded the following information about you: Shazia Klein LPN 06/07/2024 3:02 PM Signed Marley from [facility] calling did intake with patient today. PT had added nursing services for patient due to her having a fall. Patient has sutures in her forehead. Nursing is going to continue to monitor patient 1 time per week for the next 3 weeks. Will be in the office Wednesday in hopes to have sutures removed. If unable to be removed at that time nursing will be able to remove them in the home with order. Nurse today cleaned area well. If any additional order you may contact home health back otherwise no need to contact back. Hany Call APRN.CNP 06/08/2024 7:16 AM Signed Okay noted. I will take a look at the sutures on Wednesday. Hany Call APRN.Hany Cantu APRN.ALIZE 06/09/2024 12:08 PM Signed Can we please reach out to Marley with to update her. Please let her know that I was able to remove 5 sutures from her laceration today. Unfortunately the edges of the laceration started to shift. I believe that she will be able to remove remaining 8 sutures on Wednesday as this will be 11 days. Patient aware that home health nurse will remove. If having difficulties, the patient can always reschedule with me for removal. Hany Call APRN.Briana Morley LPN 06/09/2024 1:43 PM Signed Phone call to [facility], spoke with Kathrine, gave order for sutures to be removed by Wednesday. Verbalized understanding. Allergies As of Date: 06/07/2024 Noted Allergy Reaction NIACIN 11/30/2006 9 - Itching Date Reviewed: 08/24/2023 Reviewed by: Kassandra Ramírez MA - Fully Assessed Prescriptions as of 06/09/2024 - ciprofloxacin HCl (CIPRO) 500 mg tablet Take 1 tablet by mouth two times a day for 7 days. - benazepril (LOTENSIN) 20 mg tablet Take 0.5 tablets by mouth once daily. - potassium chloride (K-TAB) 10 mEq tablet Take 1 tablet by mouth once daily. - atenolol (TENORMIN) 25 mg tablet Take 1 tablet by mouth once daily. - mupirocin (BACTROBAN) 2 % ointment Apply to affected area three times a day. - acetaminophen 325 mg cap Acetaminophen Active 500 - 1000 MG EVERY 6 HOURS NEEDED April 22, 2019 1:31am - docusate sodium (COLACE) 100 mg capsule Take 100 mg by mouth twice daily. As needed - OMEPRAZOLE ORAL Take 20 mg by mouth twice daily. - COMPOUNDED PRESCRIPTION 1 Electric Lift Chair/Recliner ICD-10: M47.817, M17.0, M16.0 - COMPOUNDED PRESCRIPTION 1 Electric Lift Chair ICD-10: Generalized Weakness R53.1 - folic acid 800 mcg tablet Take 1 tablet by mouth once daily. - COMPOUNDED PRESCRIPTION Wheeled walker with seat and brakes. Patient needs 5 inch wheels. ICD-10: R26.9 Abnormality of gait - Aspirin 81 mg Tab Take 1 tablet by mouth once daily. Take with food. Problem List As Of Date 06/07/2024 Noted Resolved BENIGN HYPERTENSION [I10] 11/02/2006 LOC OSTEOARTH NOS-L/LEG [M17.10] 03/16/2007 Mixed hyperlipidemia [E78.2] 11/04/2007 APPENDICITIS ACUTE W RUPTURE [K35.209] 05/09/2008 08/22/2009 Sinus arrhythmia [I49.8] 05/02/2010 Non-rheumatic mitral regurgitation [I34.0] 08/03/2017 History of melanoma excision [Z98.890, Z85.820] 08/23/2017 Gastric mass [K31.89] 09/30/2017 PAF (paroxysmal atrial fibrillation) (HCC) [I48*10/01/2017 Urge incontinence [N39.41] 08/29/2020 Low serum potassium level [E87.6] 08/29/2020 Chronic kidney disease, stage III (moderate) (H*04/16/2022 Hypertensive kidney disease with stage 3 chroni*04/16/2022 Malignant melanoma, unspecified site (HCC) [C43*08/24/2023 Encounter Status:Closed by HANY CALL on 06/08/24 [facility]tof [facility] ([id number]) 1940 F Date Time Provider Department 06/06/24 [facility] During your visit today, we recorded the following information about you: Guerita Cleveland RN 06/06/2024 1:18 PM Signed Kathrine from [facility] calls to report medication discrepancies. Patient is on folic acid which flags because patient has an allergy to Niacin. Patient has hydrochlorothiazide on med list. Per niece patient was taken off of this medication during hospital stay due to low blood pressures. Aspirin 81 mg is on med list. Patient is not supposed to be taking this medication x 1 week due to extensive bruising. GURMEET Haddad Jesse, APRN.[facility] 06/06/2024 2:11 PM Signed Noted. HCTZ discontinued. Patient has been on folic acid since 2018. Okay to hold aspirin for 1 week. Hany Call APRN.Renu Clarke RN 06/12/2024 12:21 PM Signed Kathrine from [facility] called and is notified of providers message and instructions. She voices understanding. Renu Calle RN Allergies As of Date: 06/06/2024 Noted Allergy Reaction NIACIN 11/30/2006 9 - Itching Date Reviewed: 08/24/2023 Reviewed by: Kassandra Ramírez MA - Fully Assessed Reason for Visit: Medication Update [8346] Prescriptions as of 06/12/2024 - ciprofloxacin HCl (CIPRO) 500 mg tablet Take 1 tablet by mouth two times a day for 7 days. - benazepril (LOTENSIN) 20 mg tablet Take 0.5 tablets by mouth once daily. - potassium chloride (K-TAB) 10 mEq tablet Take 1 tablet by mouth once daily. - atenolol (TENORMIN) 25 mg tablet Take 1 tablet by mouth once daily. - mupirocin (BACTROBAN) 2 % ointment Apply to affected area three times a day. - acetaminophen 325 mg cap Acetaminophen Active 500 - 1000 MG EVERY 6 HOURS NEEDED April 22, 2019 1:31am - docusate sodium (COLACE) 100 mg capsule Take 100 mg by mouth twice daily. As needed - OMEPRAZOLE ORAL Take 20 mg by mouth twice daily. - COMPOUNDED PRESCRIPTION 1 Electric Lift Chair/Recliner ICD-10: M47.817, M17.0, M16.0 - COMPOUNDED PRESCRIPTION 1 Electric Lift Chair ICD-10: Generalized Weakness R53.1 - folic acid 800 mcg tablet Take 1 tablet by mouth once daily. - COMPOUNDED PRESCRIPTION Wheeled walker with seat and brakes. Patient needs 5 inch wheels. ICD-10: R26.9 Abnormality of gait - Aspirin 81 mg Tab Take 1 tablet by mouth once daily. Take with food. 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] 03/16/2007 Mixed hyperlipidemia [E78.2] 11/04/2007 APPENDICITIS ACUTE W RUPTURE [K35.209] 05/09/2008 08/22/2009 Sinus arrhythmia [I49.8] 05/02/2010 Non-rheumatic mitral regurgitation [I34.0] 08/03/2017 History of melanoma excision [Z98.890, Z85.820] 08/23/2017 Gastric mass [K31.89] 09/30/2017 PAF (paroxysmal atrial fibrillation) (HCC) [I48*10/01/2017 Urge incontinence [N39.41] 08/29/2020 Low serum potassium level [E87.6] 08/29/2020 Chronic kidney disease, stage III (moderate) (H*04/16/2022 Hypertensive kidney disease with stage 3 chroni*04/16/2022 Malignant melanoma, unspecified site (HCC) [C43*08/24/2023 Medications Discontinued During This Encounter Prescriptions - hydroCHLOROthiazide 25 mg tablet (Discontinued) Take 1 tablet by mouth once daily. Encounter Status:Closed by HANY CALL on 06/06/24 Normal [facility] CBC W/Diff, Automatedon - Absolute Lymph 0.73 X10 3/uL Low 0.83-4.51 [facility] [facility] Comment on above: Performed By: #### L100.0100, L500.4050, L501.2300, L501.5200 ####[facility] [address] [place], [address] Absolute Neut 4.3 X10 3/uL Normal 2.0-7.7 [facility] Comment on above: Performed By: #### L100.0100, L500.4050, L501.2300, L501.5200 ####[facility] [address] [place], [address] Basophils/100 WBC (Bld) 0.5 % Normal 0-1 [facility] Comment on above: Performed By: #### L100.0100, L500.4050, L501.2300, L501.5200 ####[facility] [address] [place], [address] Eosinophils/100 WBC (Bld) 2.4 % Normal 0-5 [facility] Comment on above: Performed By: #### L100.0100, L500.4050, L501.2300, L501.5200 ####[facility] [address] [place], [address] Erythrocyte distribution width (RBC) [Ratio] 13.9 % Normal 11.6-14.6 [facility] Comment on above: Performed By: #### L100.0100, L500.4050, L501.2300, L501.5200 ####[facility] [address] [place], [address] Hematocrit (Bld) [Volume fraction] 35.6 % Low 37-47 [facility] Comment on above: Performed By: #### L100.0100, L500.4050, L501.2300, L501.5200 ####[facility] [address] [place], [address] Hemoglobin (Bld) [Mass/Vol] 11.2 g/dL Low 12.0-15.0 [facility] Comment on above: Performed By: #### L100.0100, L500.4050, L501.2300, L501.5200 ####[facility] [address] [place], [address] IG% 0.700 Normal 0.0-0.9 [facility] Comment on above: Result Comment: IG% - Immature Granulocy unique (promyelocytes, myelocytes and metamyelocytes) > 1% indicates that a LEFT SHIFT is Present. Performed By: #### L 100.0100, L500.4050, L501.2300, L501.5200 ####[facility] [address] [place], [address] Lymphocytes/100 WBC (Bld) 12.4 % Low 19-41 [facility] Comment on above: Performed By: #### L100.0100, L500.4050, L501.2300, L501.5200 ####[facility] [address] [place], [address] MCH (RBC) [Entitic mass] 28.1 pg Normal 27.0-32.0 [facility] Comment on above: Performed By: #### L100.0100, L500.4050, L501.2300, L501.5200 ####[facility] [address] [place], [address] MCHC (RBC) [Mass/Vol] 31.5 g/dL Low 32-36 [facility] Comment on above: Performed By: #### L100.0100, L500.4050, L501.2300, L501.5200 ####[facility] [address] [place], [address] MCV (RBC) [Entitic vol] 89.2 fL Normal 81-99 [facility] Comment on above: Performed By: #### L100.0100, L500.4050, L501.2300, L501.5200 ####[facility] [address] [place], [address] Monocytes/100 WBC (Bld) 10.9 % High 0-10 [facility] Comment on above: Performed By: #### L100.0100, L500.4050, L501.2300, L501.5200 ####[facility] [address] [place], [address] Neutrophils/100 WBC (Bld) 73.1 % High 47-70 [facility] Comment on above: Performed By: #### L100.0100, L500.4050, L501.2300, L501.5200 ####[facility] [address] [place], [address] Nucleated RBC (Bld) [#/Vol] 0 10*3/uL Normal 0-5 [facility] Comment on above: Performed By: #### L100.0100, L500.4050, L501.2300, L501.5200 ####[facility] [address] [place], [address] Platelet mean volume (Bld) [Entitic vol] 10.8 fL Normal 6.2-12.0 [facility] Comment on above: Performed By: #### L100.0100, L500.4050, L501.2300, L501.5200 ####[facility] [address] [place], [address] Platelets (Bld) [#/Vol] 195 10*3/uL Normal 150-450 [facility] Comment on above: Performed By: #### L100.0100, L500.4050, L501.2300, L501.5200 ####[facility] [address] [place], [address] RBC (Bld) [#/Vol] 3.99 10*6/uL Low 4.2-5.4 [facility] Comment on above: Performed By: #### L100.0100, L500.4050, L501.2300, L501.5200 ####[facility] [address] [place], [address] RDW SD 45.1 fl High 35.1-43.9 [facility] Comment on above: Performed By: #### L100.0100, L500.4050, L501.2300, L501.5200 ####[facility] [address] [place], [address] WBC (Bld) [#/Vol] 5.9 10*3/uL Normal 4.4-11.0 [facility] Comment on above: Performed By: #### L100.0100, L500.4050, L501.2300, L501.5200 ####[facility] [address] [place], [address] [facility] ([id number]) 1940 F Date Time Provider Department 06/02/24 CHARLENE ERNST During your visit today, we recorded the following information about you: Corrie Kumar, RN 06/02/2024 4:18 PM Signed Aziza with [facility] calls to ask if provider will follow care orders for PT and OT following hospitalization for fall with lacerations. Patient has degeneration of spine and they would like to work with getting her back to baseline. Please call Aziza back at [phone]. Corrie Kumar, Hany Mann APRN.ALIZE 06/05/2024 10:22 AM Signed Okay to proceed with home PT/OT. Hany Call APRN.Sarah Breaux RN 06/05/2024 11:59 AM Signed Aziza - PT- [facility]- phoned and given provider's message below with verbalized understanding. Aziza-PT phoning with PT POC- will see pt 2 x's week for 4 weeks for lower extremitie strengthening, transfer, gait training, and balance. Aziza- PT asking provider if they can add SW referral to work on getting advanced directives set up with patient. Aziza- PT reports patient has 13 kina in her head for a fall, asking if Nursing can visit patient to look at the head wound with kina and dressing, and the antibacterial ointment patient is putting on it to make sure wound stays healthy? Please phone Aziza- PT with verbal: [phone] Charlene Ernst MD 06/05/2024 12:52 PM Signed OK for all the requests; Ok for verbal orders for all of them MD Asim Moses Rilee, MA 06/05/2024 1:44 PM Signed Call to Aziza, received confidential VM. Left detailed message with PCP's response below from Triage note. If questions to contact office and speak with Triage Nurse. Char Santa MA Allergies As of Date: 06/02/2024 Noted Allergy Reaction NIACIN 11/30/2006 9 - Itching Date Reviewed: 08/24/2023 Reviewed by: Kassandra Ramírez MA - Fully Assessed Reason for Visit: Orders [681] [facility] PT POC- requesting verbal [Other] Prescriptions as of 06/05/2024 - benazepril (LOTENSIN) 20 mg tablet Take 0.5 tablets by mouth once daily. - potassium chloride (K-TAB) 10 mEq tablet Take 1 tablet by mouth once daily. - atenolol (TENORMIN) 25 mg tablet Take 1 tablet by mouth once daily. - hydroCHLOROthiazide 25 mg tablet Take 1 tablet by mouth once daily. - mupirocin (BACTROBAN) 2 % ointment Apply to affected area three times a day. - acetaminophen 325 mg cap Acetaminophen Active 500 - 1000 MG EVERY 6 HOURS NEEDED April 22, 2019 1:31am - docusate sodium (COLACE) 100 mg capsule Take 100 mg by mouth twice daily. As needed - OMEPRAZOLE ORAL Take 20 mg by mouth twice daily. - COMPOUNDED PRESCRIPTION 1 Electric Lift Chair/Recliner ICD-10: M47.817, M17.0, M16.0 - COMPOUNDED PRESCRIPTION 1 Electric Lift Chair ICD-10: Generalized Weakness R53.1 - folic acid 800 mcg tablet Take 1 tablet by mouth once daily. - COMPOUNDED PRESCRIPTION Wheeled walker with seat and brakes. Patient needs 5 inch wheels. ICD-10: R26.9 Abnormality of gait - Aspirin 81 mg Tab Take 1 tablet by mouth once daily. Take with food. 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.10] 03/16/2007 Mixed hyperlipidemia [E78.2] 11/04/2007 APPENDICITIS ACUTE W RUPTURE [K35.209] 05/09/2008 08/22/2009 Sinus arrhythmia [I49.8] 05/02/2010 Non-rheumatic mitral regurgitation [I34.0] 08/03/2017 History of melanoma excision [Z98.890, Z85.820] 08/23/2017 Gastric mass [K31.89] 09/30/2017 PAF (paroxysmal atrial fibrillation) (HCC) [I48*10/01/2017 Urge incontinence [N39.41] 08/29/2020 Low serum potassium level [E87.6] 08/29/2020 Chronic kidney disease, stage III (moderate) (H*04/16/2022 Hypertensive kidney disease with stage 3 chroni*04/16/2022 Malignant melanoma, unspecified site (HCC) [C43*08/24/2023 Encounter Status:Closed by CHAR SANTA on 06/05/24 Normal [facility] Metabolic Prof radha 06-02-2024 Albumin [Mass/Vol] 3.4 g/dL Normal 3.2-5.0 [facility] Comment on above: Performed By: #### L100.0100, L500.4050, L501.2300, L501.5200 ####[facility] [address] [place], [address] Albumin/Globulin [Mass ratio] 0.9 {ratio} Normal 0.9-2.4 [facility] Comment on above: Performed By: #### L100.0100, L500.4050, L501.2300, L501.5200 ####[facility] [address] [place], [address] ALK P 152 U/L High 45-117 [facility] Comment on above: Performed By: #### L100.0100, L500.4050, L501.2300, L501.5200 ####[facility] [address] [place], [address] ALT [Catalytic activity/Vol] 26 U/L Normal 13-56 [facility] Comment on above: Performed By: #### L100.0100, L500.4050, L501.2300, L501.5200 ####[facility] [address] [place], [address] AST [Catalytic activity/Vol] 34 U/L Normal 15-37 [facility] Comment on above: Performed By: #### L100.0100, L500.4050, L501.2300, L501.5200 ####[facility] [address] [place], [address] Bilirubin [Mass/Vol] 0.70 mg/dL Normal 0.20-1.00 [facility] Comment on above: Result Comment: For patients on eltrombo pag therapy, use of Dimension [place] TBIL is not recommended. Performed By: #### L 100.0100, L500.4050, L501.2300, L501.5200 ####[facility] [address] [place], [address] BUN/CRE 25.8 RATIO High 10-20 [facility] Comment on above: Performed By: #### L100.0100, L500.4050, L501.2300, L501.5200 ####[facility] [address] [place], [address] CA,Total 9.2 mg/dL Normal 8.5-10.1 [facility] Comment on above: Performed By: #### L100.0100, L500.4050, L501.2300, L501.5200 ####[facility] [address] [place], [address] Chloride [Moles/Vol] 109 mmol/L High 98-107 [facility] Comment on above: Performed By: #### L100.0100, L500.4050, L501.2300, L501.5200 ####[facility] [address] [place], [address] CO2 [Moles/Vol] 25.0 mmol/L Normal 21.0-32.0 [facility] Comment on above: Performed By: #### L100.0100, L500.4050, L501.2300, L501.5200 ####[facility] [address] [place], [address] Creatinine [Mass/Vol] 0.97 mg/dL Normal 0.55-1.02 [facility] Comment on above: Result Comment: The validity of the calc ulated GFR GFRAA in patients over 70 years has not been determined. Clinical correlation is essential. Performed By: #### L 100.0100, L500.4050, L501.2300, L501.5200 ####[facility] [address] [place], [address] ECRCL 33.96 ml/min Normal [facility] Comment on above: Performed By: #### L100.0100, L500.4050, L501.2300, L501.5200 ####[facility] [address] [place], [address] EST GFR - AA 70 mL/min Normal >60 [facility] Comment on above: Result Comment: GFR Izaiah c Performed By: #### L 100.0100, L500.4050, L501.2300, L501.5200 ####[facility] [address] [place], [address] GAP 6 Normal 5-15 [facility] Comment on above: Performed By: #### L100.0100, L500.4050, L501.2300, L501.5200 ####[facility] [address] [place], [address] GFR/1.73 sq M.predicted among non-blacks MDRD (S/P/Bld) [Vol rate/Area] 58 mL/min/{1.73_m2} Low >60 [facility] Comment on above: Result Comment: Non- GFR Calc Performed By: #### L 100.0100, L500.4050, L501.2300, L501.5200 ####[facility] [address] [place], [address] Globulin (S) [Mass/Vol] 3.6 g/dL Normal 2.2-4.2 [facility] Comment on above: Performed By: #### L100.0100, L500.4050, L501.2300, L501.5200 ####[facility] [address] [place], [address] Glucose [Mass/Vol] 99 mg/dL Normal 74-106 [facility] Comment on above: Performed By: #### L100.0100, L500.4050, L501.2300, L501.5200 ####[facility] [address] [place], [address] Potassium [Moles/Vol] 4.1 mmol/L Normal 3.5-5.1 [facility] Comment on above: Performed By: #### L100.0100, L500.4050, L501.2300, L501.5200 ####[facility] [address] [place], [address] Sodium [Moles/Vol] 140 mmol/L Normal 136-145 [facility] Comment on above: Performed By: #### L100.0100, L500.4050, L501.2300, L501.5200 ####[facility] [address] [place], [address] T PROT 7.0 g/dL Normal 6.4-8.2 [facility] Comment on above: Performed By: #### L100.0100, L500.4050, L501.2300, L501.5200 ####[facility] [address] [place], [address] Urea nitrogen [Mass/Vol] 25 mg/dL High 7-18 [facility] Comment on above: Performed By: #### L100.0100, L500.4050, L501.2300, L501.5200 ####[facility] [address] [place], [address] Discharge Instructionon 05-20 Discharge Instruction [facility] Medical Records Department [address] [place] [address] Instructions for Home/Discharge Instructions 06/02/24 1429 MR#: [id number] Acct: [id number] Name: DIONNE FRAUSTO Rep #: [id number] : 1940 83 From: Radhames Carter MD PCP: Dr. Charlene Ernst MD Status:ADM JOLANTA Discharge Instructions Diet Discharge Diet: Low fat / Low cholesterol DC O2, CPAP, BIPAP needs Home O2 Discharge instructions: No Dressing / Incision Discharge Activity: Return to Normal Activity Dressing / Incision Call your doctor if you observe: Fever of 101 or Higher, Shortness of breath, Dizziness, Fainting spells, Swelling in the ankles, Chest pain and Increased palpitations (irregular heartbeat) Follow Up Care Test Results: Test results from this visit will be discussed in further detail at your follow-up appointment, if applicable. Discharge Plan Admission Admit Date/Time: 06/01/24 16:57 Attending Provider: Radhames Carter Primary Care Provider: Charlene Ernst Consulting Providers: Kassandra Elizabeth Instructions Additional Instructions / Restrictions: Use Tylenol for pain control and follow-up with your primary care doctor in 7-10 days to check the healing of your wound and potentially remove sutures. Discharge Orders/Prescriptions Prescriptions: Continued potassium chloride 10 mEq capsule, extended release 10 meq PO DAILY docusate sodium 100 mg capsule 100 mg PO DAILY PRN (Reason: Constipation) aspirin 81 MG tablet,delayed release (DR/EC) 81 mg PO DAILY Patient Comments: will stop 5 days prior benazepril 20 MG tablet 10 mg PO DAILY atenolol 25 MG tablet 25 mg PO DAILY hydrochlorothiazide 25 MG tablet 25 mg PO DAILY omeprazole 20 mg capsule,delayed release(DR/EC) 20 mg PO BID mupirocin [Centany] 2 % ointment 1 applic topical DAILY folic acid 800 mcg tablet 800 mcg PO DAILY acetaminophen 325 mg tablet 325 mg PO DAILY PRN (Reason: pain) Referrals / Follow Up: Charlene Ernst MD [Primary Care Provider] - Within 1 Week Disposition Disposition (needs filled in before D/C Order can be placed): Home, Self Care 06/02/24 1435 Radhames Carter MD CC: Dr. Kassandra Elizabeth DO; Dr. Charlene Ernst MD Signed Normal [facility] Magnesiumon 06-02-2024 Magnesium [Mass/Vol] 2.2 mg/dL Normal 1.6-2.6 [facility] Comment on above: Performed By: #### L100.0100, L500.4050, L501.2300, L501.5200 ####[facility] [address] [facility] [place], [address] Phosphoruson 06-02-2024 Phosphate [Mass/Vol] 3.2 mg/dL Normal 2.5-4.9 [facility] Comment on above: Performed By: #### L100.0100, L500.4050, L501.2300, L501.5200 ####[facility] [address] [facility] [place], [address] 12 Lead EKGon 06-01-2024 12 Lead EKG [facility] [address] [place] [address] 12 Lead EKG 06/01/24 1514 MR#: [id number] Acct: [id number] Name: DIONNE FRAUSTO Rep #: [id number] : 1940 83 From: Sofia Mckeon MD Attending Dr: Dr. Radhames Carter MD Status : DIS JOLANTA Ordering Dr: Anthony Lucero DO Date: 06/01/24 Location: [facility] Sex: F C Admitted: 06/01/24 Test Reason : Blood Pressure : */* mmHG Vent. Rate : 75 BPM Atrial Rate : * BPM P-R Int : * ms QRS Dur : 66 ms QT Int : 418 ms P-R-T Axes : * -17 4 degrees QTcB Int : 466 ms Atrial fibrillation Inferior infarct , age undetermined Cannot rule out Anterior infarct , age undetermined Abnormal ECG Confirmed by ELFEGO CUEVAS, MIGUELITO ([id number]), dry boss RENU BAUMANN ([id number]) on 06/05/2024 8:10:26 AM Referred By: Confirmed By: MIGUELITO MCKEON MD 06/05/24 0810 Date _ Sofia Mckeon MD CC: Dr. Charlene Ernst MD; Dr. Radhames Carter MD; Dr. Anthony Lucero DO Signed Normal [facility] Basic Metabolic Profile (BMP )on 06-01-2024 BUN/CRE 30.4 RATIO High 10-20 [facility] Comment on above: Performed By: #### L500.2500, L100.0100, L300.3900, L300.4310 ####[facility] [address] [place], [address] CA,Total 9.0 mg/dL Normal 8.5-10.1 [facility] Comment on above: Performed By: #### L500.2500, L100.0100, L300.3900, L300.4310 ####[facility] [address] [place], [address] Chloride [Moles/Vol] 112 mmol/L High 98-107 [facility] Comment on above: Performed By: #### L500.2500, L100.0100, L300.3900, L300.4310 ####[facility] [address] [place], [address] CO2 [Moles/Vol] 23.0 mmol/L Normal 21.0-32.0 [facility] Comment on above: Performed By: #### L500.2500, L100.0100, L300.3900, L300.4310 ####[facility] [address] [place], [address] Creatinine [Mass/Vol] 1.02 mg/dL Normal 0.55-1.02 [facility] Comment on above: Result Comment: The validity of the calc ulated GFR GFRAA in patients over 70 years has not been determined. Clinical correlation is essential. Performed By: #### L 500.2500, L100.0100, L300.3900, L300.4310 ####[facility] [address] [place], [address] ECRCL 32.86 ml/min Normal [facility] Comment on above: Performed By: #### L500.2500, L100.0100, L300.3900, L300.4310 ####[facility] [address] [place], [address] EST GFR - AA 66 mL/min Normal >60 [facility] Comment on above: Result Comment: GFR Izaiah c Performed By: #### L 500.2500, L100.0100, L300.3900, L300.4310 ####[facility] [address] [place], [address] GAP 5 Normal 5-15 [facility] Comment on above: Performed By: #### L500.2500, L100.0100, L300.3900, L300.4310 ####[facility] [address] [place], [address] GFR/1.73 sq M.predicted among non-blacks MDRD (S/P/Bld) [Vol rate/Area] 55 mL/min/{1.73_m2} Low >60 [facility] Comment on above: Result Comment: Non- GFR Calc Performed By: #### L 500.2500, L100.0100, L300.3900, L300.4310 ####[facility] [address] [place], [address] Glucose [Mass/Vol] 116 mg/dL High 74-106 [facility] Comment on above: Result Comment: Fasting Glucose result f rom 100 to 125 mg/dL suggests IMPAIRED HOMEOSTASIS per A.D.A. criteria. Performed By: #### L 500.2500, L100.0100, L300.3900, L300.4310 ####[facility] [address] [place], [address] Potassium [Moles/Vol] 4.4 mmol/L Normal 3.5-5.1 [facility] Comment on above: Performed By: #### L500.2500, L100.0100, L300.3900, L300.4310 ####[facility] [address] [place], [address] Sodium [Moles/Vol] 140 mmol/L Normal 136-145 [facility] Comment on above: Performed By: #### L500.2500, L100.0100, L300.3900, L300.4310 ####[facility] [address] [place], [address] Urea nitrogen [Mass/Vol] 31 mg/dL High 7-18 [facility] Comment on above: Performed By: #### L500.2500, L100.0100, L300.3900, L300.4310 ####[facility] [address] [place], [address] Brain/Head without Contrasto n 06-01-2024 Brain/Head without Contrast [facility] Imaging Services [address] [place] [address] Brain/Head without Contrast MR#: [id number] Acct: [id number] Name: DIONNE FRAUSTO Rep #: [id number] : 1940 F 83 From: Rafaela Ortiz nd, MD PCP: Dr. Charlene Ernst MD Status: REG ER Study: Brain/Head without Contrast Date of Exam: 05/20 07/11 Exam# [id number] Ordering Dr: Anthony Lucero DO EXAM: BRAIN/HEAD WITHOUT CONTRAST CLINICAL HISTORY: 83-year-old female, head injury, fell and hit head. COMPARISON: CT head earlier same day at 12:03 p.m. MRI head 08/12/2017. TECHNIQUE: Routine CT imaging of the head without IV contrast. Additional multiplanar reformats were obtained. Dose reduction techniques were used including intermediate exposure control (AEC),iterative reconstruction technique, and/or mA and/or KV dose adjustments based on patient's size. FINDINGS: Moderate generalized cerebral and cerebellar volume loss with concordant prominence of the ventricles and subarachnoid spaces. Patchy supratentorial white matter hypodensities. Small lacunar type infarcts within the bilateral caudate heads and right basal ganglia. 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 The christianson-white matter interfaces are otherwise maintained. No acute intracranial hemorrhage or herniation. Large laceration and hematoma overlying the left frontoparietal scalp. The mastoids and visualized paranasal sinuses are well-aerated. The orbits are unremarkable. CT/Brain/Head without Contrast IMPRESSION: 1. Stable large laceration and hematoma overlying the left frontoparietal scalp. 2. No acute intracranial hemorrhage or herniation. 3. Unchanged findings of chronic microvascular ischemic changes and age-related changes as described. Reading Location: [facility] CC: Dr. Charlene Ernst MD; Dr. Anthony Lucero DO Drug And Alcohol Counselor: Signed Normal [facility] Brain/Head without Contrast [facility] Imaging Services [address] [place] [address] [id number] Brain/Head without Contrast MR#: [id number] Acct: [id number] Name: DIONNE FRAUSTO Rep #: [id number] : 1940 F 83 From: Silvestre ferguson MD PCP: Dr. Charlene Ernst MD Status: REG Study: Brain/Head without Contrast Date of Exam: 05/20 07/11 Exam# [id number] Ordering Dr: Anthony Lucero DO EXAM: BRAIN/HEAD WITHOUT CONTRAST CLINICAL HISTORY: Head injury due to a fall. COMPARISON: None. TECHNIQUE: Multiple axial tomographic images were obtained without intravenous contrast administration. Coronal and sagittal reconstruction were obtained as well. FINDINGS: There is evidence of hematoma within the soft tissues overlying the left frontal parietal bone in keeping with history of trauma. No skull fracture is seen. There is evidence of cerebral atrophy with decreased attenuation the periventricular white matter bilaterally suggestive of chronic ischemic change. Focal encephalomalacia is seen in the region of the right temporal lobe in keeping with prior infarct. 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 CT/Brain/Head without Contrast IMPRESSION: Scalp hematoma overlying the left frontal parietal bones. Cerebral atrophy. Reading Location: [place] [address] CC: Dr. Charlene Ernst MD; Dr. Anthony Lucero DO Drug And Alcohol Counselor: Signed Normal [facility] CBC W/Diff, Automatedon 02- Absolute Lymph 0.77 X10 3/uL Low 0.83-4.51 [facility] Comment on above: Performed By: #### L500.2500, L100.0100, L300.3900, L300.4310 #### [facility] [address] [place], [address] Absolute Neut 6.2 X10 3/uL Normal 2.0-7.7 [facility] Comment on above: Performed By: #### L500.2500, L100.0100, L300.3900, L300.4310 #### [facility] [address] [place], [address] Basophils/100 WBC (Bld) 0.3 % Normal 0-1 [facility] Comment on above: Performed By: #### L500.2500, L100.0100, L300.3900, L300.4310 #### [facility] [address] [place], [address] Eosinophils/100 WBC (Bld) 1.0 % Normal 0-5 [facility] Comment on above: Performed By: #### L500.2500, L100.0100, L300.3900, L300.4310 #### [facility] [address] [place], [address] Erythrocyte distribution width (RBC) [Ratio] 13.8 % Normal 11.6-14.6 [facility] Comment on above: Performed By: #### L500.2500, L100.0100, L300.3900, L300.4310 #### [facility] [address] [place], [address] Hematocrit (Bld) [Volume fraction] 36.3 % Low 37-47 [facility] Comment on above: Performed By: #### L500.2500, L100.0100, L300.3900, L300.4310 #### [facility] [address] [place], [address] Hemoglobin (Bld) [Mass/Vol] 11.3 g/dL Low 12.0-15.0 [facility] Comment on above: Performed By: #### L500.2500, L100.0100, L300.3900, L300.4310 #### [facility] [address] [place], [address] IG% 1.400 High 0.0-0.9 [facility] Comment on above: Result Comment: IG% - Immature Granulocy unique (promyelocytes, myelocytes and metamyelocytes) > 1% indicates that a LEFT SHIFT is Present. Performed By: #### L 500.2500, L100.0100, L300.3900, L300.4310 #### [facility] [address] [place], [address] Lymphocytes/100 WBC (Bld) 9.7 % Low 19-41 [facility] Comment on above: Performed By: #### L500.2500, L100.0100, L300.3900, L300.4310 #### [facility] [address] [place], [address] MCH (RBC) [Entitic mass] 28.2 pg Normal 27.0-32.0 [facility] Comment on above: Performed By: #### L500.2500, L100.0100, L300.3900, L300.4310 #### [facility] [address] [place], [address] MCHC (RBC) [Mass/Vol] 31.1 g/dL Low 32-36 [facility] Comment on above: Performed By: #### L500.2500, L100.0100, L300.3900, L300.4310 #### [facility] [address] [place], [address] MCV (RBC) [Entitic vol] 90.5 fL Normal 81-99 [facility] Comment on above: Performed By: #### L500.2500, L100.0100, L300.3900, L300.4310 #### [facility] [address] [place], [address] Monocytes/100 WBC (Bld) 9.1 % Normal 0-10 [facility] Comment on above: Performed By: #### L500.2500, L100.0100, L300.3900, L300.4310 #### [facility] [address] [place], [address] Neutrophils/100 WBC (Bld) 78.5 % High 47-70 [facility] Comment on above: Performed By: #### L500.2500, L100.0100, L300.3900, L300.4310 #### [facility] [address] [place], [address] Nucleated RBC (Bld) [#/Vol] 0 10*3/uL Normal 0-5 [facility] Comment on above: Performed By: #### L500.2500, L100.0100, L300.3900, L300.4310 #### [facility] [address] [place], [address] Platelet mean volume (Bld) [Entitic vol] 10.6 fL Normal 6.2-12.0 [facility] Comment on above: Performed By: #### L500.2500, L100.0100, L300.3900, L300.4310 #### [facility] [address] [place], [address] Platelets (Bld) [#/Vol] 205 10*3/uL Normal 150-450 [facility] Comment on above: Performed By: #### L500.2500, L100.0100, L300.3900, L300.4310 #### [facility] [address] [place], [address] RBC (Bld) [#/Vol] 4.01 10*6/uL Low 4.2-5.4 [facility] Comment on above: Performed By: #### L500.2500, L100.0100, L300.3900, L300.4310 #### [facility] [address] [place], [address] RDW SD 46.0 fl High 35.1-43.9 [facility] Comment on above: Performed By: #### L500.2500, L100.0100, L300.3900, L300.4310 #### [facility] [address] [place], [address] WBC (Bld) [#/Vol] 7.9 10*3/uL Normal 4.4-11.0 [facility] Comment on above: Performed By: #### L500.2500, L100.0100, L300.3900, L300.4310 #### [facility] [address] [place], [address] Emergency Department Summary on 06-01-2024 Emergency Department Summary [facility] Medical Records Department [address] [place] [address] Emergency Department Summary 06/01/24 MR#: [id number] Acct: [id number] Name: DIONNE FRAUSTO Rep #: [id number] : 1940 83 From: Anthony Arndt PCP: Dr. Charlene Ernst MD Status:REG ER Location: ED HPI History of Present Illness Chief Complaint: Laceration Informant: patient and family Narrative Narrative: Brought in by EMS from home mechanical fall, head injury. Patient takes baby aspirin. Tetanus in last 5 years. Reports headache. Also bruising left knee /leg. Reports right thumb pain. She tripped over her cane coming on the house. She was going to lunch. Bilateral total knee arthroplasty in the past. Tetanus Immunization: <5 years [facility] Medical History (Updated 06/01/24 @ 17:[address] Kassandra Elizabeth, DO) Constipation Common bile duct dilatation Weight loss Anemia Neurofibromatosis Melanoma of skin Hypertension Benign essential hypertension Home Medications ???Medication ???Instructions ???Recorded ???Last Taken ???Type aspirin 81 mg tablet,delayed 81 mg PO DAILY heart health 06/01/24 History release benazepril 20 mg tablet 10 mg PO DAILY HTN 08/09/17 History atenolol 25 mg tablet 25 mg PO DAILY HTN 09/02/17 History hydrochlorothiazide 25 mg tablet 25 mg PO DAILY diuretic 10/26/17 0 06/01/24 History docusate sodium 100 mg capsule 100 mg PO DAILY PRN Constipation 1 05/17/17 Unknown History omeprazole 20 mg capsule,delayed 20 mg PO BID GERD 03/17/18 5 History release potassium chloride 10 mEq 10 meq PO DAILY supplement 8 06/01/24 History capsule,extended release acetaminophen 325 mg tablet 325 mg PO DAILY PRN pain 06/01/24 Unknown History folic acid 800 mcg tablet 800 mcg PO DAILY 06/01/24 06/01/24 History mupirocin 2 % topical ointment 1 applic topical DAILY 06/01/24 History (Centany) Allergy/AdvReac Type Severity Reaction Status Date / Time niacin AdvReac Intermediate Rash Verified 06/01/24 11:32 Family History Father Heart disease Lung disease Alcohol abuse Sister Brain tumor Non-Hodgkin lymphoma Grandmother Stomach cancer Mother Cancer Surgical History History of melanoma excision History of cholecystectomy History of bilateral knee replacement History of appendectomy History of total knee arthroplasty Social History Smoking Status: Never smoker alcohol intake: never substance use type: does not use ROS ROS ED Constitutional Constitutional ED: Denies chills, fever(s) or sweats ENT ENT ED: Denies sore throat Cardiovascular Cardiovascular: Denies chest pain, leg edema, palpitations or racing heartbeat Respiratory/Chest Respiratory/Chest: Denies cough, dyspnea or dyspnea on exertion Gastrointestinal Gastrointestinal: Denies abdominal pain, diarrhea, nausea or vomiting Genitourinary Genitourinary ED: Denies dysuria, hematuria or urinary frequency Musculoskeletal Musculoskeletal: Reports extremity pain; Denies back pain or neck pain Integumentary Reports wounds; Denies rash Neurologic Neurologic: Reports headache(s); Denies paresthesias or weakness EXAM Physical Exam Const Vital Signs: 06/01/24 11:32 06/01/24 13:31 06/01/24 15:37 Temperature 97.6 F L Temperature Source Oral Pulse Rate 83 85 93 Respiratory Rate 18 16 20 H Blood Pressure 131/82 H 123/77 H 109/58 L Blood Pressure Mean 98 92 75 Pulse Ox 96 93 97 Oxygen Delivery Method Room Air Room Air Room Air 06/01/24 17:12 Temperature Temperature Source Pulse Rate 84 Respiratory Rate 30 H Blood Pressure 109/72 Blood Pressure Mean 84 Pulse Ox 98 Oxygen Delivery Method Room Air Positive well nourished and well developed Constitutional Narrative: GCS 15. General Appearance ED: well developed and NAD HEENT Reports moist mucous membranes HEENT Narrative: Dressing placed from the forehead, a total of 12 cm area of flap laceration left frontal area bleeding controlled with pressure. normocephalic and atraumatic Eyes General Eye ED: Yes normal appearance of both eyes Neck full ROM Chest Wall Chest: Negative for tenderness Resp normal respiratory effort and normal air movement Effort and Inspection: symmetric chest movement; Negative for respiratory distress Cardio regular rate, regular rhythm and no murmurs Peripheral Pulses: pulses 2+ throughout GI normal to inspection, nondistended, normoactive bowel sounds and non-tender Palpation: Negative for guarding or rebound tenderness present Back/Spine Back/Spine Narrative: Kyph (more content not included)... Normal [facility] Femur Min 2 Viewson 06-01-19 25 Femur Min 2 Views [facility] Imaging Services [address] [place], [place] [address] Femur Min 2 Views MR#: [id number] Acct: [id number] Name: DIONNE FRAUSTO Andi Rep #: [id number] : 1940 F 83 From: Silvestre ferguson MD PCP: Dr. Charlene Ernst MD Status: REG ER Study: Femur Min 2 Views Date of Exam: 06/01/24 Exam# [id number] Ordering Dr: Anthony Lucero DO EXAM: FEMUR MIN 2 VIEWS CLINICAL HISTORY: Pain following a fall. COMPARISON: None. TECHNIQUE: Four views were obtained. FINDINGS: The patient is status post total knee replacement. There is good alignment. No acute fracture or dislocation is seen. RAD/Femur Min 2 Views IMPRESSION: No acute fracture or dislocation is seen. Patient is status post left knee replacement. Reading Location: [place] [address] CC: Dr. Charlene Ernst MD; Dr. Anthony Lucero DO Drug And Alcohol Counselor: Signed Normal [facility] H AND P Exam - Hospitaliston 06-01-2024 H&P Exam - Hospitalist [facility] Medical Records Department [address] [place] [address] H P Exam - Hospitalist 06/01/24 1711 MR#: [id number] Acct: [id number] Name: DIONNE FRAUSTO Rep #: [id number] : 1940 83 From: Kassandra Elizabeth DO PCP: Dr. Charlene Ernst MD Status:ADM [place] Location: [place] [address] HPI - General General Date of Admission: 06/01/24 Date of Service: 06/01/24 Chief Complaint: Falls/gait instability HPI Narrative DIONNE FRAUSTO, is a 83 F who presented to the emergency department at [facility] on 06/01/2024 after sustaining a mechanical fall at home. She states she was on her ramp and is at baseline either uses a walker or a quad cane. At that time she was using her quad cane and tripped on it and fell forward. She hit her head and had multiple other injuries falling on both knees left greater than right and had pain in her right thumb. She has not been having frequent falls at home. She then was taken to the bathroom in the emergency department and fell in the bathroom. She states typically she uses a quad cane and they did not give her that in the emergency department and she lost her balance and fell there to. She did not initially want to be admitted however family was concerned about taking her home given the 2 falls she had a day and the pain she may have tomorrow and later tonight. She has been feeling well otherwise and not having any problems with any mobility issues other than her baseline gait instability for which she uses assistive device. She has had no systemic symptoms and denies any fever or chills. Vital signs on presentation showed temperature of 97.6, heart rate 83, respiratory rate 18, blood pressure is 131/82 and pulse ox was 96% on room air. CBC was unremarkable with the chronic stable anemia having a hemoglobin of 11.3. Coags are normal. Chemistry panel was unremarkable. Extensive imaging was performed due to the nature of her presentation. CT of the scalp showed a hematoma overlying the left parietal and frontal bones with cerebral atrophy but was otherwise unremarkable. CT of the cervical spine showed multilevel disc narrowing with arthritis and anterior listhesis of C4 and C5 but no acute fractures. Thoracic spine CT showed no acute abnormalities. 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 Femoral fracture shows no acute fracture or dislocation status post knee replacement. Hand x-ray showed degenerative changes with laceration over the distal phalanges of the second and third digits and soft tissue swelling. Left tibia and fibula x-ray relatively unremarkable with no significant bleeding noted acute fractures [facility] Medical History (Updated 06/01/24 @ 17:[address] Kassandra Elizabeth, DO) Constipation Common bile duct dilatation Weight loss Anemia Neurofibromatosis Melanoma of skin Hypertension Benign essential hypertension Home Medications ???Medication ???Instructions ???Recorded ???Last Taken ???Type aspirin 81 mg tablet,delayed 81 mg PO DAILY heart health 06/01/24 History release benazepril 20 mg tablet 10 mg PO DAILY HTN 08/09/17 History atenolol 25 mg tablet 25 mg PO DAILY HTN 09/02/17 History hydrochlorothiazide 25 mg tablet 25 mg PO DAILY diuretic 10/26/17 0 06/01/24 History docusate sodium 100 mg capsule 100 mg PO DAILY PRN Constipation 1 05/17/17 Unknown History omeprazole 20 mg capsule,delayed 20 mg PO BID GERD 03/17/18 5 History release potassium chloride 10 mEq 10 meq PO DAILY supplement 8 06/01/24 History capsule,extended release acetaminophen 325 mg tablet 325 mg PO DAILY PRN pain 06/01/24 Unknown History folic acid 800 mcg tablet 800 mcg PO DAILY 06/01/24 06/01/24 History mupirocin 2 % topical ointment 1 applic topical DAILY 06/01/24 History (Centany) Allergy/AdvReac Type Severity Reaction Status Date / Time niacin AdvReac Intermediate Rash Verified 06/01/24 11:32 Family History Father Heart disease Lung disease Alcohol abuse Sister Brain tumor Non-Hodgkin lymphoma Grandmother Stomach cancer Mother Cancer Surgical History History of melanoma excision History of cholecystectomy History of bilateral knee replacement History of appendectomy History of total knee arthroplasty Social History Smoking Status: Never smoker alcohol intake: never substance use type: does not use ROS Constitutional Constitutional: Denies anorexia, change in weight, chills, fatigue, fever(s), malaise, night sweats, weakness or other Eyes Eyes: Denies blurry vision, change in eye color, gretchen (more content not included)... Normal [facility] Hand Min 3 Viewson 5 Hand Min 3 Views [facility] [address] [place], [place] [id number] Hand Min 3 Views MR#: [id number] Acct: [id number] Name: DIONNE FRAUSTO Rep #: [id number] : 1940 F 83 From: Silvestre ferguson MD PCP: Dr. Charlene Ernst MD Status: REG ER Study: Hand Min 3 Views Date of Exam: 06/01/24 Exam# [id number] Ordering Dr: Anthony Lucero DO EXAM: HAND MIN 3 VIEWS CLINICAL HISTORY: Pain following injury. COMPARISON: None. TECHNIQUE: Four views were obtained. FINDINGS: Degenerative changes of the 1st carpometacarpal joint. Joint space narrowing in the proximal and distal interphalangeal joints suggestive of osteoarthritis. Soft tissue laceration overlying the distal phalanges of the 2nd and 3rd digits. Diffuse soft tissue swelling. RAD/Hand Min 3 Views IMPRESSION: Degenerative changes as described. Laceration overlying the distal phalanges of the 2nd and 3rd digits. Diffuse soft tissue swelling. Reading Location: [facility] CC: Dr. Charlene Ernst MD; Dr. Anthony Lucero DO Drug And Alcohol Counselor: Signed Normal [facility] Partial Thromboplast Timeon 06-01-2024 aPTT Coag (Bld) [Time] 26.3 s Normal 24.1-36.2 [facility] Comment on above: Performed By: #### L500.2500, L100.0100, L300.3900, L300.4310 #### [facility] [address] [place], [address] Prothrombin Time w/INRon INR Coag (PPP) [Relative time] 1.1 {INR} Normal [facility] Comment on above: Performed By: #### L500.2500, L100.0100, L300.3900, L300.4310 #### [facility] [address] [place], [address] PT Coag (PPP) [Time] 14.5 s Normal 11.7-14.9 [facility] Comment on above: Performed By: #### L500.2500, L100.0100, L300.3900, L300.4310 #### [facility] [address] [place], [address] Spine Cervical without Contr ason 06-01-2024 Spine Cervical without Contras [facility] Imaging Services [address] [place] [address] Spine Cervical without Contras MR#: [id number] Acct: [id number] Name: DIONNE FRAUSTO Rep #: [id number] : 1940 F 83 From: Silvestre ferguson MD PCP: Dr. Charlene Ernst MD Status: REG ER Study: Spine Cervical without Contras Date of Exam: 0 06/01/24 Exam# [id number] Ordering Dr: Anthony Lucero DO PROCEDURE: SPINE CERVICAL WITHOUT CONTRAS REASON FOR EXAM: Head and neck injury due to a fall. TECHNIQUE: Cervical spine CT without contrast. Coronal and sagittal reconstruction was obtained as well. COMPARISON: None. FINDINGS: Alignment: There is grade 2 anterior listhesis of C4 on C5 most likely secondary to facet joint osteoarthritis. Vertebrae: No acute fracture C2-C3 level: Disc space narrowing. Facet joint osteoarthritis and hypertrophy worse on the right side. No significant stenosis seen. C3-C4: Moderate degree of disc space narrowing and spondylosis. Facet joint osteoarthritis and hypertrophy worse on the left side. C4-C5: Marked degree of disc space narrowing. Grade 2 anterior listhesis of C4 on C5. No evidence of fracture. Facet joint osteoarthritis and hypertrophy worse on the left side. C5-C6: Marked degree of disc space narrowing. Mild degree of bilateral neural foraminal stenosis. C6-C7 level. Marked degree of disc space narrowing. Soft Tissues: Calcification of the carotid bifurcations bilaterally. CT/Spine Cervical without Contras IMPRESSION: Multilevel disc space narrowing and facet joint osteoarthritis and anterior listhesis of C4 on C5. No acute fracture is seen. One or more dose reduction techniques were used (e.g., Automated exposure control, adjustment of the mA and/or kV according to patient size, use of iterative reconstruction technique). Reading Location: [place] [address] CC: Dr. Charlene Ernst MD; Dr. Anthony Lucero DO Drug And Alcohol Counselor: Signed Normal [facility] Spine Lumbar without Contras ton 06-01-2024 Spine Lumbar without Contrast [facility] Imaging Services [address] [place] [address] Spine Lumbar without Contrast MR#: [id number] Acct: [id number] Name: DIONNE FRAUSTO Rep #: [id number] : 1940 F 83 From: Silvestre ferguson MD PCP: Dr. Charlene Ernst MD Status: REG ER Study: Spine Lumbar without Contrast Date of Exam: Exam# [id number] Ordering Dr: Anthony Lucero DO PROCEDURE: SPINE LUMBAR WITHOUT CONTRAST REASON FOR EXAM: Back injury due to a recent fall. TECHNIQUE: Lumbar spine CT without contrast. Coronal and sagittal reconstruction was obtained as well. COMPARISON: None. FINDINGS: Vertebrae: Normal lumbar vertebral body heights. No evidence of fracture. No spondylolysis. Alignment: Grade 1 anterior listhesis of L5 on S1. L1-2: Mild degree of disc space narrowing. No significant stenosis seen. L2-3: Mild degree of disc space narrowing. L3-4: Mild degree of facet joint osteoarthritis and hypertrophy of the ligamentum flava. Mild bilateral neural foraminal stenosis worse on the right side. L4-5: Grade 1 anterior listhesis of L4 on L5. Facet joint osteoarthritis and hypertrophy. Disc space narrowing in this degeneration. Facet joint osteoarthritis and hypertrophy. L5-S1: Marked degree of disc space narrowing and disc degeneration. Grade 1 to grade 2 anterior listhesis of L5 on S1. Spondylolysis of the L5 pars interarticularis. Sacrum: Visualized upper sacrum and SI joints are unremarkable. Visualized retroperitoneal structures are unremarkable. Calcification of the abdominal aorta. CT/Spine Lumbar without Contrast IMPRESSION: LUMBAR DEGENERATIVE DISC AND FACET DISEASE. Anterior listhesis of L4 on L5 and L5-S1. Spondylolysis of the pars interarticularis of the L5 vertebrae. One or more dose reduction techniques were used (e.g., Automated exposure control, adjustment of the mA and/or kV according to patient size, use of iterative reconstruction technique). Reading Location: [facility] CC: Dr. Charlene Ernst MD; Dr. Anthony Lucero DO Drug And Alcohol Counselor: Signed Normal [facility] Spine Thoracic without Contr ason 06-01-2024 Spine Thoracic without Contras [facility] Imaging Services [address] [place] [address] Spine Thoracic without Contras MR#: [id number] Acct: [id number] Name: DIONNE FRAUSTO Rep #: [id number] : 1940 From: Silvestre ferguson MD PCP: Dr. Charlene Ernst MD Status: REG ER Study: Spine Thoracic without Contras Date of Exam: 0 06/01/24 Exam# [id number] Ordering Dr: Anthony Lucero DO PROCEDURE: SPINE THORACIC WITHOUT CONTRAS REASON FOR EXAM: Back pain following a fall. TECHNIQUE: Thoracic spine CT without contrast. COMPARISON: None. FINDINGS: Alignment: Normal. Bones: Diffuse osteopenia of the thoracic vertebrae. Findings suggestive of hemangioma of the T5 vertebrae. Multilevel disc space narrowing and disc degeneration and anterior spondylosis. Fusion at the T8-T9 level. Soft Tissues: Atherosclerotic calcification of the thoracic aorta. Coronary artery calcification. Bibasilar atelectasis slightly worse on the right side. Other: Visualized portions of the lungs are unremarkable. CT/Spine Thoracic without Contras IMPRESSION: NO ACUTE THORACIC FRACTURE. DEGENERATIVE CHANGES. One or more dose reduction techniques were used (e.g., Automated exposure control, adjustment of the mA and/or kV according to patient size, use of iterative reconstruction technique). Reading Location: [place] [address] CC: Dr. Charlene Ernst MD; Dr. Anthony Lucero DO Drug And Alcohol Counselor: Signed Normal [facility] Tibia Fibula 2 Viewson 06-01 Tibia Fibula 2 Views [facility] Imaging Services [address] [place], [place] [id number] Tibia Fibula 2 Views MR#: [id number] Acct: [id number] Name: DIONNE FRAUSTO Rep #: [id number] : 1940 From: Lj Peace PCP: Dr. Charlene Ernst MD Status: REG ER Study: Tibia Fibula 2 Views Date of Exam: 06/01/24 Exam# [id number] Ordering Dr: Anthony Lucero DO PROCEDURE: TIBIA FIBULA 2 VIEWS REASON FOR EXAM: Injury. TECHNIQUE: AP and lateral left tibia and fibula COMPARISON: None provided.. RAD/Tibia Fibula 2 Views IMPRESSION: Prominent arterial calcification is seen. Partially visualized left total knee prosthesis without apparent complication. Loose intra-articular body may be present posteriorly. The left ankle demonstrates mild degenerative changes. Normal contour of the Achilles tendon is seen on lateral view. No acute fracture or dislocation is seen. If clinical concern persists, short-term follow-up imaging may be obtained to rule out a currently occult fracture. Reading Location: [id number] CC: Dr. Charlene Ernst MD; Dr. Anthony Lucero DO Drug And Alcohol Counselor: Signed [facility] ([id number]) 1940 F Date Time Provider Department 02/04/24 HANY CALL During your visit today, we recorded the following information about you: Hany Call APRN.CNP 02/04/2024 10:25 AM Signed Patient overdue for [employer] wellness exam and routine follow-up. Can we please assist with getting her scheduled? Hany Call APRN.Briana Morley LPN 02/04/2024 10:44 AM Signed Phone call to tiara as instructed in phone notes. Requested an appointment around 4. Scheduled with Aziza. Allergies As of Date: 02/04/2024 Noted Allergy Reaction NIACIN 11/30/2006 9 - Itching Date Reviewed: 08/24/2023 Reviewed by: Kassandra Ramírez MA - Fully Assessed Reason for Visit: Results [95] Prescriptions as of 02/04/2024 - benazepril (LOTENSIN) 20 mg tablet Take 0.5 tablets by mouth once daily. - potassium chloride (K-TAB) 10 mEq tablet Take 1 tablet by mouth once daily. - atenolol (TENORMIN) 25 mg tablet Take 1 tablet by mouth once daily. - hydroCHLOROthiazide 25 mg tablet Take 1 tablet by mouth once daily. - mupirocin (BACTROBAN) 2 % ointment Apply to affected area three times a day. - acetaminophen 325 mg cap Acetaminophen Active 500 - 1000 MG EVERY 6 HOURS NEEDED April 22, 2019 1:31am - docusate sodium (COLACE) 100 mg capsule Take 100 mg by mouth twice daily. As needed - OMEPRAZOLE ORAL Take 20 mg by mouth twice daily. - COMPOUNDED PRESCRIPTION 1 Electric Lift Chair/Recliner ICD-10: M47.817, M17.0, M16.0 - COMPOUNDED PRESCRIPTION 1 Electric Lift Chair ICD-10: Generalized Weakness R53.1 - folic acid 800 mcg tablet Take 1 tablet by mouth once daily. - COMPOUNDED PRESCRIPTION Wheeled walker with seat and brakes. Patient needs 5 inch wheels. ICD-10: R26.9 Abnormality of gait - Aspirin 81 mg Tab Take 1 tablet by mouth once daily. Take with food. 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] 03/16/2007 Mixed hyperlipidemia [E78.2] 11/04/2007 APPENDICITIS ACUTE W RUPTURE [K35.209] 05/09/2008 08/22/2009 Sinus arrhythmia [I49.8] 05/02/2010 Non-rheumatic mitral regurgitation [I34.0] 08/03/2017 History of melanoma excision [Z98.890, Z85.820] 08/23/2017 Gastric mass [K31.89] 09/30/2017 PAF (paroxysmal atrial fibrillation) (HCC) [I48*10/01/2017 Urge incontinence [N39.41] 08/29/2020 Low serum potassium level [E87.6] 08/29/2020 Chronic kidney disease, stage III (moderate) (H*04/16/2022 Hypertensive kidney disease with stage 3 chroni*04/16/2022 Malignant melanoma, unspecified site (HCC) [C43*08/24/2023 Encounter Status:Closed by BRIANA BAHENA on 02/04/24 Normal [facility] Panel Informationon 10-15 [facility] US ABD RIGHT UPPER QUADRANTo n 09-28-2022 [facility], [facility] (POC)[facility] 2021 BILIRUBIN UA (POCT) Negative Negative [facility] CLARITY UA (POCT) Slightly Cloudy [facility] COLOR UA (POCT) Yellow [facility] GLUCOSE UA (POCT) Negative Negative mg/dL [facility] HEMOGLOBIN/BLOOD UA (POCT) Trace-intact Abnormal Negative [facility] KETONE UA (POCT) Negative Negative mg/dL [facility] LEUKOCYTES UA (POCT) Moderate Abnormal Negative [facility] NITRITE UA (POCT) Positive Abnormal Negative [facility] PH UA (POCT) 5.5 4.5 - 8.0 [facility] Protein Ql (U) Negative Negative mg/dL [facility] SPECIFIC GRAVITY UA (POCT) 1.020 1.005 - 1.030 [facility] UROBILINOGEN UA (POCT) 1.0 E.U./dL Normal E.U./dL [facility] ANES Chip 11-10-2017 ANES POST HNO ID: [id number] thor: Jessica Cabrera: AnesthesiologyAuthor Type: PhysicianType: Anesthesia PostOpFiled: 11/10/2017 2:43 PMNote Text:POST ANESTHESIA EVALUATION NOTESERVICE DATE: 11/10/2017SERVICE TIME: 2:43 PMDOB: 1940Vitals: 11/11/1811Temp: 36.5 ?C (97.7 ?F) 36.3 ?C (97.3 ?F) 11/11/1811P: 134/62 131/60 127/60 146/83 11/11/1811ulse: 96 96 81 84 11/11/1811Resp: 18 18 18 16 11/11/1811SpO2: 96% 96% 99% 96%Validated Vital Signs: YesPOST ANES STATUS: No apparent anesthetic complications. The patient isappropriately hydrated with stable respiratory and cardiovascular status.Patient has safe and adequate airway control. The patient has appropriatepain relief and no significant post operative nausea or vomiting. Thepatient has achieved baseline mental status.Further assessment by Anesthesia Service: NoneOther Remarks:SIGNATURE: Jessica Espino MD PATIENT NAME: Dionne FraustoDATE: November 10, 2017 : 2:43 PM PAGER/CONTACT #: [phone] [facility] ANES PREOPon 11-10-2017 ANES PREOP HNO ID: [id number] thor: Andres Mcnair IVService: AnesthesiologyAuthor Type: AnesthesiologistType: Anesthesia PreOpFiled: 11/10/2017 11:47 AMNote Text: ANESTHESIOLOGY DAY OF SURGERY NOTESERVICE DATE: 11/10/2017SERVICE TIME: 11:07 AMDOB: 1940Procedure(s) (LRB):ENDOSCOPY UPPER GI W/ TRANSENDOSCOPIC ULTRASOUND-GUIDED INTRAMURAL ORTRANSMURAL FINE NEEDLE ASPIRATION/BIOPSY(S) AND ULTRASOUND EXAM ESOPHAGUS(N/A)Surgeon(s):Manny Moy body mass index is 35.86 kg/m? as calculated from the following: Height as of 10/25/17: 147.3 cm (4' 10). Weight as of 10/25/17: 77.8 kg (171 lb 9.6 oz).Most recent hematocrit and potassium results:Hematocrit 32.0 07/16/2017Potassium 4.2 ECHOCONCLUSIONS:- Technically difficult exam due to suboptimal positioning and bodyhabitus.- Exam indication: Abnormal ECG- The left ventricle is normal in size. There is no left ventricularhypertrophy. Left ventricular systolic function is normal. EF = 60 ? 5%(visual est.) Grade II left ventricular diastolic dysfunction.- The right ventricle is normal in size. Right ventricular systolicfunction is normal.- The left atrial cavity is moderately dilated.- There is moderate (2+) mitral valve regurgitation. Regurgitant orificearea (PISA) is 0.22 cm?.- Definity contrast could not be administered d/t unavailability of staff.- Exam was compared with the prior CC echocardiographic exam performed on02/26/2009. degree of MR has progressed. ? Electronically signed Yury Espinosareshma07/12/2017 EKGDiagnosis:ATRIAL FIBRILLATIONCANNOT EXCLUDE INFERIOR MYOCARDIAL INFARCTION , AGE UNDETERMINEDABNORMAL ECGANES DOS/PREOP NOTE:Vitals: BP: 134/62Pulse: 96Resp: 18Temp: 36.5 ?C (97.7 ?F)TempSrc: Temporal ArterySpO2: 96%ACTIVE PROBLEM LISTEssential Hypertension, BenignLocalized Osteoarthrosis Not Specified Whether Primary Or Secondary, LowerLegMixed HyperlipidemiaSinus ArrhythmiaNon-Rheumatic Mitral RegurgitationMalignant Melanoma (Hcc)Gastric MassPaf (Paroxysmal Atrial Fibrillation) (Hcc)PAST MEDICAL HISTORYDiagnosis Date- Malignant melanoma (HCC) 07/2017- Neurofibromatosis (HCC)- Unspecified essential hypertension Essential hypertensionPAST SURGICAL HISTORYProcedure Laterality Date- COLONOSCOPY 09/08/2017 Mir- EGD 09/08/2017 Mir- LAPAROSCOPY, SURGICAL, APPENDECTOMY 06-25-08- PAST SURGICAL HISTORY OF Left 09/2017 melanoma excision @ [facility] shoulder- REMOVAL GALLBLADDER 1985 Cholecystectomy- TOTAL KNEE REPLACEMENT Bilateral 2016FAMILY HISTORYProblem Relation Age of Onset- Cancer Mother site unknown- Coronary Artery Disease Father- Cancer Sister leukemia- No Family History No Family History colon cancer/polypsSocial History:Social HistorySubstance Use Topics- Smoking status: Never Smoker- Smokeless tobacco: Never Used- Alcohol use NoCurrent Outpatient Prescriptions on File Prior to Encounter:OMEPRAZOLE ORAL Take 20 mg by mouth once daily.hydroCHLOROthiazide (HYDRODIURIL, ESIDRIX) 25 mg tablet Take 1 tablet bymouth once daily.atenolol (TENORMIN) 25 mg tablet Take 1 tablet by mouth once daily.benazepril (LOTENSIN) 20 mg tablet Take 0.5 tablets by mouth once daily.naproxen sodium (ALEVE) 220 mg cap Take 2 capsules by mouth as needed.Aspirin 81 mg Tab Take 1 tablet by mouth once daily. Take with food.COMPOUNDED PRESCRIPTION 1 Electric Lift Chair/ReclinerICD-10: M47.817,M17.0, M16.0COMPOUNDED PRESCRIPTION 1 Electric Lift ChairICD-10: Generalized TbqbnrgiW73.1folic acid 800 mcg tablet Take 1 tablet by mouth once daily.COMPOUNDED PRESCRIPTION Wheeled walker with seat and brakes. Patientneeds 5 inch wheels.ICD-10: R26.9 Abnormality of gaitNo current facility-administered medications on file prior to encounter.Current Outpatient Prescriptions:OMEPRAZOLE ORAL Take 20 mg by mouth once daily. Disp: Rfl:hydroCHLOROthiazide (HYDRODIURIL, ESIDRIX) 25 mg tablet Take 1 tablet bymouth once daily. Disp: 90 tablet Rfl: 3atenolol (TENORMIN) 25 mg tablet Take 1 tablet by mouth once daily. Disp:30 tablet Rfl: 6benazepril (LOTENSIN) 20 mg tablet Take 0.5 tablets by mouth once daily.Disp: 90 tablet Rfl: 3naproxen sodium (ALEVE) 220 mg cap Take 2 capsules by mouth as needed.Disp: Rfl:Aspirin 81 mg Tab Take 1 tablet by mouth once daily. Take with food. Disp:30 tablet Rfl: 11COMPOUNDED PRESCRIPTION 1 Electric Lift Chair/ReclinerICD-10: M47.817,M17.0, M16.0 Disp: 1 Each Rfl: 0COMPOUNDED PRESCRIPTION 1 Electric Lift ChairICD-10: Generalized OhvfyjurR16.1 Disp: 1 Each Rfl: 0folic acid 800 mcg tablet Take 1 tablet by mouth once daily. Disp: 30tablet Rfl: 1COMPOUNDED PRESCRIPTION Wheeled walker with seat and brakes. Patientneeds 5 inch wheels.ICD-10: R26.9 Abnormality of gait Disp: 1 Each Rfl: 0No current facility-administered medications for this encounter.Allergies:ALLERGIESAller gen Reactions- Niacin ItchingDOS EXAM: Adequate NPO Status: YesAnesthetic Risks, Benefits, Alternatives, Personnel and Consent Discussed:YesPatient agrees to proceed: YesPrevious Anesthesia: No history of adverse eventAirway Assessment: MP 3; Neck ROM: Limited Extension; Airway Evaluation:Short Neck, Thick neck, Short Thyromental Distance and Non-CompliantSubmandibular SpaceSymptoms of Sleep Apnea: Snoring, Observed apnea, Hypertension, BMI > 35,Age over 50 (77 year old) and Neck circumference > 15.75 inchesDentition: Dentures: bothAdditional Physical Exam:Lungs: Patient health status unchanged since recent history and physical.See history and physical for exam findings.Cardiac: Patient health status unchanged since recent history andphysical. See history and physical for exam findings.Additional Pertinent Findings: N/ABlood Products: Not anticipated for this procedureAnesthetic Plan: MAC with general as back upAnesthetic Monitoring: Standard ASA MonitorsPain Management Plan: Parenteral or Oral and per Surgical ServiceASA Class: 3Other Medical Problems: NoneChronic Beta Ambar medication administered within 24 hours: Nanda have interviewed and examined the patient. I have reviewed the medicalrecord and/or the pre-anesthesia evaluation, pertinent labs, and testresults.Significant changes in the patient's condition since the History andPhysical, not otherwise documented in primary service progress notes: NoThis contains updated information obtained within 48 hours ofSurgery/Procedure.SIGNATURE: Andres Mcnair IV, DO PATIENT NAME: Dionne FraustoDATE: November 10, 2017 : 11:07 AM CSN: [id number] Normal [facility] CYTOLOGYon 11-10-2017 [facility]TOLOGY [facility]: [id number] Physician: MANNY LAUREANOPECWILLY SUBMITTEDA: STOMACH, FINE NEEDLE ASPIRATE F INAL DIAGNOSISA. STOMACH, FINE NEEDLE ASPIRATENegative for malignant cells.Benign gastric epithelium.Lico Cooley M.D. Ph.D. (Electronic Signature) C LINICAL DATA Thickened gastric foldADEQUACY INTERPRETATIONRapid Evaluation: Passes 1, 4 Benign gastric epithelium Passes 2,3 Non-diagnostic Per Dr Gaurav Sanz spoke with Dr Brown on November 11, 2017. Each letter in the above intra-procedural assessment refers to aunique site. The specific site is indicated in the final diagnosis portionof the report. Each number in this assessment references a discreteevaluation episode. Intra-procedural assessment performed at [facility], [address] [place] [address] GROSS DESCRIPTIONA. 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 [facility] Comment on above: Performed By: #### FNSTOM ####[address] [place] [address] PROGRESSon 11-10-2017 Protein HNO ID: [id number] thor: Lennie WellsRn) SUMMER Vargaservice: PICC TeamAuthor Type: Registered NurseType: Progress NotesFiled: 11/10/2017 11:50 AMNote Text:PICC/VASCULAR ACCESS PROGRESS NOTESERVICE DATE: 11/10/2017SERVICE TIME: [id number] AMRequested to see patient who has had unsuccessful IV attempts, needs newIV. Using ultrasound guidance, A peripheral IV was started in the Leftforearm with a Angio cath: 20 gauge. and A Saline lock was inserted perprotocol 1 1/4 inches in length, on first attempt. Brisk blood return andflushed without difficulty with 10 mL saline. No symptoms ofcomplications.SIGNATURE: Lenine Vargas RN PATIENT NAME: Dionne FraustoDATE: November 10, 2017 : 11:50 AM PAGER/CONTACT #: [phone] [facility] PT EDon 11-10-2017 PT ED HNO ID: [id number] thor: Fauzia WellsRn) SUMMER Guzmanervice: NursingAuthor Type: Registered NurseType: Patient EducationFiled: 11/10/2017 1:34 PMNote Text:POST OP LEARNING RESPONSEINSTRUCTION PROVIDED TO: Patient and family memberMETHOD OF INSTRUCTION: Individual instructionPATIENT / FAMILY RESPONSE: Verbalizes understanding of: TVPV-SRQGYJXHNHVOZPMEESHVA-Cafnkgh actions to take to reduce postoperative complicationsFOLLOW-UP PLAN: Complete - No need for follow-upSUPPLEMENTAL MATERIAL: NoneREFERRAL (RECOMMENDATION): NoneElectronically Signed By: Fauzia Guzman RN In Department: [facility] PT ED HNO ID: [id number] thor: Michelle (Rn) SUMMER Meanservice: NursingAuthor Type: Registered NurseType: Patient EducationFiled: 11/10/2017 10:57 AMNote Text:PRE OP LEARNING ASSESSMENTPROCEDURE/SURGERY: GI PROCEDURES: EGDREADINESS TO LEARNCOGNITIVE ABILITY: Alert and orientedMOTIVATION TO LEARN: EagerFAMILY SUPPORT: High - Very involved in pt carePATIENT LEARNS BEST BY: Verbal InstructionFACTORS AFFECTING LEARNING: NonePHYSICAL LIMITATIONS AFFECTING LEARNING: NoneElectronically Signed By: Michelle Means RN In Department: [facility] digestive health [facility] SURGICAL PATHOLOGYon 018 SURGICAL PATHOLOGY [facility]: [id number] Physician: MANNY BROWN FINAL DIAGNOSISGastric antrum, biopsy - Scant superficial fragments of gastric foveolarhyperplasia, see comment.IG/plj 11/11/2017 COMMENTThe findings are consistent with changes adjacent to an ulcer. There is noevidence of intestinal metaplasia, dysplasia or infiltrative lesion.Anneliese Green M.D., Ph.D.(Electronic Signature) SPECIMEN SUBMITTEDA: GASTRIC ANTRUM, BIOPSY CLINICAL DATAGASTRIC MASS / WEIGHT LOSS / ANEMIAA. COLD BIOPSY GROSS DESCRIPTIONA. Received in formalin is one piece of gonzalez-red, soft tissue measuring 0.2x 0.1 x 0.1 cm. Totally submitted in one cassette.Gross examination performed at [facility], [address] [place] [id number] 11/10/2017 7:06:22 PMPatient ID #: [id number] of Report: 11/11/2017Date of Procedure: 11/10/2017Date of Receipt: 11/10/2017Submitted by: MANNY MCCORMACKocation: HLSOPDiagnostic interpretation performed at [facility], [address] [place] [address]. [facility] Comment on above: Performed By: #### PATHS ####[place] [address] NURSING PROGon 10-26-2017 NURSING PROG HNO ID: [id number] thor: Erum (Rn) Gonzalez, RNService: (none)Author Type: Registered NurseType: Nursing Progress NoteFiled: 10/26/2017 2:31 PMNote Text:PACC Nurse Progress NoteHistory AND Physical:PACC Visit Date: 10/19/17Original HANDP Date: N/AED visit Date: N/AOutside HANDP Scanned Date: N/ALabs Within Last 6 Months:CBC: Date 09/15/17BMP/CMP: Date 08/09/17 * labs within acceptable limits per anesthesia guidelines for plannedprocedure.Imaging Within Last 12 Months:See chartCardiac Testing:EKG in last 12 Months: Yes: Date: 07/12/17, Comment: confirmedECHO 07/2017: LVEF 60%, Stage 2 diastolic dysfunction, moderate MV regurg;Followed by Dr. Hall-visit on 10/01 for pre-op clearance; No CP, AZ,DVT/PE, Syncope.Last Menstrual Period:LMP Date: N/APostmenopausal >1yr: Yes,S/P Hysterectomy: N/ABMI Percentile (PEDS):N/ARisk Assessment:Cardiac Date: 10/01/17 Dr Gonzalez. - As noted :I've advised her to proceed with surgery as planned. Risk ofperioperative cardiac complications is low to intermediate. No furtherdiagnostic studies are recommended prior to surgery. No guarantees weremadeAnesthesia Review:N/ANarrative:BMI 35.87PAF-no RSFSP-jylbomjJGC-mm RXAnemia HANDH (9.3/31.3Gastric MassModerate mitral regurgStage 2 diastolic dysfunction-LVEF 60%Pre-op Considerations:N/AChart Check:Denis Styles 2017 2:26 PM [facility] HOSPon 10-21-2017 HOSP Patient:Cooper Frausto GMRN: Height:4' 10(1.473 m)Weight:171 lb 9.6 oz (77.837 kg)Outpatient Medications as of 11/10/17:OMEPRAZOLE ORALhydroCHLOROthiazide (HYDRODIURIL, ESIDRIX) 25 mg tabletCOMPOUNDED PRESCRIPTIONCOMPOUNDED PRESCRIPTIONatenolol (TENORMIN) 25 mg tabletbenazepril (LOTENSIN) 20 mg tabletnaproxen sodium (ALEVE) 220 mg capfolic acid 800 mcg tabletCOMPOUNDED PRESCRIPTIONAspirin 81 mg TabAdmission/Clinic Administered Medications as of 11/10/17:Patient has no admission medications.Problem List:Essential hypertension, benign [I10]Localized osteoarthrosis not specified whether primary or secondary, lower leg[M17.10]Mixed hyperlipidemia [E78.2]Sinus arrhythmia [I49.9]Non-rheumatic mitral regurgitation [I34.0]Malignant melanoma (HCC) [C43.9]Gastric mass [K31.9]PAF (paroxysmal atrial fibrillation) (HCC) [I48.0]Allergies:NiacinDate Verified: 11/10/17Lab ValuesNo results within the last 30 days for the following basenames: K,HCTProgress Notes ([facility]):China Fernandez APRN.GRAIN ORIGINATION SPECIALIST 10/24/2017 2:29 PM SignedPlease inform patient that urine culture did not show any growth of bacteriarequiring treatment.Advise due to blood in the urine that she follow up with PCP for furtherevaluation of this.Baljeet Johns MD 10/27/2017 9:17 AM SignedRepeat urinalysis at least 1 day before her follow up with PCP. Order isplaced. Give sample at the lab.Belinda Bo Ma 10/27/2017 9:24 AM SignedLeft message to call back.Belinda Delgadillo RN 10/27/2017 9:54 AM SignedPatient's niece, Marcela notified of results and provider's instructions. Debverbalizes understanding, verified by read back and will relay to patient.Scheduled appointment with Hany Call CNP on 11/01/17, will come to lab onSaturday. 10/30 and repease UA prior.Kati Delgadillo, RNProgress Notes ([facility]):Brendon Siddiqui MD 10/22/2017 7:36 PM SignedPatient presents with:UTI: UTI, lower back and burning X 1 weekHPI:Symptoms for 2 weeks.Dysuria: YesFrequency: drinking more than usualHematuria: NoNausea: NoFever or chills: NoBack pain: bilateral upper lumbar pain, worse with sitting too longAbdominal pain: NoPrior UTI: YesPersonal history of kidney stones: NoMEDICATIONS:Current Outpatient Prescriptions:OMEPRAZOLE ORAL Take 20 mg by mouth once daily.hydroCHLOROthiazide (HYDRODIURIL, ESIDRIX) 25 mg tablet Take 1 tablet by mouthonce daily.COMPOUNDED PRESCRIPTION 1 Electric Lift Chair/ReclinerICD-10: M47.817, M17.0,M16.0COMPOUNDED PRESCRIPTION 1 Electric Lift ChairICD-10: Generalized Weakness R53.1atenolol (TENORMIN) 25 mg tablet Take 1 tablet by mouth once daily.benazepril (LOTENSIN) 20 mg tablet Take 0.5 tablets by mouth once daily.naproxen sodium (ALEVE) 220 mg cap Take 2 capsules by mouth as needed.folic acid 800 mcg tablet Take 1 tablet by mouth once daily.COMPOUNDED PRESCRIPTION Wheeled walker with seat and brakes. Patient needs 5inch wheels.ICD-10: R26.9 Abnormality of gaitAspirin 81 mg Tab Take 1 tablet by mouth once daily. Take with food.No current facility-administered medications for this visit.ALLERGIES:ALLERGIESAllergen Reactions- Niacin ItchingVITALS:BP 128/78 Pulse 64 Temp 36.9 ?C (98.4 ?F) (Tympanic) Wt 75.8 kg (167lb) BMI 34.90 kg/m?PHYSICAL EXAM: GEN: NAD HEENT: EOMI, conjunctiva clear, moist mucous membranes HEART: regular rate and rhythm, no murmurs LUNGS: clear to auscultation, no wheezes or crackles, no increased WOB ABDOMEN: Soft, nondistended, no masses, +suprapubic discomfort BACK: bilateral upper lumbar tenderness EXT: Recently healed incision back of the left shoulder SKIN: Multiple neurofibromas.Component CultureLatest Ref Rng AND Units07/12/2017 12:56 AM >=100,000 CFU/ml (A) Ecoli07/12/2017 12:56 AM 50,000 - <100,000 CFU/ml flora07/24/2017 10:47 AM 10,000 - <50,000 CFU/ml GN rod07/24/2017 10:47 AM <10,000 CFU/ml . . .flora08/02/2017 <10,000 CFU/ml . . .mixed08/23/2017 50,000 - <100,000 CFU/ml (A) . . .E coliComponent Latest Ref Rng AND Units 07/12/2017 07/24/2017 08/02/2017 08/23/2017Color Yellow Yellow YellowClarity Clear Cloudy (A) Cloudy (A)Glucose, Urine Neg mg/dL neg Negative Negative NegBilirubin, Urine Neg neg Negative Negative NegKetones, Urine Neg neg Negative Negative NegSpecific Jones, Ur 1.005 - 1.030 1.020 1.021 1.013 1.015Hemoglobin/Blood,Ur Neg non hemo mod 1+ (A) Negative Non-Hem TracepH, Urine 4.5 - 8.0 6.0 5.0 5.0 7.0Protein, Urine Neg mg/dL trace Negative Negative NegUrobilinogen Normal Normal NormalNitrites Neg positive Negative Negative NegLeukest Negative Trace (A) NegativeComments SEE COMMENT SEE COMMENTUrine Nicolette Comment SEE COMMENT SEE COMMENTWBC, Urine 0 - 5 /HPF 6-10 (A) 0-5RBC, Urine 0 - 3 /HPF 3-5 (A) 0-3Cast 0 /LPF >10 hyalin castEpithelial Cells /HPF few fewUrobilinogen, Urine Normal (<1.1) EU normal NormLeukocytes Neg mod ModColor/Appearance comment: bright Straw Yellow/HazyASSESSMENT/PLAN:1. Low back pain without sciatica, unspecified back pain laterality, unspecifiedchronicity - ICD9: 724.2, ICD10: M54.5 (primary diagnosis)2. Dysuria - ICD9: 788.1, ICD10: R30.03. Proteinuria, unspecified type - ICD9: 791.0, ICD10: R80.9- UA DIP B/O - trace blood, no LE, no nitrite. Will await culture beforetreating with antibiotic if indicated.- URINE CULTUREUA is also positive for 100 protein, moderate ketone, and 2 urobilinogen. Shedenies fasting or OTC UTI medicine. Plan to repeat UA next week. - UA withmicro.Brendon Siddiqui MD [facility] LYMPH NODE IMAGINGon - Lymphocytes * * *Final Report* * *DATE OF EXAM: Oct 05 2017 11:38AM YARI 0033 - [place] LYMPH NODE IMAGING / REASON: melanoma left lateral shoulder C43.62 * * * * Physician Interpretation * * * * NM LYMPH NODE IMAGINGINDICATION: melanoma left lateral shoulder C43.62TECHNIQUE: A total of 430 ?Ci of filtered sulfur colloid were into equal amounts into 4 separate syringes. Intradermal injections with 25G needles were performed in 3 locations surrounding the scar in the posterior lateral left shoulder. Anterior and lateral images were obtained.FINDING: Significant activity is seen in the injection sites in the periareolar region. Delayed images, there is a focus of increased uptake on the lateral image that likely is within the left axilla. However, similar activity cannot be identified on the anterior image.IMPRESSION: Probable single left axillary sentinel lymph node.Drug And Alcohol Counselor: PSCB Transcribe Date/Time: Oct 05 2017 11:39ADictated by : MARIA EUGENIA EATON MDThis examination was interpreted and the report reviewed and electronically signed by: MARIA EUGENIA EATON MD on Oct 05 2017 11:40AM [id number] [facility] CNOVon 09-01-2017 CNOV Office Visit (AGCARDWST) ANGELINA FRAUSTO ([id number]) [address] [facility] Time Provider Department09/01/17 11:00 AM DARINEL HALL During your visit today, we recorded the following information about you: Pulse Blood pressure Weight 90/minute 122/70 72.1 kgDarinel Hall MD 09/29/2017 10:16 AM AddendumPERTINENT CARDIAC HISTORYAtrial arrhythmiaHTNHLAnemiaWeight lossNeurofibromatosisADHERENCE TO GUIDELINESACE-I or ARB for HF with prior LVEF<40 (NQF 0081) - N/AASA or Plavix for ASHD (NQF 0067) - N/ABeta ambar for ASHD with prior [place] or prior LVEF<40 (NQF 0070) - N/ABeta ambar for HF with prior LVEF<40 (NQF 0083) - N/AACE-I or ARB for ASHD with DM or prior LVEF<40 (NQF 0066) - N/AStatin therapy for ASHD or FHL or DM - N/ABMI documented and plan if >25 (NQF 0421) - lifestyle recommendation formTobacco use screening and referral (NQF 0028) - lifestyle recommendation formRecommendation for whole food, plant based diet - lifestyle recommendation formCLINICAL IMPRESSION/PLAN:Dionne Frausto has atrial fibrillation and is at risk of thromboemboliccomplications. However, she has had an unexplained anemia, significant weightloss and an evaluation which is currently in progress.I recommended that she start atenolol 25 milligrams daily. I've asked her tocontact me when her colonoscopy and hematology evaluations are completed. If itis deemed safe, she should be started on anticoagulation with warfarin with INRadjusted between 2 and 2.5. I would like to keep her a little on the low sidewhile she is anemic.I will see her as originally scheduled. I've asked her to contact me with vitalsigns next week so that we may adjust her other medications. We may need todiscontinue benazepril.Written and verbal health teaching given to patient, patient verbalizesunderstanding and agrees with treatment plan.DIAGNOSIS FOR VISIT:Atrial fibrillationHISTORY OF PRESENT ILLNESSDionne Frausto returns for discussion of findings of her recent Holtermonitor.She's had no recent chest discomfort. Exercise tolerance is stable. She isunaware of any palpitations. She's had no shortness of breath. She deniessyncope, TIAs, amaurosis. She's had no gross blood loss.colonoscopy is scheduled for next week. She also has follow-up with hematologyregarding her anemia.ALLERGIES:ALLERGIESAllergen Reactions- Niacin ItchingCURRENT OUTPATIENT MEDICATIONS:benazepril (LOTENSIN) 20 mg tablet Take 0.5 tablets by mouth once daily.cephALEXin (KEFLEX) 500 mg capsule Take 1 capsule by mouth twice daily for 7days.naproxen sodium (ALEVE) 220 mg cap Take 2 capsules by mouth as needed.folic acid 800 mcg tablet Take 1 tablet by mouth once daily.COMPOUNDED PRESCRIPTION Wheeled walker with seat and brakes. Patient needs 5inch wheels.ICD-10: R26.9 Abnormality of gaitAspirin 81 mg Tab Take 1 tablet by mouth once daily. Take with food.PHYSICAL EXAMINATION:VITAL SIGNS: BP 93/65 Pulse 90 Wt 158 lb 14.4 oz (72.1kg)Chest: Clear to percussion and auscultation. Trachea is midline. Air entry isequal. Cardiac: Irregularly irregular rhythm. S1 and S2 are normal. PMI isnondisplaced. There is a soft systolic ejection murmur. Carotids are briskwithout bruits. JVP is less than 10 cm. Abdomen: Soft and nontender. Thereare no pulsatile masses or bruits. No liver enlargement. Bowel sounds areactive. Extremities: Trace edema. Pulses are intact and symmetrical.Event monitor was reviewed. She is having a clear episodes of atrialfibrillation, in addition to her multifocal atrial tachycardia.Electronically Signed:Debi Franco 2017 11:31 [facility]: Sesar Moses Provider: CHARLENE ERNST [[id number]]Allergies As of Date: 09/01/2017 Noted Allergy ReactionNIACIN 11/30/2006 9 - ItchingDate Reviewed: 09/01/2017Reviewed by: Monserrat (Rn) Chuy - Fully AssessedReason for Visit: Established Patient [175] Cmt: Discuss anticoagulationPrimary Visit Diagnosis:PAF (paroxysmal atrial fibrillation) (HCC) [I48.0]Order(s):atenolol (TENORMIN) 25 mg tabletTake 1 tablet by mouth once daily.Disp: 30 tabletRfl: 6Prescriptions as of 09/01/2017 Sig: BENAZEPRIL 20 MG TABLET Take 0.5 tablets by mouth onc* CEPHALEXIN 500 MG CAPSULE Take 1 capsule by mouth twice* NAPROXEN SODIUM 220 MG CAPSULE Take 2 capsules by mouth as n* FOLIC ACID 800 MCG TABLET Take 1 tablet by mouth once d* COMPOUNDED PRESCRIPTION Wheeled walker with seat and * ASPIRIN 81 MG TABLET Take 1 tablet by mouth once d* ATENOLOL 25 MG TABLET Take 1 tablet by mouth once d*Problem List As Of Date 09/01/2017 Noted Resolved BENIGN HYPERTENSION [I10] INVALID FOR* LOC OSTEOARTH NOS-L/LEG [M17.10] INVALID FOR* Mixed hyperlipidemia [E78.2] INVALID FOR* APPENDICITIS ACUTE W RUPTURE [K35.2] INVALID FOR*08/22/2009 Sinus arrhythmia [I49.9] INVALID FOR* Non-rheumatic mitral regurgitation [I34.0] INVALID FOR* More... Malignant melanoma (HCC) [C43.9] INVALID FOR*Prescriptions ordered this encounter Disp Refills Start End ATENOLOL 25 MG TABLET 30 t* 6 09/01/2017 Route: ORAL Sig: Take 1 tablet by mouth once daily.Follow-up and Disposition History RecordedEncounter Number: [id number] Status:Closed by DARINEL HALL MD on 09/01/17 [facility] PROGRESSon 09-01-2017 PROGRESS HNO ID: [id number] thor: Darinel [place]: (none)Author Type: PhysicianType: Progress NotesFiled: 09/29/2017 10:16 AMNote Text:PERTINENT CARDIAC HISTORYAtrial arrhythmiaHTNHLAnemiaWeight lossNeurofibromatosisADHERENCE TO GUIDELINESACE-I or ARB for HF with prior LVEF<40 (NQF 0081) - N/AASA or Plavix for ASHD (NQF 0067) - N/ABeta ambar for ASHD with prior [place] or prior LVEF<40 (NQF 0070) - N/ABeta ambar for HF with prior LVEF<40 (NQF 0083) - N/AACE-I or ARB for ASHD with DM or prior LVEF<40 (NQF 0066) - N/AStatin therapy for ASHD or FHL or DM - N/ABMI documented and plan if >25 (NQF 0421) - lifestyle recommendation formTobacco use screening and referral (NQF 0028) - lifestyle recommendationformRecommendation for whole food, plant based diet - lifestyle recommendationformCLINICAL IMPRESSION/PLAN:Dionne Frausto has atrial fibrillation and is at risk of thromboemboliccomplications. However, she has had an unexplained anemia, significantweight loss and an evaluation which is currently in progress.I recommended that she start atenolol 25 milligrams daily. I've asked herto contact me when her colonoscopy and hematology evaluations arecompleted. If it is deemed safe, she should be started on anticoagulationwith warfarin with INR adjusted between 2 and 2.5. I would like to keepher a little on the low side while she is anemic.I will see her as originally scheduled. I've asked her to contact me withvital signs next week so that we may adjust her other medications. We mayneed to discontinue benazepril.Written and verbal health teaching given to patient, patient verbalizesunderstanding and agrees with treatment plan.DIAGNOSIS FOR VISIT:Atrial fibrillationHISTORY OF PRESENT ILLNESSDionne Frausto returns for discussion of findings of her recent Holtermonitor.She's had no recent chest discomfort. Exercise tolerance is stable. She isunaware of any palpitations. She's had no shortness of breath. She deniessyncope, TIAs, amaurosis. She's had no gross blood loss.colonoscopy is scheduled for next week. She also has follow-up withhematology regarding her anemia.ALLERGIES:ALLERGIESAllergen Reactions- Niacin ItchingCURRENT OUTPATIENT MEDICATIONS:benazepril (LOTENSIN) 20 mg tablet Take 0.5 tablets by mouth once daily.cephALEXin (KEFLEX) 500 mg capsule Take 1 capsule by mouth twice daily for7 days.naproxen sodium (ALEVE) 220 mg cap Take 2 capsules by mouth as needed.folic acid 800 mcg tablet Take 1 tablet by mouth once daily.COMPOUNDED PRESCRIPTION Wheeled walker with seat and brakes. Patientneeds 5 inch wheels.ICD-10: R26.9 Abnormality of gaitAspirin 81 mg Tab Take 1 tablet by mouth once daily. Take with food.PHYSICAL EXAMINATION:VITAL SIGNS: BP 93/65 Pulse 90 Wt 158 lb 14.4 oz (72.1kg)Chest: Clear to percussion and auscultation. Trachea is midline. Airentry is equal. Cardiac: Irregularly irregular rhythm. S1 and S2 arenormal. PMI is nondisplaced. There is a soft systolic ejection murmur.Carotids are brisk without bruits. JVP is less than 10 cm. Abdomen: Softand nontender. There are no pulsatile masses or bruits. No liverenlargement. Bowel sounds are active. Extremities: Trace edema. Pulsesare intact and symmetrical.Event monitor was reviewed. She is having a clear episodes of atrialfibrillation, in addition to her multifocal atrial tachycardia.Electronically Signed:Debi Franco 2017 11:31 [facility]: Charlene Ernst MD [facility] CNNURSEon 08-25-2017 [facility] [place] ANGELINA FRAUSTO ([id number]) 1940 FDate Time Provider Department08/25/17 1:45 PM NURSE CARD JORDANA ALANIS AGCARDWST During your visit today, we recorded the following information about you:Renu Gibbs (Marcela) 08/25/2017 2:06 PM SignedLifeWatch holter plus applied and instructions given.Patient verbalized understanding.Albert Smyth Provider: DARINEL HALL [[id number]]Allergies As of Date: 08/25/2017 Noted Allergy ReactionNIACIN 11/30/2006 9 - ItchingDate Reviewed: 08/25/2017Reviewed by: Renu Gibbs) - Fully AssessedReason for Visit: Nurse Visit [792]Primary Visit Diagnosis:PAF (paroxysmal atrial fibrillation) (HCC) [I48.0]Prescriptions as of 08/25/2017 Sig: BENAZEPRIL 20 MG TABLET Take 0.5 tablets by mouth onc* SULFAMETHOXAZOLE 800 MG-TRIME* Take 1 tablet by mouth twice * NAPROXEN SODIUM 220 MG CAPSULE Take 2 capsules by mouth. FOLIC ACID 800 MCG TABLET Take 1 tablet by mouth once d* COMPOUNDED PRESCRIPTION Wheeled walker with seat and * ASPIRIN 81 MG TABLET Take 1 tablet by mouth once d*Problem List As Of Date 08/25/2017 Noted Resolved BENIGN HYPERTENSION [I10] INVALID FOR* LOC OSTEOARTH NOS-L/LEG [M17.10] INVALID FOR* Mixed hyperlipidemia [E78.2] INVALID FOR* APPENDICITIS ACUTE W RUPTURE [K35.2] INVALID FOR*08/22/2009 Sinus arrhythmia [I49.9] INVALID FOR* Non-rheumatic mitral regurgitation [I34.0] INVALID FOR* More... Malignant melanoma (HCC) [C43.9] INVALID FOR* Status:Closed by RENU GIBBS MA on 08/25/17 [facility] Office Visit (AGCARDWST) ANGELINA FRAUSTO ([id number]) 1940 FDate Time Provider Department08/25/17 1:00 PM DARINEL HALL AGCARDWST During your visit today, we recorded the following information about you: Pulse Blood pressure Weight Height 80/minute 90/60 72.9 kg 1.473 Darinel Hale 08/27/2017 11:52 AM SignedPERTINENT CARDIAC HISTORYAtrial arrhythmiaHTNHLAnemiaWeight lossADHERENCE TO GUIDELINESACE-I or ARB for HF with prior LVEF<40 (NQF 0081) - N/AASA or Plavix for ASHD (NQF 0067) - N/ABeta ambar for ASHD with prior [place] or prior LVEF<40 (NQF 0070) - N/ABeta ambar for HF with prior LVEF<40 (NQF 0083) - N/AACE-I or ARB for ASHD with DM or prior LVEF<40 (NQF 0066) - N/AStatin therapy for ASHD or FHL or DM - N/ABMI documented and plan if >25 (NQF 0421) - lifestyle recommendation formTobacco use screening and referral (NQ 0028) - lifestyle recommendation formRecommendation for whole food, plant based diet - lifestyle recommendation formCLINICAL IMPRESSION/PLAN:Dionne Frausto has chronic hypertension which is still somewhat overtreated.She has had improvement in blood pressure since amlodipine was discontinued.Her exercise tolerance has improved somewhat and she is less lightheaded.Her rhythm is not atrial fibrillation, but she has a fairly disorganized atrialrhythm and certainly could be having some intermittent atrial fibrillation. I'mreluctant to initiate anticoagulation, given her unexplained anemia.Holter monitor will be obtained see if we can document the presence of atrialfibrillation.Blood pressure is still over treated. I have recommended that she decreasebenazepril to 10 milligrams daily. She may benefit from low-dose diuretictherapy.I've asked her to call if she feels that there is a change in exercisetolerance or rhythm. I will be in touch with her after we see the results ofher event monitor.I will see her in one month.Thank you for asking me to see and make recommendations on Dionne Frausto.This report is available to you in the shared medical record.Written and verbal health teaching given to patient, patient verbalizesunderstanding and agrees with treatment plan.DIAGNOSIS FOR VISIT:SVTHypertensionHISTORY OF PRESENT ILLNESSDionne Frausto is a 76-year-old woman who is seen in consultation at [facility] [place] CNP, for recommendations regarding abnormal heartrhythm and low blood pressure.She denies any previous history of cardiac disease. She has been strugglingwith mild anemia. She's had no bleeding issues. There is no sign or symptom ofobstructive sleep apnea.Recent EKG suggested the presence of atrial fibrillation. She is unaware of anyirregularity.She denies chest discomfort. She's had no orthopnea, edema, TIAs, amaurosis,claudication, syncope or near-syncope.She has had significant weight loss over the last few years.ALLERGIES:ALLERGIESAllergen Reactions- Niacin ItchingCURRENT OUTPATIENT MEDICATIONS:sulfamethoxazole-trime thoprim (BACTRIM DS) 800-160 mg per tablet Take 1 tabletby mouth twice daily for 7 days.naproxen sodium (ALEVE) 220 mg cap Take 2 capsules by mouth.folic acid 800 mcg tablet Take 1 tablet by mouth once daily.COMPOUNDED PRESCRIPTION Wheeled walker with seat and brakes. Patient needs 5inch wheels.ICD-10: R26.9 Abnormality of gaitbenazepril (LOTENSIN) 20 mg tablet Take 1 tablet by mouth once daily.Aspirin 81 mg Tab Take 1 tablet by mouth once daily. Take with food.PAST MEDICAL HISTORYDiagnosis Date- Malignant melanoma (HCC) 07/2017- Neurofibromatosis (HCC)- Unspecified essential hypertension Essential hypertensionPAST SURGICAL HISTORYProcedure Laterality Date- LAPAROSCOPY, SURGICAL, APPENDECTOMY 06-25-08- REMOVAL GALLBLADDER CholecystectomyFAMILY HISTORYProblem Relation Age of Onset- Cancer Mother site unknown- Coronary Artery Disease Father- Cancer Sister leukemiaSocial History Marital status: Single Spouse name: Years of education: Number of children:Social History Main Topics Smoking status: Never Smoker Smokeless tobacco: Never Used Alcohol use: No Drug use: NoREVIEW OF SYSTEMS: General: No chills, fever, weight loss, night sweats.SHEENT: No change in vision or auditory acuity. Respiratory: No productivecough. Cardiac: As noted above. GI: No melena. : No dysuria.Musculoskeletal: No myalgias. Neurologic: No strokes. Chronic headaches.Psychiatric: No depression. Endocrine: No diabetes. Hematologic: Chronicanemia.PHYSICAL EXAMINATION: S/he is alert and in no distressVITAL SIGNS: BP 90/60 Pulse 80 Ht 4' 10 (1.47m) Wt 160 lb 12.8 oz(72.9kg) BMI 33.62 kg/(m2).SHEENT: Skin is warm and dry. There are numerous lesions of neurofibromatosis.Pupils are round and reactive. Retinal vessels are grossly unremarkable. Noxanthelasmas appreciated. Pharynx is benign. There is no oral cyanosis.Neck: supple. No adenopathy or thyroid enlargement. Chest: Clear topercussion and auscultation. Trachea is midline. Air entry is equal. Thereis no chest wall tenderness. Cardiac: Mildly irregular rhythm. S1 and S2 arenormal. PMI is nondisplaced. There is a soft systolic ejection murmur. Noclick is heard. Carotids are brisk without bruits. JVP is less than 10 cm.Abdomen: Soft and nontender. There are no pulsatile masses or bruits. Noliver enlargement. Bowel sounds are active. : Deferred. Extremities: Traceedema. Pulses are intact and symmetrical. No clubbing or cyanosis. Nofemoral bruits. Neurologic: Grossly normal motor and sensory. S/he is alertand oriented x4. Musculoskeletal: No joint deformities.EKG shows a chaotic atrial mechanism. Rates is well controlled. There is noevidence of atrial fibrillation. Prior EKG of 2010 showed similar findings.Previous stress test showed no evidence of ischemia. Left ventricular functionwas normal.Hemoglobin was 9.4. There is moderate renal insufficiency. TSH is normal.Echocardiogram was personally reviewed. There is normal left ventricularfunction. Left atrium is moderately dilated. There is moderate mitralinsufficiency.Electronically Signed:Debi Franco 2017 1:34 [facility]: Charlene Ernst Kenneth E 08/25/2017 1:34 PM SignedLIFESTYLE CHANGEA healthy lifestyle is the most important component of your overall treatmentplan. Please give serious thought to the following areas and commit to makinglong term changes.EAT A WHOLE FOOD, PLANT BASED DIETThe nutrition your body gets is more important than the medicine you take.What matters most is the overall way you eat. We encourage you to minimize theuse of animal products (which include dairy and all meats except fatty fish)and use whole, unprocessed plant foods to provide your protein, vitamins andother nutrients. We have a lot of information to share with you on this topic.This is not a diet. It is a way of life that you will keep with you.EXERCISE REGULARLYIt is not important to spend hours in the gym, lifting weights and perspiringheavily. A total of 2-3 hours per week of aerobic (causing you to bemoderately short of breath) exercise is sufficient to improve your health.Talk to us before you begin a new exercise program, if you have heart diseaseor experience shortness of breath or chest pain.REDUCE STRESSChronic emotional and physical stress leads to disease. Ways of reducingstress include meditation, visualization, prayer, yoga and other forms ofrelaxation therapy. Consistency is the schneider. Find a technique that works foryou and do it every day.CULTIVATE RELATIONSHIPSLoneliness and isolation have a major negative impact on health. Seek outothers who can love, care for and nurture you. Avoid hurtful relationships.MAINTAIN IDEAL BODY WEIGHTThe best way to do this is to do all the things above. Our bodies naturallyfind the right weight if we keep moving and feed ourselves the right food. Ifyour BMI is greater than 25, we strongly recommend a referral to a weightmanagement program. Please speak to us or your family physician aboutavailable programs.AVOID NICOTINE IN ALL FORMSThis includes all tobacco products, whether chewed, smoked, vaped, or rubbed onthe skin. Smoking cessation programs, which can make use of tobaccosubstitutes, medications to suppress cravings and behavior management, areavailable. Please contact your family physician about programs in your area.Referring Provider: DARINEL HALL [[id number]]Allergies As of Date: 08/25/2017 Noted Allergy ReactionNIACIN 11/30/2006 9 - ItchingDate Reviewed: 08/25/2017Reviewed by: Renu Gibbs) - Fully AssessedReason for Visit: New Patient [172]Primary Visit Diagnosis:PAF (paroxysmal atrial fibrillation) ([facility]) [I48.0] Other Visit Diagnoses:Essential hypertension [I10] Essential hypertension, benign [I10]Order(s):EVENT MONITOR [[id number]] Order #: [id number]: 1 benazepril (LOTENSIN) 20 mg tabletTake 0.5 tablets by mouth once daily.Disp: 90 tabletRfl: 3Prescriptions as of 08/25/2017 Sig: BENAZEPRIL 20 MG TABLET Take 0.5 tablets by mouth onc*X SULFAMETHOXAZOLE 800 MG-TRIME* Take 1 tablet by mouth twice * NAPROXEN SODIUM 220 MG CAPSULE Take 2 capsules by mouth. FOLIC ACID 800 MCG TABLET Take 1 tablet by mouth once d* COMPOUNDED PRESCRIPTION Wheeled walker with seat and * ASPIRIN 81 MG TABLET Take 1 tablet by mouth once d*Problem List As Of Date 08/25/2017 Noted Resolved BENIGN HYPERTENSION [I10] INVALID FOR* LOC OSTEOARTH NOS-L/LEG [M17.10] INVALID FOR* Mixed hyperlipidemia [E78.2] INVALID FOR* APPENDICITIS ACUTE W RUPTURE [K35.2] INVALID FOR*08/22/2009 Sinus arrhythmia [I49.9] INVALID FOR* Non-rheumatic mitral regurgitation [I34.0] INVALID FOR* More... Malignant melanoma (HCC) [C43.9] INVALID FOR* Other instructions from your clinician: LIFESTYLE CHANGE A healthy lifestyle is the most important component of your overall treatment plan. 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 EAT A WHOLE FOOD, PLANT BASED DIET The nutrition your body gets is more important than the medicine you take. What matters most is the overall way you eat. We encourage you to minimize the use of animal products (which include dairy and all meats except fatty fish) and use whole, unprocessed plant foods to provide your protein, vitamins and other nutrients. We have a lot of information to share with you on this topic. This is not a diet. It is a way of life that you will keep with you. EXERCISE REGULARLY It is not important to spend hours in the gym, lifting weights and perspiring heavily. A total of 2-3 hours per week of aerobic (causing you to be moderately short of breath) exercise is sufficient to improve your health. Talk to us before you begin a new exercise program, if you have heart disease or experience shortness of breath or chest pain. REDUCE STRESS Chronic emotional and physical stress leads to disease. Ways of reducing stress include meditation, visualization, prayer, yoga and other forms of relaxation therapy. Consistency is the schneider. Find a technique that works for you and do it every day. CULTIVATE RELATIONSHIPS Loneliness and isolation have a major negative impact on health. Seek out others who can love, care for and nurture you. Avoid hurtful relationships. MAINTAIN IDEAL BODY WEIGHT The best way to do this is to do all the things above. Our bodies naturally find the right weight if we keep moving and feed ourselves the right food. If your BMI is greater than 25, we strongly recommend a referral to a weight management program. Please speak to us or your family physician about available programs. AVOID NICOTINE IN ALL FORMS This includes all tobacco products, whether chewed, smoked, vaped, or rubbed on the skin. Smoking cessation programs, which can make use of tobacco substitutes, medications to suppress cravings and behavior management, are available. Please contact your family physician about programs in your area.Prescriptions ordered this encounter Disp Refills Start End BENAZEPRIL 20 MG TABLET 90 t* 3 08/25/2017 Class: Med Update Route: ORAL Sig: Take 0.5 tablets by mouth once daily.Medications Discontinued During This Encounter benazepril (LOTENSIN) 20 mg tablet 90 t* 3 07/12/2017 08/25/2017 Route: ORAL Sig: Take 1 tablet by mouth once daily. Disc: Reason for discontinue is not on file.Follow-up and Disposition History RecordedEncounter Number: [id number] Status:Closed by DARINEL HALL MD on 08/27/17 [facility] PROGRESSon 08-25-2017 PROGRESS HNO ID: [id number] thor: Renu Gibbs (Marcela)Service: (none)Author Type: Medical AssistantType: Progress NotesFiled: 08/25/2017 2:06 PMNote Text:LifeWatch holter plus applied and instructions given.Patient verbalized understanding.Renu Gibbs MA [facility] PROGRESS HNO ID: [id number] thor: Darinel Hall EService: (none)Author Type: PhysicianType: Progress NotesFiled: 08/27/2017 11:52 AMNote Text:PERTINENT CARDIAC HISTORYAtrial arrhythmiaHTNHLAnemiaWeight lossADHERENCE TO GUIDELINESACE-I or ARB for HF with prior LVEF<40 (NQF 0081) - N/AASA or Plavix for ASHD (NQF 0067) - N/ABeta ambar for ASHD with prior [place] or prior LVEF<40 (NQF 0070) - N/ABeta ambar for HF with prior LVEF<40 (NQF 0083) - N/AACE-I or ARB for ASHD with DM or prior LVEF<40 (NQF 0066) - N/AStatin therapy for ASHD or FHL or DM - N/ABMI documented and plan if >25 (NQF 0421) - lifestyle recommendation formTobacco use screening and referral (NQF 0028) - lifestyle recommendationformRecommendation for whole food, plant based diet - lifestyle recommendationformCLINICAL IMPRESSION/PLAN:Dionne Frausto has chronic hypertension which is still somewhatovertreated. She has had improvement in blood pressure since amlodipinewas discontinued. Her exercise tolerance has improved somewhat and she isless lightheaded.Her rhythm is not atrial fibrillation, but she has a fairly disorganizedatrial rhythm and certainly could be having some intermittent atrialfibrillation. I'm reluctant to initiate anticoagulation, given herunexplained anemia.Holter monitor will be obtained see if we can document the presence ofatrial fibrillation.Blood pressure is still over treated. I have recommended that she decreasebenazepril to 10 milligrams daily. She may benefit from low-dose diuretictherapy.I've asked her to call if she feels that there is a change in exercisetolerance or rhythm. I will be in touch with her after we see the resultsof her event monitor.I will see her in one month.Thank you for asking me to see and make recommendations on Dionne Leal. This report is available to you in the shared medical record.Written and verbal health teaching given to patient, patient verbalizesunderstanding and agrees with treatment plan.DIAGNOSIS FOR VISIT:SVTHypertensionHISTORY OF PRESENT ILLNESSDionne Frausto is a 76-year-old woman who is seen in consultation at [facility] of Hany Call CNP, for recommendations regarding abnormal heartrhythm and low blood pressure.She denies any previous history of cardiac disease. She has beenstruggling with mild anemia. She's had no bleeding issues. There is nosign or symptom of obstructive sleep apnea.Recent EKG suggested the presence of atrial fibrillation. She is unawareof any irregularity.She denies chest discomfort. She's had no orthopnea, edema, TIAs,amaurosis, claudication, syncope or near-syncope.She has had significant weight loss over the last few years.ALLERGIES:ALLERGIESAllergen Reactions- Niacin ItchingCURRENT OUTPATIENT MEDICATIONS:sulfamethoxazole-trime thoprim (BACTRIM DS) 800-160 mg per tablet Take 1tablet by mouth twice daily for 7 days.naproxen sodium (ALEVE) 220 mg cap Take 2 capsules by mouth.folic acid 800 mcg tablet Take 1 tablet by mouth once daily.COMPOUNDED PRESCRIPTION Wheeled walker with seat and brakes. Patientneeds 5 inch wheels.ICD-10: R26.9 Abnormality of gaitbenazepril (LOTENSIN) 20 mg tablet Take 1 tablet by mouth once daily.Aspirin 81 mg Tab Take 1 tablet by mouth once daily. Take with food.PAST MEDICAL HISTORYDiagnosis Date- Malignant melanoma (HCC) 07/2017- Neurofibromatosis (HCC)- Unspecified essential hypertension Essential hypertensionPAST SURGICAL HISTORYProcedure Laterality Date- LAPAROSCOPY, SURGICAL, APPENDECTOMY 06-25-08- REMOVAL GALLBLADDER CholecystectomyFAMILY HISTORYProblem Relation Age of Onset- Cancer Mother site unknown- Coronary Artery Disease Father- Cancer Sister leukemiaSocial History Marital status: Single Spouse name: Years of education: Number of children:Social History Main Topics Smoking status: Never Smoker Smokeless tobacco: Never Used Alcohol use: No Drug use: NoREVIEW OF SYSTEMS: General: No chills, fever, weight loss, night sweats. SHEENT: No change in vision or auditory acuity. Respiratory: Noproductive cough. Cardiac: As noted above. GI: No melena. : Nodysuria. Musculoskeletal: No myalgias. Neurologic: No strokes. Chronicheadaches. Psychiatric: No depression. Endocrine: No diabetes.Hematologic: Chronic anemia.PHYSICAL EXAMINATION: S/he is alert and in no distressVITAL SIGNS: BP 90/60 Pulse 80 Ht 4' 10 (1.47m) Wt 160 lb 12.8 oz(72.9kg) BMI 33.62 kg/(m2).SHEENT: Skin is warm and dry. There are numerous lesions ofneurofibromatosis. Pupils are round and reactive. Retinal vessels aregrossly unremarkable. No xanthelasmas appreciated. Pharynx is benign.There is no oral cyanosis. Neck: supple. No adenopathy or thyroidenlargement. Chest: Clear to percussion and auscultation. Trachea ismidline. Air entry is equal. There is no chest wall tenderness.Cardiac: Mildly irregular rhythm. S1 and S2 are normal. PMI isnondisplaced. There is a soft systolic ejection murmur. No click isheard. Carotids are brisk without bruits. JVP is less than 10 cm.Abdomen: Soft and nontender. There are no pulsatile masses or bruits. Noliver enlargement. Bowel sounds are active. : Deferred. Extremities:Trace edema. Pulses are intact and symmetrical. No clubbing or cyanosis. No femoral bruits. Neurologic: Grossly normal motor and sensory. S/heis alert and oriented x4. Musculoskeletal: No joint deformities.EKG shows a chaotic atrial mechanism. Rates is well controlled. There isno evidence of atrial fibrillation. Prior EKG of 2010 showed similarfindings.Previous stress test showed no evidence of ischemia. Left ventricularfunction was normal.Hemoglobin was 9.4. There is moderate renal insufficiency. TSH is normal.Echocardiogram was personally reviewed. There is normal left ventricularfunction. Left atrium is moderately dilated. There is moderate mitralinsufficiency.Electronically Signed:Debi Franco 2017 1:34 PMCC: Charlene Ernst [facility] Vital Signs Date Time Vital Sign Value Performing Clinician Facility 07-07-2024 08:50-0400 Diastolic blood pressure 68 mm[Hg] Hany Call APRN.GRAIN ORIGINATION SPECIALIST Work Phone: [facility] 07-07-2024 08:50-0400 Systolic blood pressure 128 mm[Hg] Hany Call APRN.GRAIN ORIGINATION SPECIALIST Work Phone: [facility] 07-07-2024 08:41-0400 Heart rate 70 /min Hany Call APRN.GRAIN ORIGINATION SPECIALIST Work Phone: [facility] 07-07-2024 08:41-0400 Respiratory rate 16 /min Hany Call APRN.GRAIN ORIGINATION SPECIALIST Work Phone: [facility] 07-07-2024 08:41-0400 SaO2% (BldA) [Mass fraction] 99 % Hany Call APRN.GRAIN ORIGINATION SPECIALIST Work Phone: [facility] 06-09-2024 08:15-0500 Diastolic blood pressure 68 mm[Hg] Hany Call APRN.GRAIN ORIGINATION SPECIALIST Work Phone: [facility] 06-09-2024 08:15-0500 Heart rate 80 /min Hany Oneyda BOOM STICK WORKER.GRAIN ORIGINATION SPECIALIST Work Phone: [facility] 06-09-2024 08:15-0500 Respiratory rate 16 /min Hany Oneyda BOOM STICK WORKER.GRAIN ORIGINATION SPECIALIST Work Phone: [facility] 06-09-2024 08:15-0500 SaO2% (BldA) [Mass fraction] 99 % Hany Oneyda BOOM STICK WORKER.GRAIN ORIGINATION SPECIALIST Work Phone: [facility] 06-09-2024 08:15-0500 Systolic blood pressure 117 mm[Hg] Hany Oneyda BOOM STICK WORKER.GRAIN ORIGINATION SPECIALIST Work Phone: [facility] 02-19-2023 14:02-0400 Body temperature 98.6 [degF] Hany Oneyda BOOM STICK WORKER.GRAIN ORIGINATION SPECIALIST Work Phone: [facility] 02-19-2023 14:02-0400 Body weight 65.32 kg Hany Oneyda BOOM STICK WORKER.GRAIN ORIGINATION SPECIALIST Work Phone: [facility] 02-19-2023 14:02-0400 Diastolic blood pressure 64 mm[Hg] Hany Oneyda BOOM STICK WORKER.GRAIN ORIGINATION SPECIALIST Work Phone: [facility] 02-19-2023 14:02-0400 Heart rate 73 /min Hany Oneyda BOOM STICK WORKER.GRAIN ORIGINATION SPECIALIST Work Phone: [facility] 02-19-2023 14:02-0400 Respiratory rate 16 /min Hany Oneyda BOOM STICK WORKER.GRAIN ORIGINATION SPECIALIST Work Phone: [facility] 02-19-2023 14:02-0400 SaO2% (BldA) [Mass fraction] 98 % Hany Oneyda BOOM STICK WORKER.GRAIN ORIGINATION SPECIALIST Work Phone: [facility] 02-19-2023 14:02-0400 Systolic blood pressure 112 mm[Hg] Hany Oneyda BOOM STICK WORKER.GRAIN ORIGINATION SPECIALIST Work Phone: [facility] 02-15-2023 09:51-0400 Body weight 65.77 kg Trudy Boggs BOOM STICK WORKER.FIELD ASSOCIATE Work Phone: [facility] 02-15-2023 09:51-0400 Diastolic blood pressure 59 mm[Hg] Trudy Boggs BOOM STICK WORKER.FIELD ASSOCIATE Work Phone: [facility] 02-15-2023 09:51-0400 Heart rate 77 /min Trudy Boggs BOOM STICK WORKER.FIELD ASSOCIATE Work Phone: [facility] 02-15-2023 09:51-0400 Respiratory rate 16 /min Trudy Boggs BOOM STICK WORKER.FIELD ASSOCIATE Work Phone: [facility] 02-15-2023 09:51-0400 Systolic blood pressure 112 mm[Hg] Trudy Boggs BOOM STICK WORKER.FIELD ASSOCIATE Work Phone: [facility] 02-08-2023 10:59-0400 Body temperature 98.29 [degF] Brendon Siddiqui MD Work Phone: [facility] 02-08-2023 10:59-0400 Body weight 66.22 kg Brendon Siddiqui MD Work Phone: [facility] 02-08-2023 10:59-0400 Diastolic blood pressure 72 mm[Hg] Brendon Siddiqui MD Work Phone: [facility] 02-08-2023 10:59-0400 Heart rate 80 /min Brendon Siddiqui MD Work Phone: [facility] 02-08-2023 10:59-0400 Respiratory rate 18 /min Brendon Siddiqui MD Work Phone: [facility] 02-08-2023 10:59-0400 SaO2% (BldA) [Mass fraction] 100 % Brendon Siddiqui MD Work Phone: [facility] 02-08-2023 10:59-0400 Systolic blood pressure 122 mm[Hg] Brendon Siddiqui MD Work Phone: [facility] 08-31-2022 11:54-0400 Body temperature 98.71 [degF] Cheyanne Sequeira PA-C Work Phone: [facility] 08-31-2022 11:54-0400 Body weight 65.77 kg Cheyanne Bogner PA-C Work Phone: [facility] 08-31-2022 11:54-0400 Diastolic blood pressure 70 mm[Hg] Cheyanne Bogner PA-C Work Phone: [facility] 08-31-2022 11:54-0400 Heart rate 74 /min Cheyanne Bogner PA-C Work Phone: [facility] 08-31-2022 11:54-0400 Respiratory rate 16 /min Cheyanne Bogner PA-C Work Phone: [facility] 08-31-2022 11:54-0400 SaO2% (BldA) [Mass fraction] 95 % Cheyanne Bogner PA-C Work Phone: [facility] 08-31-2022 11:54-0400 Systolic blood pressure 122 mm[Hg] Cheyanne Bogner PA-C Work Phone: [facility] 06-12-2022 10:01-0500 Body mass index (BMI) [Ratio] 31.1 kg/m2 [facility] 06-12-2022 10:01-0500 Body weight 67.6 kg [facility] 06-12-2022 09:54-0500 Body height 147.32 cm [facility] 06-12-2022 09:54-0500 Body temperature 97.2 [degF] [facility] 06-12-2022 09:54-0500 Diastolic blood pressure 89 mm[Hg] [facility] 06-12-2022 09:54-0500 Heart rate 81 /min [facility] 06-12-2022 09:54-0500 Respiratory rate 18 /min [facility] 06-12-2022 09:54-0500 SaO2% (BldA) [Mass fraction] 95 % [facility] 06-12-2022 09:54-0500 Systolic blood pressure 145 mm[Hg] [facility] 10-17-2021 10:59-0400 Body temperature 98.29 [degF] Hany Call APRN.CNP Work Phone: [facility] 10-17-2021 10:59-0400 Body weight 63.5 kg Hany Oneyda BOOM STICK WORKER.GRAIN ORIGINATION SPECIALIST Work Phone: [facility] 10-17-2021 10:59-0400 Diastolic blood pressure 70 mm[Hg] Hany Oneyda BOOM STICK WORKER.GRAIN ORIGINATION SPECIALIST Work Phone: [facility] 10-17-2021 10:59-0400 Heart rate 64 /min Hany Oneyda BOOM STICK WORKER.GRAIN ORIGINATION SPECIALIST Work Phone: [facility] 10-17-2021 10:59-0400 Respiratory rate 14 /min Hany Oneyda BOOM STICK WORKER.GRAIN ORIGINATION SPECIALIST Work Phone: [facility] 10-17-2021 10:59-0400 Systolic blood pressure 110 mm[Hg] Hany Oneyda BOOM STICK WORKER.GRAIN ORIGINATION SPECIALIST Work Phone: [facility] Encounters Encounter Date Encounter Type Care Provider Facility Start: 01-08-2025 End: 01-08-2025 ambulatory HANY ONEYDA Facility:[facility] Start: 09-29-2024 End: 10-02-2024 Refill Hany Oneyda BOOM STICK WORKER.GRAIN ORIGINATION SPECIALIST Work Phone: [facility] Comment on above: Refill Request Start: 07-25-2024 End: 07-25-2024 ambulatory Hany Call BOOM STICK WORKER.GRAIN ORIGINATION SPECIALIST Work Phone: [facility] Comment on above: Feet swelling Start: 07-07-2024 End: 07-07-2024 ambulatory HANY ONEYDA Facility:[facility] Start: 07-07-2024 End: 07-07-2024 Office outpatient visit 25 minutes Hany Oneyda BOOM STICK WORKER.GRAIN ORIGINATION SPECIALIST Work Phone: [facility] Comment on above: Essential hypertensi on, benign (Primary Dx); Dysuria; Unstable gait; Iron deficiency anemia, unspecified iron deficiency anemia type Start: 06-12-2024 End: 06-12-2024 Follow-up encounter Hany Call BOOM STICK WORKER.GRAIN ORIGINATION SPECIALIST Work Phone: [facility] Start: 06-12-2024 End: 06-12-2024 Telephone encounter Charlene Ernst MD Work Phone: [facility] Comment on above: Occupation Therapy P familia of Care Start: 06-09-2024 End: 06-09-2024 ambulatory HANY CALL Facility:[facility] Start: 06-09-2024 End: 06-09-2024 Office outpatient visit 40 minutes Hany Call APRN.GRAIN ORIGINATION SPECIALIST Work Phone: [facility] Comment on above: Unstable gait (Prima ry Dx); Contusion of left knee, subsequent encounter; Sprain of right thumb, unspecified site of digit, subsequent encounter; Laceration of scalp, subsequent encounter; Encounter for staple removal; Fall, subsequent encounter; Closed head injury, subsequent encounter; Hospital discharge follow-up; Essential hypertension, benign; UTI symptoms; Acute cystitis with hematuria Start: 06-07-2024 End: 06-08-2024 Telephone encounter Charlene Ernst MD Work Phone: [facility] Start: 06-06-2024 End: 06-06-2024 Patient Outreach Briana Bahena LPN [facility] Comment on above: Transition Of Care ( [facility] D/C 06/02/2024) Medication Update Start: 06-02-2024 End: 06-05-2024 Telephone encounter Charlene Ernst MD Work Phone: [facility] Comment on above: Orders; [facility] HH PT PO C- requesting verbal Start: 06-01-2024 End: 06-02-2024 ambulatory Kassandra Elizabeth Facility:[facility] Start: 02-04-2024 End: 02-04-2024 Telephone encounter Hany Call APRN.GRAIN ORIGINATION SPECIALIST Work Phone: [facility] Comment on above: Results Start: 10-25-2023 ambulatory Glo Stack MA [facility] [place] Start: 10-25-2023 Patient encounter procedure Glo Stack MA [facility] Comment on above: Population Health Na vigation Outreach (Medication Adherence) Refill Request Start: 10-23-2023 Refill Hany NAVARRO RN.GRAIN ORIGINATION SPECIALIST Work Phone: [facility] Comment on above: Refill Request Start: 09-24-2023 Telephone encounter Charlene almazan MD Work Phone: [facility] [place] Comment on above: [facility]Home Care ) Start: 2023 Telephone encounter Charlene almazan MD Work Phone: [facility] [place] Comment on above: Results Start: 08-24-2023 End: 08-24-2023 ambulatory Charlene Ernst MD Work Phone: [facility] Comment on above: Iron deficiency anem ia, unspecified iron deficiency anemia type (Primary Dx); Low serum potassium level; Essential hypertension, benign; Bilateral leg edema; Impaired mobility; Malignant melanoma, unspecified site (HCC); PAF (paroxysmal atrial fibrillation) (HCC); Stage 3 chronic kidney disease, unspecified whether stage 3a or 3b CKD (HCC) Start: 08-24-2023 End: 08-24-2023 Telemedicine consultation with patient Charlene Ernst MD Work Phone: [facility] Start: 08-11-2023 ambulatory Raquel Arevalo [facility] [place] [facility] Start: 08-11-2023 Patient encounter procedure Raquel Arevalo MA [facility] [place] [facility] Comment on above: Population Health Na vigation Outreach ([facility] AW[facility]/HCC and care gaps ) Start: 06-02-2023 ambulatory Raquel Hobbs MA [facility] [place] [facility] Comment on above: Population Health Na vigation Outreach (HCC Gaps) Start: 03-30-2023 Telephone encounter Hany hanks APRN.GRAIN ORIGINATION SPECIALIST Work Phone: [facility] [place] Comment on above: Medication Request Start: 02-23-2023 Telephone encounter Charlene almazan MD Work Phone: [facility] [place] Start: 02-19-2023 End: 02-19-2023 Office outpatient visit 15 minutes Hany Call APRN.GRAIN ORIGINATION SPECIALIST Work Phone: [facility] Comment on above: Cellulitis of skin ( Primary Dx) Start: 02-15-2023 End: 02-15-2023 Office outpatient visit 15 minutes Trudy Boggs APRN.FIELD ASSOCIATE Work Phone: [facility] [place] Comment on above: Cellulitis of skin ( Primary Dx); Abrasion of right lower extremity, subsequent encounter; Lymphedema Start: 02-08-2023 End: 02-08-2023 Patient encounter procedure Brendon Siddiqui MD Work Phone: [facility] Comment on above: Cellulitis of right lower leg (Primary Dx); Lymphedema; Stage 3 chronic kidney disease, unspecified whether stage 3a or 3b CKD (HCC) Start: 10-15-2022 End: 10-15-2022 Subsequent hospital visit by physician [facility] Work Phone: Nuclear Medicine Comment on above: Elevated alkaline ph osphatase measurement [R74.8] Start: 09-28-2022 End: 09-28-2022 Subsequent hospital visit by physician [facility] Work Phone: Radiology Comment on above: Elevated alkaline ph osphatase measurement [R74.8] Start: 09-15-2022 Telephone encounter Hany hanks APRN.GRAIN ORIGINATION SPECIALIST Work Phone: [facility] Comment on above: Results Start: 08-31-2022 End: 08-31-2022 Office outpatient visit 25 minutes Cheyanne Sequeira PA-C Work Phone: [facility] Comment on above: Abrasion of right lo wer extremity, initial encounter (Primary Dx); Cellulitis of right lower leg Start: 06-12-2022 End: 06-12-2022 [facility] Start: 02-22-2022 ambulatory Hany NAVARRO RN.GRAIN ORIGINATION SPECIALIST [facility] Start: 02-22-2022 Letter encounter Hany ARIASGRAIN ORIGINATION SPECIALIST Work Phone: [facility] Comment on above: Letter for postal se rvice Start: 02-19-2022 Telephone encounter Charlene almazan MD Work Phone: [facility] Comment on above: Patient Question Start: 11-10-2021 Telephone encounter Charlene almazan MD Work Phone: [facility] [place] Comment on above: Results Start: 10-27-2021 Telephone encounter Hany hanks APRN.GRAIN ORIGINATION SPECIALIST Work Phone: [facility] [place] Comment on above: Results Start: 10-17-2021 End: 10-17-2021 Patient encounter procedure Hany Call APRN.GRAIN ORIGINATION SPECIALIST Work Phone: [facility] [place] Comment on above: UTI symptoms (Primar y Dx); Low serum potassium level; Essential hypertension, benign Start: 09-20-2021 Refill [place] NAVARRO RN.GRAIN ORIGINATION SPECIALIST, DNP Work Phone: [facility] [place] Comment on above: Refill Request Start: 09-08-2021 Refill Charlene underwood MD Work Phone: [facility] [place] Comment on above: Refill Request Start: 11-10-2017 End: 11-11-2017 Patient encounter MANNY Mei [facility] Start: 10-05-2017 Ambulatory [facility] Start: 10-01-2017 Ambulatory DARINEL READING Facility :[facility] Start: 09-01-2017 End: 09-01-2017 [facility] Start: 08-25-2017 End: 08-25-2017 [facility] Start: 08-25-2017 End: 08-25-2017 [facility] Procedures Date Procedure Procedure Detail Performing Clinician Start: 07-07-2024 Urnls dip stick/tabl et rgnt auto w/o microscopy Hany Call APRN.GRAIN ORIGINATION SPECIALIST Work Phone: Start: 06-09-2024 Urnls dip stick/tabl et rgnt auto w/o microscopy Hany Call APRN.CNP Work Phone: Start: 10-15-2022 Bone &/joint imaging whole body Hany Call APRN.CNP Work Phone: Start: 09-28-2022 Us abdominal real ti me w/image limited Hany Call APRN.CNP Work Phone: Start: 10-17-2021 Urnls dip stick/tabl et rgnt auto w/o microscopy Hany Call APRN.CNP Work Phone: Plan of Treatment Date Care Activity Detail Author Start: 08-27-2026 [facility] Start: 09-07-2025 DIABETES SCREEN DIABETES SCREEN [facility] Start: 09-07-2025 [facility] Start: 01-08-2025 End: 01-08-2025 Patient encounter procedure 01/08/2025 9:00 AM EDT Office Visit [facility] [place] [address], [place] [id number] Hany Call APRN.GRAIN ORIGINATION SPECIALIST [address] [place] [address] 6 month follow up [facility] [place] Comment on above: 6 month follow up Start: 01-07-2025 End: 04-08-2025 CBC W Auto Differential panel - Blood COMPLETE BLOOD COUNT AND DIFFERENTIAL Lab Routine Iron deficiency anemia, unspecified iron deficiency anemia type Expected: 01/07/2025 (Approximate), Expires: 04/08/2025 [facility] Comment on above: Expected: 01/07/2025 (Approximate), Expires: 04/08/2025 Start: 01-07-2025 End: 04-08-2025 Comprehensive metabolic 2000 panel - Serum or Plasma COMPREHENSIVE METABOLIC PANEL Lab Routine Essential hypertension, benign Expected: 01/07/2025 (Approximate), Expires: 04/08/2025 [facility] Work Phone: Comment on above: Expected: 01/07/2025 (Approximate), Expires: 04/08/2025 Start: 01-07-2025 End: 04-08-2025 Iron and Iron binding capacity panel - Serum or Plasma IRON AND TIBC Lab Routine Iron deficiency anemia, unspecified iron deficiency anemia type Expected: 01/07/2025 (Approximate), Expires: 04/08/2025 [facility] Comment on above: Expected: 01/07/2025 (Approximate), Expires: 04/08/2025 Start: 12-18-2024 Influenza vaccination Influenz a Vaccine (Season Ended) [facility] Start: 10-17-2024 DIABETES SCREEN DIABETES SCREEN [facility] Start: 07-07-2024 End: 07-07-2024 Patient encounter procedure 07/07/2024 9:00 AM EDT Office Visit [facility] [address] [facility] [place] [address] Hany Call, BOOM STICK WORKER.GRAIN ORIGINATION SPECIALIST [address] [facility] [place] [address] 1 month follow up Family [facility] Comment on above: 1 month follow up Start: 06-09-2024 End: 06-09-2024 Patient encounter procedure Family [facility] Comment on above: 06/02/24 [facility] ER F/U - Fall, head injury (7-10 days for suture removal) 06/02/24 [facility] ER F/U - Fall, head injury (7-10 days for suture removal) [facility] Start: 04-19-2024 Advance Directive Discussion Advance Directive Discussion [facility] Start: 04-19-2024 Medicare Advantage Annual Wellness Visit Medicare Advantage Annual Wellness Visit [facility] Start: 03-01-2024 End: 03-01-2024 Patient encounter procedure 03/01/2024 4:00 PM EST Office Visit Family [facility] [address], [place] [id number] Aziza Suero, BOOM STICK WORKER.GRAIN ORIGINATION SPECIALIST [address] [place] [address] Medicare Wellness [facility] Comment on above: Medicare Wellness Start: 12-19-2023 Covid-19 Vaccine ( season) Covid-19 Vaccine ( season) [facility] Start: 12-19-2023 Influenza vaccination C [facility] Start: 09-04-2023 DIABETES SCREEN DIABETES SCREEN [facility] Start: 08-24-2023 End: 11-23-2023 CBC panel - Blood by Automated count COMPLETE BLOOD COUNT Lab Routine Essential hypertension, benign Iron deficiency anemia, unspecified iron deficiency anemia type Expected: 08/24/2023, Expires: 11/23/2023 [facility] Comment on above: Expected: 08/24/2023 , Expires: 11/23/2023 Start: 08-24-2023 End: 11-23-2023 Comprehensive metabolic 2000 panel - Serum or Plasma COMPREHENSIVE METABOLIC PANEL Lab Routine Essential hypertension, benign Expected: 08/24/2023 (Approximate), Expires: 11/23/2023 [facility] Work Phone: Comment on above: Expected: 08/24/2023 (Approximate), Expires: 11/23/2023 Start: 08-24-2023 End: 11-23-2023 Iron and Iron binding capacity panel - Serum or Plasma IRON AND TIBC Lab Routine Essential hypertension, benign Iron deficiency anemia, unspecified iron deficiency anemia type Expected: 08/24/2023, Expires: 11/23/2023 [facility] Comment on above: Expected: 08/24/2023 , Expires: 11/23/2023 Start: 04-19-2023 Advance Directive Discussion Advance Directive Discussion [facility] Start: 04-19-2023 Behavioral Health Screening Behavioral Health Screening [facility] Start: 04-19-2023 Depression Assessment Depression Ass essment [facility] Start: 12-18-2022 Covid-19 Vaccine ( season) Covid-19 Vaccine ( season) [facility] Start: 12-18-2022 Influenza vaccination C [facility] Start: 09-15-2022 End: 11-15-2022 ALK PHOS ISOENZYM BL ALK PHOS ISOENZYM BL Lab Routine Elevated alkaline phosphatase measurement Expected: 09/15/2022, Expires: 11/15/2022 [facility] Work Phone: Comment on above: Expected: 09/15/2022 , Expires: 11/15/2022 Start: 08-31-2022 End: 10-31-2022 Bacteria identified in Wound by Culture [facility] Work Phone: Comment on above: Expected: 08/31/2022 , Expires: 10/31/2022 Start: 04-19-2022 ADVANCE DIRECTIVE DISCUSSION ADVANCE DIRECTIVE DISCUSSION [facility] Start: 04-19-2022 DEPRESSION ASSESSMENT DEPRESSION ASS ESSMENT [facility] Start: 12-18-2021 Influenza vaccination [facility] Start: 11-03-2021 End: 01-03-2022 Urinalysis complete panel - Urine UA WITH CULTURE IF INDICATED Lab Routine Acute cystitis with hematuria Expected: 11/03/2021 (Approximate), Expires: 01/03/2022 [facility] Work Phone: Comment on above: Expected: 11/03/2021 (Approximate), Expires: 01/03/2022 Start: 09-22-2021 End: 11-22-2021 CBC W Auto Differential panel - Blood CBC + DIFF Lab Routine Iron deficiency anemia, unspecified iron deficiency anemia type Expected: 09/22/2021, Expires: 11/22/2021 [facility] Work Phone: Comment on above: Expected: 09/22/2021 , Expires: 11/22/2021 Start: 09-22-2021 End: 11-22-2021 Comprehensive metabolic 2000 panel - Serum or Plasma COMP METABOLIC PANEL Lab Routine Low serum potassium level Expected: 09/22/2021, Expires: 11/22/2021 [facility] Work Phone: Comment on above: Expected: 09/22/2021 , Expires: 11/22/2021 Start: 09-22-2021 End: 11-22-2021 FERRITIN BLD FERRITIN BLD Lab Routine Iron deficiency anemia, unspecified iron deficiency anemia type Expected: 09/22/2021, Expires: 11/22/2021 [facility] Work Phone: Comment on above: Expected: 09/22/2021 , Expires: 11/22/2021 Start: 09-22-2021 End: 11-22-2021 IRON + TIBC IRON + TIBC Lab Routine Iron deficiency anemia, unspecified iron deficiency anemia type Expected: 09/22/2021, Expires: 11/22/2021 [facility] Work Phone: Comment on above: Expected: 09/22/2021 , Expires: 11/22/2021 Start: 08-02-2021 COVID-19 VACCINE (4 - Booster for Moderna series) COVID-19 VACCINE (4 - Booster for Moderna series) [facility] Start: 05-29-2021 COVID-19 VACCINE (4 - Booster for Moderna series) COVID-19 VACCINE (4 - Booster for Moderna series) [facility] Start: 04-19-2021 ADVANCE DIRECTIVE DISCUSSION ADVANCE DIRECTIVE DISCUSSION [facility] Start: 04-19-2021 DEPRESSION ASSESSMENT DEPRESSION ASS ESSMENT [facility] Start: 01-27-2021 COVID-19 VACCINE (3 - Booster for Moderna series) COVID-19 VACCINE (3 - Booster for Moderna series) [facility] Start: 08-29-2014 RSV Vaccine (1 - 1-d ose 75+ series) RSV Vaccine (1 - 1-dose 75+ series) [facility] Start: 06-26-2008 Urine microalbumin profile [facility] Start: 1999 RSV Vaccine (1 - 1-d ose 60+ series) RSV Vaccine (1 - 1-dose 60+ series) [facility] Start: 08-29-1989 SHINGRIX VACCINE (1 of 2) SHINGRIX VACCINE (1 of 2) [facility] Start: 08-29-1958 SHINGRIX VACCINE (1 of 2) SHINGRIX VACCINE (1 of 2) [facility] Start: 08-29-1957 Anxiety Screening Anxiety Screening [facility] Start: 08-29-1957 Depression Screening Depression Scre ening [facility] Bacteria identified in Urine by Culture URINE CULTURE Microbiology Routine UTI symptoms 10/17/2021 11:20 AM EDT [facility] Work Phone: Bacteria identified in Urine by Culture BACTERIAL CULTURE, URINE Microbiology Routine UTI symptoms 06/09/2024 9:08 AM EST [facility] Work Phone: Patient Education ED Cellulitis [facility] Work Phone: Patient referral [facility] Work Phone: [facility] Immunizations Immunization Date Immunization Notes Care Provider Fa gadiel 07-30-2020 COVID-19 vaccine, fu ll dose (MODERNA) Charlene Ernst MD Work Phone: [facility] Work Phone: 01-17-2019 Influenza virus vaccine [facility] 01-17-2019 influenza, seasonal, injectable, preservative free Charlene Ernst MD Work Phone: [facility] Work Phone: 01-17-2019 influenza virus vacc ine, unspecified formulation Brendon Siddiqui MD Work Phone: [facility] 08-19-2015 pneumococcal conjuga te vaccine, 13 valent Charlene Ernst MD Work Phone: [facility] 01-04-2014 influenza, high dose seasonal, preservative-free Charlene Ernst MD Work Phone: [facility] Work Phone: 04-24-2010 pneumococcal polysaccharide vaccine, 23 valent Charlene Ernst MD Work Phone: [facility] 02-14-2009 influenza virus vacc ine, unspecified formulation Charlene Ernst MD Work Phone: [facility] 06-25-2008 tetanus and diphther ia toxoids, adsorbed, preservative free, for adult use (2 Lf of tetanus toxoid and 2 Lf of diphtheria toxoid) Charlene Ernst MD Work Phone: [facility] Payers Date Payer Category Payer Self-pay [id number] 2021 Medicare (Managed Care) RENE WALKER O [id number] 2021 Unknown ANTHEM BLUE CROS S AND BLUE SHIELD ANTHEM [employer] HMO [id number] 2021-Present [phone] [address] [place] [address] O [id number] 2021 Unknown [id number] 2021 Medicare [id number] 2017 Medicare AETNA MEDICARE A ETNA MEDICARE PPO [id number] 2017-Present [phone] [address] [place] [address] PPO [id number] 2006 Unknown RENE [id number] 2004 Medicare MEDICARE PART A B [id number] Medicare [id number] Unknown [id number] Unknown [id number] Unknown [id number] Social History Date Type Detail Facility Start: 07-12-2017 End: 08-31-2022 Tobacco smoking status NHIS Never smoked tobacco [facility] Start: 12-04-2020 End: 07-07-2024 Alcohol intake Current non-drinker of alcohol (finding) [facility] Start: 1940 Sex Assigned At Female [facility] Work Phone: Start: 10-07-2021 End: 11-08-2021 Exposure to SARS-CoV-2 (event) Not sure [facility] Start: 07-12-2017 End: 08-31-2022 Tobacco use and exposure Smokeless tobacco non-user [facility] Start: 06-12-2022 Tobacco smoking status NHIS Unknown if ever smoked [facility] Start: 04-22-2019 None [facility] Start: 04-22-2019 Alone [facility] Start: 04-23-2019 Non-smoker [facility] Start: 09-07-2022 End: 02-08-2023 History of Social function [facility] Work Phone: Start: 09-07-2022 End: 02-08-2023 Tobacco use panel [facility] Work Phone: Adult Depression Screening Assessment 0 [facility] Work Phone: Start: 08-29-2020 Gender identity Identifies as female gender (finding) [facility] Work Phone: Start: 08-29-2020 Sexual orientation Heterosexual (finding) [facility] Work Phone: Has the [employer], [employer], or [employer] threatened to shut off services in your home in past 12Mo No [facility] Do you belong to any clubs or organizations such as christianity groups, unions, fraternal or athletic groups, or school groups? Yes [facility] Are you now , , , , never or living with a partner? Never [facility] How often to you hav e a drink containing alcohol? Never [facility] How hard is it for y ou to pay for the very basics like food, housing, medical care, and heating Not very hard [facility] Do you feel stress - tense, restless, nervous, or anxious, or unable to sleep at night because your mind is troubled all the time - these days [OSQ] Only a little [facility] (I/We) worried whekwaku er (my/our) food would run out before (I/we) got money to buy more. Never true [facility] Functional Status Date Assessment Result Facility 02-14-2014 Are you deaf, or do you have serious difficulty hearing No 02/14/2014 10:08 AM EDT Kassandra Ramírez MA No [facility] 02-14-2014 Are you blind, or do you have serious difficulty seeing, even when wearing glasses No 02/14/2014 10:08 AM EDT Kassandra Ramírez MA No [facility] 02-14-2014 Do you have serious difficulty walking or climbing stairs Yes 02/14/2014 10:08 AM EDT Kassandra Ramírez MA Yes [facility] 02-14-2014 Do you have difficul ty dressing or bathing No 02/14/2014 10:08 AM EDT Kassandra Ramírez MA No [facility] 02-14-2014 Because of a physica l, mental, or emotional condition, do you have difficulty doing errands alone such as visiting a physician's office or shopping No 02/14/2014 10:08 AM Kassandra Dumont MA No [facility] Mental Status Date Assessment Result Facility 02-14-2014 Because of a physica l, mental, or emotional condition, do you have serious difficulty concentrating, remembering, or making decisions No 02/14/2014 10:08 AM EDKassandra Engel MA No [facility] Clinical Notes 05-09-2008 to 01-08-2025 Telephone Encounter - Hany Call APRN.ALIZE - 10/02/2024 8:08 AM EDTTelephone Encounter - Hany Call APRN.CNP - 10/02/2024 8:08 AM EDTPatient InstructionsPatient InstructionsPatient Instructions Note Date & Type Note Facility 01-08-2025 Note HNO ID: [id number] Author: HANY CALL APRN.ALIZE Service: ? Author Type: Nurse Practitioner Type: Progress Notes Filed: 01/08/2025 09:25 Note Text: Chief Complaint Patient presents with: 6 Month Exam HPI Dionne Frausto is a 84 year old female who presents here today for above reason. Dionne Frausto is a 84-year-old female with a history of HTN, anemia, atrial fibrillation, and melanoma, presenting for a follow-up visit. Dionne reports doing well overall, taking it day by day. She is currently on atenolol and benazepril for blood pressure management, with the latter being taken at half a tablet once daily. She also uses a stool softener as needed for constipation and omeprazole for reflux, which is well-controlled. She is not currently taking an iron supplement but has a history of anemia. She is taking a potassium supplement, though she is unsure of the dosage. She denies any current issues with atrial fibrillation and is not under the care of a excel developer. She has a history of melanoma, which was excised, and reports no ongoing issues related to this. Dionne experienced a fall in May, after which hydrochlorothiazide was discontinued. She reports persistent lower extremity edema, which she notes has been a chronic issue. She also mentions frequent urination, which has been ongoing for quite some time. She denies any current symptoms of a urinary tract infection and denies experiencing weakness or confusion. She does not live alone and resides on a family compound. Past medical history, appointments, medications, allergies reviewed. EXAM: BP 120/72 Pulse 80 Resp 16 Wt 54 kg (119 lb) SpO2 100% BMI 24.87 kg/m? General Appearance: Well appearing, alert, in no acute distress, well-hydrated, well nourished.. Lungs: Lungs clear to auscultation. No wheezing, rhonchi, rales.. Heart: RRR without murmur, gallop, or rubs. No ectopy. Extremities: Edema: +2 non-pitting edema around the ankles and top of foot bilaterally. Baseline based on past visits. . Assessment and Plan 1. PAF (paroxysmal atrial fibrillation) ([facility]) (I48.0) No current symptoms of atrial fibrillation; managed with atenolol. - Continue atenolol as prescribed. 2. Malignant melanoma, unspecified site ([facility]) (C43.9) History of melanoma excised from the back; no current issues reported. - No follow-up required at this time. 3. Stage 3a chronic kidney disease (HCC) (N18.31) CKD has been stable but with intermittent underperformance; managed with benazepril. - Continue benazepril 10 mg daily. - Order repeat labs to monitor kidney function, liver enzymes, electrolytes, and iron levels. - Monitor potassium levels due to concurrent use of benazepril and potassium supplement. 4. Essential hypertension, benign (I10) Blood pressure well controlled on current regimen of atenolol and benazepril. - Continue current antihypertensive regimen. 5. Iron deficiency anemia, unspecified iron deficiency anemia type (D50.9) Reviewed previous labs from August, which showed no anemia; patient has a history of iron deficiency anemia but is not currently taking iron supplements. - Order repeat labs to monitor iron levels. 6. Localized edema (R60.0) Chronic lower extremity edema, likely related to lymphatic and vascular insufficiency; not cardiac in origin. - Educated patient on elevating legs when sitting and using ALEXX wraps during the day to manage edema. - Advised use of stamp machine servicer socks or slippers to prevent tripping hazards. 7. Screening for depression (Z13.31) 8. Encounter for screening examination for other mental health and behavioral disorders (Z13.39) Hany Call APRN.CNP RTO in 6 months, sooner if needed. This note was partly generated using [employer] voice recognition dictation and may contain some misspelled or inaccurate words missed on review. Recording using [employer] software for draft documentation of the visit was discussed with the patient/authorized loan representative; all questions welcomed and answered. Patient/authorized loan representative agreed to proceed [facility] 10-02-2024 Telephone encounter Note The following approved medication requests have been transmitted electronically. Requested Prescriptions Pending Prescriptions Disp Refills potassium chloride (K-TAB) 10 mEq tablet 90 tablet 3 Sig: Take 1 tablet by mouth once daily. Hany Call APRN.CNP [facility] 10-02-2024 Miscellaneous Notes The following approved medication requests have been transmitted electronically. Requested Prescriptions Pending Prescriptions Disp Refills potassium chloride (K-TAB) 10 mEq tablet 90 tablet 3 Sig: Take 1 tablet by mouth once daily. Hany Call APRN.CNP Prescription Refill Information The patient has been identified by name and date of : Yes Caregiver verified no other encounters exist for this prescription request: Yes Caregiver confirmed with patient/requestor that no other refills are due, in the near future, with this provider at this time: No The last office visit in the department: 07/07/24 Does the patient have a future office visit with this provider/department: Yes Requested Prescriptions Pending Prescriptions Disp Refills potassium chloride (K-TAB) 10 mEq tablet 90 tablet 3 Sig: Take 1 tablet by mouth once daily. Kassandra Ramírez MA September 29, 2024 9:28 AM documented in this encounter [facility] 10-02-2024 Telephone encounter Note The following approved medication requests have been transmitted electronically. Requested Prescriptions Pending Prescriptions Disp Refills benazepril (LOTENSIN) 20 mg tablet 90 tablet 3 Sig: Take 0.5 tablets by mouth once daily. Hany Call APRN.CNP [facility] 10-02-2024 Telephone encounter Note The following approved medication requests have been transmitted electronically. Requested Prescriptions Pending Prescriptions Disp Refills atenolol (TENORMIN) 25 mg tablet 90 tablet 3 Sig: Take 1 tablet by mouth once daily. Hany Call APRN.CNP [facility] 10-02-2024 Miscellaneous Notes The following approved medication requests have been transmitted electronically. Requested Prescriptions Pending Prescriptions Disp Refills benazepril (LOTENSIN) 20 mg tablet 90 tablet 3 Sig: Take 0.5 tablets by mouth once daily. Hany Call APRN.CNP Prescription Refill Information The patient has been identified by name and date of : Yes Caregiver verified no other encounters exist for this prescription request: Yes Caregiver confirmed with patient/requestor that no other refills are due, in the near future, with this provider at this time: No The last office visit in the department: 07/07/24 Does the patient have a future office visit with this provider/department: Yes Requested Prescriptions Pending Prescriptions Disp Refills benazepril (LOTENSIN) 20 mg tablet 90 tablet 3 Sig: Take 0.5 tablets by mouth once daily. Kassandra Ramírez MA September 29, 2024 9:29 AM documented in this encounter [facility] 10-02-2024 Miscellaneous Notes The following approved medication requests have been transmitted electronically. Requested Prescriptions Pending Prescriptions Disp Refills atenolol (TENORMIN) 25 mg tablet 90 tablet 3 Sig: Take 1 tablet by mouth once daily. Hany Call APRN.CNP Prescription Refill Information The patient has been identified by name and date of : Yes Caregiver verified no other encounters exist for this prescription request: Yes Caregiver confirmed with patient/requestor that no other refills are due, in the near future, with this provider at this time: No The last office visit in the department: 07/07/24 Does the patient have a future office visit with this provider/department: Yes Requested Prescriptions Pending Prescriptions Disp Refills atenolol (TENORMIN) 25 mg tablet 90 tablet 3 Sig: Take 1 tablet by mouth once daily. Kassandra Ramírez MA September 29, 2024 9:29 AM documented in this encounter [facility] 09-29-2024 Telephone encounter Note Prescription Refill Information The patient has been identified by name and date of : Yes Caregiver verified no other encounters exist for this prescription request: Yes Caregiver confirmed with patient/requestor that no other refills are due, in the near future, with this provider at this time: No The last office visit in the department: 07/07/24 Does the patient have a future office visit with this provider/department: Yes Requested Prescriptions Pending Prescriptions Disp Refills benazepril (LOTENSIN) 20 mg tablet 90 tablet 3 Sig: Take 0.5 tablets by mouth once daily. Kassandra Ramírez MA September 29, 2024 9:29 AM [facility] 09-29-2024 Telephone encounter Note Prescription Refill Information The patient has been identified by name and date of : Yes Caregiver verified no other encounters exist for this prescription request: Yes Caregiver confirmed with patient/requestor that no other refills are due, in the near future, with this provider at this time: No The last office visit in the department: 07/07/24 Does the patient have a future office visit with this provider/department: Yes Requested Prescriptions Pending Prescriptions Disp Refills atenolol (TENORMIN) 25 mg tablet 90 tablet 3 Sig: Take 1 tablet by mouth once daily. Kassandra Ramírez MA September 29, 2024 9:29 AM [facility] 09-29-2024 Telephone encounter Note Prescription Refill Information The patient has been identified by name and date of : Yes Caregiver verified no other encounters exist for this prescription request: Yes Caregiver confirmed with patient/requestor that no other refills are due, in the near future, with this provider at this time: No The last office visit in the department: 07/07/24 Does the patient have a future office visit with this provider/department: Yes Requested Prescriptions Pending Prescriptions Disp Refills potassium chloride (K-TAB) 10 mEq tablet 90 tablet 3 Sig: Take 1 tablet by mouth once daily. Kassandra Ramírez MA September 29, 2024 9:28 AM [facility] 07-25-2024 Telephone encounter Note Advised via mychart that pt needs an appointment to evaluate the swelling. Kassandra Ramírez MA [facility] 07-25-2024 Miscellaneous Notes Advised via mychart that pt needs an appointment to evaluate the swelling. Kassandra Ramírez MA documented in this encounter [facility] 07-07-2024 Instructions Hany Call APRN.GRAIN ORIGINATION SPECIALIST - 07/07/2024 8:57 AM EDT We discussed your follow-up after your fall last month: - You reported no new falls and no significant pain, aside from some usual discomfort related to your weight. Continue using your rollator for stability. - Physical therapy has been helpful, and you have exercises to continue at home. Please keep doing these exercises regularly to strengthen your legs and improve balance. - Keep elevating your legs as much as possible to help with chronic swelling. We discussed your blood pressure management: - Your blood pressure readings at home have been in the 120s for the top number, which is acceptable. I am not concerned about these levels as long as they do not go too high. - You are currently taking Atenolol and Benazepril for blood pressure. Continue these medications as prescribed. - We previously stopped Hydrochlorothiazide, and you have not noticed any changes in your legs or swelling since discontinuing it. - Restart taking Aspirin daily, as the bruising from your fall has resolved. We discussed your urinary symptoms: - You mentioned occasional burning with urination. To ensure your previous urinary tract infection (UTI) was fully treated, we collected a urine sample today for testing. - You were previously treated with Ciprofloxacin for a UTI caused by Klebsiella. We will review the results of today s urine test and contact you if further treatment is needed. We discussed your overall health and follow-up: - You are not currently taking iron supplements, and your iron levels will be rechecked at your next visit to ensure they remain stable. - I have ordered blood work to be completed in 6 months to monitor your iron levels and overall health. - Your next follow-up appointment is scheduled for 6 months from now. Please continue your current care plan and contact us if you experience any new or worsening symptoms. documented in this encounter [facility] 07-07-2024 Note HNO ID: [id number] Author: HANY CALL APRN.CNP Service: ? Author Type: Nurse Practitioner Type: Progress Notes Filed: 07/07/2024 09:07 Note Text: Chief Complaint Patient presents with: Follow Up: 1 month HPI Dionne Frausto is a 83 year old female who presents here today for Above Complaints. Dionne is a 83-year-old female, with a history of HTN and a recent fall, presenting for a 1 month follow-up. Dionne reports no new falls since the incident last month, during which she sustained facial ecchymosis. She has been consistently using a rollator for ambulation. She denies any new pain, other than her usual weight-related discomfort. Last month, her HCTZ was discontinued due to hypotension. Since then, she has not noticed any significant changes in her condition. She has been monitoring her BP at home, with systolic readings in the 120s. She is currently on atenolol and benazepril for BP management. She had previously stopped taking aspirin, but has not yet resumed it. She has been participating in physical therapy, which she reports is going well. The therapy includes exercises aimed at strengthening her legs and improving stability. She has been given exercises to continue at home. She has a history of chronic lower extremity edema, but reports no increase in swelling since discontinuing HCTZ. She continues to elevate her legs as much as possible. She denies any new or ongoing fevers, chills, chest pain, or dyspnea. She completed a course of ciprofloxacin for a UTI caused by Klebsiella. She reports intermittent dysuria and is not currently taking iron supplements. Constitutional: (-) fever, (-) chills Cardiovascular: (-) chest pain Respiratory: (-) shortness of breath Genitourinary: (+) burning with urination Past medical history, appointments, medications, allergies reviewed. EXAM: BP 128/68 Pulse 70 Resp 16 SpO2 99% General Appearance: Well appearing, alert, in no acute distress, well-hydrated, well nourished.. Lungs: Lungs clear to auscultation. No wheezing, rhonchi, rales.. Heart: RRR without murmur, gallop, or rubs. No ectopy. Extremities: Pulses: 2+, Edema: +2 non pitting edema (consistent with prior exams) 1. Essential hypertension, benign (I10) Previously on hydrochlorothiazide, which was discontinued due to hypotension. Currently managed with atenolol and benazepril. Blood pressure readings have been in the 120s systolic. Aspirin therapy was paused but will be resumed as bruising has resolved. - Resume aspirin therapy. - Continue atenolol and benazepril. - Monitor blood pressure at home. - Follow-up in 6 months. 2. Dysuria (R30.0) Recent UTI treated with ciprofloxacin; urine culture showed Klebsiella. Currently experiencing intermittent burning sensation. - Ordered urinalysis to assess current status. - UA unremarkable, encouraged patient to keep hydrated. 3. Unstable gait (R26.81) No recent falls; using a rollator for mobility. Engaged in physical therapy focusing on leg strengthening and stability exercises. - Continue prescribed physical therapy exercises at home. - Elevate legs to reduce chronic swelling. 4. Iron deficiency anemia, unspecified iron deficiency anemia type (D50.9) Not currently on iron supplementation; maintaining iron levels through diet. - Ordered blood work to recheck iron levels in 6 months. RTO in 6 months, sooner if needed. This note was partly generated using TrabajoPanel voice recognition dictation and may contain some misspelled or inaccurate words missed on review. The patient consented to the use of ambient Re.nooble software for draft documentation of the visit consistent with [facility]?s Notice of Privacy Practices. [facility] 07-07-2024 History of Present illness Narrative Chief Complaint Patient presents with: Follow Up: 1 month HPI Dionne Frausto is a 83 year old female who presents here today for Above Complaints. Dionne is a 83-year-old female, with a history of HTN and a recent fall, presenting for a 1 month follow-up. Dionne reports no new falls since the incident last month, during which she sustained facial ecchymosis. She has been consistently using a rollator for ambulation. She denies any new pain, other than her usual weight-related discomfort. Last month, her HCTZ was discontinued due to hypotension. Since then, she has not noticed any significant changes in her condition. She has been monitoring her BP at home, with systolic readings in the 120s. She is currently on atenolol and benazepril for BP management. She had previously stopped taking aspirin, but has not yet resumed it. She has been participating in physical therapy, which she reports is going well. The therapy includes exercises aimed at strengthening her legs and improving stability. She has been given exercises to continue at home. She has a history of chronic lower extremity edema, but reports no increase in swelling since discontinuing HCTZ. She continues to elevate her legs as much as possible. She denies any new or ongoing fevers, chills, chest pain, or dyspnea. She completed a course of ciprofloxacin for a UTI caused by Klebsiella. She reports intermittent dysuria and is not currently taking iron supplements. Constitutional: (-) fever, (-) chills Cardiovascular: (-) chest pain Respiratory: (-) shortness of breath Genitourinary: (+) burning with urination Past medical history, appointments, medications, allergies reviewed. EXAM: BP 128/68 Pulse 70 Resp 16 SpO2 99% General Appearance: Well appearing, alert, in no acute distress, well-hydrated, well nourished.. Lungs: Lungs clear to auscultation. No wheezing, rhonchi, rales.. Heart: RRR without murmur, gallop, or rubs. No ectopy. Extremities: Pulses: 2+, Edema: +2 non pitting edema (consistent with prior exams) 1. Essential hypertension, benign (I10) Previously on hydrochlorothiazide, which was discontinued due to hypotension. Currently managed with atenolol and benazepril. Blood pressure readings have been in the 120s systolic. Aspirin therapy was paused but will be resumed as bruising has resolved. - Resume aspirin therapy. - Continue atenolol and benazepril. - Monitor blood pressure at home. - Follow-up in 6 months. 2. Dysuria (R30.0) Recent UTI treated with ciprofloxacin; urine culture showed Klebsiella. Currently experiencing intermittent burning sensation. - Ordered urinalysis to assess current status. - UA unremarkable, encouraged patient to keep hydrated. 3. Unstable gait (R26.81) No recent falls; using a rollator for mobility. Engaged in physical therapy focusing on leg strengthening and stability exercises. - Continue prescribed physical therapy exercises at home. - Elevate legs to reduce chronic swelling. 4. Iron deficiency anemia, unspecified iron deficiency anemia type (D50.9) Not currently on iron supplementation; maintaining iron levels through diet. - Ordered blood work to recheck iron levels in 6 months. RTO in 6 months, sooner if needed. This note was partly generated using Friendshippron voice recognition dictation and may contain some misspelled or inaccurate words missed on review. The patient consented to the use of Pitchbrite software for draft documentation of the visit consistent with [facility] s Notice of Privacy Practices. documented in this encounter [facility] 06-12-2024 Telephone encounter Note Noted. Agree with plan. Hany Call APRN.CNP [facility] 06-12-2024 Miscellaneous Notes Noted. Agree with plan. Hany Call APRN.CNP Rosalinda OT calling from [facility] to report plan of care for patient and occupational therapy will visit patient 2 times a week for 3 weeks. Occupational therapy will work with patient on ADLs, IADLs. This was also a delay of care do to OT having a full schedule No Call back needed if agreeable Guerita Cleveland RN documented in this encounter [facility] 06-12-2024 Telephone encounter Note Patient notified of results and provider's instructions. Patient verbalizes understanding. Guerita Cleveland RN [facility] 06-12-2024 Miscellaneous Notes Patient notified of results and provider's instructions. Patient verbalizes understanding. Guerita Cleveland RN Please let the patient know that her urine culture did grow Klebsiella pneumonia bacteria. Continue ciprofloxacin as prescribed as this will treat this bacteria adequately. Hany Call APRN.CNP documented in this encounter [facility] 06-12-2024 Telephone encounter Note Rosalinda OT calling from [facility] to report plan of care for patient and occupational therapy will visit patient 2 times a week for 3 weeks. Occupational therapy will work with patient on ADLs, IADLs. This was also a delay of care do to OT having a full schedule No Call back needed if agreeable Guerita Celveland RN [facility] 06-12-2024 Telephone encounter Note Please let the patient know that her urine culture did grow Klebsiella pneumonia bacteria. Continue ciprofloxacin as prescribed as this will treat this bacteria adequately. Hany Call APRN.CNP [facility] 06-09-2024 Instructions Hany Call APRN.CNP - 06/09/2024 8:34 AM EST Okay to continue with tylenol. Okay to hold asipirin for next 2-3 weeks until bruising improving Discontinued HCTZ (water pill) 4. (5) sutures removed. Okay to have the remaining 8 sutures removed on Wednesday or Wednesday by home nursing. 5.DNR signed and scanned to chart. 6. Call home health care 7. Urine sample showed likely UTI. Start cipro 500 mg twice daily for 7 days. We will send a urine culture. CASEY Yang [facility] in [facility]# [phone] Hany Call APRN.GRAIN ORIGINATION SPECIALIST documented in this encounter [facility] 06-09-2024 History of Present illness Narrative Chief Complaint Patient presents with: Transition Of Care: [facility] fall 06/01/2023 Possible suture removal HPI Dionne Frausto is a 83 year old female who presents here today for Hospital Discharge Follow up. follow up for fall, suture removal, head contusion. Patient is here for hospital follow-up and also evaluation for suture removal. Patient went to [facility] on June 01 as for sustaining a fall at the home. Using her cane, tripped on it, fell forward. Hit her head, knee, right hand. CBC unremarkable, stable chronic anemia with hemoglobin of 11.3. CMP unremarkable, CT of the scalp showed hematoma overlying the left parietal and frontal bones with cerebral atrophy but otherwise unremarkable. CT of the cervical spine showed multilevel disc narrowing with arthritis without any acute fractures. Thoracic spine CT showed no acute abnormalities. Lumbar spine showed no acute findings. X-ray of the right knee revealed no acute fracture or dislocation. X-ray of the right hand showed degenerative changes with no acute findings. Left tibia/fibula x-ray was unremarkable. She was admitted overnight, she received sutures to her scalp. She was discharged home on 06/02 in stable condition. Reviewing the emergency room documentation, there was a total of 9 sutures, simple interrupted sutures placed to the scalp. An additional 4 interrupted sutures also were placed using flap. For a total of 13 total sutures. Patient presents with family. She also has been receiving home PT, OT, nursing. She states that she is doing okay. Still has some swelling, discomfort of the left knee. On Wednesday she started to develop some lower back pain. She states that she gets a urinary tract infection when this occurs. Wondering if she needs to give a urine sample. She denies any urinary symptoms. She has not fallen since she is gone home. She is using walker, cane to ambulate. She denies any headaches, syncope, lightheadedness. Her blood pressure is well-controlled today without hydrochlorothiazide for the last 1 week. We will continue to hold and likely discontinue. Her aspirin has also been held for the last week, we will also continue to hold for the next 2 to 3 weeks. Past medical history, appointments, medications, allergies reviewed. EXAM: BP 117/68 (BP Position: Sitting) Pulse 80 Resp 16 SpO2 99% General Appearance: Well appearing, alert, in no acute distress, well-hydrated, well nourished. and Thin. Skin: Patient has 13 sutures present on the left side of her scalp. There is dried blood present. She has ecchymosis diffuse of her scalp, face, neck, and various stages including purple, red, yellow, green.. Eyes: Anicteric sclera. Pupils are equally round and reactive to light. Extraocular movements are intact. . Lungs: Lungs clear to auscultation. No wheezing, rhonchi, rales.. Heart: RRR without murmur, gallop, or rubs. No ectopy. Musculoskeletal: Left knee: There is swelling of the left knee with various stages of ecchymosis, it is tender. Right hand: There is mild ecchymosis in the thumb area, no swelling, patient is able to extend, flex her wrist, fingers without difficulty.. ASSESSMENT/PLAN: 1. Unstable gait - ICD9: 781.2, ICD10: R26.81 (primary diagnosis) -Continue to work with home health PT for now. Patient's family asked for referral to home health for further assistance long-term. They were referred over this summer previously, I gave them information for contacting the agency that was within patient is at work. They will make a call and let me know if I need to send any orders to that agency. 2. Contusion of left knee, subsequent encounter - ICD9: V58.89, 924.11, ICD10: S80.02XD -Advised to keep elevated, could expect some swelling in the lower left extremity as this resolved, can apply ice. X-ray in the ER was normal 3. Sprain of right thumb, unspecified site of digit, subsequent encounter - ICD9: V58.89, 842.10, ICD10: S63.601D -Improving, resolved almost. 4. Laceration of scalp, subsequent encounter - ICD9: V58.89, 873.0, ICD10: S01.01XD -See #5. Keep open to air 5. Encounter for staple removal - ICD9: V58.32, ICD10: Z48.02 -I was able to remove 5 sutures from her scalp and then noticed some movement with the edges of the laceration. Home health nursing had contacted me yesterday in regards to being able to take the rest out if needing. We will give home health a call to advise them that 8 sutures need to be removed either on Wednesday or Wednesday. Patient tolerated 6. Fall, subsequent encounter - ICD9: V58.89, E888.9, ICD10: W19.XXXD -Continue with plan to use cane or walker for ambulation 7. Closed head injury, subsequent encounter - ICD9: V58.89, 959.01, ICD10: S09.90XD -Stable, varying stages of ecchymosis, discussed that we will take time for this to resolve. Logically intact 8. Hospital discharge follow-up - ICD9: V67.59, ICD10: Z09 -See above 9. Essential hypertension, benign - ICD9: 401.1, ICD10: I10 -Well-controlled, continue with plan to not take hydrochlorothiazide 10. UTI symptoms - ICD9: 788.99, ICD10: R39.9 -Patient having distinct lower back pain that she states is usually with her urinary tract infections. See #11. - UA DIP, URINE (POC) - BACTERIAL CULTURE, URINE - CIPROFLOXACIN 500 MG TABLET 11. Acute cystitis with hematuria - ICD9: 595.0, ICD10: N30.01 -UA positive for leuks, nitrates, protein, trace blood. Treat with Cipro, send urine culture. - CIPROFLOXACIN 500 MG TABLET Hany Call APRN.GRAIN ORIGINATION SPECIALIST F/u 1 month. DNR CCA signed and scanned to chart I spent a total of 45 minutes on the date of the service which included preparing to see the patient, [id number] patient care, completing clinical documentation, obtaining and/or reviewing separately obtained history, performing a medically appropriate examination, counseling and educating the patient/family/caregiver, and ordering medications, tests, or procedures. RTO in 1 months, sooner if needed. This note was partly generated using Friendshippron voice recognition dictation and may contain some misspelled or inaccurate words missed on review. documented in this encounter [facility] 06-09-2024 Note HNO ID: [id number] Author: HANY CALL APRN.CNP Service: ? Author Type: Nurse Practitioner Type: Progress Notes Filed: 06/09/2024 09:40 Note Text: Chief Complaint Patient presents with: Transition Of Care: [facility] fall 06/01/2023 Possible suture removal HPI Dionne Frausto is a 83 year old female who presents here today for Hospital Discharge Follow up. follow up for fall, suture removal, head contusion. Patient is here for hospital follow-up and also evaluation for suture removal. Patient went to [facility] on June 01 as for sustaining a fall at the home. Using her cane, tripped on it, fell forward. Hit her head, knee, right hand. CBC unremarkable, stable chronic anemia with hemoglobin of 11.3. CMP unremarkable, CT of the scalp showed hematoma overlying the left parietal and frontal bones with cerebral atrophy but otherwise unremarkable. CT of the cervical spine showed multilevel disc narrowing with arthritis without any acute fractures. Thoracic spine CT showed no acute abnormalities. Lumbar spine showed no acute findings. X-ray of the right knee revealed no acute fracture or dislocation. X-ray of the right hand showed degenerative changes with no acute findings. Left tibia/fibula x-ray was unremarkable. She was admitted overnight, she received sutures to her scalp. She was discharged home on 06/02 in stable condition. Reviewing the emergency room documentation, there was a total of 9 sutures, simple interrupted sutures placed to the scalp. An additional 4 interrupted sutures also were placed using flap. For a total of 13 total sutures. Patient presents with family. She also has been receiving home PT, OT, nursing. She states that she is doing okay. Still has some swelling, discomfort of the left knee. On Wednesday she started to develop some lower back pain. She states that she gets a urinary tract infection when this occurs. Wondering if she needs to give a urine sample. She denies any urinary symptoms. She has not fallen since she is gone home. She is using walker, cane to ambulate. She denies any headaches, syncope, lightheadedness. Her blood pressure is well-controlled today without hydrochlorothiazide for the last 1 week. We will continue to hold and likely discontinue. Her aspirin has also been held for the last week, we will also continue to hold for the next 2 to 3 weeks. Past medical history, appointments, medications, allergies reviewed. EXAM: BP 117/68 (BP Position: Sitting) Pulse 80 Resp 16 SpO2 99% General Appearance: Well appearing, alert, in no acute distress, well-hydrated, well nourished. and Thin. Skin: Patient has 13 sutures present on the left side of her scalp. There is dried blood present. She has ecchymosis diffuse of her scalp, face, neck, and various stages including purple, red, yellow, green.. Eyes: Anicteric sclera. Pupils are equally round and reactive to light. Extraocular movements are intact. . Lungs: Lungs clear to auscultation. No wheezing, rhonchi, rales.. Heart: RRR without murmur, gallop, or rubs. No ectopy. Musculoskeletal: Left knee: There is swelling of the left knee with various stages of ecchymosis, it is tender. Right hand: There is mild ecchymosis in the thumb area, no swelling, patient is able to extend, flex her wrist, fingers without difficulty.. ASSESSMENT/PLAN: 1. Unstable gait - ICD9: 781.2, ICD10: R26.81 (primary diagnosis) -Continue to work with home health PT for now. Patient's family asked for referral to home health for further assistance long-term. They were referred over this summer previously, I gave them information for contacting the agency that was within patient is at work. They will make a call and let me know if I need to send any orders to that agency. 2. Contusion of left knee, subsequent encounter - ICD9: V58.89, 924.11, ICD10: S80.02XD -Advised to keep elevated, could expect some swelling in the lower left extremity as this resolved, can apply ice. X-ray in the ER was normal 3. Sprain of right thumb, unspecified site of digit, subsequent encounter - ICD9: V58.89, 842.10, ICD10: S63.601D -Improving, resolved almost. 4. Laceration of scalp, subsequent encounter - ICD9: V58.89, 873.0, ICD10: S01.01XD -See #5. Keep open to air 5. Encounter for staple removal - ICD9: V58.32, ICD10: Z48.02 -I was able to remove 5 sutures from her scalp and then noticed some movement with the edges of the laceration. Home health nursing had contacted me yesterday in regards to being able to take the rest out if needing. We will give home health a call to advise them that 8 sutures need to be removed either on Wednesday or Wednesday. Patient tolerated 6. Fall, subsequent encounter - ICD9: V58.89, E888.9, ICD10: W19.XXXD -Continue with plan to use cane or walker for ambulation 7. Closed head injury, subsequent encounter - ICD9: V58.89, 959.01, ICD10: S09.90XD -Stable, varying stages (more content not included)... [facility] 06-08-2024 Telephone encounter Note [place] noted. I will take a look at the sutures on Wednesday. Hany Call APRN.ALIZE [facility] 06-08-2024 Miscellaneous Notes [place] noted. I will take a look at the sutures on Wednesday. Hany Call APRN.CNP Marley from [facility] HH calling did intake with patient today. PT had added nursing services for patient due to her having a fall. Patient has sutures in her forehead. Nursing is going to continue to monitor patient 1 time per week for the next 3 weeks. Will be in the office Wednesday in hopes to have sutures removed. If unable to be removed at that time nursing will be able to remove them in the home with order. Nurse today cleaned area well. If any additional order you may contact home health back otherwise no need to contact back. documented in this encounter [facility] 06-07-2024 Telephone encounter Note Marley from [facility] calling did intake with patient today. PT had added nursing services for patient due to her having a fall. Patient has sutures in her forehead. Nursing is going to continue to monitor patient 1 time per week for the next 3 weeks. Will be in the office Wednesday in hopes to have sutures removed. If unable to be removed at that time nursing will be able to remove them in the home with order. Nurse today cleaned area well. If any additional order you may contact home health back otherwise no need to contact back. [facility] 06-06-2024 Telephone encounter Note Noted. HCTZ discontinued. Patient has been on folic acid since 2018. Okay to hold aspirin for 1 week. Hany Call APRN.CNP [facility] 06-06-2024 Miscellaneous Notes Noted. HCTZ discontinued. Patient has been on folic acid since 2018. Okay to hold aspirin for 1 week. Hany Call APRN.CNP Kathrine from [facility] calls to report medication discrepancies. Patient is on folic acid which flags because patient has an allergy to Niacin. Patient has hydrochlorothiazide on med list. Per niece patient was taken off of this medication during hospital stay due to low blood pressures. Aspirin 81 mg is on med list. Patient is not supposed to be taking this medication x 1 week due to extensive bruising. Guerita Cleveland RN documented in this encounter [facility] 06-06-2024 Telephone encounter Note Kathrine from [facility] calls to report medication discrepancies. Patient is on folic acid which flags because patient has an allergy to Niacin. Patient has hydrochlorothiazide on med list. Per niece patient was taken off of this medication during hospital stay due to low blood pressures. Aspirin 81 mg is on med list. Patient is not supposed to be taking this medication x 1 week due to extensive bruising. Guerita Cleveland RN [facility] 06-06-2024 Note HNO ID: [id number] Author: HANY CALL APRN.CNP Service: ? Author Type: Nurse Practitioner Type: Progress Notes Filed: 06/06/2024 09:07 Note Text: Noted. Hany Call APRN.CNP [facility] 06-06-2024 History of Present illness Narrative Noted. Hany Call APRN.CNP .TRANSITION CARE MANAGEMENT (TCM) INITIAL CONTACT Provider Action/FYI: Patient does have a head laceration that was repaired in [facility] ER with multiple sutures that will need to be removed. Only recommended to take Tylenol or Advil for pain control. Initial contact with patient post discharge, spoke to No answer, patient already scheduled.. Patient identified by name and . TCM Eligibility Documentation No recent care coordination documentation related to TCM found. SUMMARY: -Pt discharged from [facility] on 06/02/2024. -Follow up appointment on 06/09/2024. -Medication review done . -Admitted for: 1) Unstable gait 2)Contusion of left knee:Acute 3) Sprain of right thumb 4) Complex laceration of scalp 5) Fall 6) Closed head injury 7) Debility CONCERNS: Family concerned about recent falls NEW MEDICATIONS: No new medications MEDS HELD/DISCONTINUED: none BRIEF HOSPITAL COURSE: Weakness and debility with mechanical fall and a head laceration documented in this encounter [facility] 06-06-2024 Note HNO ID: [id number] Author: BRIANA BAHENA LPN Service: ? Author Type: LICENSED NURSE Type: Progress Notes Filed: 06/06/2024 09:07 Note Text: .TRANSITION CARE MANAGEMENT (TCM) INITIAL CONTACT Provider Action/FYI: Patient does have a head laceration that was repaired in [facility] ER with multiple sutures that will need to be removed. Only recommended to take Tylenol or Advil for pain control. Initial contact with patient post discharge, spoke to No answer, patient already scheduled.. Patient identified by name and . TCM Eligibility Documentation No recent care coordination documentation related to TCM found. SUMMARY: -Pt discharged from [facility] on 06/02/2024. -Follow up appointment on 06/09/2024. -Medication review done . -Admitted for: 1) Unstable gait 2)Contusion of left knee:Acute 3) Sprain of right thumb 4) Complex laceration of scalp 5) Fall 6) Closed head injury 7) Debility CONCERNS: Family concerned about recent falls NEW MEDICATIONS: No new medications MEDS HELD/DISCONTINUED: none BRIEF HOSPITAL COURSE: Weakness and debility with mechanical fall and a head laceration [facility] 06-06-2024 Note Patient Outreach (FA MPWS) DIONNE FRAUSTO ([id number]) 1940 F Date Time Provider Department 06/06/24 BRIANA BAHENA During your visit today, we recorded the following information about you: Briana Bahena LPN 06/06/2024 9:07 AM Signed .TRANSITION CARE MANAGEMENT (TCM) INITIAL CONTACT Provider Action/FYI: Patient does have a head laceration that was repaired in [facility] ER with multiple sutures that will need to be removed. Only recommended to take Tylenol or Advil for pain control. Initial contact with patient post discharge, spoke to No answer, patient already scheduled.. Patient identified by name and . TCM Eligibility Documentation No recent care coordination documentation related to TCM found. SUMMARY: -Pt discharged from [facility] on 06/02/2024. -Follow up appointment on 06/09/2024. -Medication review done . -Admitted for: 1) Unstable gait 2)Contusion of left knee:Acute 3) Sprain of right thumb 4) Complex laceration of scalp 5) Fall 6) Closed head injury 7) Debility CONCERNS: Family concerned about recent falls NEW MEDICATIONS: No new medications MEDS HELD/DISCONTINUED: none BRIEF HOSPITAL COURSE: Weakness and debility with mechanical fall and a head laceration Hany Call APRN.CNP 06/06/2024 9:07 AM Signed Noted. Hany Call APRN.CNP Allergies As of Date: 06/06/2024 Noted Allergy Reaction NIACIN 11/30/2006 9 - Itching Date Reviewed: 08/24/2023 Reviewed by: Kassandra Ramírez MA - Fully Assessed Reason for Visit: Transition Of Care [4074] Cmt: [facility] D/C 06/02/2024 Prescriptions as of 06/06/2024 - benazepril (LOTENSIN) 20 mg tablet Take 0.5 tablets by mouth once daily. - potassium chloride (K-TAB) 10 mEq tablet Take 1 tablet by mouth once daily. - atenolol (TENORMIN) 25 mg tablet Take 1 tablet by mouth once daily. - hydroCHLOROthiazide 25 mg tablet Take 1 tablet by mouth once daily. - mupirocin (BACTROBAN) 2 % ointment Apply to affected area three times a day. - acetaminophen 325 mg cap Acetaminophen Active 500 - 1000 MG EVERY 6 HOURS NEEDED April 22, 2019 1:31am - docusate sodium (COLACE) 100 mg capsule Take 100 mg by mouth twice daily. As needed - OMEPRAZOLE ORAL Take 20 mg by mouth twice daily. - COMPOUNDED PRESCRIPTION 1 Electric Lift Chair/Recliner ICD-10: M47.817, M17.0, M16.0 - COMPOUNDED PRESCRIPTION 1 Electric Lift Chair ICD-10: Generalized Weakness R53.1 - folic acid 800 mcg tablet Take 1 tablet by mouth once daily. - COMPOUNDED PRESCRIPTION Wheeled walker with seat and brakes. Patient needs 5 inch wheels. ICD-10: R26.9 Abnormality of gait - Aspirin 81 mg Tab Take 1 tablet by mouth once daily. Take with food. 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] 03/16/2007 Mixed hyperlipidemia [E78.2] 11/04/2007 APPENDICITIS ACUTE W RUPTURE [K35.209] 05/09/2008 08/22/2009 Sinus arrhythmia [I49.8] 05/02/2010 Non-rheumatic mitral regurgitation [I34.0] 08/03/2017 History of melanoma excision [Z98.890, Z85.820] 08/23/2017 Gastric mass [K31.89] 09/30/2017 PAF (paroxysmal atrial fibrillation) (HCC) [I48*10/01/2017 Urge incontinence [N39.41] 08/29/2020 Low serum potassium level [E87.6] 08/29/2020 Chronic kidney disease, stage III (moderate) (H*04/16/2022 Hypertensive kidney disease with stage 3 chroni*04/16/2022 Malignant melanoma, unspecified site (HCC) [C43*08/24/2023 Encounter Status:Closed by HANY CALL on 06/06/24 [facility] 06-05-2024 Telephone encounter Note Call to Az[facility], received confidential VM. Left detailed message with PCP's response below from Triage note. If questions to contact office and speak with Triage Nurse. Char Santa MA [facility] 06-05-2024 Miscellaneous Notes Call to Aziza, received confidential VM. Left detailed message with PCP's response below from Triage note. If questions to contact office and speak with Triage Nurse. Char Santa MA OK for all the requests; Ok for verbal orders for all of them Charlene Ernst MD [facility] - PT- [facility]- phoned and given provider's message below with verbalized understanding. [facility]-PT phoning with PT POC- will see pt 2 x's week for 4 weeks for lower extremitie strengthening, transfer, gait training, and balance. [facility]- PT asking provider if they can add SW referral to work on getting advanced directives set up with patient. [facility]- PT reports patient has 13 kina in her head for a fall, asking if Nursing can visit patient to look at the head wound with kina and dressing, and the antibacterial ointment patient is putting on it to make sure wound stays healthy? Please phone [facility]- PT with verbal: [phone] Okay to proceed with home PT/OT. Hany Call APRN.GRAIN ORIGINATION SPECIALIST [facility] with [facility] calls to ask if provider will follow care orders for PT and OT following hospitalization for fall with lacerations. Patient has degeneration of spine and they would like to work with getting her back to baseline. Please call Aziza back at [phone]. Corrie Kumar RN documented in this encounter [facility] 06-05-2024 Telephone encounter Note OK for all the requests; Ok for verbal orders for all of them Charlene Ernst MD [facility] 06-05-2024 Telephone encounter Note Aziza Hines PT- [facility]- phoned and given provider's message below with verbalized understanding. [facility]-PT phoning with PT POC- will see pt 2 x's week for 4 weeks for lower extremitie strengthening, transfer, gait training, and balance. [facility]- PT asking provider if they can add SW referral to work on getting advanced directives set up with patient. [facility]- PT reports patient has 13 kina in her head for a fall, asking if Nursing can visit patient to look at the head wound with kina and dressing, and the antibacterial ointment patient is putting on it to make sure wound stays healthy? Please phone Sue PT with verbal: [phone] [facility] 06-05-2024 Telephone encounter Note Okay to proceed with home PT/OT. Hany Call APRN.GRAIN ORIGINATION SPECIALIST [facility] 06-02-2024 Note [facility] Medical Records Department [address] [place] [id number] Discharge Summary 06/02/24 1638 MR#: [id number] Acct: [id number] Name: DIONNE FRAUSTO Rep #: [id number] : 1940 83 From: Radhames Carter MD PCP: Dr. Charlene Ernst MD Status:ADM JOLANTA Location: [place] [address] Providers Date of Admission: 06/01/24 Primary Care Physician: Dr. Charlene Ernst MD Reason For Visit: FALLS/DEBILITY Diagnosis Discharge Diagnosis (1) Unstable gait: Status: Acute Code(s): R26.81 - Unsteadiness on feet (2) Contusion of knee, left: Status: Acute Code(s): S80.02XA - Contusion of left knee, initial encounter (3) Sprain of hand, thumb, right: Status: Acute Code(s): S63.601A - Unspecified sprain of right thumb, initial encounter (4) Complex laceration of scalp: Status: Acute Code(s): S01.01XA - Laceration without foreign body of scalp, initial encounter (5) Fall: Status: Acute Code(s): W19.XXXA - Unspecified fall, initial encounter (6) CHI (closed head injury): Status: Acute Code(s): S09.90XA - Unspecified injury of head, initial encounter (7) Debility: Status: Acute Code(s): R53.81 - Other malaise Medications at Discharge Home Medications aspirin 81 mg tablet,delayed release 81 mg PO DAILY heart health 08/09/17 benazepril 20 mg tablet 10 mg PO DAILY HTN 08/09/17 atenolol 25 mg tablet 25 mg PO DAILY HTN 09/02/17 hydrochlorothiazide 25 mg tablet 25 mg PO DAILY diuretic 10/26/17 docusate sodium 100 mg capsule 100 mg PO DAILY PRN Constipation 03/17/18 omeprazole 20 mg capsule,delayed release 20 mg PO BID GERD 03/17/18 potassium chloride 10 mEq capsule,extended release 10 meq PO DAILY supplement 03/17/18 acetaminophen 325 mg tablet 325 mg PO DAILY PRN pain 06/01/24 folic acid 800 mcg tablet 800 mcg PO DAILY 06/01/24 mupirocin 2 % topical ointment (Centany) 1 applic topical DAILY 06/01/24 Hospital Course Operations None Procedures None Summary of Care Provided Minutes Spent on Discharge: 36 Hospital Course: Per HPI: DIONNE FRAUSTO, is a 83 F who presented to the emergency department at [facility] on 06/01/2024 after sustaining a mechanical fall at home. She states she was on her ramp and is at baseline either uses a walker or a quad cane. At that time she was using her quad cane and tripped on it and fell forward. She hit her head and had multiple other injuries falling on both knees left greater than right and had pain in her right thumb. She has not been having frequent falls at home. She then was taken to the bathroom in the emergency department and fell in the bathroom. She states typically she uses a quad cane and they did not give her that in the emergency department and she lost her balance and fell there to. She did not initially want to be admitted however family was concerned about taking her home given the 2 falls she had a day and the pain she may have tomorrow and later tonight. She has been feeling well otherwise and not having any problems with any mobility issues other than her baseline gait instability for which she uses assistive device. She has had no systemic symptoms and denies any fever or chills. Vital signs on presentation showed temperature of 97.6, heart rate 83, respiratory rate 18, blood pressure is 131/82 and pulse ox was 96% on room air. CBC was unremarkable with the chronic stable anemia having a hemoglobin of 11.3. Coags are normal. Chemistry panel was unremarkable. Extensive imaging was performed due to the nature of her presentation. CT of the scalp showed a hematoma overlying the left parietal and frontal bones with cerebral atrophy but was otherwise unremarkable. CT of the cervical spine showed multilevel disc narrowing with arthritis and anterior listhesis of C4 and C5 but no acute fractures. Thoracic spine CT showed no acute abnormalities. 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 Femoral fracture shows no acute fracture or dislocation status post knee replacement. Hand x-ray showed degenerative changes with laceration over the distal phalanges of the second and third digits and soft tissue swelling. Left tibia and fibula x-ray relatively unremarkable with no significant bleeding noted acute fractures Hospital Course: 1. Weakness and debility with mechanical fall and a head laceration???83-year-old female presented to the hospital after a fall at home. She was brought in for evaluation and had no obvious fractures though she has some degenerative changes. In her fall at home she hit her head so she had a CT scan of the brain which was negative for any type of hemorrhage. While in the ER she tripped and fell in the bathroom and had a repeat CT scan of the brain which was negative. She was admitted for physical therapy evaluatio (more content not included)... [facility] 06-02-2024 Telephone encounter Note Aziza with [facility] calls to ask if provider will follow care orders for PT and OT following hospitalization for fall with lacerations. Patient has degeneration of spine and they would like to work with getting her back to baseline. Please call Aziza back at [phone]. Corrie Kumar, RN [facility] 02-04-2024 Telephone encounter Note Phone call to nikendell as instructed in phone notes. Requested an appointment around 4. Scheduled with Aziza. [facility] 02-04-2024 Miscellaneous Notes Phone call to niece as instructed in phone notes. Requested an appointment around 4. Scheduled with [facility]. Patient overdue for [employer] wellness exam and routine follow-up. Can we please assist with getting her scheduled? Hany Call APRN.CNP documented in this encounter [facility] 02-04-2024 Telephone encounter Note Patient overdue for [employer] wellness exam and routine follow-up. Can we please assist with getting her scheduled? Hany Call APRN.CNP [facility] 10-25-2023 Miscellaneous Notes The following approved medication requests have been transmitted electronically. Requested Prescriptions Pending Prescriptions Disp Refills benazepril (LOTENSIN) 20 mg tablet 90 tablet 3 Sig: Take 0.5 tablets by mouth once daily. Hany Call APRN.CNP [place]-08/24/23 Labs-08/27/26 NOV-none Fabi Rahman LPN documented in this encounter [facility] 10-25-2023 Telephone encounter Note The following approved medication requests have been transmitted electronically. Requested Prescriptions Pending Prescriptions Disp Refills benazepril (LOTENSIN) 20 mg tablet 90 tablet 3 Sig: Take 0.5 tablets by mouth once daily. Hany Call APRN.GRAIN ORIGINATION SPECIALIST [facility] 10-25-2023 Telephone encounter Note [place]-08/24/23 Labs-08/27/26 NOV-none Fabi Rahman LPN [facility] 10-25-2023 History of Present illness Narrative POPULATION HEALTH NAVIGATION OUTREACH Action/I Medication Adherence Patient is on Medication Adherence List for review of the below medications: BENAZEPRIL HCL 20 MG TABLET due 10/20/2023 Pharmacy: [address] [phone] [facility] [phone] Refused Disp Refills Start End benazepril (LOTENSIN) 20 mg tablet [Pharmacy Med Name: Benazepril HCl 20 MG Oral Tablet] 50 tablet 0 10/25/2023 Sig - Route: Take 1/2 (one-half) tablet by mouth once daily - ORAL Class: Normal LAYLA: No Reason for Refusal: Patient should contact Prescriber first Refused By: Fabi Rahman LPN Patient due in six months for a Follow Up per office visit 08/24/2023 with Charlene Ernst MD Outcome: 1st attempt - Left Message 2nd attempt - Letsmakehart message sent Reason for Outreach Med Adherence Patient Contacted: Unable or unnecessary to reach patient: Left message MyChart message sent Navigation Signature: Glo Stack MA October 25, 2023 7:36 AM documented in this encounter [facility] 09-24-2023 Telephone encounter Note Charlene Ernst MD If home care services are needed and [facility] is the agency of choice, please place a new order under Consult to [facility] so that we can proceed. Also, per CMS guidelines your office note needs to include a discussion of HHC with the following: - why is HHC needed - why is the patient homebound - what is the diagnosis that HHC is seeing the patient for. Thank you, Lian Rojas LPN [facility] Work Phone: 09-24-2023 Miscellaneous Notes Charlene Ernst MD If home care services are needed and [facility] is the agency of choice, please place a new order under Consult to [facility] so that we can proceed. Also, per CMS guidelines your office note needs to include a discussion of HHC with the following: - why is HHC needed - why is the patient homebound - what is the diagnosis that C is seeing the patient for. Thank you, Lian Rojas LPN documented in this encounter [facility] 09-24-2023 Telephone encounter Note Marco López, phoned to report [facility] agency in network for patient: [facility] in [place], [place] Reports pcp will need to send referral, insurance info, & H & P to this company. Printed and faxed the requested information to [facility]. Marco informed patient's niece of this information. [facility] 09-24-2023 Miscellaneous Notes Marco López, phoned to report HHC agency in network for patient: [facility] in [facility] [phone] Reports pcp will need to send referral, insurance info, & H & P to this company. Printed and faxed the requested information to [facility]. Marco informed patient's niece of this information. Patients niece called with Rene stating they had not heard anything regarding the home health for patient. Referral has been placed but does not appear it has been sent. Niece thought they were waiting to hear from insurance. I let Rene know that we need to know which agency is covered and we can send them the information. They will call office back with decision on where referral needs to be sent. documented in this encounter [facility] 09-24-2023 Telephone encounter Note Patients niece called with Rene stating they had not heard anything regarding the home health for patient. Referral has been placed but does not appear it has been sent. Niece thought they were waiting to hear from insurance. I let Rene know that we need to know which agency is covered and we can send them the information. They will call office back with decision on where referral needs to be sent. [facility] 2023 Telephone encounter Note Letter mailed to pt home of results. Kassandra Ramírez MA [facility] 2023 Miscellaneous Notes Letter mailed to pt home of results. Kassandra Ramírez MA Please notify patient that her lab results are stable. Her blood count is good. Stay on the same medications and follow up in 6 months as planned Charlene Ernst MD documented in this encounter [facility] 2023 Telephone encounter Note Please notify patient that her lab results are stable. Her blood count is good. Stay on the same medications and follow up in 6 months as planned Charlene Ernst MD [facility] 08-24-2023 History of Present illness Narrative Chief Complaint Patient presents with: Discussion: Would like to discuss getting Home Health Care HPI: This Team Access Model visit is a virtual/phone encounter. It required patient-provider interaction for the medical decision making as documented below. Patient was offered a virtual/telemedicine appointment in lieu of an office visit due to recommendations to reduce patient exposure to COVID-19. Patient is aware of limitations of performing the visit without a face to face visit in the office setting and agrees. I have communicated my name and active licensure. The patient's identity and physical location were verified at the time of this visit. Either the patient or their legal loan representative has been informed of the risks and benefits of -- and alternatives to -- treatment through a remote evaluation and consents to proceed with the evaluation remotely. Pt tiara is on the video call with her to assist her with the VV. Does not have an advanced directive. Denies feeling depression, hopelessness, anxiousness, excessive worrying. Discuss Home Health to come to the home. No specific HH agency that they are requesting to get assistance from. Would like to see how much assistance insurance will allow pt to get at this time. She wants help with having medications managed and checked, checks on legs due to having b/l leg swelling with blisters, getting some help with bathing/showering if needed. She is able to do the bathing/showering on her own but would like to know someone is there if she needs assistance. Would like for them to come out a few days a week. Family tries to come out and help her as much as they can. She is able to cook for herself. Edema: Norbert legs; has water blisters at times. No redness, no sign of infection or wounds. She has been putting triple antibiotic ointment on the legs. Had a water blister on the weekend that popped. Uses a walker. Has had a few falls with not major injures. HTN: Taking Atenolol 25 mg daily, Lotensin 20 mg half pill daily and HCTZ 25 mg daily. Uses Potassium Chloride 10 mEq daily. No chest pains, dizziness, or SOB. Does check BP occ at home with readings WNL. No bowel, Gi, or urinary issues. Taking Omeprazole 20 mg BID and Colace 100 mg prn. Past medical history, appointments, medications, allergies reviewed. Previous Medical History PAST MEDICAL HISTORY Diagnosis Date Malignant melanoma (HCC) 07/2017 Neurofibromatosis (HCC) Unspecified essential hypertension Essential hypertension Previous Surgical History PAST SURGICAL HISTORY Procedure Laterality Date ARTHRP KNE CONDYLE&PLATU MEDIAL&LAT COMPARTMENTS Bilateral 2015 CHOLECYSTECTOMY 1985 Cholecystectomy COLONOSCOPY 09/08/2017 Mir EGD 09/08/2017 Mir EGD N/A 03/28/2018 Dr. Hester at [facility] LAPAROSCOPIC APPENDECTOMY 06-25-08 PAST SURGICAL HISTORY OF Left 09/2017 melanoma excision @ [facility] shoulder Family History FAMILY HISTORY Problem Relation Age of Onset Cancer Mother site unknown Coronary Artery Disease Father Leukemia Sister leukemia Brain Cancer Sister Hypertension Sister Diabetes Sister Intersitial Lung Disease Sister Cancer Brother Hypertension Brother Colon Cancer Brother No Family History No Family History colon cancer/polyps Patient Allergies ALLERGIES Allergen Reactions Niacin Itching Current Medications Current Outpatient Medications on File Prior to Visit Medication Sig mupirocin (BACTROBAN) 2 % ointment Apply to affected area three times a day. doxycycline monohydrate (MONODOX) 100 mg capsule Take 1 capsule by mouth two times a day. Take with food atenolol (TENORMIN) 25 mg tablet Take 1 tablet by mouth once daily. benazepril (LOTENSIN) 20 mg tablet Take 0.5 tablets by mouth once daily. hydroCHLOROthiazide 25 mg tablet Take 1 tablet by mouth once daily. potassium chloride (K-TAB) 10 mEq tablet Take 1 tablet by mouth once daily. acetaminophen 325 mg cap Acetaminophen Active 500 - 1000 MG EVERY 6 HOURS NEEDED April 22, 2019 1:31am docusate sodium (COLACE) 100 mg capsule Take 100 mg by mouth twice daily. As needed OMEPRAZOLE ORAL Take 20 mg by mouth twice daily. COMPOUNDED PRESCRIPTION 1 Electric Lift Chair/Recliner ICD-10: M47.817, M17.0, M16.0 COMPOUNDED PRESCRIPTION 1 Electric Lift Chair ICD-10: Generalized Weakness R53.1 folic acid 800 mcg tablet Take 1 tablet by mouth once daily. COMPOUNDED PRESCRIPTION Wheeled walker with seat and brakes. Patient needs 5 inch wheels. ICD-10: R26.9 Abnormality of gait Aspirin 81 mg Tab Take 1 tablet by mouth once daily. Take with food. No current facility-administered medications on file prior to visit. Social History Social History Tobacco Use Smoking status: Never Smokeless tobacco: Never Vaping Use Vaping Use: Never used Substance Use Topics Alcohol use: No Drug use: No EXAM: There were no vitals taken for this visit. Health Maintenance List Shingrix Vaccine(1 of 2) Never done RSV Vaccine(1 - 1-dose 60+ series) Never done DTaP,Tdap,Td Vaccine(1 - Tdap) due on 06/26/2008 Covid-19 Vaccine( season) due on 12/18/2022 Advance Directive Discussion due on 04/19/2023 Behavioral Health Screening Never done Influenza Vaccine(Season Ended) due on 12/19/2023 Diabetes Screening due on 09/07/2025 Bone Density Screening Completed Pneumococcal Vaccine: 65+ Completed Data reviewed none ASSESSMENT/PLAN: 1. Iron deficiency anemia, unspecified iron deficiency anemia type - ICD9: 280.9, ICD10: D50.9 (primary diagnosis) Check labs - COMPLETE BLOOD COUNT - IRON AND TIBC 2. Low serum potassium level - ICD9: 276.8, ICD10: E87.6 - POTASSIUM CHLORIDE ER 10 MEQ TABLET,EXTENDED RELEASE 3. Essential hypertension, benign - ICD9: 401.1, ICD10: I10 - Controlled - Continue current medications - Recommend home blood pressure monitoring, to bring results to next visit - Encouraged sodium restriction, DASH or Mediterranean diet - Recommend regular aerobic exercise - Check labs - ATENOLOL 25 MG TABLET - HYDROCHLOROTHIAZIDE 25 MG TABLET - COMPREHENSIVE METABOLIC PANEL - COMPLETE BLOOD COUNT - IRON AND TIBC - NON-[facility] 4. Bilateral leg edema - ICD9: 782.3, ICD10: R60.0 - NON-[facility] 5. Impaired mobility - ICD9: 799.89, ICD10: Z74.09 - NON-[facility] OK for [facility]: will have them check with insurance to see what agency they can use Notify of lab results Follow up in 6 months I agree with the Chief Complaint, ROS, and Past Histories independently gathered by the clinical manager support services and the remaining scribed note accurately describes my personal service to the patient. Charlene Ernst MD The documentation for this note was completed by Kassandra Ramírez MA acting as scribe for Charlene Ernst MD. August 24, 2023 1:57 PM. Kassandra Ramírez MA documented in this encounter [facility] 08-11-2023 History of Present illness Narrative POPULATION HEALTH NAVIGATION OUTREACH Action/FYI Spoke to patient regarding Annual Medicare Wellness and patient declined scheduling. Reason for Outreach Care Gap/HCC or Scheduling Wellness Visits Care Gaps due: Medicare Annual Wellness Visit Patient Contacted: Spoke to patient/parent/or legal guardian Patient identified by name and : Yes Care Gap/HCC/Scheduling Wellness actions taken: Patient declined: Not interested in scheduling HCC related Navigation Signature: Raquel Arevalo MA August 11, 2023 10:17 AM documented in this encounter [facility] 06-02-2023 History of Present illness Narrative POPULATION HEALTH NAVIGATION OUTREACH Action/FYI HCC Gaps Due for: Annual Wellness Left VM; MyChart message sent Patient Identified by Name and : NO Outreach Outcome/Action Unable to reach patient: Left message MyChart message sent Did you use a PCP flex slot to schedule this appointment? N/A Reason for Outreach HCC or suspected condition Payer: Payor: [employer] / Plan: [employer] MEDICARE ADVANTAGE HMO / Product Type: HMO / Care Gap Reviewed:: Annual Wellness visit Reminder: Reminder note to check Health Maintenance for items below Health Maintenance items due: Shingrix Vaccine(1 of 2) Never done RSV Vaccine(1 - 1-dose 60+ series) Never done DTaP,Tdap,Td Vaccine(1 - Tdap) due on 06/26/2008 Influenza Vaccine(1) due on 12/18/2022 Covid-19 Vaccine(4 - 2022-24 season) due on 12/18/2022 Advance Directive Discussion due on 04/19/2023 Depression Assessment due on 04/19/2023 Navigation Signature: Raquel Hobbs MA June 02, 2023 11:50 AM documented in this encounter [facility] 03-30-2023 Miscellaneous Notes Noted Hany Call APRN.CNP Patient's niece returned call. Message given as stated below: I understand the patient is having difficulty with mobility but she has been able to come to appointments within the last month. She really does need evaluated in person. She can get in with 1 of us or go to express care for evaluation to determine if she has cellulitis or venous stasis. Hany Call APRN.CNP I offered to schedule an appt for patient. Niece declined and said she would speak to her aunt about it. Unable to reach patient's niece Marcela. Left VM to return call to office. Please read below and advise. Lalitha Low MA I understand the patient is having difficulty with mobility but she has been able to come to appointments within the last month. She really does need evaluated in person. She can get in with 1 of us or go to express care for evaluation to determine if she has cellulitis or venous stasis. Hany Call APRN.CNP Patient niece Marcela calling aunt has norbert legs red and swollen and has open areas and blisters seeping began after thanksgi again. Marcela said very difficult to get [facility], she does not move about well at all. Asking for antibiotic rx to be sent to [facility]. Niece has not be successful doing a my chart virtual visit previously. Please advise documented in this encounter [facility] 02-23-2023 Miscellaneous Notes Order faxed to [facility]. Kassandra Ramírez Ma Order printed Charlene Ernst MD Patient is requesting a lift chair because her current chair is not working right. Patient has fallen on 02/18/23 and has cellulitis which is improving somewhat. with her health problems it is hard for her to walk and hard to come into office. Please place order for lift chair, last chair was from [facility] documented in this encounter [facility] 02-19-2023 History of Present illness Narrative FYI: This patient was seen during an extended IT system downtime that began February 19, 2023 at a regional facility. This means that important medical information may be missing from the record. If available, paper documentation can be referenced in the Scanned Documents tab of Chart Review. Hany Call APRN.ALIZE documented in this encounter [facility] 02-15-2023 History of Present illness Narrative SUBJECTIVE: Shingrix Vaccine(1 of 2) Never done RSV Vaccine(1 - 1-dose 60+ series) Never done DTaP,Tdap,Td Vaccine(1 - Tdap) due on 06/26/2008 Advance Directive Discussion due on 04/19/2022 Influenza Vaccine(1) due on 12/18/2022 Covid-19 Vaccine( season) due on 12/18/2022 HPI Dionne Frausto is a 82 year old female. PMH significant for ACTIVE PROBLEM LIST Essential Hypertension, Benign Localized Osteoarthrosis Not Specified Whether Primary Or Secondary, Lower Leg Mixed Hyperlipidemia Sinus Arrhythmia Non-Rheumatic Mitral Regurgitation History of Melanoma Excision Gastric Mass Paf (Paroxysmal Atrial Fibrillation) (Hcc) Urge Incontinence Low Serum Potassium Level Chronic Kidney Disease, Stage Iii (Moderate) (Hcc) Hypertensive Kidney Disease With Stage 3 Chronic Kidney Disease (Hcc) PCP: Charlene Ernst MD Dionne Frausto was seen and express care on February 08, 2023. Noted right leg chronically larger than the left. Lesion present on right forbes. Large blister broke open and seeping watery fluid. Treated with cephalexin. Advised to elevate legs and reduce sodium in diet. Recheck with primary care within a week. No prior Lasix use noted. Wound culture 08/31/2022. Presents with SO that helps with HPI. Today reports leg wound seems about the same. Has been washing with soap and water. Has been using [id number] topical treatment, vitamin D to the open wound. Has been covering. Afebrile. Serous and serosanguineous drainage, small to moderate amount. Review of Systems Constitutional: Negative. Skin: Positive for wound. Objective BP 112/59 Pulse 77 Resp 16 Wt 65.8 kg (145 lb) BMI 30.31 kg/m Physical Exam Vitals and nursing note reviewed. Constitutional: Appearance: Normal appearance. HENT: Head: Normocephalic and atraumatic. Eyes: Conjunctiva/sclera: Conjunctivae normal. Cardiovascular: Rate and Rhythm: Normal rate. Pulmonary: Effort: Pulmonary effort is normal. Skin: General: Skin is warm and dry. Comments: Right forbes medial aspect partial-thickness wound with pink wound base, serous drainage surrounding erythema and warmth, circumferential Neurological: Mental Status: She is alert. no pitting edema ALLERGIES Allergen Reactions Niacin Itching Medication cephALEXin (KEFLEX) 500 mg capsule Take 1 capsule by mouth two times a day for 7 days. atenolol (TENORMIN) 25 mg tablet Take 1 tablet by mouth once daily. benazepril (LOTENSIN) 20 mg tablet Take 0.5 tablets by mouth once daily. hydroCHLOROthiazide 25 mg tablet Take 1 tablet by mouth once daily. potassium chloride (K-TAB) 10 mEq tablet Take 1 tablet by mouth once daily. acetaminophen 325 mg cap Acetaminophen Active 500 - 1000 MG EVERY 6 HOURS NEEDED April 22, 2019 1:31am docusate sodium (COLACE) 100 mg capsule Take 100 mg by mouth twice daily. As needed OMEPRAZOLE ORAL Take 20 mg by mouth twice daily. COMPOUNDED PRESCRIPTION 1 Electric Lift Chair/Recliner ICD-10: M47.817, M17.0, M16.0 COMPOUNDED PRESCRIPTION 1 Electric Lift Chair ICD-10: Generalized Weakness R53.1 folic acid 800 mcg tablet Take 1 tablet by mouth once daily. COMPOUNDED PRESCRIPTION Wheeled walker with seat and brakes. Patient needs 5 inch wheels. ICD-10: R26.9 Abnormality of gait Aspirin 81 mg Tab Take 1 tablet by mouth once daily. Take with food. mupirocin (BACTROBAN) 2 % ointment Apply to affected area three times a day. doxycycline monohydrate (MONODOX) 100 mg capsule Take 1 capsule by mouth two times a day. Take with food PAST MEDICAL HISTORY Diagnosis Date Malignant melanoma (HCC) 07/2017 Neurofibromatosis (HCC) Unspecified essential hypertension Essential hypertension Social History Tobacco Use Smoking status: Never Smokeless tobacco: Never Vaping Use Vaping Use: Never used Substance Use Topics Alcohol use: No Drug use: No Component Latest Ref Rng & Units 09/07/2022 09/17/2022 WBC 3.70 - 11.00 k/uL 5.97 RBC 3.90 - 5.20 m/uL 4.26 Hemoglobin 11.5 - 15.5 g/dL 12.1 Hematocrit 36.0 - 46.0 % 39.2 MCV 80.0 - 100.0 fL 92.0 MCH 26.0 - 34.0 pg 28.4 MCHC 30.5 - 36.0 g/dL 30.9 RDW-CV 11.5 - 15.0 % 14.4 Platelet Count 150 - 400 k/uL 262 MPV 9.0 - 12.7 fL 10.5 Neut% % 69.6 Abs Neut (ANC) 1.45 - 7.50 k/uL 4.16 Lymph% % 13.1 Abs Lymph 1.00 - 4.00 k/uL 0.78 (L) Holmes% % 13.9 Abs Holmes <0.87 k/uL 0.83 Eosin% % 1.7 Abs Eosin <0.46 k/uL 0.10 Baso% % 0.7 Abs Baso <0.11 k/uL 0.04 Immature Gran % % 1.0 IMMATURE GRANS (ABS) <0.10 k/uL 0.06 NRBC /100 WBC 0.0 Absolute nRBC <0.01 k/uL <0.01 DTYPE Auto Protein, Total 6.3 - 8.0 g/dL 7.4 Albumin 3.9 - 4.9 g/dL 4.2 Calcium 8.5 - 10.2 mg/dL 9.6 Bilirubin, Total 0.2 - 1.3 mg/dL 0.6 Alkaline Phosphatase 34 - 123 U/L 203 (H) 219 (H) AST 13 - 35 U/L 31 ALT 7 - 38 U/L 16 Glucose 74 - 99 mg/dL 99 BUN 7 - 21 mg/dL 21 Creatinine 0.58 - 0.96 mg/dL 1.06 (H) Sodium 136 - 144 mmol/L 138 Potassium 3.7 - 5.1 mmol/L 4.5 Chloride 97 - 105 mmol/L 106 (H) CO2 22 - 30 mmol/L 21 (L) Anion Gap 9 - 18 mmol/L 11 eGFR >=60 mL/min/1.73m 52 (L) Alk Phos Bone % 10.7 - 68.3 % 25.4 Bone Fraction 12.9 - 52.6 U/L 55.6 (H) Alk Phos Liver % 26.0 - 86.2 % 74.6 Liver Fraction 16.0 - 69.3 U/L 163.4 (H) Alk Phos Intestine % 0.0 - 24.2 % 0.0 Intestine Fraction 0.0 - 16.3 U/L 0.0 Iron 41 - 186 ug/dL 35 (L) TIBC 232 - 386 ug/dL 250 Transferrin Saturation 15.0 - 57.0 % 14.0 (L) Ferritin 14.7 - 205.1 ng/mL 612.0 (H) ASSESSMENT/PLAN: 1. Cellulitis of skin - ICD9: 682.9, ICD10: L03.90 (primary diagnosis) - MUPIROCIN 2 % TOPICAL OINTMENT - DOXYCYCLINE MONOHYDRATE 100 MG CAPSULE 2. Abrasion of right lower extremity, subsequent encounter - ICD9: V58.89, ICD10: S80.811D - MUPIROCIN 2 % TOPICAL OINTMENT 3. Lymphedema - ICD9: 457.1, ICD10: I89.0 Presents today for follow-up, not noting much difference with current treatment. We will switch to doxycycline. Add Bactroban topically and cover with dressing. Wash daily with soap and water. Elevate leg when seated. Consider wound center if not progressing to healing or referral to PT for for lymphedema treatment. Trudy Boggs APRN.[employer] ASS[employer]ATE Medical Decision Making: Problems: Low: Acute, uncomplicated illness or injury Risk: Moderate: Drug management Medical Decision Making Level: 3 - Low documented in this encounter [facility] 02-08-2023 History of Present illness Narrative Patient presents with: LESION, SKIN: open sore on right lower leg x couple weeks HPI: Skin Lesion: Location: right forbes Duration: about 3 weeks. Right leg is chronically larger than the left leg. Pruritis/Pain: sore to touch Change: started as a blister. Left leg is starting to hurt a little now also. Drainage/blister/pustule/ulceratio n: large blister broke open, seeping watery fluid Treatment: anything - first aid cream, calamine, alcohol Denies fever, chills, malaise, body aches. Denies chest pain, shortness of breath, wheezing, palpitations. PAST MEDICAL HISTORY Diagnosis Date Malignant melanoma (HCC) 07/2017 Neurofibromatosis (HCC) Unspecified essential hypertension Essential hypertension MEDICATIONS: mupirocin (BACTROBAN) 2 % ointment Apply to affected area three times daily. atenolol (TENORMIN) 25 mg tablet Take 1 tablet by mouth once daily. benazepril (LOTENSIN) 20 mg tablet Take 0.5 tablets by mouth once daily. hydroCHLOROthiazide 25 mg tablet Take 1 tablet by mouth once daily. potassium chloride (K-TAB) 10 mEq tablet Take 1 tablet by mouth once daily. acetaminophen 325 mg cap Acetaminophen Active 500 - 1000 MG EVERY 6 HOURS NEEDED April 22, 2019 1:31am docusate sodium (COLACE) 100 mg capsule Take 100 mg by mouth twice daily. As needed OMEPRAZOLE ORAL Take 20 mg by mouth twice daily. COMPOUNDED PRESCRIPTION 1 Electric Lift Chair/Recliner ICD-10: M47.817, M17.0, M16.0 COMPOUNDED PRESCRIPTION 1 Electric Lift Chair ICD-10: Generalized Weakness R53.1 folic acid 800 mcg tablet Take 1 tablet by mouth once daily. COMPOUNDED PRESCRIPTION Wheeled walker with seat and brakes. Patient needs 5 inch wheels. ICD-10: R26.9 Abnormality of gait Aspirin 81 mg Tab Take 1 tablet by mouth once daily. Take with food. ALLERGIES: ALLERGIES Allergen Reactions Niacin Itching VITALS: BP 122/72 Pulse 80 Temp 36.8 C (98.3 F) Resp 18 Wt 66.2 kg (146 lb) SpO2 100% BMI 30.51 kg/m Last 6 Encounter Wt Readings: Date: Wt: 02/08/2023 66.2 kg (146 lb) 09/07/2022 64.6 kg (142 lb 6.4 oz) 08/31/2022 65.8 kg (145 lb) 10/17/2021 63.5 kg (140 lb) 12/04/2020 69.9 kg (154 lb) 08/29/2020 72.1 kg (159 lb) PHYSICAL EXAM: GEN: pleasant, no acute distress, alert. Scattered flesh-colored tumors. accompanied by her daughter. HEENT: PERRL, EOMI, MMM NECK: sits with head tilted to the side HEART: regular rate, regular rhythm, no murmurs LUNGS: clear to auscultation, no wheezes or crackles, no increased WOB; kyphosis EXT: 4+ edema of the right lower leg, 3+ on the left. 4 cm shallow ulceration with red moist base right mid forbes with serous drainage. Faint pink erythema and warmth lower one third of the right leg below the level of the ulcer. ASSESSMENT/PLAN: 1. Cellulitis of right lower leg - ICD9: 682.6, ICD10: L03.115 (primary diagnosis) 2. Lymphedema - ICD9: 457.1, ICD10: I89.0 3. Stage 3 chronic kidney disease, unspecified whether stage 3a or 3b CKD (HCC) - ICD9: 585.3, ICD10: N18.30 Start - CEPHALEXIN 500 MG CAPSULE Elevate legs, reduce sodium in diet. Schedule follow-up with primary care later this week. No past use of Lasix but may be useful if not improving. Brendon Siddiqui MD documented in this encounter [facility] 10-15-2022 History of Present illness Narrative RADIOLOGY SERVICE PROGRESS NOTE SERVICE DATE: 10/15/2022 SERVICE TIME: 10:00 AM PATIENT IDENTITY VERIFICATION COMPLETED USING TWO (2) STANDARD IDENTIFIERS: Name and Date of confirmed by patient verbally FALL SCREENING: Has the patient had 2 falls in the last year or 1 fall with injury or currently using an Ambulatory Assistive Device (Walker, Cane, Wheelchair, Crutches, etc.)? Yes, Patient High Risk for Falls What interventions were put in place to prevent falls during this visit? Instructed Patient to Call for Help if Needed, Offered Assistance with Transfers/Clothing, Instructed Patient to Remain Seated (Not on Exam Table) Until Exam, Increased Observations by Caregivers, and Escorted to/from Restroom PATIENT GENDER DATA: .female : No ALLERGIES: Reviewed and unchanged MEDICATIONS REVIEWED: No PATIENT RELEVANT IMPLANT DATA REVIEWED: Not Applicable CREATININE: Creatinine Date Value Ref Range Status 09/07/2022 1.06 (H) 0.58 - 0.96 mg/dL Final 10/17/2021 1.21 (H) 0.58 - 0.96 mg/dL Final 09/03/2020 0.96 0.58 - 0.96 mg/dL Final Estimated Glomerular Filtration Rate Date Value Ref Range Status 09/07/2022 52 (L) >=60 mL/min/1.73m Final Comment: Estimated Glomerular Filtration Rate (eGFR) is calculated using the 2020 CKD-EPI creatinine equation. This equation utilizes serum creatinine, sex, and age as parameters. The creatinine assay has traceable calibration to isotope dilution-mass spectrometry. Refer to KDIGO guidelines for clinical interpretation. In patients with unstable renal function, e.g. those with acute kidney injury, the eGFR may not accurately reflect actual GFR. eGFR- Date Value Ref Range Status 09/03/2020 >60 Final P.O.C.T. RESULTS: N/A October 15, [address] PERFORMED: No IV SITE: Ambulatory: A peripheral IV was started in the Left antecubital site with a Angio cath: 24 gauge. POST EXAM PIV STATUS: Discontinued PROCEDURE TYPE: NM INJECT: Whole Body Bone Scan. 21.9 mCi Tc99m MDP. No other medications given.. ADMINISTRATION TIME: 10:08 PATIENT DISCHARGED TO: Ambulatory patient, left NM department area. A Diagnostic radioactive procedure has taken place, with no further precautions necessary other than routine body substance precautions. More information regarding radiation safety can be found using this link: [email or web address] SIGNATURE: RT Peggy(R) PATIENT NAME: Dionne Frausto DATE: October 15, 2022 TIME: 1:20 PM PAGER/CONTACT #: documented in this encounter [facility] 09-28-2022 History of Present illness Narrative Radiology Service Progress Note PATIENT NAME: Dionne Frausto DATE OF SERVICE: September 28, 2022 TIME: 10:38 AM PATIENT IDENTITY VERIFICATION COMPLETED USING TWO (2) IDENTIFIERS: Name and Date of confirmed by patient verbally. FALL SCREENING: Has the patient had 2 falls in the last year or 1 fall with injury or currently using an Ambulatory Assistive Device (Walker, Cane, Wheelchair, Crutches, etc.)? Yes, Patient High Risk for Falls What interventions were put in place to prevent falls during this visit? Offered Assistance with Transfers/Clothing, Instructed Patient to Remain Seated (Not on Exam Table) Until Exam, and Increased Observations by Caregivers PATIENT GENDER DATA: Female. status: : No status: NO. PATIENT RELEVANT IMPLANT DATA REVIEWED: Not Applicable RADIOLOGY DEPARTMENT: Ultrasound PERIPHERAL IV DATA: Not applicable SIGNED BY: Erica Velasquez RDMS September 28, 2022 10:38 AM documented in this encounter [facility] 09-15-2022 Miscellaneous Notes Patient notified of results, verbalizes understanding of instructions. Lalitha Low MA Please let the patient know that her Iron levels are sufficient. Kidney function is stable. One of her liver enzymes is elevated. We should determine why. I placed an order for additional blood work. Continue current medications. Hany Call APRN.ALIZE documented in this encounter [facility] 08-31-2022 History of Present illness Narrative 08/31/2022 Patient presents with: Derm Problem: sore on bottom of right leg, redness and swollen x 5/4 SUBJECTIVE: This is a 82 year old that is here today for Complaint(s) of sore on right lower leg x 5/4. States she tripped and scraped leg. Area is now slightly red, and tender. No red streaking. Denies fever/chills. Has been trying to leave open to the air. + chronic NORBERT LE edema. . PAST MEDICAL HISTORY Diagnosis Date Malignant melanoma (HCC) 07/2017 Neurofibromatosis (HCC) Unspecified essential hypertension Essential hypertension ALLERGIES Niacin MEDICATIONS Current Outpatient Medications Medication Sig potassium chloride (K-TAB) 10 mEq tablet Take 1 tablet by mouth once daily. hydroCHLOROthiazide (HYDRODIURIL, ESIDRIX) 25 mg tablet Take 1 tablet by mouth once daily. benazepril (LOTENSIN) 20 mg tablet Take 0.5 tablets by mouth once daily. atenolol (TENORMIN) 25 mg tablet Take 1 tablet by mouth once daily. acetaminophen 325 mg cap Acetaminophen Active 500 - 1000 MG EVERY 6 HOURS NEEDED April 22, 2019 1:31am docusate sodium (COLACE) 100 mg capsule Take 100 mg by mouth twice daily. As needed OMEPRAZOLE ORAL Take 20 mg by mouth twice daily. COMPOUNDED PRESCRIPTION 1 Electric Lift Chair/Recliner ICD-10: M47.817, M17.0, M16.0 COMPOUNDED PRESCRIPTION 1 Electric Lift Chair ICD-10: Generalized Weakness R53.1 folic acid 800 mcg tablet Take 1 tablet by mouth once daily. COMPOUNDED PRESCRIPTION Wheeled walker with seat and brakes. Patient needs 5 inch wheels. ICD-10: R26.9 Abnormality of gait Aspirin 81 mg Tab Take 1 tablet by mouth once daily. Take with food. No current facility-administered medications for this visit. SOCIAL HISTORY Social History Tobacco Use Smoking status: Never Smokeless tobacco: Never Vaping Use Vaping Use: Never used Substance Use Topics Alcohol use: No Drug use: No REVIEW OF SYSTEMS See HPI OBJECTIVE: BP 122/70 Pulse 74 Temp 37.1 C (98.7 F) Resp 16 Wt 65.8 kg (145 lb) SpO2 95% BMI 30.31 kg/m APPEARANCE Well appearing, alert, in no acute distress, well-hydrated, well nourished. EXTREMITIES NORBERT LE edema. Right distal LE with mild erythema surrounding approximately 2.5 x 2 cm abrasion with good granulation tissue. and 3 cm x 2 cm abrasion medial and inferior on medial aspect of right LE. + mild TTP around inferior abrasion. + drainage noted. ASSESSMENT/PLAN: 1. Abrasion of right lower extremity, initial encounter - ICD9: 916.0, ICD10: S80.811A (primary diagnosis) Wounds dressed with non-stick bandage and bactroban and guaze. - CEPHALEXIN 500 MG CAPSULE 2. Cellulitis of right lower leg - ICD9: 682.6, ICD10: L03.115 - Begin treatment with Cephalaxin (Keflex) - No lymphangetic streaking, this was defined for patient to watch for and to seek medical care immediately if appears - Area of cellulitis defined with pen, seek further attention if this area continues to enlarge - Follow up for recheck in three to five days, sooner if any red flags-reviewed with patient. Consider consult to wound clinic if not healing. - CEPHALEXIN 500 MG CAPSULE Cr clearance- 37 Elevation of legs recommended. The patient indicates understanding of these issues and agrees with the plan. Cheyanne Sequeira PA-C 08/31/2022 documented in this encounter [facility] 02-23-2022 Miscellaneous Notes Letter created in [employer] encounter. Hany Call APRN.CNP The patient's niece, Marcela Metcalf, called to request a letter of medical recommendation that the mailbox is moved closer to the patient's house. Please contact the patient's niece if there are additional questions. documented in this encounter [facility] 02-23-2022 Miscellaneous Notes Letter created. Hany Call APRN.CNP documented in this encounter [facility] 11-10-2021 Miscellaneous Notes Pt notified of results via [employer]. Kassandra Ramírez Ma ----- Message from Hany Call APRN.CNP sent at 11/10/2021 4:44 PM EDT ----- Please let the patient know that her urine sample was normal, her UTI is gone. Hany Call CNP documented in this encounter [facility] 10-27-2021 Miscellaneous Notes Pt notified and verbalized understanding. Please let the patient know that her repeat urine culture shows continued growth of large amount of bacteria. I have called in a different antibiotic for her to start. I would like for her to again repeat the urine sample 2-3 days after finishing the antibiotic. The following approved medication requests have been transmitted electronically. Signed Prescriptions Disp Refills ciprofloxacin HCl (CIPRO) 500 mg tablet 14 tablet 0 Sig: Take 1 tablet by mouth twice daily for 7 days. Authorizing Provider: HANY CALL APRN.CNP. documented in this encounter [facility] 10-17-2021 Instructions Hany Call APRN.CNP - 10/17/2021 11:05 AM EDT 1. Get blood work completed 2. You have a UTI, we called in a prescription for you to start. We sent a culture to see if it grows any abnormal bacteria 3. Increase fluid intake to flush out infection. 4. Follow up if not improving 5. See us back in 6 months. Hany Call APRN.CNP documented in this encounter [facility] 10-17-2021 History of Present illness Narrative Chief Complaint Patient presents with: Refill Request HPI Dionne Frausto is a 81 year old female who presents here today for Chronic Medical Conditions.. HTN: Patient is compliant with meds Yes Monitors bp at home: Yes. Normal at home Denies side effects: Yes. Chest pain: No. Dyspnea: No. Edema: No. Palpitations: No. Syncope: No. Headache: No. Dizziness: No. History of iron deficiency. She is on daily iron. She is due for blood counts, labs. Has been having dysuria since Wednesday. Some lower back discomfort. Also some frequency and urgency. UA showing UTI present in the office today. Past medical history, appointments, medications, allergies reviewed. Previous Medical History PAST MEDICAL HISTORY Diagnosis Date Malignant melanoma (HCC) 07/2017 Neurofibromatosis (HCC) Unspecified essential hypertension Essential hypertension Previous Surgical History PAST SURGICAL HISTORY Procedure Laterality Date COLONOSCOPY 09/08/2017 Mir EGD 09/08/2017 Mir EGD N/A 03/28/2018 Dr. Hester at [facility] LAPAROSCOPY, SURGICAL, APPENDECTOMY 06-25-08 PAST SURGICAL HISTORY OF Left 09/2017 melanoma excision @ [facility] shoulder REMOVAL GALLBLADDER 1985 Cholecystectomy TOTAL KNEE REPLACEMENT Bilateral 2016 Family History FAMILY HISTORY Problem Relation Age of Onset Cancer Mother site unknown Coronary Artery Disease Father Leukemia Sister leukemia Brain Cancer Sister Hypertension Sister Diabetes Sister Intersitial Lung Disease Sister Cancer Brother Hypertension Brother Colon Cancer Brother No Family History No Family History colon cancer/polyps Patient Allergies ALLERGIES Allergen Reactions Niacin Itching Current Medications Current Outpatient Medications on File Prior to Visit Medication Sig potassium chloride (K-TAB) 10 mEq tablet Take 1 tablet by mouth once daily atenolol (TENORMIN) 25 mg tablet Take 1 tablet by mouth once daily. hydroCHLOROthiazide (HYDRODIURIL, ESIDRIX) 25 mg tablet Take 1 tablet by mouth once daily. acetaminophen 325 mg cap Acetaminophen Active 500 - 1000 MG EVERY 6 HOURS NEEDED April 22, 2019 1:31am benazepril (LOTENSIN) 20 mg tablet Take 0.5 tablets by mouth once daily. ferrous sulfate (IRON) 325 mg (65 mg iron) tablet Take 325 mg by mouth daily with breakfast. docusate sodium (STOOL SOFTENER) 100 mg capsule Take 100 mg by mouth twice daily. As needed OMEPRAZOLE ORAL Take 20 mg by mouth twice daily. COMPOUNDED PRESCRIPTION 1 Electric Lift Chair/Recliner ICD-10: M47.817, M17.0, M16.0 COMPOUNDED PRESCRIPTION 1 Electric Lift Chair ICD-10: Generalized Weakness R53.1 folic acid 800 mcg tablet Take 1 tablet by mouth once daily. COMPOUNDED PRESCRIPTION Wheeled walker with seat and brakes. Patient needs 5 inch wheels. ICD-10: R26.9 Abnormality of gait Aspirin 81 mg Tab Take 1 tablet by mouth once daily. Take with food. No current facility-administered medications on file prior to visit. Social History Social History Tobacco Use Smoking status: Never Smoker Smokeless tobacco: Never Used Vaping Use Vaping Use: Never used Substance Use Topics Alcohol use: No Drug use: No REVIEW OF SYSTEMS: as above Reviewed relevant PMHx, PSHx, Social Hx, current medications and allergies. EXAM: BP 110/70 Pulse 64 Temp 36.8 C (98.3 F) (Left Tympanic) Resp 14 Wt 63.5 kg (140 lb) BMI 29.26 kg/m General Appearance: Well appearing, alert, in no acute distress, well-hydrated, well nourished.. Positioned in a wheelchair. Back:No CVA tenderness Lungs: Lungs clear to auscultation. No wheezing, rhonchi, rales.. Heart: RRR without murmur, gallop, or rubs. No ectopy. Abdomen: soft, nondistended, nontender, no hepatosplenomegaly or masses Extremities: No deformities, edema Health Maintenance List SHINGRIX VACCINE(1 of 2) Never done DTAP,TDAP,TD(1 - Tdap) due on 06/26/2008 COVID-19 VACCINE(3 - Booster for Moderna series) due on 01/27/2021 ADVANCE DIRECTIVE DISCUSSION Never done INFLUENZA(1) due on 12/18/2021 DIABETES SCREEN due on 09/04/2023 BONE DENSITY Completed PNEUMOCOCCAL: 65+ Completed Data reviewed Component Latest Ref Rng & Units 10/17/2021 GLUCOSE UA (POCT) Negative mg/dL Negative BILIRUBIN UA (POCT) Negative Negative KETONE UA (POCT) Negative mg/dL Negative SPECIFIC GRAVITY UA (POCT) 1.005 - 1.030 1.020 HEMOGLOBIN/BLOOD UA (POCT) Negative Trace-intact (A) PH UA (POCT) 4.5 - 8.0 5.5 PROTEIN UA (POCT) Negative mg/dL Negative UROBILINOGEN UA (POCT) Normal E.U./dL 1.0 NITRITE UA (POCT) Negative Positive (A) LEUKOCYTES UA (POCT) Negative Moderate (A) COLOR UA (POCT) Yellow CLARITY UA (POCT) Slightly Cloudy ASSESSMENT/PLAN: 1. UTI symptoms - ICD9: 788.99, ICD10: R39.9 (primary diagnosis) - UA consistent with UTI. Send culture, encouraged to increase fluids, start macrobid. Update symptoms when culture comes back. - UA DIP, URINE (POC) - URINE CULTURE - NITROFURANTOIN MONOHYDRATE & MACROCRYSTAL 100 MG ORAL CAP 2. Low serum potassium level - ICD9: 276.8, ICD10: E87.6 - Check K+ - POTASSIUM CHLORIDE ER 10 MEQ TABLET,EXTENDED RELEASE 3. Essential hypertension, benign - ICD9: 401.1, ICD10: I10 - good control - Continue current medication(s) - Recommended regular aerobic exercise. - Recommend home blood pressure monitoring, to bring results in on next visit - Goal of BP <130/80 - HYDROCHLOROTHIAZIDE 25 MG TABLET - BENAZEPRIL 20 MG TABLET Hany Clal APRN.CNP RTO in 6 months, sooner if needed. This note was partly generated using [employer] voice recognition dictation and may contain some misspelled or inaccurate words missed on review. documented in this encounter [facility] 09-22-2021 Miscellaneous Notes Patient notified. Will have niece call back to schedule appointment. The following approved medication requests have been transmitted electronically. Signed Prescriptions Disp Refills potassium chloride (K-TAB) 10 mEq tablet 90 tablet 0 Sig: Take 1 tablet by mouth once daily LAYLA: No Authorizing Provider: HANY CALL MA Due for visit with PCP team. I sent in 90 days for now. The following approved medication requests have been transmitted electronically. Signed Prescriptions Disp Refills potassium chloride (K-TAB) 10 mEq tablet 90 tablet 0 Sig: Take 1 tablet by mouth once daily LAYLA: No Authorizing Provider: HANY CALL APRN.CNP Patient phones requesting refills as follows: Pending Prescriptions Disp Refills POTASSIUM CHLORIDE ER 10 MEQ TABLET,EXTENDED RELEASE 90 tablet 0 Sig: Take 1 tablet by mouth once daily LAYLA: Yes [place]-08/29/20 Labs-10/11/20 NOV-none med filled 08/29/20 Please review and advise. Fabi Rahman LPN documented in this encounter [facility] 09-08-2021 Miscellaneous Notes The following approved medication requests have been transmitted electronically. Signed Prescriptions Disp Refills atenolol (TENORMIN) 25 mg tablet 90 tablet 3 Sig: Take 1 tablet by mouth once daily. LAYLA: No Authorizing Provider: CHARLENE ERNST hydroCHLOROthiazide (HYDRODIURIL, ESIDRIX) 25 mg tablet 90 tablet 3 Sig: Take 1 tablet by mouth once daily. LAYLA: No Authorizing Provider: CHARLENE ERNST Ma OK to refill as ordered Charlene Ernst MD Patient has been identified by name and date of : Yes Niece phones for refill(s): Pending Prescriptions Disp Refills ATENOLOL 25 MG TABLET 90 tablet 3 Sig: Take 1 tablet by mouth once daily. LAYLA: No HYDROCHLOROTHIAZIDE 25 MG TABLET 90 tablet 3 Sig: Take 1 tablet by mouth once daily. LAYLA: No Date of last office visit with pcp: 08/29/2020 Future appt: none Last 2 Encounter Wt Readings: Date: Wt: 12/04/2020 69.9 kg (154 lb) 08/29/2020 72.1 kg (159 lb) Previous labs/tests for medication: Blood Pressure: BUN (mg/dL) Date Value 09/03/2020 22 Sodium (mmol/L) Date Value 09/03/2020 143 Last 1 Encounter BP Readings: Date: BP: 12/04/2020 132/74 Liver Function: ALT (U/L) Date Value 09/03/2020 22 AST (U/L) Date Value 09/03/2020 31 Please advise. Thank you. Corrie Kumar RN documented in this encounter [facility] 05-09-2008 History of Past i llness Narrative Problem Noted Date Resolved Date APPENDICITIS ACUTE W RUPTURE 05/09/200809/2009 documented as of this encounter (statuses as of 09/08/2021) [facility] of Past illness Narrative* Problem Noted Date Resolved Date APPENDICITIS ACUTE W RUPTURE 05/09/200809/2009 documented as of this encounter (statuses as of 09/22/2021) [facility] of Past illness Narrative* Problem Noted Date Resolved Date APPENDICITIS ACUTE W RUPTURE 05/09/200809/2009 documented as of this encounter (statuses as of 10/17/2021) [facility] of [facility] illness Narrative* Problem Noted Date Resolved Date APPENDICITIS ACUTE W RUPTURE 05/09/200809/2009 documented as of this encounter (statuses as of 10/27/2021) [facility] of Past illness Narrative* Problem Noted Date Resolved Date APPENDICITIS ACUTE W RUPTURE 05/09/200809/2009 documented as of this encounter (statuses as of 11/10/2021) [facility] of [facility] Narrative* Problem Noted Date Resolved Date APPENDICITIS ACUTE W RUPTURE 05/09/200809/2009 documented as of this encounter (statuses as of 02/23/2022) [facility] of [facility] illness Narrative* Problem Noted Date Resolved Date APPENDICITIS ACUTE W RUPTURE 05/09/200809/2009 documented as of this encounter (statuses as of 02/25/2022) [facility] of [facility] illness Narrative* Problem Noted Date Resolved Date APPENDICITIS ACUTE W RUPTURE 05/09/200809/2009 documented as of this encounter (statuses as of 09/01/2022) [facility] of [facility] illness Narrative* Problem Noted Date Resolved Date APPENDICITIS ACUTE W RUPTURE 05/09/200809/2009 documented as of this encounter (statuses as of 09/15/2022) [address]21-2009 History of Past illness Narrative* Problem Noted Date Diagnosed Date Resolved Date APPENDICITIS ACUTE W RUPTURE 05/09/2008 08/22/2009 documented as of this encounter (statuses as of 02/08/2023) [address]-2009 History of Past illness Narrative* Problem Noted Date Diagnosed Date Resolved Date APPENDICITIS ACUTE W RUPTURE 05/09/2008 08/22/2009 documented as of this encounter (statuses as of 02/15/2023) [address]-2009 History of Past illness Narrative* Problem Noted Date Diagnosed Date Resolved Date APPENDICITIS ACUTE W RUPTURE 05/09/2008 08/22/2009 documented as of this encounter (statuses as of 02/20/2023) [address]-2009 History of Past illness Narrative* Problem Noted Date Diagnosed Date Resolved Date APPENDICITIS ACUTE W RUPTURE 05/09/2008 08/22/2009 documented as of this encounter (statuses as of 02/21/2023) [address]-2009 History of Past illness Narrative* Problem Noted Date Diagnosed Date Resolved Date APPENDICITIS ACUTE W RUPTURE 05/09/2008 08/22/2009 documented as of this encounter (statuses as of 02/21/2023) [address]-2009 History of Past illness Narrative* Problem Noted Date Diagnosed Date Resolved Date APPENDICITIS ACUTE W RUPTURE 05/09/2008 08/22/2009 documented as of this encounter (statuses as of 02/21/2023) [address]-2009 History of Past illness Narrative* Problem Noted Date Diagnosed Date Resolved Date APPENDICITIS ACUTE W RUPTURE 05/09/2008 08/22/2009 documented as of this encounter (statuses as of 02/24/2023) [address]-2009 History of Past illness Narrative* Problem Noted Date Diagnosed Date Resolved Date APPENDICITIS ACUTE W RUPTURE 05/09/2008 08/22/2009 documented as of this encounter (statuses as of 03/31/2023) [address]-2009 History of Past illness Narrative* Problem Noted Date Diagnosed Date Resolved Date APPENDICITIS ACUTE W RUPTURE 05/09/2008 08/22/2009 documented as of this encounter (statuses as of 06/02/2023) [facility] Essential [facility], benign [facility] Diagnosis Iron deficiency anemia, unspecified iron deficiency anemia type- Primary Low serum potassium level [facility] Diagnosis UTI symptoms- Primary Other symptoms involving urinary system Low serum potassium level Essential hypertension, benign [facility] Diagnosis Acute cystitis with hematuria- Primary Acute cystitis [facility] noteNo [facility] information [facility]WFire[facility] Work Phone: Evaluation note* Diagnosis Abrasion of right lower extremity, initial encounter- Primary Cellulitis of right lower leg Cellulitis and abscess of leg, except foot [facility] Diagnosis Elevated alkaline phosphatase measurement- Primary Other nonspecific abnormal serum enzyme levels [facility] Diagnosis Cellulitis of right lower leg- Primary Cellulitis and abscess of leg, except foot Lymphedema Other lymphedema Stage 3 chronic kidney disease, unspecified whether stage 3a or 3b CKD (HCC) [facility] Diagnosis Cellulitis of skin- Primary Cellulitis and abscess of unspecified site Abrasion of right lower extremity, subsequent encounter Lymphedema Other lymphedema [facility] Diagnosis Cellulitis of skin- Primary Cellulitis and abscess of unspecified site [facility] Diagnosis Elevated alkaline phosphatase measurement Other nonspecific abnormal serum enzyme levels [facility] Diagnosis Elevated alkaline phosphatase measurement Other nonspecific abnormal serum enzyme levels [facility] Diagnosis Cellulitis of skin- Primary Cellulitis and abscess of unspecified site Lymphedema Other lymphedema Leg weakness, bilateral Other musculoskeletal symptoms referable to limbs [facility] Diagnosis Iron deficiency anemia, unspecified iron deficiency anemia type- Primary Low serum potassium level Essential hypertension, benign Bilateral leg edema Edema Impaired mobility Other ill-defined conditions Malignant melanoma, unspecified site (HCC) PAF (paroxysmal atrial fibrillation) (HCC) Atrial fibrillation Stage 3 chronic kidney disease, unspecified whether stage 3a or 3b CKD (HCC) * Assessment & Plan Note - Charlene Ernst MD - 08/24/2023 5:18 PM EDT Associated Problem(s): Malignant melanoma, unspecified site (HCC) Resolved * Assessment & Plan Note - Charlene Ernst MD - 08/24/2023 5:18 PM EDT Associated Problem(s): PAF (paroxysmal atrial fibrillation) (HCC) Stable * Assessment & Plan Note - Charlene Ernst MD - 08/24/2023 5:18 PM EDT Associated Problem(s): Chronic kidney disease, stage III (moderate) (HCC) Monitor [facility] Diagnosis Essential hypertension, benign [facility] Diagnosis Essential hypertension, benign [facility] Diagnosis Iron deficiency anemia, unspecified iron deficiency anemia type- Primary Low serum potassium level Essential hypertension, benign Bilateral leg edema Edema Impaired mobility Other ill-defined conditions Malignant melanoma, unspecified site (HCC) PAF (paroxysmal atrial fibrillation) (HCC) Atrial fibrillation Stage 3 chronic kidney disease, unspecified whether stage 3a or 3b CKD (HCC) Unstable gait- Primary Abnormality of gait Contusion of left knee, subsequent encounter Sprain of right thumb, unspecified site of digit, subsequent encounter Laceration of scalp, subsequent encounter Encounter for staple removal Encounter for removal of sutures Fall, subsequent encounter Closed head injury, subsequent encounter Hospital discharge follow-up Other follow-up examination Essential hypertension, benign UTI symptoms Other symptoms involving urinary system Acute cystitis with hematuria Acute cystitis [facility] Diagnosis Iron deficiency anemia, unspecified iron deficiency anemia type- Primary Low serum potassium level Essential hypertension, benign Bilateral leg edema Edema Impaired mobility Other ill-defined conditions Malignant melanoma, unspecified site (HCC) PAF (paroxysmal atrial fibrillation) (HCC) Atrial fibrillation Stage 3 chronic kidney disease, unspecified whether stage 3a or 3b CKD (HCC) Essential hypertension, benign- Primary Dysuria Unstable gait Abnormality of gait Iron deficiency anemia, unspecified iron deficiency anemia type [facility] Diagnosis Iron deficiency anemia, unspecified iron deficiency anemia type- Primary Low serum potassium level Essential hypertension, benign Bilateral leg edema Edema Impaired mobility Other ill-defined conditions Malignant melanoma, unspecified site (HCC) PAF (paroxysmal atrial fibrillation) (HCC) Atrial fibrillation Stage 3 chronic kidney disease, unspecified whether stage 3a or 3b CKD (HCC) Essential hypertension, benign [facility] Diagnosis Iron deficiency anemia, unspecified iron deficiency anemia type- Primary Low serum potassium level Essential hypertension, benign Bilateral leg edema Edema Impaired mobility Other ill-defined conditions Malignant melanoma, unspecified site (HCC) PAF (paroxysmal atrial fibrillation) (HCC) Atrial fibrillation Stage 3 chronic kidney disease, unspecified whether stage 3a or 3b CKD (HCC) Essential hypertension, benign [facility] Diagnosis Iron deficiency anemia, unspecified iron deficiency anemia type- Primary Low serum potassium level Essential hypertension, benign Bilateral leg edema Edema Impaired mobility Other ill-defined conditions Malignant melanoma, unspecified site (HCC) PAF (paroxysmal atrial fibrillation) (HCC) Atrial fibrillation Stage 3 chronic kidney disease, unspecified whether stage 3a or 3b CKD (HCC) Low serum potassium level documented in this encounter [facility] Discharge instructions Additional Instructions Take Tylenol as needed for pain. Use compression stockings as we discussed and try to elevate your leg is much as possible. Especially after 2 days if you have progression or worsening of your symptoms please return to the emergency room.[facility] Work Phone: Reason for referral (narrative)* Diagnostic Procedure Only (Routine) - Closed Specialty Diagnoses / Procedures Referred By Amara alford Referred To Contact MOLECULAR & FUNCTIONAL IMAGING Diagnoses Elevated alkaline phosphatase measurement Procedures NM BONE WHOLE BODY BONE &/JOINT IMAGING WHOLE BODY Hany Call APRN.CNP [address] [place] [address] Molecular & Functional Imaging [address] [place] [address] Referral ID Status Reason Start Date Expiration Date V isits Requested Visits Authorized [id number] Closed Auto-Generate d Referral 09/22/2022 10/22/2023 1 1 [facility] for referral (narrative)* Diagnostic Procedure Only (Routine) - Closed Specialty Diagnoses / Procedures Referred By Amara alford Referred To Contact US IMAGING Diagnoses Elevated alkaline phosphatase measurement Procedures US ABD RIGHT UPPER QUADRANT US ABDOMINAL REAL TIME W/IMAGE LIMITED Oneyda, Hany, BOOM STICK WORKER.GRAIN ORIGINATION SPECIALIST [address] [place] [address] [place] [address] Referral ID Status Reason Start Date Expiration Date V isits Requested Visits Authorized [id number] Closed Auto-Generate d Referral 09/22/2022 10/22/2023 1 1 [facility] for visit Narrative* Diagnostic Procedure Only (Routine) - Closed Specialty Diagnoses / Procedures Referred By Contac t Referred To Contact MOLECULAR & FUNCTIONAL IMAGING Diagnoses Elevated alkaline phosphatase measurement Procedures NM BONE WHOLE BODY BONE &/JOINT IMAGING WHOLE BODY Hany Call APRN.CNP [address] [place] [address] Molecular & Functional Imaging [address] [place] [address] Referral ID Status Reason Start Date Expiration Date V isits Requested Visits Authorized [id number] Closed Auto-Generate d Referral 09/22/2022 10/22/2023 1 1 [facility] Summary Purpose Family History No Family History Records Found Relationship Condition Age at Onset Recorded Date/T cristina father Cardiac disease Unknown Disorder of lung Unknown Alcohol abuse Unknown sister Intracranial tumor Unknown Non-Hodgkin's lymphoma Unknown grandmother Malignant neoplasm of stomach Unknown mother Malignant neoplasm Unknown Advance Directives No Advanced Directives Records Found Advance Directive Response Recorded Date/ Time Advance Directives No November 02 10:29am Living Will No June 12 023 10:23am Power of Manager Business Intelligence No June 12, 2022 10:23am Documents on File Type Date 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 Advance Directive(s) 06/27/2024 5:40 PM Chief Complaint and Reason for Visit Chief Complaint lower ext Additional Source Comments INFORMATION SOURCE (unrecogn ized section and content) DATE CREATED AUTHOR 10/05/2017 [facility] DATE CREATED AUTHOR AUTHOR'S ORGANIZ ATION 10/05/2017 [facility] DATE CREATED AUTHOR AUTHOR'S ORGANIZ ATION 10/06/2017 [facility] DATE CREATED AUTHOR AUTHOR'S ORGANIZ ATION 11/12/2017 [facility] DATE CREATED AUTHOR AUTHOR'S ORGANIZ ATION 06/17/2024 [facility] DATE CREATED AUTHOR AUTHOR'S ORGANIZ ATION 01/08/2025 [facility] Source Comments (unrecognize d section and content) In the event this informatio n is protected by the Federal Confidentiality of Alcohol and Drug Abuse Patient Records regulations: The Federal rules restrict any use of the information to criminally investigate or prosecute any alcohol or drug abuse patient.[facility] the event this information is protected by the Federal Confidentiality of Alcohol and Drug Abuse Patient Records regulations: The Federal rules restrict any use of the information to criminally investigate or prosecute any alcohol or drug abuse patient.[facility]In the event this information is protected by the Federal Confidentiality of Alcohol and Drug Abuse Patient Records regulations: The Federal rules restrict any use of the information to criminally investigate or prosecute any alcohol or drug abuse patient.[facility] HospitalIn the event this information is protected by the Federal Confidentiality of Alcohol and Drug Abuse Patient Records regulations: The Federal rules restrict any use of the information to criminally investigate or prosecute any alcohol or drug abuse patient.[facility] HospitalIn the event this information is protected by the Federal Confidentiality of Alcohol and Drug Abuse Patient Records regulations: The Federal rules restrict any use of the information to criminally investigate or prosecute any alcohol or drug abuse patient.[facility] HospitalIn the event this information is protected by the Federal Confidentiality of Alcohol and Drug Abuse Patient Records regulations: The Federal rules restrict any use of the information to criminally investigate or prosecute any alcohol or drug abuse patient.[facility] HospitalIn the event this information is protected by the Federal Confidentiality of Alcohol and Drug Abuse Patient Records regulations: The Federal rules restrict any use of the information to criminally investigate or prosecute any alcohol or drug abuse patient.[facility] HospitalIn the event this information is protected by the Federal Confidentiality of Alcohol and Drug Abuse Patient Records regulations: The Federal rules restrict any use of the information to criminally investigate or prosecute any alcohol or drug abuse patient.[facility] HospitalIn the event this information is protected by the Federal Confidentiality of Alcohol and Drug Abuse Patient Records regulations: The Federal rules restrict any use of the information to criminally investigate or prosecute any alcohol or drug abuse patient.[facility] HospitalIn the event this information is protected by the Federal Confidentiality of Alcohol and Drug Abuse Patient Records regulations: The Federal rules restrict any use of the information to criminally investigate or prosecute any alcohol or drug abuse patient.[facility] HospitalIn the event this information is protected by the Federal Confidentiality of Alcohol and Drug Abuse Patient Records regulations: The Federal rules restrict any use of the information to criminally investigate or prosecute any alcohol or drug abuse patient.[facility] HospitalIn the event this information is protected by the Federal Confidentiality of Alcohol and Drug Abuse Patient Records regulations: The Federal rules restrict any use of the information to criminally investigate or prosecute any alcohol or drug abuse patient.[facility] HospitalIn the event this information is protected by the Federal Confidentiality of Alcohol and Drug Abuse Patient Records regulations: The Federal rules restrict any use of the information to criminally investigate or prosecute any alcohol or drug abuse patient.[facility] HospitalIn the event this information is protected by the Federal Confidentiality of Alcohol and Drug Abuse Patient Records regulations: The Federal rules restrict any use of the information to criminally investigate or prosecute any alcohol or drug abuse patient.[facility] HospitalIn the event this information is protected by the Federal Confidentiality of Alcohol and Drug Abuse Patient Records regulations: The Federal rules restrict any use of the information to criminally investigate or prosecute any alcohol or drug abuse patient.[facility] HospitalIn the event this information is protected by the Federal Confidentiality of Alcohol and Drug Abuse Patient Records regulations: The Federal rules restrict any use of the information to criminally investigate or prosecute any alcohol or drug abuse patient.[facility] HospitalIn the event this information is protected by the Federal Confidentiality of Alcohol and Drug Abuse Patient Records regulations: The Federal rules restrict any use of the information to criminally investigate or prosecute any alcohol or drug abuse patient.[facility] HospitalIn the event this information is protected by the Federal Confidentiality of Alcohol and Drug Abuse Patient Records regulations: The Federal rules restrict any use of the information to criminally investigate or prosecute any alcohol or drug abuse patient.[facility] HospitalIn the event this information is protected by the Federal Confidentiality of Alcohol and Drug Abuse Patient Records regulations: The Federal rules restrict any use of the information to criminally investigate or prosecute any alcohol or drug abuse patient.[facility] HospitalIn the event this information is protected by the Federal Confidentiality of Alcohol and Drug Abuse Patient Records regulations: The Federal rules restrict any use of the information to criminally investigate or prosecute any alcohol or drug abuse patient.[facility] HospitalIn the event this information is protected by the Federal Confidentiality of Alcohol and Drug Abuse Patient Records regulations: The Federal rules restrict any use of the information to criminally investigate or prosecute any alcohol or drug abuse patient.[facility] HospitalIn the event this information is protected by the Federal Confidentiality of Alcohol and Drug Abuse Patient Records regulations: The Federal rules restrict any use of the information to criminally investigate or prosecute any alcohol or drug abuse patient.[facility] HospitalIn the event this information is protected by the Federal Confidentiality of Alcohol and Drug Abuse Patient Records regulations: The Federal rules restrict any use of the information to criminally investigate or prosecute any alcohol or drug abuse patient.[facility] HospitalIn the event this information is protected by the Federal Confidentiality of Alcohol and Drug Abuse Patient Records regulations: The Federal rules restrict any use of the information to criminally investigate or prosecute any alcohol or drug abuse patient.[facility] HospitalIn the event this information is protected by the Federal Confidentiality of Alcohol and Drug Abuse Patient Records regulations: The Federal rules restrict any use of the information to criminally investigate or prosecute any alcohol or drug abuse patient.[facility] HospitalIn the event this information is protected by the Federal Confidentiality of Alcohol and Drug Abuse Patient Records regulations: The Federal rules restrict any use of the information to criminally investigate or prosecute any alcohol or drug abuse patient.[facility] HospitalIn the event this information is protected by the Federal Confidentiality of Alcohol and Drug Abuse Patient Records regulations: The Federal rules restrict any use of the information to criminally investigate or prosecute any alcohol or drug abuse patient.[facility] HospitalIn the event this information is protected by the Federal Confidentiality of Alcohol and Drug Abuse Patient Records regulations: The Federal rules restrict any use of the information to criminally investigate or prosecute any alcohol or drug abuse patient.[facility] HospitalIn the event this information is protected by the Federal Confidentiality of Alcohol and Drug Abuse Patient Records regulations: The Federal rules restrict any use of the information to criminally investigate or prosecute any alcohol or drug abuse patient.[facility] HospitalIn the event this information is protected by the Federal Confidentiality of Alcohol and Drug Abuse Patient Records regulations: The Federal rules restrict any use of the information to criminally investigate or prosecute any alcohol or drug abuse patient.[facility] HospitalIn the event this information is protected by the Federal Confidentiality of Alcohol and Drug Abuse Patient Records regulations: The Federal rules restrict any use of the information to criminally investigate or prosecute any alcohol or drug abuse patient.[facility] HospitalIn the event this information is protected by the Federal Confidentiality of Alcohol and Drug Abuse Patient Records regulations: The Federal rules restrict any use of the information to criminally investigate or prosecute any alcohol or drug abuse patient.[facility] HospitalIn the event this information is protected by the Federal Confidentiality of Alcohol and Drug Abuse Patient Records regulations: The Federal rules restrict any use of the information to criminally investigate or prosecute any alcohol or drug abuse patient.[facility] HospitalIn the event this information is protected by the Federal Confidentiality of Alcohol and Drug Abuse Patient Records regulations: The Federal rules restrict any use of the information to criminally investigate or prosecute any alcohol or drug abuse patient.[facility] HospitalIn the event this information is protected by the Federal Confidentiality of Alcohol and Drug Abuse Patient Records regulations: The Federal rules restrict any use of the information to criminally investigate or prosecute any alcohol or drug abuse patient.[facility] the event this information is protected by the Federal Confidentiality of Alcohol and Drug Abuse Patient Records regulations: The Federal rules restrict any use of the information to criminally investigate or prosecute any alcohol or drug abuse patient.[facility] HospitalIn the event this information is protected by the Federal Confidentiality of Alcohol and Drug Abuse Patient Records regulations: The Federal rules restrict any use of the information to criminally investigate or prosecute any alcohol or drug abuse patient.[facility] HospitalIn the event this information is protected by the Federal Confidentiality of Alcohol and Drug Abuse Patient Records regulations: The Federal rules restrict any use of the information to criminally investigate or prosecute any alcohol or drug abuse patient.[facility]In the event this information is protected by the Federal Confidentiality of Alcohol and Drug Abuse Patient Records regulations: The Federal rules restrict any use of the information to criminally investigate or prosecute any alcohol or drug abuse patient.[facility] Reason for Visit (unrecogniz ed section and content) Reason Onset Date Comments Refill Request 09/08/2021 Reason Comments Refill Request Reason Comments Results Reason Comments Patient Question Reason Comments Derm Problem sore on bottom of ri ght leg, redness and swollen x / Reason Comments LESION, SKIN open sore on right l ower leg x couple weeks Reason Comments Cellulitis Reason Comments Follow Up For UC visit 02/08 & IM visit 01/19.; NORBERT leg edema with sore on RIGHT lower leg Reason Comments Radiology NM Specialty Diagnoses / Procedures Referred By Contac t Referred To Contact MOLECULAR & FUNCTIONAL IMAGING Diagnoses Elevated alkaline phosphatase measurement Procedures NM BONE WHOLE BODY BONE &/JOINT IMAGING WHOLE BODY Hany Call APRN.GRAIN ORIGINATION SPECIALIST [address] [place] [address] Molecular & Functional Imaging [address] [place] [address] Referral ID Status Reason Start Date Expiration Date V isits Requested Visits Authorized [id number] Closed Auto-Generate d Referral 09/22/2022 10/22/2023 1 1 Reason Comments Radiology US Specialty Diagnoses / Procedures Referred By Contac t Referred To Contact US IMAGING Diagnoses Elevated alkaline phosphatase measurement Procedures US ABD RIGHT UPPER QUADRANT US ABDOMINAL REAL TIME W/IMAGE LIMITED Hany Call APRN.GRAIN ORIGINATION SPECIALIST [address] [place] [address] [place] [address] Referral ID Status Reason Start Date Expiration Date V isits Requested Visits Authorized [id number] Closed Auto-Generate d Referral 09/22/2022 10/22/2023 1 1 Reason Comments Medication Request Reason Onset Date Comments Population Health Navigation Outreach 06/02/2023 HCC Gaps Reason Onset Date Comments Population Health Navigation Outreach 08/11/2023 [facility] AWV/HCC and care gaps Reason Comments Discussion Would like to discus s getting Home Health Care Reason Comments [facility] agency in network Reason Comments Home Senior Living Care Reason Onset Date Comments Population Health Navigation Outreach 10/25/2023 Medication Adherence Reason Onset Date Comments Refill Request 10/25/2023 Reason Comments Orders [facility] PT POC- requesting verbal Reason Onset Date Comments Transition Of Care 06/06/2024 [facility] D/C 2024 Reason Comments Medication Update Reason Comments Transition Of Care [facility] fall 06/01/2023o ssible suture removal Reason Onset Date Comments Results 06/12/2024 Reason Comments Occupation Therapy Plan of Care Reason Comments Follow Up 1 month Reason Onset Date Comments Refill Request 09/29/2024 Care Teams (unrecognized sec tion and content) Coordinate Measuring Machine Operator Relationship Specialty Start Date End Date Charlene Ernst MD [address] [place] [address] PCP - General 10/26/06 Coordinate Measuring Machine Operator Relationship Specialty Start Date End Date Charlene Ernst MD [address] [place] [address] PCP - General 10/26/06 Coordinate Measuring Machine Operator Relationship Specialty Start Date End Date Charlene Ernst MD [address] [place] [address] PCP - General 10/26/06 Coordinate Measuring Machine Operator Relationship Specialty Start Date End Date Charlene Ernst MD [address] [place] [address] PCP - General 10/26/06 Coordinate Measuring Machine Operator Relationship Specialty Start Date End Date Charlene Ernst MD [address] [place] [address] PCP - General 10/26/06 Coordinate Measuring Machine Operator Relationship Specialty Start Date End Date Charlene Ernst MD [address] [place] [address] PCP - General 10/26/06 Team Status: Active Member Role Status Dates Dr. Charlene Ernst MD Family Provider Active Dr. Charlene Ernst MD Primary Care Provider Active Team Status: Inactive Member Role Status Dates Dr. Charlene Ernst MD Primary Care Provider Active Dr. Esperanza Mack , Emergency Provider Active Coordinate Measuring Machine Operator Relationship Specialty Start Date End Date Charlene Ernst MD [address] [place] [address] PCP - General 10/26/06 Coordinate Measuring Machine Operator Relationship Specialty Start Date End Date Charlene Ernst MD [address] [place] [address] PCP - General 10/26/06 Coordinate Measuring Machine Operator Relationship Specialty Start Date End Date Charlene Ernst MD [address] [place] [address] PCP - General 10/26/06 Coordinate Measuring Machine Operator Relationship Specialty Start Date End Date Charlene Ernst MD [address] [place] [address] PCP - General 10/26/06 Coordinate Measuring Machine Operator Relationship Specialty Start Date End Date Charlene Ernst MD [address] [place] [address] PCP - General 10/26/06 Coordinate Measuring Machine Operator Relationship Specialty Start Date End Date Charlene Ernst MD [address] [place] [address] PCP - General 10/26/06 Coordinate Measuring Machine Operator Relationship Specialty Start Date End Date Charlene Ernst MD [address] [place] [address] PCP - General 10/26/06 Coordinate Measuring Machine Operator Relationship Specialty Start Date End Date Charlene Ernst MD [address] [place] [address] PCP - General 10/26/06 Coordinate Measuring Machine Operator Relationship Specialty Start Date End Date Charlene Ernst MD [address] [place] [address] PCP - General 10/26/06 Coordinate Measuring Machine Operator Relationship Specialty Start Date End Date Charlene Ernst MD [address] [place] [address] PCP - General 10/26/06 Coordinate Measuring Machine Operator Relationship Specialty Start Date End Date Charlene Ernst MD [address] [place] [address] PCP - General 10/26/06 Coordinate Measuring Machine Operator Relationship Specialty Start Date End Date Charlene Ernst MD [address] [place] [address] PCP - General 10/26/06 Coordinate Measuring Machine Operator Relationship Specialty Start Date End Date Charlene Ernst MD [address] [place] [address] PCP - General 10/26/06 Coordinate Measuring Machine Operator Relationship Specialty Start Date End Date Charlene Ernst MD [address] [place] [address] PCP - General 10/26/06 Coordinate Measuring Machine Operator Relationship Specialty Start Date End Date Charlene Ernst MD [address] [place] [address] PCP - General 10/26/06 Aziza Suero APRN.GRAIN ORIGINATION SPECIALIST [address] [place] [address] [facility] 03/26/24 Hany Call APRN.GRAIN ORIGINATION SPECIALIST [address] [place] [address] [facility] 04/04/24 Coordinate Measuring Machine Operator Relationship Specialty Start Date End Date Charlene Ernst MD [address] [place] [address] PCP - General 10/26/06 Aziza Suero APRN.GRAIN ORIGINATION SPECIALIST [address] [place] [address] [facility] 03/26/24 Hany Call APRN.GRAIN ORIGINATION SPECIALIST [address] [place] [address] [facility] 04/04/24 Coordinate Measuring Machine Operator Relationship Specialty Start Date End Date Charlene Ernst MD [address] [place] [address] PCP - General 10/26/06 Aziza Suero APRN.GRAIN ORIGINATION SPECIALIST [address] [place] [address] [facility] 03/26/24 Hany Call APRN.GRAIN ORIGINATION SPECIALIST [address] [place] [address] Floor Representative Family Medicine 04/04/24 Coordinate Measuring Machine Operator Relationship Specialty Start Date End Date Charlene Ernst MD [address] [place] [address] PCP - General 10/26/06 Aziza Suero APRN.GRAIN ORIGINATION SPECIALIST [address] [place] [address] [facility] 03/26/24 Hany Call APRN.GRAIN ORIGINATION SPECIALIST [address] [place] [address] [facility] 04/04/24 Coordinate Measuring Machine Operator Relationship Specialty Start Date End Date Charlene Ernst MD [address] [place] [address] PCP - General 10/26/06 Aziza Suero APRN.GRAIN ORIGINATION SPECIALIST [address] [place] [address] [facility] 03/26/24 Hany Call APRN.GRAIN ORIGINATION SPECIALIST [address] [place] [address] [facility] 04/04/24 Coordinate Measuring Machine Operator Relationship Specialty Start Date End Date Charlene Ernst MD [address] [place] [address] PCP - General 10/26/06 Aziza Suero APRN.GRAIN ORIGINATION SPECIALIST [address] [place] [address] [facility] 03/26/24 Hany Call APRN.GRAIN ORIGINATION SPECIALIST [address] [place] [address] Floor Representative [facility] 04/04/24 Coordinate Measuring Machine Operator Relationship Specialty Start Date End Date Charlene Ernst MD [address] [place] [address] PCP - General 10/26/06 Aziza Suero, BOOM STICK WORKER.GRAIN ORIGINATION SPECIALIST [address] [place] [address] Floor Representative [facility] Medicine 03/26/24 Hany Call BOOM STICK WORKER.GRAIN ORIGINATION SPECIALIST [address] [place] [address] [facility] 04/04/24 Coordinate Measuring Machine Operator Relationship Specialty Start Date End Date Charlene Ernst MD [address] [place] [address] PCP - General 10/26/06 Hany Call BOOM STICK WORKER.GRAIN ORIGINATION SPECIALIST [address] [place] [address] [facility] 04/04/24 Coordinate Measuring Machine Operator Relationship Specialty Start Date End Date Charlene Ernst MD [address] [place] [address] PCP - General 10/26/06 Hany Call APRN.GRAIN ORIGINATION SPECIALIST [address] [place] [address] [facility] 04/04/24 Coordinate Measuring Machine Operator Relationship Specialty Start Date End Date Charlene Ernst MD [address] [place], [place] [address] PCP - General 10/26/06 Hany Call APRN.GRAIN ORIGINATION SPECIALIST [address] [place], [place] [address] Floor Representative Family Medicine 04/04/24 Goals (unrecognized section and content) Goals may be documented in a n alternate section FOR RECORDS PERTAINING TO PATIENTS WHO ARE OR HAVE BEEN ENROLLED IN A CHEMICAL DEPENDENCY/SUBSTANCEABUSE PROGRAM, SOME INFORMATION MAY BE OMITTED. This clinical summary was aggregated from multiple sources. Caution should be exercised in using it in the provision of clinical care. This summary normalizes information from multiple sources, and as a consequence, information in this document may materially change the coding, format and clinical context of patient data. In addition, data may be omitted in some cases. CLINICAL DECISIONS SHOULD BE BASED ON THE PRIMARY CLINICAL RECORDS. [employer] provides no warranty or guarantee of the accuracy or completeness of information in this document.
[2025-04-15 14:19] LABS: Hematocrit 37.8 % (37-47); Hemoglobin 12.1 g/dL (12.0-15.0); Immature Granulocytes Count 0.080 X10^3/uL (0.0-0.0); Mean Corp Hgb Conc 32.0 g/dL (32-36); Mean Corpuscular Volume 88.7 fL (81-99); Mean Platelet Vol. 11.1 fl (6.2-12.0); NRBC Flagged by Analyzer 0 % (0-5); Platelet Count 247 K/mm3 (150-450); RBC Distribution Width CV 14.7 % (11.6-14.6); RBC Distribution Width SD 46.6 fl (35.1-43.9); Red Blood Count 4.26 M/mm3 (4.2-5.4); White Blood Count 12.9 K/mm3 (4.4-11.0)
[2025-04-15 14:43] LABS: Magnesium 2.1 mg/dL (1.5-2.2); Pro- Brain NATRIURETIC PEPTIDE 3517 pg/mL (<=1800)
[2025-04-15 14:44] LABS: AST(SGOT) 42 U/L (<=31); Alanine Aminotransfer ALT/SGPT 30 U/L (<=34); Albumin, Serum 3.9 g/dL (3.4-4.8); Alkaline Phosphatase 370 U/L (35-104); Anion Gap 12 (7-18); BUN 29 mg/dL (4-19); BUN/Creat Ratio 22.2 RATIO (10-20); Bilirubin, Direct 0.55 mg/dL (0.00-0.30); Calcium,Total 9.1 mg/dL (7.6-11.0); Carbon Dioxide 23.0 mmol/L (20.0-29.0); Chloride 104 mmol/L (96-106); Estimated Creatinine Clearance 25.28 ml/min (50-250); Globulin 3.6 g/dL (2.2-4.2); Glucose 116 mg/dL (70-99); Potassium 5.1 mmol/L (3.5-5.1)
--- NOTE | 2025-04-15 14:55 | RAD_ITS ---
PROCEDURE: CHEST 1 VIEW (PORTABLE) 04/15/2025 REASON FOR EXAM: CHF TECHNIQUE: Frontal view of the chest. FINDINGS: There are no focal opacities, pleural effusions, or pneumothoraces. The heart size is unremarkable. The upper abdomen is unremarkable. The osseous structures are intact.
--- NOTE | 2025-04-15 14:56 | EKG12_ITS ---
Test Reason : CHF Blood Pressure : */* mmHG Vent. Rate : 96 BPM Atrial Rate : * BPM P-R Int : * ms QRS Dur : 60 ms QT Int : 344 ms P-R-T Axes : * -3 -6 degrees QTcB Int : 434 ms Possible Atrial fibrillation ; Rhythm assessment limited by artifact/wander Possible Inferior infarct , age undetermined Poor R wave progression Cannot rule out Anterior infarct Abnormal ECG Confirmed by Lj Hawthorne ([id number]), video news editor LILLIAM BAUMANN ([id number]) on 04/17/2025 9:53:13 AM Referred By: Confirmed By: Lj Hawthorne
[2025-04-15 15:27] LABS: Mucous, Urine 0 SEEN /hpf (<or=2+)
[2025-04-15 15:29] LABS: Color, Urine Straw (Yellow); Glucose, Dipstick Normal (Normal); Ketone-Dipstick Negative (Negative); Leukocyte Esterase-Dipstick 25 /ul (Negative); Nitrite-Dipstick Positive (Negative); Occult Blood-Urine Negative /ul (Negative); Protein-Dipstick Negative (Negative); Specific Gravity, Urine 1.005 (1.002-1.030); Urine Bilirubin Dipstick Negative (Negative)
[2025-04-15 15:42] LABS: Red Blood Cells-Urine 0-5 SEEN /hpf (0-5); Squamous Epithelial Cells - UA 0-5 SEEN /hpf (5-10)
--- NOTE | 2025-04-15 15:54 | PCM.HP.STD ---
HPI - General General Date of Admission: 04/15/25 Date of Service: 04/15/25 Chief Complaint: BL LE edema, worsening, stasis blistering. HPI Narrative The patient is an 84 y/o F w/ PMHx: PAF, Overweight, Chronic normocytic anemia/Fe deficiency anemia, CKD stage II per previous GFR trending, GERD w/ Hx GI bleed with gastric ulcer, HTN, Neurofibromatosis, Hx Melanoma stage IIc of the skin of the left shoulder with excision with ongoing continued observation under remission following with Dr. Ruffin who presents to the [facility] ED on 04/15/2025 with history of worsening bilateral lower extremity swelling more notable over the last 3 weeks substantially worsening with stasis blisters opening up with seeping drainage compliant with hydrochlorothiazide 25 mg p.o. daily prompting family to bring patient in for evaluation. Patient of note does sleep in a chair chronically therefore her legs are not notably elevated above her heart at any point during the day or evening. She denies specifically any orthopnea and is unaware specifically of any weight gain. She denies any dyspnea currently. She denies any cough even dry. Of note per discussion with family patient she loves food and eats food from outside restaurants on a significant basis. Discussed concept of salt and associated swelling. Workup in the ED included T97.6, heart rate 98, BP 120/56, respiratory rate 16, 94% on room air, CBC with WBC 12.9, Lluvia 12.1, MCV 88.7, platelet 247 with left shift, CMP with BUN/creatinine 29/1.31, GFR 40, glucose 116, hepatic profile with D bili 0.55, AST 42, alk phos 370 otherwise not marked appearing, magnesium 2.1, NT proBNPII 3517, chest x-ray with no acute cardiopulmonary findings, EKG with rate controlled atrial fibrillation, UA with positive nitrate, urine WBCs mildly elevated, leukocyte esterase 25 with 1+ urine bacteria, urine culture pending per ED. In the ED patient ministered Lasix 60 mg IV x 1. PFSH Medical History (Updated 04/15/25 @ 16:[address] Boston Gonzalez, DO) Constipation Common bile duct dilatation Weight loss Anemia Neurofibromatosis Melanoma of skin Hypertension Benign essential hypertension Home Medications ?Medication ?Instructions ?Recorded ?Last Taken ?Type aspirin 81 mg tablet,delayed 81 mg PO DAILY heart health 04/23/18 02/13/25 History release benazepril 20 mg tablet 10 mg PO DAILY HTN 08/09/17 06/01/24 History atenolol 25 mg tablet 25 mg PO DAILY HTN 09/02/17 06/01/24 History docusate sodium 100 mg capsule 100 mg PO DAILY PRN Constipation 03/17/18 Unknown History omeprazole 20 mg capsule,delayed 20 mg PO BID GERD 03/17/18 06/01/24 History release potassium chloride 10 mEq 10 meq PO DAILY supplement 03/17/18 06/01/24 History capsule,extended release acetaminophen 325 mg tablet 325 mg PO DAILY PRN pain 06/01/24 Unknown History folic acid 800 mcg tablet 800 mcg PO DAILY supplement 06/01/24 06/01/24 History Allergy/AdvReac Type Severity Reaction Status Date / Time niacin AdvReac Intermediate Rash Verified 04/15/25 12:40 Family History Father Heart disease Lung disease Alcohol abuse Sister Brain tumor Non-Hodgkin lymphoma Grandmother Stomach cancer Mother Cancer Surgical History History of melanoma excision History of cholecystectomy History of bilateral knee replacement History of appendectomy History of total knee arthroplasty Social History (Updated 04/15/25 @ 16:[address] Alexia Retaan MD) household members: family Smoking Status: Never smoker alcohol intake: never substance use type: does not use ROS ROS Narrative Admission Review of Systems: CONSTITUTIONAL: No weight loss, fever, chills, + weakness or fatigue. HEENT: Eyes: No visual loss, blurred vision, double vision or yellow sclerae. Ears, Nose, Throat: No hearing loss, sneezing, congestion, runny nose or sore throat. SKIN: No rash or itching, lesions, wounds except + bilateral lower extremity stasis skin changes/erythema, stasis blisters, notable neurofibromatosis lesions diffusely CARDIOVASCULAR: + Significantly increased bilateral lower extremity pitting edema. No chest pain, chest pressure or chest discomfort, palpitations, orthopnea, syncopal events. RESPIRATORY: No shortness of breath, cough or sputum, wheezing, hemoptysis. GASTROINTESTINAL: No anorexia, nausea, vomiting or diarrhea, abdominal pain, melena, BRBPR. GENITOURINARY: No dysuria, frequency, urgency or retention. NEUROLOGICAL: No headache, dizziness, syncope, paralysis, ataxia, numbness or tingling in the extremities, focal weakness, change in bowel or bladder control, seizure. MUSCULOSKELETAL: + muscle, back pain, joint pain or stiffness. HEMATOLOGIC: + Chronic anemia, easy bleeding/bruising. LYMPHATICS: No enlarged nodes. No history of splenectomy. PSYCHIATRIC: No history of depression or anxiety. ENDOCRINOLOGIC: No reports of sweating, cold or heat intolerance. No polyuria or polydipsia. ALLERGIES: No history of asthma, hives, eczema or rhinitis. Patient's Goals Of Care . What would you like to achieve or improve as a result of your hospital stay?: Improve her lower extremity swelling. Vital Signs Vital Signs Vital Signs: 04/15/25 12:40 04/15/25 14:11 04/15/25 14:40 Temperature 97.6 F L Temperature Source Temporal Pulse Rate 98 90 Respiratory Rate 16 18 Respiratory Effort Normal Respiratory Pattern Normal Blood Pressure 120/56 L Blood Pressure Mean 77 Pulse Ox 94 100 Oxygen Delivery Method Room Air Room Air Weight Weight: 130 lb 9.6 oz Body Mass Index (BMI) 27.3 Physical Exam Narrative Physical Examination: General: Awake, alert, oriented x 3 and cooperative, seated upright in ED bed, mildly hard of hearing, fatigued but no acute distress. Skin: Normal color, normal turgor, no icterus, no cyanosis except occasional stage ecchymoses, abrasion, notable bilateral extremity venous stasis skin changes, occasional stasis blister noted to the distal extremities. HEENT: AT/NC, EOMI, PERRLA, MMM, no carotid bruits, + JVD noted. Lungs: Diminished, greater bases, mild increased respiratory rate but no obvious distress, no markedly appreciated rales, ronchi or wheezing. Heart: Irregular, rate controlled; no gallop, rub audible. Abdomen: Soft, overweight, NTTP, ND, normal BS, no markedly appreciate HSM. Extremities: No cyanosis, no clubbing, see skin, significant pedal to knee 2-3+ pitting edema. Neurological: Patient awake, alert, oriented as noted, hard of hearing, cognitive function suspect baseline intact; pupils equally reactive to light and accommodation, cranial nerves grossly normal, moving all 4 extremities, no focal deficits, strength severely globally decreased Psychiatric: Affect appears fatigued, no acute evidence of depressive or anxiety feelings. Results Lab / Micro Data 04/15/25 14:05 04/15/25 14:05 Labs: Laboratory Results - last 24 hr 04/15/25 14:05: WBC 12.9 H, RBC 4.26, Hgb 12.1, Hct 37.8, MCV 88.7, MCH 28.4, MCHC 32.0, RDW Std Deviation 46.6 H, RDW Coeff of Bam 14.7 H, Plt Count 247, MPV 11.1, Immature Gran % (Auto) 0.600, Neut % (Auto) 82.4 H, Lymph % (Auto) 7.4 L, Hart % (Auto) 9.3, Eos % (Auto) 0.1, Baso % (Auto) 0.2, Absolute Neuts (auto) 10.7 H, Absolute Lymphs (auto) 0.95, Nucleated RBC % 0, Sodium 138, Potassium 5.1, Chloride 104, Carbon Dioxide 23.0, Anion Gap 12, BUN 29 H, Creatinine 1.31 H, Estim Creat Clear Calc 25.28 L, Est GFR (MDRD) Non-Af 40 L, BUN/Creatinine Ratio 22.2 H, Glucose 116 H, Calcium 9.1, Magnesium 2.1, Total Bilirubin 1.07, Direct Bilirubin 0.55 H, AST 42 H, ALT 30, Alkaline Phosphatase 370 H, NT pro BNP II 3517 H, Total Protein 7.4, Albumin 3.9, Globulin 3.6 04/15/25 15:20: Urine Color Straw, Urine Clarity Clear, Urine pH 7.0, Ur Specific [place] 1.005, Urine Protein Negative, Urine Glucose (UA) Normal, Urine Ketones Negative, Urine Occult Blood Negative, Urine Nitrite Positive H, Urine Bilirubin Negative, Urine Urobilinogen Normal, Ur Leukocyte Esterase 25 H, Urine RBC 0-5 SEEN, Urine WBC 10-25 SEEN, Ur Squamous Epith Cells 0-5 SEEN, Urine Bacteria 1+, Urine Mucus 0 SEEN Imaging Radiology Impression Chest X-Ray 04/15/25 14:55 IMPRESSION: No acute cardiopulmonary findings. Reading Location: [id number] Assessment & Plan Assessment/Plan (1) CHF (congestive heart failure): PLAN: Plan The patient is an 84 y/o F w/ PMHx: PAF, Overweight, Chronic normocytic anemia/Fe deficiency anemia, CKD stage II per previous GFR trending, GERD w/ Hx GI bleed with gastric ulcer, HTN, Neurofibromatosis, Hx Melanoma stage IIc of the skin of the left shoulder with excision with ongoing continued observation under remission following with Dr. Ruffin who presents to the [facility] ED on 04/15/2025 with history of worsening bilateral lower extremity swelling more notable over the last 3 weeks substantially worsening with stasis blisters opening up with seeping drainage compliant with hydrochlorothiazide 25 mg p.o. daily prompting family to bring patient in for evaluation. #1. Acute on chronic bilateral lower extremity edema, debility, serous stasis associated blisters/open wound regions, no specific heart failure history but concern of potential exacerbation new onset unclear EF status in the setting of potentially new onset PAF (likely exacerbating the overload): Patient administered IV lasix in the ED, will admit to PCU, maintain on cardiac telemetry, will continue IV lasix diuresis, monitor I/Os, maintain on intake restriction, continue medical therapy, obtain TSH, per ED magnesium level 2.1. Echocardiogram quested. Will placed on keira wraps with lower extremity elevation. Will continue elevation bilateral lower extremities if able to tolerate. Will continue dressing changes to open stasis regions with wound RN consultation requested. PT/OT/case management consulted for discharge planning #2. Paroxsymal atrial fibrillation, possibly new onset: EKG in ED w/ atrial fibrillation rate controlled. Will maintain on telemetry, magnesium 2.1, will obtain ECHO, obtain TSH level. CHADs scoring appropriate for anticoagulation start at this time thus we will initiate Eliquis regimen. Will change from atenolol to metoprolol given this presentation with dose now. #3. Questionable Acute Urinary Tract Infection: UA upon ED evaluation mildly remarkable with positive nitrite, leukocyte esterase 25 with urine WBCs 10-25 with 1+ urine bacteria, pending UCx, will monitor I/Os, continue IV Rocephin with first dose initiated per ED to be cautious in case of UTI w/ transition as able pending sensitivities and speciation. If urine culture unremarkable de-escalate off. #4. Chronic normocytic anemia/iron deficiency anemia: Admission hemoglobin 12.1, MCV 88.7, previous baseline 11-12, stable, continue to trend. #5. Chronic Kidney Disease Stage II per previous GFR trend: Admission BUN/Cr 29/1.21, GFR 40, baseline renal function primarily 0.9-1.0, repeat BMP in AM. #6. History melanoma: Patient with history of left shoulder melanoma stage IIc, status post previous excision, following with Dr. Montalvo, consider remission with ongoing outpatient observation status. #7. GERD with history of GI bleed: Patient with previous history of concern of gastric mass however biopsies obtained and eventually determined to be gastric ulcer, treated with high-dose PPI at that time, will continue patient omeprazole home regimen. #8. Hypertension: Continue home regimen including benazepril, will change from atenolol to metoprolol as noted above, temporally holding hydrochlorothiazide and using IV Lasix given acute presentation as noted, PRN hydralazine. #9. Neurofibromatosis: Chronic, reportedly stable, encourage follow-up with dermatology as previously arranged for continued close monitoring. #10. DVT prophylaxis: Starting on Eliquis therapy as noted. #11. CODE status: Patient OMAYRA is her niece who is and living will is currently employed. Discussed CODE status at length including difference between FULL code, DNR-CCA and DNR-CC status. Following discussions about the differences in these status, requested DNR-CCA, clarified intubation status and following examples requested no intubation thus CODE STATUS DNR CCA without intubation. Advanced Care Planning Face to Face Time: 16 minutes. Charges/Coding Visit Charges Inpatient E&M: 57205 Init Hosp L3 Procedures Hospitalists Procedures: 40145 Advncd Care Plan 30 Min
[2025-04-15 16:19] LABS: Troponin T High Sensitivity 49 ng/L (<=14)
--- OUTSIDE RECORDS SUMMARY | 2025-04-15 16:26 | XMS RPT_ITS | CCD ---
Author Organization [facility] Care Team Providers Care Hand Buffing Wheel Former Name Role Phone ISABEL, DARINEL E Unavailable [...] Charlene Ernst MD Primary Care Provider Nimo HOTEL GUEST SERVICE AGENT.Aziza HERRMANN Unavailable Oneyda HOTEL GUEST SERVICE AGENT.Hany HERRMANN Unavailable Kassandra Elizabeth Admitting Unavailable Radhames [...] (1 source) Niacin Drug Allergy 11-30-2006 Itching [facility] (20 sources) niacin; Translations: [NIACIN] Drug Allergy 11-30-2006 Itching [facility] Other [facility] Medications Current Medications Medication Drug Class(es) [...] 2018 12:00am take 1 capsule by mo [facility] twice daily as needed docusate sodium (COLACE) [...] on above: Take 1 capsule by mo [facility] twice daily for 7 days. omeprazole 20 [...] on above: Take 1 capsule by mo [facility] two times a day. Take with food [...] Comment on above: [facility]. Problems Active Problems Problem Classification [...] [facility] CNOV[facility]-08-2025 [facility]RA[facility] ([id number]) 1940 F Date Time Provider Department 01/08/25 9:00 AM HANY CALL During your visit today, we recorded the following information about you: Pulse Respiration Blood pressure Weight 80/minute 16/minute 120/72 54 kg Hany Call, BASSEM.CROWNING INSPECTOR 01/08/2025 9:25 AM Signed Chief Complaint Patient [...] is not under the care of a launchman. She has a history of melanoma, which [...] 1. PAF (paroxysmal atrial fibrillation) ([facility]) (I48.0) No current symptoms of atrial fibrillation; managed with atenolol. - Continue atenolol as prescribed. 2. Malignant melanoma, unspecified site ([facility]) (C43.9) History of melanoma excised from [...] to manage edema. - Advised use of financial analysis advisor socks or slippers to prevent tripping hazards. 7. Screening for depression (Z13.31) 8. Encounter for screening examination for other mental health and behavioral disorders (Z13.39) Hany Call APRN.CROWNING INSPECTOR RTO in 6 months, sooner if needed. This note was partly generated using Osper voice recognition dictation and may contain some misspelled or inaccurate words missed on review. Recording using Dragonfly List software for draft documentation of the visit was discussed with the patient/authorized business representative; all questions welcomed and answered. Patient/authorized business representative agreed to proceed Allergies As of [...] screening examinatio (more content not included)... Normal [facility] CNOVon 07-07-2024 CNOV Office Visit ([facility] ) DIONNE FRAUSTO ([id number]) 1940 F Date Time Provider Department 07/07/24 9:00 AM HANY CALL During your visit today, we recorded the following information about you: Pulse Respiration Blood pressure 70/minute 16/minute 128/68 Hany Call APRN.CROWNING INSPECTOR 07/07/2024 9:07 AM Signed Chief Complaint Patient [...] needed. This note was partly generated using Osper voice recognition dictation and may contain some misspelled or inaccurate words missed on review. The patient consented to the use of Dragonfly List software for draft documentation of the visit consistent with [facility]?s Notice of Privacy Practices. Hany Call APRN.CROWNING INSPECTOR 07/07/2024 8:57 AM Signed We discussed your [...] swelling sin (more content not included)... Normal [facility] UA DIP, URINE (POC)on 2024 BILIRUBIN UA (POCT) Negative Negative [facility] CLARITY UA (POCT) Cloudy [facility] COLOR UA (POCT) Dark yellow [facility] GLUCOSE UA (POCT) Negative Negative mg/dL [facility] Hemoglobin Ql (U) Negative Negative [facility] Interpretation and review of laboratory results Abnormal [facility] KETONE UA (POCT) Negative Negative mg/dL [facility] LEUKOCYTES UA (POCT) Negative Negative [facility] NITRITE UA (POCT) Negative Negative [facility] PH UA (POCT) 6 4.5 - 8.0 [facility] Protein Ql (U) 100 mg/dL Abnormal Negative [facility] SPECIFIC GRAVITY UA (POCT) 1.02 1.005 - 1.030 [facility] UROBILINOGEN UA (POCT) 1 Normal E.U./dL [facility] Location:[facility], [address], [place], [address] [facility] POINT OF CARE [facility] Krzysztof 06-12-2024 CNPN Telephone (FAMPWS) DIONNE FRAUSTO ([id number]) 1940 F Date Time Provider Department 06/12/24 [facility] During your visit today, we recorded the following information about you: Guerita Cleveland RN 06/12/2024 9:44 AM Signed Rosalinda OT calling from [facility] to report plan of care for patient and occupational therapy will visit patient 2 times a week for 3 weeks. Occupational therapy will work with patient on ADLs, IADLs. This was also a delay of care do to OT having a full schedule No Call back needed if agreeable GURMEET Haddad Jesse, APRN.ALIZE 06/12/2024 9:56 AM Signed Noted. Agree with plan. Hany Call APRN.CROWNING INSPECTOR Allergies As of Date: 06/12/2024 Noted Allergy [...] Status:Closed by HANY CALL on 06/12/24 Normal [facility] Bacteria Ur Culton 5 Bacteria identified [...] , Intermediate >32 , Resistant >64 Abnormal [facility] Comment on above: Performed By: #### 630-4 ####NEERU Roman [facility] [id number] [address] [address] [place] [facility] CNOVon 06-09-2024 CNOV Office Visit ([facility] ) DIONNE FRAUSTO ([id number]) 1940 F Date Time Provider Department 06/09/24 8:20 AM HANY CALLWS During your visit today, we recorded the following information about you: Pulse Respiration Blood pressure 80/minute 16/minute 117/68 Hany Call APRN.CROWNING INSPECTOR 06/09/2024 9:40 AM Signed Chief Complaint Patient presents with: Transition Of Care: [facility] fall 06/01/2023 Possible suture removal HPI Dionne Frausto is a 83 year old female who presents here today for Hospital Discharge Follow up. follow up for fall, suture removal, head contusion. Patient is here for hospital follow-up and also evaluation for suture removal. Patient went to [facility] on June 01 as for sustaining a [...] Patient tolerated (more content not included)... Normal [facility] UA DIP, URINE (POC)on 2024 BILIRUBIN UA (POCT) Negative Negative [facility] CLARITY UA (POCT) Cloudy [facility] COLOR UA (POCT) Dark yellow [facility] GLUCOSE UA (POCT) Negative Negative mg/dL [facility] Hemoglobin Ql (U) Trace-intact Abnormal Negative [facility] Interpretation and review of laboratory results Abnormal [facility] KETONE UA (POCT) Negative Negative mg/dL [facility] LEUKOCYTES UA (POCT) Small Abnormal Negative [facility] NITRITE UA (POCT) Positive Abnormal Negative [facility] PH UA (POCT) 5.5 4.5 - 8.0 [facility] Protein Ql (U) Trace Abnormal Negative mg/dL [facility] SPECIFIC GRAVITY UA (POCT) 1.02 1.005 - 1.030 [facility] UROBILINOGEN UA (POCT) 0.2 Normal E.U./dL [facility] Location:[facility], [address] [place] [address], [place], [place], [id number] [place] [address] POINT OF CARE [facility] CNPXin 06-07-2024 CNPN Telephone (FAMWS) VENKATDIONNE ([id number]) 1940 F Date Time Provider Department 06/07/24 CHARLENE ERNST During your visit today, we recorded the following information about you: Shazia Klein LPN 06/07/2024 3:02 PM Signed Marley from [facility] calling did intake with patient today. PT [...] 06/09/2024 1:43 PM Signed Phone call to [facility], spoke with Kathrine, gave order for sutures [...] Encounter Status:Closed by HANY CALL on 06/08/24 [facility] Krzysztof 06-06-2024 [facility] D[facility] FRAUSTO ([id number]) 1940 F Date Time Provider Department 06/06/24 [facility] During your visit today, we recorded the following information about you: Guerita Cleveland RN 06/06/2024 1:18 PM Signed Kathrine from [facility] calls to report medication discrepancies. Patient is [...] due to extensive bruising. GURMEET Haddad Jesse, APRN.[facility] 06/06/2024 2:11 PM Signed Noted. HCTZ discontinued. Patient has been on folic acid since 2018. Okay to hold aspirin for 1 week. Hany Call APRN.Renu Clarke RN 06/12/2024 12:21 PM Signed Kathrine from [facility] called and is notified of providers message and instructions. She voices understanding. Renu Calle RN Allergies As of Date: 06/06/2024 Noted Allergy Reaction NIACIN 11/30/2006 9 - Itching Date Reviewed: 08/24/2023 Reviewed by: Kassandra Ramírez MA - Fully Assessed Reason for Visit: Medication Update [0696] Prescriptions as of 06/12/2024 - ciprofloxacin HCl [...] Status:Closed by HANY CALL on 06/06/24 Normal [facility] CBC W/Diff, Automatedon - Absolute Lymph 0.73 X10 3/uL Low 0.83-4.51 [facility] Comment on above: Performed By: #### L100.0100, L500.4050, L501.2300, L501.5200 ####[facility] [address] [place], [address] Absolute Neut 4.3 X10 3/uL Normal 2.0-7.7 [facility] Comment on above: Performed By: #### L100.0100, L500.4050, L501.2300, L501.5200 ####[facility] [address] [place], [address] Basophils/100 WBC (Bld) 0.5 % Normal 0-1 [facility] Comment on above: Performed By: #### L100.0100, L500.4050, L501.2300, L501.5200 ####[facility] [address] [place], [address] Eosinophils/100 WBC (Bld) 2.4 % Normal 0-5 [facility] Comment on above: Performed By: #### L100.0100, L500.4050, L501.2300, L501.5200 ####[facility] [address] [place], [address] Erythrocyte distribution width (RBC) [Ratio] 13.9 % Normal 11.6-14.6 [facility] Comment on above: Performed By: #### L100.0100, L500.4050, L501.2300, L501.5200 ####[facility] [address] [place], [address] Hematocrit (Bld) [Volume fraction] 35.6 % Low 37-47 [facility] Comment on above: Performed By: #### L100.0100, L500.4050, L501.2300, L501.5200 ####[facility] [address] [place], [address] Hemoglobin (Bld) [Mass/Vol] 11.2 g/dL Low 12.0-15.0 [facility] Comment on above: Performed By: #### L100.0100, L500.4050, L501.2300, L501.5200 ####[facility] [address] [place], [address] IG% 0.700 Normal 0.0-0.9 [facility] Comment on above: Result Comment: IG% - Immature Granulocy unique (promyelocytes, myelocytes and metamyelocytes) > 1% indicates that a LEFT SHIFT is Present. Performed By: #### L 100.0100, L500.4050, L501.2300, L501.5200 ####[facility] [address] [place], [address] Lymphocytes/100 WBC (Bld) 12.4 % Low 19-41 [facility] Comment on above: Performed By: #### L100.0100, L500.4050, L501.2300, L501.5200 ####[facility] [address] [place], [address] MCH (RBC) [Entitic mass] 28.1 pg Normal 27.0-32.0 [facility] Comment on above: Performed By: #### L100.0100, L500.4050, L501.2300, L501.5200 ####[facility] [address] [place], [address] MCHC (RBC) [Mass/Vol] 31.5 g/dL Low 32-36 [facility] Comment on above: Performed By: #### L100.0100, L500.4050, L501.2300, L501.5200 ####[facility] [address] [place], [address] MCV (RBC) [Entitic vol] 89.2 fL Normal 81-99 [facility] Comment on above: Performed By: #### L100.0100, L500.4050, L501.2300, L501.5200 ####[facility] [address] [place], [address] Monocytes/100 WBC (Bld) 10.9 % High 0-10 [facility] Comment on above: Performed By: #### L100.0100, L500.4050, L501.2300, L501.5200 ####[facility] [address] [place], [address] Neutrophils/100 WBC (Bld) 73.1 % High 47-70 [facility] Comment on above: Performed By: #### L100.0100, L500.4050, L501.2300, L501.5200 ####[facility] [address] [place], [address] Nucleated RBC (Bld) [#/Vol] 0 10*3/uL Normal 0-5 [facility] Comment on above: Performed By: #### L100.0100, L500.4050, L501.2300, L501.5200 ####[facility] [address] [place], [address] Platelet mean volume (Bld) [Entitic vol] 10.8 fL Normal 6.2-12.0 [facility] Comment on above: Performed By: #### L100.0100, L500.4050, L501.2300, L501.5200 ####[facility] [address] [place], [address] Platelets (Bld) [#/Vol] 195 10*3/uL Normal 150-450 [facility] Comment on above: Performed By: #### L100.0100, L500.4050, L501.2300, L501.5200 ####[facility] [address] [place], [address] RBC (Bld) [#/Vol] 3.99 10*6/uL Low 4.2-5.4 [facility] Comment on above: Performed By: #### L100.0100, L500.4050, L501.2300, L501.5200 ####[facility] [address] [place], [address] RDW SD 45.1 fl High 35.1-43.9 [facility] Comment on above: Performed By: #### L100.0100, L500.4050, L501.2300, L501.5200 ####[facility] [address] [place], [address] WBC (Bld) [#/Vol] 5.9 10*3/uL Normal 4.4-11.0 [facility] Comment on above: Performed By: #### L100.0100, L500.4050, L501.2300, L501.5200 ####[facility] [address] [place], [address] [facility] [place] [facility] DIONNE FRAUSTO ([id number]) 1940 F Date Time Provider Department 06/02/24 CHARLENE ERNST During your visit today, we recorded the following information about you: Corrie Kumar, RN 06/02/2024 4:18 PM Signed Aziza with [facility] calls to ask if provider will follow care orders for PT and OT following hospitalization for fall with lacerations. Patient has degeneration of spine and they would like to work with getting her back to baseline. Please call Aziza back at [phone]. Corrie Kumar, Hany Mann APRN.ALIZE 06/05/2024 10:22 AM Signed Okay to proceed with home PT/OT. Hany Call APRN.Sarah Breaux RN 06/05/2024 11:59 AM Signed Aziza - PT- [facility]- phoned and given provider's message below with [...] healthy? Please phone Aziza- PT with verbal: [phone] Charlene Ernst MD 06/05/2024 12:52 PM Signed [...] Fully Assessed Reason for Visit: Orders [681] [facility] PT POC- requesting verbal [Other] Prescriptions as [...] by CHAR SANTA on 06/05/24 Normal [facility] Metabolic Prof radha 06-02-2024 Albumin [Mass/Vol] 3.4 g/dL Normal 3.2-5.0 [facility] Comment on above: Performed By: #### L100.0100, L500.4050, L501.2300, L501.5200 ####[facility] [address] [place], [address] Albumin/Globulin [Mass ratio] 0.9 {ratio} Normal 0.9-2.4 [facility] Comment on above: Performed By: #### L100.0100, L500.4050, L501.2300, L501.5200 ####[facility] [address] [place], [address] ALK P 152 U/L High 45-117 [facility] Comment on above: Performed By: #### L100.0100, L500.4050, L501.2300, L501.5200 ####[facility] [address] [place], [address] ALT [Catalytic activity/Vol] 26 U/L Normal 13-56 [facility] Comment on above: Performed By: #### L100.0100, L500.4050, L501.2300, L501.5200 ####[facility] [address] [place], [address] AST [Catalytic activity/Vol] 34 U/L Normal 15-37 [facility] Comment on above: Performed By: #### L100.0100, L500.4050, L501.2300, L501.5200 ####[facility] [address] [place], [address] Bilirubin [Mass/Vol] 0.70 mg/dL Normal 0.20-1.00 [facility] Comment on above: Result Comment: For patients on eltrombo pag therapy, use of Dimension Dailey TBIL is not recommended. Performed By: #### L 100.0100, L500.4050, L501.2300, L501.5200 ####[facility] [address] [place], [address] BUN/CRE 25.8 RATIO High 10-20 [facility] Comment on above: Performed By: #### L100.0100, L500.4050, L501.2300, L501.5200 ####[facility] [address] [place], [address] CA,Total 9.2 mg/dL Normal 8.5-10.1 [facility] Comment on above: Performed By: #### L100.0100, L500.4050, L501.2300, L501.5200 ####[facility] [address] [place], [address] Chloride [Moles/Vol] 109 mmol/L High 98-107 [facility] Comment on above: Performed By: #### L100.0100, L500.4050, L501.2300, L501.5200 ####[facility] [address] [place], [address] CO2 [Moles/Vol] 25.0 mmol/L Normal 21.0-32.0 [facility] Comment on above: Performed By: #### L100.0100, L500.4050, L501.2300, L501.5200 ####[facility] [address] [place], [address] Creatinine [Mass/Vol] 0.97 mg/dL Normal 0.55-1.02 [facility] Comment on above: Result Comment: The validity of the calc ulated GFR GFRAA in patients over 70 years has not been determined. Clinical correlation is essential. Performed By: #### L 100.0100, L500.4050, L501.2300, L501.5200 ####[facility] [address] [place], [address] ECRCL 33.96 ml/min Normal [facility] Comment on above: Performed By: #### L100.0100, L500.4050, L501.2300, L501.5200 ####[facility] [address] [place], [address] EST GFR - AA 70 mL/min Normal >60 [facility] Comment on above: Result Comment: GFR Izaiah c Performed By: #### L 100.0100, L500.4050, L501.2300, L501.5200 ####[facility] [address] [place], [address] GAP 6 Normal 5-15 [facility] Comment on above: Performed By: #### L100.0100, L500.4050, L501.2300, L501.5200 ####[facility] [address] [place], [address] GFR/1.73 sq M.predicted among non-blacks MDRD (S/P/Bld) [Vol rate/Area] 58 mL/min/{1.73_m2} Low >60 [facility] Comment on above: Result Comment: Non- GFR Calc Performed By: #### L 100.0100, L500.4050, L501.2300, L501.5200 ####[facility] [address] [place], [address] Globulin (S) [Mass/Vol] 3.6 g/dL Normal 2.2-4.2 [facility] Comment on above: Performed By: #### L100.0100, L500.4050, L501.2300, L501.5200 ####[facility] [address] [place], [address] Glucose [Mass/Vol] 99 mg/dL Normal 74-106 [facility] Comment on above: Performed By: #### L100.0100, L500.4050, L501.2300, L501.5200 ####[facility] [address] [place], [address] Potassium [Moles/Vol] 4.1 mmol/L Normal 3.5-5.1 [facility] Comment on above: Performed By: #### L100.0100, L500.4050, L501.2300, L501.5200 ####[facility] [address] [place], [address] Sodium [Moles/Vol] 140 mmol/L Normal 136-145 [facility] Comment on above: Performed By: #### L100.0100, L500.4050, L501.2300, L501.5200 ####[facility] [address] [place], [address] T PROT 7.0 g/dL Normal 6.4-8.2 [facility] Comment on above: Performed By: #### L100.0100, L500.4050, L501.2300, L501.5200 ####[facility] [address] [place], [address] Urea nitrogen [Mass/Vol] 25 mg/dL High 7-18 [facility] Comment on above: Performed By: #### L100.0100, L500.4050, L501.2300, L501.5200 ####[facility] [address] [place], [address] Discharge Instructionon 05-20 Discharge Instruction [facility] Medical Records Department [address] [place] [address] Instructions for Home/Discharge Instructions 06/02/24 1429 MR#: [id number] Acct: [id number] Name: DIONNE FRAUSTO Rep #: [id number] : 1940 83 From: Radhames Carter MD [...] DO; Dr. Charlene Ernst MD Signed Normal [facility] Magnesiumon 06-02-2024 Magnesium [Mass/Vol] 2.2 mg/dL Normal 1.6-2.6 [facility] Comment on above: Performed By: #### L100.0100, L500.4050, L501.2300, L501.5200 ####[facility] [address] [place], [address] Phosphoruson 06-02-2024 Phosphate [Mass/Vol] 3.2 mg/dL Normal 2.5-4.9 [facility] Comment on above: Performed By: #### L100.0100, L500.4050, L501.2300, L501.5200 ####[facility] [address] [place], [address] 12 Lead EKGon 06-01-2024 12 Lead EKG [facility] Cardiovascular Services [address] [place] [address] 12 Lead EKG 06/01/24 1514 MR#: [id number] Acct: [id number] Name: DIONNE FRAUSTO Rep #: [id number] : 1940 83 From: Sofia Mckeon MD Attending Dr: Dr. Radhames Carter MD Status : DIS JOLANTA Ordering Dr: Anthony Lucero DO Date: 06/01/24 Location: [facility] Sex: F C Admitted: 06/01/24 Test Reason [...] Abnormal ECG Confirmed by ELFEGO CUEVAS, MIGUELITO ([id number]), editorial specialist RENU BAUMANN ([id number]) on 06/05/2024 8:10:26 AM Referred By: Confirmed By: MIGUELITO MCKEON MD 06/05/24 0810 Date _ Sofia Mckeon MD CC: Dr. Charlene Ernst MD; Dr. Radhames Carter MD; Dr. Anthony Lucero DO Signed Normal [facility] Basic Metabolic Profile (BMP )on 06-01-2024 BUN/CRE 30.4 RATIO High 10-20 [facility] Comment on above: Performed By: #### L500.2500, L100.0100, L300.3900, L300.4310 ####[facility] [address] [place], [address] CA,Total 9.0 mg/dL Normal 8.5-10.1 [facility] Comment on above: Performed By: #### L500.2500, L100.0100, L300.3900, L300.4310 ####[facility] [address] [place], [address] Chloride [Moles/Vol] 112 mmol/L High 98-107 [facility] Comment on above: Performed By: #### L500.2500, L100.0100, L300.3900, L300.4310 ####[facility] [address] [place], [address] CO2 [Moles/Vol] 23.0 mmol/L Normal 21.0-32.0 [facility] Comment on above: Performed By: #### L500.2500, L100.0100, L300.3900, L300.4310 ####[facility] [address] [place], [address] Creatinine [Mass/Vol] 1.02 mg/dL Normal 0.55-1.02 [facility] Comment on above: Result Comment: The validity of the calc ulated GFR GFRAA in patients over 70 years has not been determined. Clinical correlation is essential. Performed By: #### L 500.2500, L100.0100, L300.3900, L300.4310 ####[facility] [address] [place], [address] ECRCL 32.86 ml/min Normal [facility] Comment on above: Performed By: #### L500.2500, L100.0100, L300.3900, L300.4310 ####[facility] [address] [place], [address] EST GFR - AA 66 mL/min Normal >60 [facility] Comment on above: Result Comment: GFR Izaiah c Performed By: #### L 500.2500, L100.0100, L300.3900, L300.4310 ####[facility] [address] [place], [address] GAP 5 Normal 5-15 [facility] Comment on above: Performed By: #### L500.2500, L100.0100, L300.3900, L300.4310 ####[facility] [address] [place], [place], [address] GFR/1.73 sq M.predicted among non-blacks MDRD (S/P/Bld) [Vol rate/Area] 55 mL/min/{1.73_m2} Low >60 [facility] Comment on above: Result Comment: Non- GFR Calc Performed By: #### L 500.2500, L100.0100, L300.3900, L300.4310 ####[facility] [address] [place], [address] Glucose [Mass/Vol] 116 mg/dL High 74-106 [facility] Comment on above: Result Comment: Fasting Glucose result f rom 100 to 125 mg/dL suggests IMPAIRED HOMEOSTASIS per A.D.A. criteria. Performed By: #### L 500.2500, L100.0100, L300.3900, L300.4310 ####[facility] [address] [place], [address] Potassium [Moles/Vol] 4.4 mmol/L Normal 3.5-5.1 [facility] Comment on above: Performed By: #### L500.2500, L100.0100, L300.3900, L300.4310 ####[facility] [address] [place], [address] Sodium [Moles/Vol] 140 mmol/L Normal 136-145 [facility] Comment on above: Performed By: #### L500.2500, L100.0100, L300.3900, L300.4310 ####[facility] [address] [place], [address] Urea nitrogen [Mass/Vol] 31 mg/dL High 7-18 [facility] Comment on above: Performed By: #### L500.2500, L100.0100, L300.3900, L300.4310 ####[facility] [address] [place], [address] Brain/Head without Contrasto n 06-01-2024 Brain/Head without Contrast [facility] Imaging Services [address] [place] [address] Brain/Head without Contrast MR#: [id number] Acct: [id number] Name: DIONNE FRAUSTO Rep #: [id number] : 1940 F 83 From: Rafaela Ortiz nd, MD PCP: Dr. Charlene Ernst MD Status: REG ER Study: Brain/Head without Contrast Date of Exam: 05/20 07/11 Exam# [id number] Ordering Dr: Anthony Lucero DO EXAM: BRAIN/HEAD [...] and age-related changes as described. Reading Location: [facility] CC: Dr. Charlene Ernst MD; Dr. Anthony Lucero DO Computer Engineering Professor: Signed Normal [facility] Brain/Head without Contrast [facility] Imaging Services [address] [place] [address]191 Brain/Head without Contrast MR#: [id number] Acct: [id number] Name: DIONNE FRAUSTO Rep #: [id number] : 1940 F 83 From: Silvestre ferguson MD PCP: Dr. Charlene Ernst MD Status: REG Study: Brain/Head without Contrast Date of Exam: 05/20 07/11 Exam# [id number] Ordering Dr: Anthony Lucero DO EXAM: BRAIN/HEAD [...] frontal parietal bones. Cerebral atrophy. Reading Location: [place] [address] CC: Dr. Charlene Ernst MD; Dr. Anthony Lucero DO Computer Engineering Professor: Signed Normal [facility] CBC W/Diff, Automatedon 02- Absolute Lymph 0.77 X10 3/uL Low 0.83-4.51 [facility] Comment on above: Performed By: #### L500.2500, L100.0100, L300.3900, L300.4310 #### [facility] [address] [place], [address] Absolute Neut 6.2 X10 3/uL Normal 2.0-7.7 [facility] Comment on above: Performed By: #### L500.2500, L100.0100, L300.3900, L300.4310 #### [facility] [address] [place], [address] Basophils/100 WBC (Bld) 0.3 % Normal 0-1 [facility] Comment on above: Performed By: #### L500.2500, L100.0100, L300.3900, L300.4310 #### [facility] [address] [place], [address] Eosinophils/100 WBC (Bld) 1.0 % Normal 0-5 [facility] Comment on above: Performed By: #### L500.2500, L100.0100, L300.3900, L300.4310 #### [facility] [address] [place], [address] Erythrocyte distribution width (RBC) [Ratio] 13.8 % Normal 11.6-14.6 [facility] Comment on above: Performed By: #### L500.2500, L100.0100, L300.3900, L300.4310 #### [facility] [address] [place], [address] Hematocrit (Bld) [Volume fraction] 36.3 % Low 37-47 [facility] Comment on above: Performed By: #### L500.2500, L100.0100, L300.3900, L300.4310 #### [facility] [address] [place], [address] Hemoglobin (Bld) [Mass/Vol] 11.3 g/dL Low 12.0-15.0 [facility] Comment on above: Performed By: #### L500.2500, L100.0100, L300.3900, L300.4310 #### [facility] [address] [place], [address] IG% 1.400 High 0.0-0.9 [facility] Comment on above: Result Comment: IG% - Immature Granulocy unique (promyelocytes, myelocytes and metamyelocytes) > 1% indicates that a LEFT SHIFT is Present. Performed By: #### L 500.2500, L100.0100, L300.3900, L300.4310 #### [facility] [address] [place], [address] Lymphocytes/100 WBC (Bld) 9.7 % Low 19-41 [facility] Comment on above: Performed By: #### L500.2500, L100.0100, L300.3900, L300.4310 #### [facility] [address] [place], [address] MCH (RBC) [Entitic mass] 28.2 pg Normal 27.0-32.0 [facility] Comment on above: Performed By: #### L500.2500, L100.0100, L300.3900, L300.4310 #### [facility] [address] [place], [address] MCHC (RBC) [Mass/Vol] 31.1 g/dL Low 32-36 [facility] Comment on above: Performed By: #### L500.2500, L100.0100, L300.3900, L300.4310 #### [facility] [address] [place], [address] MCV (RBC) [Entitic vol] 90.5 fL Normal 81-99 [facility] Comment on above: Performed By: #### L500.2500, L100.0100, L300.3900, L300.4310 #### [facility] [address] [place], [address] Monocytes/100 WBC (Bld) 9.1 % Normal 0-10 [facility] Comment on above: Performed By: #### L500.2500, L100.0100, L300.3900, L300.4310 #### [facility] [address] [place], [address] Neutrophils/100 WBC (Bld) 78.5 % High 47-70 [facility] Comment on above: Performed By: #### L500.2500, L100.0100, L300.3900, L300.4310 #### [facility] [address] [place], [address] Nucleated RBC (Bld) [#/Vol] 0 10*3/uL Normal 0-5 [facility] Comment on above: Performed By: #### L500.2500, L100.0100, L300.3900, L300.4310 #### [facility] [address] [place], [address] Platelet mean volume (Bld) [Entitic vol] 10.6 fL Normal 6.2-12.0 [facility] Comment on above: Performed By: #### L500.2500, L100.0100, L300.3900, L300.4310 #### [facility] [address] [place], [address] Platelets (Bld) [#/Vol] 205 10*3/uL Normal 150-450 [facility] Comment on above: Performed By: #### L500.2500, L100.0100, L300.3900, L300.4310 #### [facility] [address] [place], [address] RBC (Bld) [#/Vol] 4.01 10*6/uL Low 4.2-5.4 [facility] Comment on above: Performed By: #### L500.2500, L100.0100, L300.3900, L300.4310 #### [facility] [address] [place], [address] RDW SD 46.0 fl High 35.1-43.9 [facility] Comment on above: Performed By: #### L500.2500, L100.0100, L300.3900, L300.4310 #### [facility] [address] [place], [address] WBC (Bld) [#/Vol] 7.9 10*3/uL Normal 4.4-11.0 [facility] Comment on above: Performed By: #### L500.2500, L100.0100, L300.3900, L300.4310 #### [facility] [address] [place], [address] Emergency Department Summary on 06-01-2024 Emergency Department Summary [facility] Medical Records Department [address] [place] [address] Emergency Department Summary 06/01/24 MR#: [id number] Acct: [id number] Name: DIONNE FRAUSTO Rep #: [id number] : 1940 83 From: Anthony Arndt PCP: [...] in the past. Tetanus Immunization: <5 years [facility] Medical History (Updated 06/01/24 @ 17:11 by [...] Narrative: Kyph (more content not included)... Normal [facility] Femur Min 2 Viewson 06-01-19 25 Femur Min 2 Views [facility] Imaging Services [address] [place], [place] [address] Femur Min 2 Views MR#: [id number] Acct: [id number] Name: DIONNE FRAUSTO Andi Rep #: [id number] : 1940 F 83 From: Silvestre ferguson MD PCP: Dr. Charlene Ernst MD Status: REG ER Study: Femur Min 2 Views Date of Exam: 06/01/24 Exam# [id number] Ordering Dr: Anthony Lucero DO EXAM: FEMUR [...] status post left knee replacement. Reading Location: [place] [address] CC: Dr. Charlene Ernst MD; Dr. Anthony Lucero DO Computer Engineering Professor: Signed Normal [facility] H AND P Exam - Hospitaliston 06-01-2024 H&P Exam - Hospitalist [facility] Medical Records Department [address] [place] [address] H P Exam - Hospitalist 06/01/24 1711 MR#: [id number] Acct: [id number] Name: DIONNE FRAUSTO Rep #: [id number] : 1940 83 From: Kassandra Elizabeth DO PCP: Dr. Charlene Ernst MD Status:ADM JOLANTA Location: [place] [address] HPI - General General Date of Admission: 06/01/24 Date of Service: 06/01/24 Chief Complaint: Falls/gait instability HPI Narrative DIONNE FRAUSTO, is a 83 F who presented to the emergency department at [facility] on 06/01/2024 after sustaining a mechanical fall [...] with no significant bleeding noted acute fractures [facility] Medical History (Updated 06/01/24 @ [...] color, gretchen (more content not included)... Normal [facility] Hand Min 3 Viewson 5 Hand Min 3 Views [facility] [address] [place], [place] [address] Hand Min 3 Views MR#: [id number] Acct: [id number] Name: DIONNE FRAUSTO Rep #: [id number] : 1940 F 83 From: Silvestre ferguson MD PCP: Dr. Charlene Ernst MD Status: REG ER Study: Hand Min 3 Views Date of Exam: 06/01/24 Exam# [id number] Ordering Dr: Anthony Lucero DO EXAM: HAND [...] digits. Diffuse soft tissue swelling. Reading Location: [facility] CC: Dr. Charlene Ernst MD; Dr. Anthony Lucero DO Computer Engineering Professor: Signed Normal [facility] Partial Thromboplast Timeon 06-01-2024 aPTT Coag (Bld) [Time] 26.3 s Normal 24.1-36.2 [facility] Comment on above: Performed By: #### L500.2500, L100.0100, L300.3900, L300.4310 #### [facility] [address] [place], [address] Prothrombin Time w/INRon INR Coag (PPP) [Relative time] 1.1 {INR} Normal [facility] Comment on above: Performed By: #### L500.2500, L100.0100, L300.3900, L300.4310 #### [facility] [address] [facility] [place], [address] PT Coag (PPP) [Time] 14.5 s Normal 11.7-14.9 [facility] Comment on above: Performed By: #### L500.2500, L100.0100, L300.3900, L300.4310 #### [facility] [address] [place], [address] Spine Cervical without Contr ason 06-01-2024 Spine Cervical without Contras [facility] Imaging Services [address] [place] [address] Spine Cervical without Contras MR#: [id number] Acct: [id number] Name: DIONNE FRAUSTO Rep #: [id number] : 1940 F 83 From: Silvestre ferguson MD PCP: Dr. Charlene rEnst MD Status: REG ER Study: Spine Cervical without Contras Date of Exam: 0 06/01/24 Exam# [id number] Ordering Dr: Anthony Lucero DO PROCEDURE: SPINE [...] use of iterative reconstruction technique). Reading Location: [place] [address] CC: Dr. Charlene Ernst MD; Dr. Anthony Lucero DO Computer Engineering Professor: Signed Normal [facility] Spine Lumbar without Contras ton 06-01-2024 Spine Lumbar without Contrast [facility] Imaging Services [address] [place] [address] Spine Lumbar without Contrast MR#: [id number] Acct: [id number] Name: DIONNE FRAUSTO Rep #: [id number] : 1940 F 83 From: Silvestre ferguson MD PCP: Dr. Charlene Ernst MD Status: REG ER Study: Spine Lumbar without Contrast Date of Exam: Exam# [id number] Ordering Dr: Anthony Lucero DO PROCEDURE: SPINE [...] use of iterative reconstruction technique). Reading Location: [facility] CC: Dr. Charlene Ernst MD; Dr. Anthony Lucero DO Computer Engineering Professor: Signed Normal [facility] Spine Thoracic without Contr ason 06-01-2024 Spine Thoracic without Contras [facility] Imaging Services [address] [place] [address] Spine Thoracic without Contras MR#: [id number] Acct: [id number] Name: DIONNE FRAUSTO Rep #: [id number] : 1940 From: Silvestre ferguson MD PCP: Dr. Charlene Ernst MD Status: REG ER Study: Spine Thoracic without Contras Date of Exam: 0 06/01/24 Exam# [id number] Ordering Dr: Anthony Lucero DO PROCEDURE: SPINE [...] use of iterative reconstruction technique). Reading Location: [place] [address] CC: Dr. Charlene Ernst MD; Dr. Anthony Lucero DO Computer Engineering Professor: Signed Normal [facility] Tibia Fibula 2 Viewson 06-01 Tibia Fibula 2 Views [facility] Imaging Services [address] [place], [place] [address] Tibia Fibula 2 Views MR#: [id number] Acct: [id number] Name: DIONNE FRAUSTO Rep #: [id number] : 1940 From: Lj Peace PCP: Dr. Charlene Ernst MD Status: REG ER Study: Tibia Fibula 2 Views Date of Exam: 06/01/24 Exam# [id number] Ordering Dr: Anthony Lucero DO PROCEDURE: TIBIA [...] out a currently occult fracture. Reading Location: [id number] CC: Dr. Charlene Ernst MD; Dr. Anthony Lucero DO Computer Engineering Professor: Signed Normal [facility] 02-04-2024 [facility] FRAUSTO ([id number]) 1940 F Date Time Provider Department 02/04/24 [...] Status:Closed by BRIANA BAHENA on 02/04/24 Normal [facility] Panel Informationon 10-15 [facility] US ABD RIGHT UPPER QUADRANTo n 09-28-2022 [facility], URINE (POC)on 2021 BILIRUBIN UA (POCT) Negative Negative [facility] CLARITY UA (POCT) Slightly Cloudy [facility] COLOR UA (POCT) Yellow [facility] GLUCOSE UA (POCT) Negative Negative mg/dL [facility] HEMOGLOBIN/BLOOD UA (POCT) Trace-intact Abnormal Negative [facility] KETONE UA (POCT) Negative Negative mg/dL [facility] LEUKOCYTES UA (POCT) Moderate Abnormal Negative [facility] NITRITE UA (POCT) Positive Abnormal Negative [facility] PH UA (POCT) 5.5 4.5 - 8.0 [facility] Protein Ql (U) Negative Negative mg/dL [facility] SPECIFIC GRAVITY UA (POCT) 1.020 1.005 - 1.030 [facility] UROBILINOGEN UA (POCT) 1.0 E.U./dL Normal E.U./dL [facility] ANES Chip 11-10-2017 ANES POST HNO ID: [id number] thor: Jessica Cabrera: AnesthesiologyAuthor Type: PhysicianType: Anesthesia [...] 10, 2017 : 2:43 PM PAGER/CONTACT #: [phone] [facility] ANES PREOPon 11-10-2017 ANES PREOP HNO ID: [id number] thor: Andres Mcnair IVService: AnesthesiologyAuthor Type: AnesthesiologistType: [...] HISTORY OF Left 09/2017 melanoma excision @ [facility] shoulder- REMOVAL GALLBLADDER 1985 Cholecystectomy- TOTAL KNEE [...] M16.0COMPOUNDED PRESCRIPTION 1 Electric Lift ChairICD-10: Generalized GytypqctE67.1folic acid 800 mcg tablet Take 1 tablet [...] 0COMPOUNDED PRESCRIPTION 1 Electric Lift ChairICD-10: Generalized MvqabrilV74.1 Disp: 1 Each Rfl: 0folic acid 800 [...] November 10, 2017 : 11:07 AM CSN: [id number] Normal [facility] CYTOLOGYon 11-10-2017 [facility]OLOGY [facility]: [id number] Physician: MANNY LAUREANOPECWILLY SUBMITTEDA: STOMACH, FINE NEEDLE [...] a discreteevaluation episode. Intra-procedural assessment performed at [facility], [address] [place] [address] GROSS DESCRIPTIONA. STOMACH, FINE NEEDLE ASPIRATE: 8-smears and 30-cc clear Cytolyt STAINSA: STOMACH, FINE NEEDLE ASPIRATE THIN PREP Non-Plastics Nurse, SMEARS PREPARED x 8Patient ID #: [id number] of Report: 11/12/2017Date of Procedure: 11/10/2017Date of Receipt: 11/11/2017Submitted by: MANNY MCCORMACKocation: HLSOPDiagnostic interpretation performed at [facility], [address] [place] [address]. [facility] Comment on above: Performed By: #### FNSTOM ####[place] [place] [address] PROGRESSon 11-10-2017 Protein HNO ID: [id number] thor: Lennie WellsRn) SUMMER Vargaservice: PICC TeamAuthor Type: Registered NurseType: Progress NotesFiled: 11/10/2017 11:50 AMNote Text:PICC/VASCULAR ACCESS PROGRESS NOTESERVICE DATE: 11/10/2017SERVICE TIME: 340719:50 AMRequested to see patient who has had unsuccessful IV attempts, needs newIV. Using ultrasound guidance, A peripheral IV was started in the Leftforearm with a Angio cath: 20 gauge. and A Saline lock was inserted perprotocol 1 1/4 inches in length, on first attempt. Brisk blood return andflushed without difficulty with 10 mL saline. No symptoms ofcomplications.SIGNATURE: Lennie Vargas RN PATIENT NAME: Dionne FraustoDATE: November 10, 2017 : 11:50 AM PAGER/CONTACT #: [phone] [facility] PT EDon 11-10-2017 PT ED HNO ID: [id number] thor: Fauzia WellsRn) SUMMER Guzmanervice: NursingAuthor Type: Registered NurseType: Patient EducationFiled: 11/10/2017 1:34 PMNote Text:POST OP LEARNING RESPONSEINSTRUCTION PROVIDED TO: Patient and family memberMETHOD OF INSTRUCTION: Individual instructionPATIENT / FAMILY RESPONSE: Verbalizes understanding of: YHXJ-BWBNPKPBOHSJMYXJUUQAV-Beqtbly actions to take to reduce postoperative complicationsFOLLOW-UP PLAN: Complete - No need for follow-upSUPPLEMENTAL MATERIAL: NoneREFERRAL (RECOMMENDATION): NoneElectronically Signed By: Fauzia Guzman RN In Department: [facility] PT ED HNO ID: [id number] thor: Michelle (Rn) SUMMER Meanservice: NursingAuthor Type: Registered NurseType: Patient EducationFiled: 11/10/2017 10:57 AMNote Text:PRE OP LEARNING ASSESSMENTPROCEDURE/SURGERY: GI PROCEDURES: EGDREADINESS TO LEARNCOGNITIVE ABILITY: Alert and orientedMOTIVATION TO LEARN: EagerFAMILY SUPPORT: High - Very involved in pt carePATIENT LEARNS BEST BY: Verbal InstructionFACTORS AFFECTING LEARNING: NonePHYSICAL LIMITATIONS AFFECTING LEARNING: NoneElectronically Signed By: Michelle Means RN In Department: [facility] digestive health [facility] SURGICAL PATHOLOGYon 018 SURGICAL PATHOLOGY [facility]: [id number] Physician: MANNY BROWN FINAL DIAGNOSISGastric antrum, biopsy [...] submitted in one cassette.Gross examination performed at [facility], [address] [place] [id number] 11/10/2017 7:06:22 PMPatient ID #: [id number] of Report: 11/11/2017Date of Procedure: 11/10/2017Date of Receipt: 11/10/2017Submitted by: MANNY MCCORMACKocation: HLSOPDiagnostic interpretation performed at [facility], [address] [place] [address]. [facility] Comment on above: Performed By: #### PATHS ####[place] [address] NURSING PROGon 10-26-2017 NURSING PROG HNO ID: [id number] thor: Erum (Rn) Gonzalez, RNService: (none)Author Type: [...] on 10/01 for pre-op clearance; No CP, SC,DVT/PE, Syncope.Last Menstrual Period:LMP Date: N/APostmenopausal >1yr: Yes,S/P Hysterectomy: N/ABMI Percentile (PEDS):N/ARisk Assessment:Cardiac Date: 10/01/17 Dr Gonzalez. - As noted :I've advised her to proceed with surgery as planned. Risk ofperioperative cardiac complications is low to intermediate. No furtherdiagnostic studies are recommended prior to surgery. No guarantees weremadeAnesthesia Review:N/ANarrative:BMI 35.87PAF-no GNDZR-vyeuokkFOV-tz RXAnemia HANDH (9.3/31.3Gastric MassModerate mitral regurgStage 2 diastolic dysfunction-LVEF 60%Pre-op Considerations:N/AChart Check:Denis Styles 2017 2:[address] [facility] HOSPon 10-21-2017 HOSP Patient:Cooper Frausto GMRN: [...] days for the following basenames: K,HCTProgress Notes ([facility]):China Fernandez APRN.CROWNING INSPECTOR 10/24/2017 2:29 PM SignedPlease inform patient that [...] and repease UA prior.Kati Delgadillo, RNProgress Notes ([facility]):Brendon Siddiqui MD 10/22/2017 7:36 PM SignedPatient [...] NegKetones, Urine Neg neg Negative Negative NegSpecific [place], Ur 1.005 - 1.030 1.020 1.021 1.013 [...] next week. - UA withmicro.Brendon Siddiqui MD [facility] LYMPH NODE IMAGINGon - Lymphocytes * * *Final Report* * *DATE OF EXAM: Oct 05 2017 11:38AM YARI 0033 - SC LYMPH NODE IMAGING / REASON: melanoma left [...] image.IMPRESSION: Probable single left axillary sentinel lymph node.Computer Engineering Professor: PSCB Transcribe Date/Time: Oct 05 2017 11:39ADictated by : MARIA EUGENIA EATON MDThis examination was interpreted and the report reviewed and electronically signed by: MARIA EUGENIA EATON MD on Oct 05 2017 11:40AM [id number] [facility] CNOVon 09-01-2017 CNOV Office Visit (AGCARDWST) ANGELINA FRAUSTO ([id number]) 1940 [facility] Time Provider Department09/01/17 11:00 AM [...] - N/ABeta ambar for ASHD with prior SC or prior LVEF<40 (NQF 0070) - N/ABeta [...] multifocal atrial tachycardia.Electronically Signed:Debi [address] 2017 11:31 [facility]: Sesar Moses Provider: CHARLENE ERNST [[id number]]Allergies As of Date: 09/01/2017 Noted Allergy ReactionNIACIN [...] once daily.Follow-up and Disposition History RecordedEncounter Number: [id number] Status:Closed by DARINEL HALL MD on 09/01/17 [facility] PROGRESSon 09-01-2017 PROGRESS HNO ID: [id number] thor: Darinel [place]: (none)Author Type: PhysicianType: Progress NotesFiled: 09/29/2017 10:16 AMNote Text:PERTINENT CARDIAC HISTORYAtrial arrhythmiaHTNHLAnemiaWeight lossNeurofibromatosisADHERENCE TO GUIDELINESACE-I or ARB for HF with prior LVEF<40 (NQF 0081) - N/AASA or Plavix for ASHD (NQF 0067) - N/ABeta ambar for ASHD with prior SC or prior LVEF<40 (NQF 0070) - N/ABeta [...] multifocal atrial tachycardia.Electronically Signed:Debi [address] 2017 11:31 [facility]: Charlene Ernst MD [facility] CNNURSEon 08-25-2017 CNNWW [facility] Nurse Visit (AGCARDWST) ANGELINA FRAUSTO ([id number]) 1940 FDate Time Provider Department08/25/17 1:45 PM NURSE CARD JORDANA ALANIS AGCARDWST During your visit today, we recorded the following information about you:Renu Gibbs (Marcela) 08/25/2017 2:06 PM SignedLifeWatch holter plus applied and instructions given.Patient verbalized understanding.Albert Smyth Provider: DARINEL HALL [[id number]]Allergies As of Date: 08/25/2017 Noted Allergy ReactionNIACIN [...] Status:Closed by RENU GIBBS MA on 08/25/17 [facility]2017 [facility] Office Visit (AGCARDWST) ANGELINA FRAUSTO ([id number]) 1940 FDate Time Provider Department08/25/17 1:00 PM [...] - N/ABeta ambar for ASHD with prior SC or prior LVEF<40 (NQF 0070) - N/ABeta [...] woman who is seen in consultation at [facility] Call CNP, for recommendations [...] Signed:Debi [address] 2017 1:34 [facility]: Charlene Ernst Kenneth E 08/25/2017 1:34 [...] programs in your area.Referring Provider: DARINEL HALL [[id number]]Allergies As of Date: 08/25/2017 Noted Allergy ReactionNIACIN 11/30/2006 9 - ItchingDate Reviewed: 08/25/2017Reviewed by: Renu Gibbs) - Fully AssessedReason for Visit: New Patient [172]Primary Visit Diagnosis:PAF (paroxysmal atrial fibrillation) ([facility]) [I48.0] Other Visit Diagnoses:Essential hypertension [I10] Essential hypertension, benign [I10]Order(s):EVENT MONITOR [[id number]] Order #: [id number]: 1 benazepril (LOTENSIN) 20 mg tabletTake 0.5 [...] the following areas and commit to making intermediate card tender changes. EAT A WHOLE FOOD, PLANT BASED [...] on file.Follow-up and Disposition History RecordedEncounter Number: [id number] Status:Closed by DARINEL HALL MD on 08/27/17 [facility] PROGRESSon 08-25-2017 PROGRESS HNO ID: [id number] thor: Renu Gibbs (Marcela)Service: (none)Author Type: Medical AssistantType: Progress NotesFiled: 08/25/2017 2:06 PMNote Text:LifeWatch holter plus applied and instructions given.Patient verbalized understanding.Renu Gibbs MA [facility] PROGRESS HNO ID: [id number] thor: [facility] EService: (none)Author Type: PhysicianType: Progress NotesFiled: 08/27/2017 11:52 AMNote Text:PERTINENT CARDIAC HISTORYAtrial arrhythmiaHTNHLAnemiaWeight lossADHERENCE TO GUIDELINESACE-I or ARB for HF with prior LVEF<40 (NQF 0081) - N/AASA or Plavix for ASHD (NQF 0067) - N/ABeta ambar for ASHD with prior SC or prior LVEF<40 (NQF 0070) - N/ABeta [...] woman who is seen in consultation at [facility] of Hany Call CNP, for recommendations [...] 2017 1:34 PMCC: Charlene Ernst [facility] Vital Signs Date Time Vital Sign Value Performing Clinician Facility 07-07-2024 08:50-0400 Diastolic blood pressure 68 mm[Hg] Hany Call APRN.CROWNING INSPECTOR Work Phone: [facility] 07-07-2024 08:50-0400 Systolic blood pressure 128 mm[Hg] Hany Call APRN.CROWNING INSPECTOR Work Phone: [facility] 07-07-2024 08:41-0400 Heart rate 70 /min Hany Call APRN.CROWNING INSPECTOR Work Phone: [facility] 07-07-2024 08:41-0400 Respiratory rate 16 /min Hany Call APRN.CROWNING INSPECTOR Work Phone: [facility] 07-07-2024 08:41-0400 SaO2% (BldA) [Mass fraction] 99 % Hany Call APRN.CROWNING INSPECTOR Work Phone: [facility] 06-09-2024 08:15-0500 Diastolic blood pressure 68 mm[Hg] Hany Call APRN.CROWNING INSPECTOR Work Phone: [facility] 06-09-2024 08:15-0500 Heart rate 80 /min Hany Oneyda HOTEL GUEST SERVICE AGENT.CROWNING INSPECTOR Work Phone: [facility] 06-09-2024 08:15-0500 Respiratory rate 16 /min Hany Oneyda HOTEL GUEST SERVICE AGENT.CROWNING INSPECTOR Work Phone: [facility] 06-09-2024 08:15-0500 SaO2% (BldA) [Mass fraction] 99 % Hany Oneyda HOTEL GUEST SERVICE AGENT.CROWNING INSPECTOR Work Phone: [facility] 06-09-2024 08:15-0500 Systolic blood pressure 117 mm[Hg] Hany Oneyda HOTEL GUEST SERVICE AGENT.CROWNING INSPECTOR Work Phone: [facility] 02-19-2023 14:02-0400 Body temperature 98.6 [degF] Hany Oneyda HOTEL GUEST SERVICE AGENT.CROWNING INSPECTOR Work Phone: [facility] 02-19-2023 14:02-0400 Body weight 65.32 kg Hany Oneyda HOTEL GUEST SERVICE AGENT.CROWNING INSPECTOR Work Phone: [facility] 02-19-2023 14:02-0400 Diastolic blood pressure 64 mm[Hg] Hany Oneyda HOTEL GUEST SERVICE AGENT.CROWNING INSPECTOR Work Phone: [facility] 02-19-2023 14:02-0400 Heart rate 73 /min Hany Oneyda HOTEL GUEST SERVICE AGENT.CROWNING INSPECTOR Work Phone: [facility] 02-19-2023 14:02-0400 Respiratory rate 16 /min Hany Oneyda HOTEL GUEST SERVICE AGENT.CROWNING INSPECTOR Work Phone: [facility] 02-19-2023 14:02-0400 SaO2% (BldA) [Mass fraction] 98 % Hany Oneyda HOTEL GUEST SERVICE AGENT.CROWNING INSPECTOR Work Phone: [facility] 02-19-2023 14:02-0400 Systolic blood pressure 112 mm[Hg] Hany Oneyda HOTEL GUEST SERVICE AGENT.CROWNING INSPECTOR Work Phone: [facility] 02-15-2023 09:51-0400 Body weight 65.77 kg Trudy Boggs HOTEL GUEST SERVICE AGENT.ASSISTANT CASE MANAGER Work Phone: [facility] 02-15-2023 09:51-0400 Diastolic blood pressure 59 mm[Hg] Trudy Boggs HOTEL GUEST SERVICE AGENT.ASSISTANT CASE MANAGER Work Phone: [facility] 02-15-2023 09:51-0400 Heart rate 77 /min Trudy Boggs HOTEL GUEST SERVICE AGENT.ASSISTANT CASE MANAGER Work Phone: [facility] 02-15-2023 09:51-0400 Respiratory rate 16 /min Trudy Boggs HOTEL GUEST SERVICE AGENT.ASSISTANT CASE MANAGER Work Phone: [facility] 02-15-2023 09:51-0400 Systolic blood pressure 112 mm[Hg] Trudy Boggs HOTEL GUEST SERVICE AGENT.ASSISTANT CASE MANAGER Work Phone: [facility] 02-08-2023 10:59-0400 Body temperature 98.29 [degF] Brendon Siddiqui MD Work Phone: [facility] 02-08-2023 10:59-0400 Body weight 66.22 kg Brendon Siddiqui MD Work Phone: [facility] 02-08-2023 10:59-0400 Diastolic blood pressure 72 mm[Hg] Brendon Siddiqui MD Work Phone: [facility] 02-08-2023 10:59-0400 Heart rate 80 /min Brendon Siddiqui MD Work Phone: [facility] 02-08-2023 10:59-0400 Respiratory rate 18 /min Brendon Siddiqui MD Work Phone: [facility] 02-08-2023 10:59-0400 SaO2% (BldA) [Mass fraction] 100 % Brendon Siddiqui MD Work Phone: [facility] 02-08-2023 10:59-0400 Systolic blood pressure 122 mm[Hg] Brendon Siddiqui MD Work Phone: [facility] 08-31-2022 11:54-0400 Body temperature 98.71 [degF] Cheyanne Sequeira PA-C Work Phone: [facility] 08-31-2022 11:54-0400 Body weight 65.77 kg Cheyanne Bogner PA-C Work Phone: [facility] 08-31-2022 11:54-0400 Diastolic blood pressure 70 mm[Hg] Cheyanne Bogner PA-C Work Phone: [facility] 08-31-2022 11:54-0400 Heart rate 74 /min Cheyanne Bogner PA-C Work Phone: [facility] 08-31-2022 11:54-0400 Respiratory rate 16 /min Cheyanne Bogner PA-C Work Phone: [facility] 08-31-2022 11:54-0400 SaO2% (BldA) [Mass fraction] 95 % Cheyanne Bogner PA-C Work Phone: [facility] 08-31-2022 11:54-0400 Systolic blood pressure 122 mm[Hg] Cheyanne Bogner PA-C Work Phone: [facility] 06-12-2022 10:01-0500 Body mass index (BMI) [Ratio] 31.1 kg/m2 [facility] 06-12-2022 10:01-0500 Body weight 67.6 kg [facility] 06-12-2022 09:54-0500 Body height 147.32 cm [facility] 06-12-2022 09:54-0500 Body temperature 97.2 [degF] [facility] 06-12-2022 09:54-0500 Diastolic blood pressure 89 mm[Hg] [facility] 06-12-2022 09:54-0500 Heart rate 81 /min [facility] 06-12-2022 09:54-0500 Respiratory rate 18 /min [facility] 06-12-2022 09:54-0500 SaO2% (BldA) [Mass fraction] 95 % [facility] 06-12-2022 09:54-0500 Systolic blood pressure 145 mm[Hg] [facility] 10-17-2021 10:59-0400 Body temperature 98.29 [degF] Hany Call APRN.CNP Work Phone: [facility] 10-17-2021 10:59-0400 Body weight 63.5 kg Hany Oneyda HOTEL GUEST SERVICE AGENT.CROWNING INSPECTOR Work Phone: [facility] 10-17-2021 10:59-0400 Diastolic blood pressure 70 mm[Hg] Hany Oneyda HOTEL GUEST SERVICE AGENT.CROWNING INSPECTOR Work Phone: [facility] 10-17-2021 10:59-0400 Heart rate 64 /min Hany Oneyda HOTEL GUEST SERVICE AGENT.CROWNING INSPECTOR Work Phone: [facility] 10-17-2021 10:59-0400 Respiratory rate 14 /min Hany Oneyda HOTEL GUEST SERVICE AGENT.CROWNING INSPECTOR Work Phone: [facility] 10-17-2021 10:59-0400 Systolic blood pressure 110 mm[Hg] Hany Oneyda HOTEL GUEST SERVICE AGENT.CROWNING INSPECTOR Work Phone: [facility] Encounters Encounter Date Encounter Type Care Provider Facility Start: 01-08-2025 End: 01-08-2025 ambulatory HANY ONEYDA Facility:[facility] Start: 09-29-2024 End: 10-02-2024 Refill Hany Oneyda HOTEL GUEST SERVICE AGENT.CROWNING INSPECTOR Work Phone: [facility] Comment on above: Refill Request Start: 07-25-2024 End: 07-25-2024 ambulatory Hany Call HOTEL GUEST SERVICE AGENT.CROWNING INSPECTOR Work Phone: [facility] Comment on above: Feet swelling Start: 07-07-2024 End: 07-07-2024 ambulatory HANY ONEYDA Facility:[facility] Start: 07-07-2024 End: 07-07-2024 Office outpatient visit 25 minutes Hany Oneyda HOTEL GUEST SERVICE AGENT.CROWNING INSPECTOR Work Phone: [facility] Comment on above: Essential hypertensi on, benign (Primary Dx); Dysuria; Unstable gait; Iron deficiency anemia, unspecified iron deficiency anemia type Start: 06-12-2024 End: 06-12-2024 Follow-up encounter Hany Call HOTEL GUEST SERVICE AGENT.CROWNING INSPECTOR Work Phone: [facility] Start: 06-12-2024 End: 06-12-2024 Telephone encounter Charlene Ernst MD Work Phone: [facility] Comment on above: Occupation Therapy P familia of Care Start: 06-09-2024 End: 06-09-2024 ambulatory HANY CALL Facility:[facility] Start: 06-09-2024 End: 06-09-2024 Office outpatient visit 40 minutes Hany Call APRN.CROWNING INSPECTOR Work Phone: [facility] Comment on above: Unstable gait (Prima ry [...] Telephone encounter Charlene Ernst MD Work Phone: [facility] Start: 06-06-2024 End: 06-06-2024 Patient Outreach Briana Bahena LPN [facility] Comment on above: Transition Of Care ( [facility] D/C 06/02/2024) Medication Update Start: 06-02-2024 End: 06-05-2024 Telephone encounter Charlene Ernst MD Work Phone: [facility] Comment on above: Orders; [facility] HH PT PO C- requesting verbal Start: 06-01-2024 End: 06-02-2024 ambulatory Kassandra Elizabeth Facility:[facility] Start: 02-04-2024 End: 02-04-2024 Telephone encounter Hany Call APRN.CROWNING INSPECTOR Work Phone: [facility] Comment on above: Results Start: 10-25-2023 ambulatory Glo Stack MA [facility] [place] Start: 10-25-2023 Patient encounter procedure Glo Stack MA [facility] Comment on above: Population Health Na vigation Outreach (Medication Adherence) Refill Request Start: 10-23-2023 Refill Hany NAVARRO RN.CROWNING INSPECTOR Work Phone: [facility] Comment on above: Refill Request Start: 09-24-2023 Telephone encounter Charlene almazan MD Work Phone: [facility] [address] Comment on above: [facility] agency [facility] (Home Care ) Start: 2023 Telephone encounter Charlene almazan MD Work Phone: [facility] [address] Comment on above: Results Start: 08-24-2023 End: [...] ambulatory Raquel Arevalo [facility] [place] Start: 08-11-2023 Patient encounter procedure Raquel Arevalo MA [facility] [place] Comment on above: Population Health Na vigation Outreach ([place] AWV/HCC and care gaps ) Start: 06-02-2023 ambulatory Raquel Hobbs MA [facility] [place] Comment on above: Population Health Na vigation Outreach (HCC Gaps) Start: 03-30-2023 Telephone encounter Hany hanks APRN.CROWNING INSPECTOR Work Phone: [facility] [address] Comment on above: Medication Request Start: 02-23-2023 Telephone encounter Charlene almazan MD Work Phone: [facility] Start: 02-19-2023 End: 02-19-2023 Office outpatient visit 15 minutes Hany Call APRN.CROWNING INSPECTOR Work Phone: [facility] Comment on above: Cellulitis of skin ( Primary Dx) Start: 02-15-2023 End: 02-15-2023 Office outpatient visit 15 minutes Trudy Boggs APRN.ASSISTANT CASE MANAGER Work Phone: [facility] [address] Comment on above: Cellulitis of skin ( Primary Dx); Abrasion of right lower extremity, subsequent encounter; Lymphedema Start: 02-08-2023 End: 02-08-2023 Patient encounter procedure Brendon Siddiqui MD Work Phone: [facility] Comment on above: Cellulitis of right lower leg (Primary Dx); Lymphedema; Stage 3 chronic kidney disease, unspecified whether stage 3a or 3b CKD (HCC) Start: 10-15-2022 End: 10-15-2022 Subsequent hospital visit by physician [facility] Work Phone: Nuclear Medicine Comment on above: Elevated alkaline ph osphatase measurement [R74.8] Start: 09-28-2022 End: 09-28-2022 Subsequent hospital visit by physician [facility] Work Phone: Radiology Comment on above: Elevated alkaline ph osphatase measurement [R74.8] Start: 09-15-2022 Telephone encounter Hany hanks APRN.CROWNING INSPECTOR Work Phone: Family [facility] Comment on above: Results Start: 08-31-2022 End: 08-31-2022 Office outpatient visit 25 minutes Cheyanne Sequeira PA-C Work Phone: [facility] Comment on above: Abrasion of right lo wer extremity, initial encounter (Primary Dx); Cellulitis of right lower leg Start: 06-12-2022 End: 06-12-2022 [facility] Start: 02-22-2022 ambulatory Hany NAVARRO RN.CROWNING INSPECTOR [facility] Start: 02-22-2022 Letter encounter Hany ARIASCROWNING INSPECTOR Work Phone: Family [facility] Comment on above: Letter for postal se rvice Start: 02-19-2022 Telephone encounter Charlene almazan MD Work Phone: Family [facility] Comment on above: Patient Question Start: 11-10-2021 Telephone encounter Charlene almazan MD Work Phone: [facility] [place] Comment on above: Results Start: 10-27-2021 Telephone encounter Hany hanks APRN.CROWNING INSPECTOR Work Phone: [facility] [address] Comment on above: Results Start: 10-17-2021 End: 10-17-2021 Patient encounter procedure Hany Call APRN.CROWNING INSPECTOR Work Phone: [facility] [place] Comment on above: UTI symptoms (Primar y Dx); Low serum potassium level; Essential hypertension, benign Start: 09-20-2021 Refill [place] NAVARRO RN.CROWNING INSPECTOR, DNP Work Phone: [facility] Comment on above: Refill Request Start: 09-08-2021 Refill Charlene underwood MD Work Phone: [facility] Comment on above: Refill Request Start: 11-10-2017 End: 11-11-2017 Patient encounter MANNY Mei [facility] Start: 10-05-2017 Ambulatory [facility] Start: 10-01-2017 Ambulatory DARINEL [place] Facility :[facility] Start: 09-01-2017 End: 09-01-2017 [facility] Start: 08-25-2017 End: 08-25-2017 [facility] Start: 08-25-2017 End: 08-25-2017 [facility] Procedures Date Procedure Procedure Detail Performing Clinician Start: 07-07-2024 Urnls dip stick/tabl et rgnt auto w/o microscopy Hany Call APRN.CROWNING INSPECTOR Work Phone: Start: 06-09-2024 Urnls dip stick/tabl [...] Detail Author Start: 08-27-2026 [facility] Start: 09-07-2025 DIABETES SCREEN DIABETES SCREEN [facility] Start: 09-07-2025 [facility] Start: 01-08-2025 End: 01-08-2025 Patient encounter procedure 01/08/2025 9:00 AM EDT Office Visit [facility] [address] [place], [place] [id number] Hany Call APRN.CROWNING INSPECTOR [address] [place] [address] 6 month follow up [facility] [address] Comment on above: 6 month follow up Start: 01-07-2025 End: 04-08-2025 CBC W Auto Differential panel - Blood COMPLETE BLOOD COUNT AND DIFFERENTIAL Lab Routine Iron deficiency anemia, unspecified iron deficiency anemia type Expected: 01/07/2025 (Approximate), Expires: 04/08/2025 [facility] Comment on above: Expected: 01/07/2025 (Approximate), Expires: 04/08/2025 Start: 01-07-2025 End: 04-08-2025 Comprehensive metabolic 2000 panel - Serum or Plasma COMPREHENSIVE METABOLIC PANEL Lab Routine Essential hypertension, benign Expected: 01/07/2025 (Approximate), Expires: 04/08/2025 [facility] Work Phone: Comment on above: Expected: 01/07/2025 (Approximate), Expires: 04/08/2025 Start: 01-07-2025 End: 04-08-2025 Iron and Iron binding capacity panel - Serum or Plasma IRON AND TIBC Lab Routine Iron deficiency anemia, unspecified iron deficiency anemia type Expected: 01/07/2025 (Approximate), Expires: 04/08/2025 [facility] Comment on above: Expected: 01/07/2025 (Approximate), Expires: 04/08/2025 Start: 12-18-2024 Influenza vaccination Influenz a Vaccine (Season Ended) [facility] Start: 10-17-2024 DIABETES SCREEN DIABETES SCREEN [facility] Start: 07-07-2024 End: 07-07-2024 Patient encounter procedure 07/07/2024 9:00 AM EDT Office Visit Family [facility] [address] [place] [address] Hany Call, HOTEL GUEST SERVICE AGENT.CROWNING INSPECTOR [address] [facility] [place] [place] [address] 1 month follow up Family [facility] Comment on above: 1 month follow up Start: 06-09-2024 End: 06-09-2024 Patient encounter procedure Family [facility] Comment on above: 06/02/24 [facility] ER F/U - Fall, head injury (7-10 days for suture removal) 06/02/24 [facility] ER F/U - Fall, head injury (7-10 days for suture removal) [facility] Start: 04-19-2024 Advance Directive Discussion Advance Directive Discussion [facility] Start: 04-19-2024 Medicare Advantage Annual Wellness Visit Medicare Advantage Annual Wellness Visit [facility] Start: 03-01-2024 End: 03-01-2024 Patient encounter procedure 03/01/2024 4:00 PM EST Office Visit Family [facility] Alanis [address] [place], [place] [id number] Aziza Suero, HOTEL GUEST SERVICE AGENT.CROWNING INSPECTOR [address] [place] [address] Medicare Wellness [facility] Comment on above: Medicare Wellness Start: 12-19-2023 Covid-19 Vaccine ( season) Covid-19 Vaccine ( season) [facility] Start: 12-19-2023 Influenza vaccination [facility] Start: 09-04-2023 DIABETES SCREEN DIABETES SCREEN [facility] Start: 08-24-2023 End: 11-23-2023 CBC panel - Blood by Automated count COMPLETE BLOOD COUNT Lab Routine Essential hypertension, benign Iron deficiency anemia, unspecified iron deficiency anemia type Expected: 08/24/2023, Expires: 11/23/2023 [facility] Comment on above: Expected: 08/24/2023 , Expires: 11/23/2023 Start: 08-24-2023 End: 11-23-2023 Comprehensive metabolic 2000 panel - Serum or Plasma COMPREHENSIVE METABOLIC PANEL Lab Routine Essential hypertension, benign Expected: 08/24/2023 (Approximate), Expires: 11/23/2023 [facility] Work Phone: Comment on above: Expected: 08/24/2023 (Approximate), Expires: 11/23/2023 Start: 08-24-2023 End: 11-23-2023 Iron and Iron binding capacity panel - Serum or Plasma IRON AND TIBC Lab Routine Essential hypertension, benign Iron deficiency anemia, unspecified iron deficiency anemia type Expected: 08/24/2023, Expires: 11/23/2023 [facility] Comment on above: Expected: 08/24/2023 , Expires: 11/23/2023 Start: 04-19-2023 Advance Directive Discussion Advance Directive Discussion [facility] Start: 04-19-2023 Behavioral Health Screening Behavioral Health Screening [facility] Start: 04-19-2023 Depression Assessment Depression Ass essment [facility] Start: 12-18-2022 Covid-19 Vaccine ( season) Covid-19 Vaccine ( season) [facility] Start: 12-18-2022 Influenza vaccination C [facility] Start: 09-15-2022 End: 11-15-2022 ALK PHOS ISOENZYM BL ALK PHOS ISOENZYM BL Lab Routine Elevated alkaline phosphatase measurement Expected: 09/15/2022, Expires: 11/15/2022 [facility] Work Phone: Comment on above: Expected: 09/15/2022 , Expires: 11/15/2022 Start: 08-31-2022 End: 10-31-2022 Bacteria identified in Wound by Culture [facility] Work Phone: Comment on above: Expected: 08/31/2022 , Expires: 10/31/2022 Start: 04-19-2022 ADVANCE DIRECTIVE DISCUSSION ADVANCE DIRECTIVE DISCUSSION [facility] Start: 04-19-2022 DEPRESSION ASSESSMENT DEPRESSION ASS ESSMENT [facility] Start: 12-18-2021 Influenza vaccination [facility] Start: 11-03-2021 End: 01-03-2022 Urinalysis complete panel - Urine UA WITH CULTURE IF INDICATED Lab Routine Acute cystitis with hematuria Expected: 11/03/2021 (Approximate), Expires: 01/03/2022 [facility] Work Phone: Comment on above: Expected: 11/03/2021 (Approximate), Expires: 01/03/2022 Start: 09-22-2021 End: 11-22-2021 CBC W Auto Differential panel - Blood CBC + DIFF Lab Routine Iron deficiency anemia, unspecified iron deficiency anemia type Expected: 09/22/2021, Expires: 11/22/2021 [facility] Work Phone: Comment on above: Expected: 09/22/2021 , Expires: 11/22/2021 Start: 09-22-2021 End: 11-22-2021 Comprehensive metabolic 2000 panel - Serum or Plasma COMP METABOLIC PANEL Lab Routine Low serum potassium level Expected: 09/22/2021, Expires: 11/22/2021 [facility] Work Phone: Comment on above: Expected: 09/22/2021 , Expires: 11/22/2021 Start: 09-22-2021 End: 11-22-2021 FERRITIN BLD FERRITIN BLD Lab Routine Iron deficiency anemia, unspecified iron deficiency anemia type Expected: 09/22/2021, Expires: 11/22/2021 [facility] Work Phone: Comment on above: Expected: 09/22/2021 , Expires: 11/22/2021 Start: 09-22-2021 End: 11-22-2021 IRON + TIBC IRON + TIBC Lab Routine Iron deficiency anemia, unspecified iron deficiency anemia type Expected: 09/22/2021, Expires: 11/22/2021 [facility] Work Phone: Comment on above: Expected: 09/22/2021 , Expires: 11/22/2021 Start: 08-02-2021 COVID-19 VACCINE (4 - Booster for Moderna series) COVID-19 VACCINE (4 - Booster for Moderna series) [facility] Start: 05-29-2021 COVID-19 VACCINE (4 - Booster for Moderna series) COVID-19 VACCINE (4 - Booster for Moderna series) [facility] Start: 04-19-2021 ADVANCE DIRECTIVE DISCUSSION ADVANCE DIRECTIVE DISCUSSION [facility] Start: 04-19-2021 DEPRESSION ASSESSMENT DEPRESSION ASS ESSMENT [facility] Start: 01-27-2021 COVID-19 VACCINE (3 - Booster for Moderna series) COVID-19 VACCINE (3 - Booster for Moderna series) [facility] Start: 08-29-2014 RSV Vaccine (1 - 1-d ose 75+ series) RSV Vaccine (1 - 1-dose 75+ series) [facility] Start: 06-26-2008 Urine microalbumin profile [facility] Start: 1999 RSV Vaccine (1 - 1-d ose 60+ series) RSV Vaccine (1 - 1-dose 60+ series) [facility] Start: 08-29-1989 SHINGRIX VACCINE (1 of 2) SHINGRIX VACCINE (1 of 2) [facility] Start: 08-29-1958 SHINGRIX VACCINE (1 of 2) SHINGRIX VACCINE (1 of 2) [facility] Start: 08-29-1957 Anxiety Screening Anxiety Screening [facility] Start: 08-29-1957 Depression Screening Depression Scre ening [facility] Bacteria identified in Urine by Culture URINE CULTURE Microbiology Routine UTI symptoms 10/17/2021 11:20 AM EDT [facility] Work Phone: Bacteria identified in Urine by Culture BACTERIAL CULTURE, URINE Microbiology Routine UTI symptoms 06/09/2024 9:08 AM EST [facility] Work Phone: Patient Education ED Cellulitis [facility] Work Phone: Patient referral [facility] Work Phone: [facility] Immunizations Immunization Date Immunization Notes Care Provider Fa gadiel 07-30-2020 COVID-19 vaccine, fu ll dose (MODERNA) Charlene Ernst MD Work Phone: [facility] Work Phone: 01-17-2019 Influenza virus vaccine [facility] 01-17-2019 influenza, seasonal, injectable, preservative free Charlene Ernst MD Work Phone: [facility] Work Phone: 01-17-2019 influenza virus vacc ine, unspecified formulation Brendon Siddiqui MD Work Phone: [facility] 08-19-2015 pneumococcal conjuga te vaccine, 13 valent Charlene Ernst MD Work Phone: [facility] 01-04-2014 influenza, high dose seasonal, preservative-free Charlene Ernst MD Work Phone: [facility] Work Phone: 04-24-2010 pneumococcal polysaccharide vaccine, 23 valent Charlene Ernst MD Work Phone: [facility] 02-14-2009 influenza virus vacc ine, unspecified formulation Charlene Ernst MD Work Phone: [facility] 06-25-2008 tetanus and diphther ia toxoids, adsorbed, preservative free, for adult use (2 Lf of tetanus toxoid and 2 Lf of diphtheria toxoid) Charlene Ernst MD Work Phone: [facility] Payers Date Payer Category Payer Self-pay [id number] 2021 Medicare (Managed Care) RENE WALKER O [id number] 2021 Unknown ANTHEM BLUE CROS S AND BLUE SHIELD ANTHEM ROCHELLEBLUE HMO [id number] 2021-Present [phone] [address] [place] [address] O [id number] 2021 Unknown [id number] 2021 Medicare [id number] 2017 Medicare AETNA MEDICARE A ETNA MEDICARE PPO [id number] 2017-Present [phone] [address] [place] [address] PPO [id number] 2006 Unknown RENE [id number] 2004 Medicare MEDICARE PART A B [id number] Medicare [id number] Unknown [id number] Unknown [id number] Unknown [id number] Social History Date Type Detail Facility Start: 07-12-2017 End: 08-31-2022 Tobacco smoking status NHIS Never smoked tobacco [facility] Start: 12-04-2020 End: 07-07-2024 Alcohol intake Current non-drinker of alcohol (finding) [facility] Start: 1940 Sex Assigned At Female [facility] Work Phone: Start: 10-07-2021 End: 11-08-2021 Exposure to SARS-CoV-2 (event) Not sure [facility] Start: 07-12-2017 End: 08-31-2022 Tobacco use and exposure Smokeless tobacco non-user [facility] Start: 06-12-2022 Tobacco smoking status NHIS Unknown if ever smoked [facility] Start: 04-22-[address] [facility] Start: 04-22-[address] [facility] Start: 04-23-[address] [facility] Start: 09-07-2022 End: 02-08-2023 History of Social function [facility] Work Phone: Start: 09-07-2022 End: 02-08-2023 Tobacco use panel [facility] Work Phone: Adult Depression Screening Assessment 0 [facility] Work Phone: Start: 08-29-2020 Gender identity Identifies as female gender (finding) [facility] Work Phone: Start: 08-29-2020 Sexual orientation Heterosexual (finding) [facility] Work Phone: Has the [employer], [employer], or [employer] threatened to shut off services in your home in past 12Mo No [facility] Do you belong to any clubs or organizations such as religious groups, unions, fraternal or athletic groups, or school groups? Yes [facility] Are you now , , , , never or living with a partner? Never [facility] How often to you hav e a drink containing alcohol? Never [facility] How hard is it for y ou to pay for the very basics like food, housing, medical care, and heating Not very hard [facility] Do you feel stress - tense, restless, nervous, or anxious, or unable to sleep at night because your mind is troubled all the time - these days [OSQ] Only a little [facility] (I/We) worried whekwaku er (my/our) food would run out before (I/we) got money to buy more. Never true [facility] Functional Status Date Assessment Result Facility 02-14-2014 Are you deaf, or do you have serious difficulty hearing No 02/14/2014 10:08 AM EDT Kassandra Ramírez MA No [facility] 02-14-2014 Are you blind, or do you have serious difficulty seeing, even when wearing glasses No 02/14/2014 10:08 AM EDT Kassandra Ramírez MA No [facility] 02-14-2014 Do you have serious difficulty walking or climbing stairs Yes 02/14/2014 10:08 AM EDT Kassandra Ramírez MA Yes [facility] 02-14-2014 Do you have difficul ty dressing or bathing No 02/14/2014 10:08 AM EDT Kassandra Ramírez MA No [facility] 02-14-2014 Because of a physica l, mental, or emotional condition, do you have difficulty doing errands alone such as visiting a physician's office or shopping No 02/14/2014 10:08 AM Kassandra Dumont MA No [facility] Mental Status Date Assessment Result Facility 02-14-2014 Because of a physica l, mental, or emotional condition, do you have serious difficulty concentrating, remembering, or making decisions No 02/14/2014 10:08 AM EDKassandra Engel MA No [facility] Clinical Notes 05-09-2008 to 01-08-2025 Telephone Encounter - Hany Call APRN.ALIZE - 10/02/2024 8:08 AM EDTTelephone Encounter - Hany Call APRN.CNP - 10/02/2024 8:08 AM EDTPatient InstructionsPatient InstructionsPatient Instructions Note Date & Type Note Facility 01-08-2025 Note HNO ID: [id number] Author: HANY CALL APRN.ALIZE Service: ? Author [...] is not under the care of a launchman. She has a history of melanoma, which [...] 1. PAF (paroxysmal atrial fibrillation) ([facility]) (I48.0) No current symptoms of atrial fibrillation; managed with atenolol. - Continue atenolol as prescribed. 2. Malignant melanoma, unspecified site ([facility]) (C43.9) History of melanoma excised from [...] to manage edema. - Advised use of financial analysis advisor socks or slippers to prevent tripping hazards. 7. Screening for depression (Z13.31) 8. Encounter for screening examination for other mental health and behavioral disorders (Z13.39) Hany Call APRN.CNP RTO in 6 months, sooner if needed. This note was partly generated using Osper voice recognition dictation and may contain some misspelled or inaccurate words missed on review. Recording using Dragonfly List software for draft documentation of the visit was discussed with the patient/authorized business representative; all questions welcomed and answered. Patient/authorized business representative agreed to proceed [facility] 10-02-2024 Telephone encounter Note The following approved medication requests have been transmitted electronically. Requested Prescriptions Pending Prescriptions Disp Refills potassium chloride (K-TAB) 10 mEq tablet 90 tablet 3 Sig: Take 1 tablet by mouth once daily. Hany Call APRN.CNP [facility] 10-02-2024 Miscellaneous Notes The following approved medication [...] 2024 9:28 AM documented in this encounter [facility] 10-02-2024 Telephone encounter Note The following approved medication requests have been transmitted electronically. Requested Prescriptions Pending Prescriptions Disp Refills benazepril (LOTENSIN) 20 mg tablet 90 tablet 3 Sig: Take 0.5 tablets by mouth once daily. Hany Call APRN.CNP [facility] 10-02-2024 Telephone encounter Note The following approved medication requests have been transmitted electronically. Requested Prescriptions Pending Prescriptions Disp Refills atenolol (TENORMIN) 25 mg tablet 90 tablet 3 Sig: Take 1 tablet by mouth once daily. Hany Clal APRN.CNP [facility] 10-02-2024 Miscellaneous Notes The following approved medication [...] 2024 9:29 AM documented in this encounter [facility] 10-02-2024 Miscellaneous Notes The following approved medication [...] 2024 9:29 AM documented in this encounter [facility] 09-29-2024 Telephone encounter Note Prescription [...] MA September 29, 2024 9:29 AM [facility] 09-29-2024 Telephone encounter Note Prescription Refill [...] MA September 29, 2024 9:29 AM [facility] 09-29-2024 Telephone encounter Note Prescription Refill [...] MA September 29, 2024 9:28 AM [facility] 07-25-2024 Telephone encounter Note Advised via mychart that pt needs an appointment to evaluate the swelling. Kassandra Ramírez MA [facility] 07-25-2024 Miscellaneous Notes Advised via mychart that pt needs an appointment to evaluate the swelling. Kassandra Ramírez MA documented in this encounter [facility] 07-07-2024 Instructions Hany Call APRN.CROWNING INSPECTOR - 07/07/2024 8:57 AM EDT We discussed [...] or worsening symptoms. documented in this encounter [facility] 07-07-2024 Note HNO ID: [id number] Author: HANY CALL APRN.CNP Service: ? Author [...] needed. This note was partly generated using Osper voice recognition dictation and may contain some misspelled or inaccurate words missed on review. The patient consented to the use of ambient Ketchuppp software for draft documentation of the visit consistent with [facility]?s Notice of Privacy Practices. [facility] 07-07-2024 History of Present illness Narrative [...] needed. This note was partly generated using [employer] voice recognition dictation and may contain some misspelled or inaccurate words missed on review. The patient consented to the use of Dragonfly List software for draft documentation of the visit consistent with [facility] s Notice of Privacy Practices. documented in this encounter [facility] 06-12-2024 Telephone encounter Note Noted. Agree with plan. Hany Call APRN.CNP [facility] 06-12-2024 Miscellaneous Notes Noted. Agree with plan. Hany Call APRN.CNP Rosalinda OT calling from [facility] to report plan of care for patient and occupational therapy will visit patient 2 times a week for 3 weeks. Occupational therapy will work with patient on ADLs, IADLs. This was also a delay of care do to OT having a full schedule No Call back needed if agreeable Guerita Cleveland RN documented in this encounter [facility] 06-12-2024 Telephone encounter Note Patient notified of results and provider's instructions. Patient verbalizes understanding. Guerita Cleveland RN [facility] 06-12-2024 Miscellaneous Notes Patient notified of results and provider's instructions. Patient verbalizes understanding. Guerita Cleveland RN Please let the patient know that her urine culture did grow Klebsiella pneumonia bacteria. Continue ciprofloxacin as prescribed as this will treat this bacteria adequately. Hany Call APRN.CNP documented in this encounter [facility] 06-12-2024 Telephone encounter Note Rosalinda OT calling from [facility] to report plan of care for patient and occupational therapy will visit patient 2 times a week for 3 weeks. Occupational therapy will work with patient on ADLs, IADLs. This was also a delay of care do to OT having a full schedule No Call back needed if agreeable Guerita Cleveland RN [facility] 06-12-2024 Telephone encounter Note Please let the patient know that her urine culture did grow Klebsiella pneumonia bacteria. Continue ciprofloxacin as prescribed as this will treat this bacteria adequately. Hany Call APRN.CNP [facility] 06-09-2024 Instructions Hany Call APRN.CNP - 06/09/2024 [...] will send a urine culture. CASEY Yang [facility] in [facility]# [phone] Hany Call APRN.CROWNING INSPECTOR documented in this encounter [facility] 06-09-2024 History of Present illness Narrative Chief Complaint Patient presents with: Transition Of Care: [facility] fall 06/01/2023 Possible suture removal HPI Dionne Frausto is a 83 year old female who presents here today for Hospital Discharge Follow up. follow up for fall, suture removal, head contusion. Patient is here for hospital follow-up and also evaluation for suture removal. Patient went to [facility] on June 01 as for sustaining a [...] - CIPROFLOXACIN 500 MG TABLET Hany Call APRN.CROWNING INSPECTOR F/u 1 month. DNR CCA signed and scanned to chart I spent a total of 45 minutes on the date of the service which included preparing to see the patient, [id number] patient care, completing clinical documentation, obtaining and/or reviewing separately obtained history, performing a medically appropriate examination, counseling and educating the patient/family/caregiver, and ordering medications, tests, or procedures. RTO in 1 months, sooner if needed. This note was partly generated using [employer] voice recognition dictation and may contain some misspelled or inaccurate words missed on review. documented in this encounter [facility] 06-09-2024 Note HNO ID: [id number] Author: HANY CALL APRN.CNP Service: ? Author Type: Nurse Practitioner Type: Progress Notes Filed: 06/09/2024 09:40 Note Text: Chief Complaint Patient presents with: Transition Of Care: [facility] fall 06/01/2023 Possible suture removal HPI Dionne Frausto is a 83 year old female who presents here today for Hospital Discharge Follow up. follow up for fall, suture removal, head contusion. Patient is here for hospital follow-up and also evaluation for suture removal. Patient went to [facility] on June 01 as for sustaining a [...] -Stable, varying stages (more content not included)... [facility] 06-08-2024 Telephone encounter Note [place] noted. I will take a look at the sutures on Wednesday. Hany Call APRN.ALIZE [facility] 06-08-2024 Miscellaneous Notes [place] noted. I will take a look at the sutures on Wednesday. Hany Call APRN.CNP Marley from [facility] HH calling did intake with patient [...] to contact back. documented in this encounter [facility] 06-07-2024 Telephone encounter Note Marley from [facility] calling did intake with patient today. PT [...] back otherwise no need to contact back. [facility] 06-06-2024 Telephone encounter Note Noted. HCTZ discontinued. Patient has been on folic acid since 2018. Okay to hold aspirin for 1 week. Hany Call APRN.CNP [facility] 06-06-2024 Miscellaneous Notes Noted. HCTZ discontinued. Patient has been on folic acid since 2018. Okay to hold aspirin for 1 week. Hany Call APRN.CNP Kathrine from [facility] calls to report medication discrepancies. Patient is [...] Guerita Cleveland RN documented in this encounter [facility] 06-06-2024 Telephone encounter Note Kathrine from [facility] calls to report medication discrepancies. Patient is [...] due to extensive bruising. Guerita Cleveland RN [facility] 06-06-2024 Note HNO ID: [id number] Author: HANY CALL APRN.CNP Service: ? Author Type: Nurse Practitioner Type: Progress Notes Filed: 06/06/2024 09:07 Note Text: Noted. Hany Call APRN.CNP [facility] 06-06-2024 History of Present illness Narrative Noted. Hayn Call APRN.CNP .TRANSITION CARE MANAGEMENT (TCM) INITIAL CONTACT Provider Action/FYI: Patient does have a head laceration that was repaired in [facility] ER with multiple sutures that will need to be removed. Only recommended to take Tylenol or Advil for pain control. Initial contact with patient post discharge, spoke to No answer, patient already scheduled.. Patient identified by name and . TCM Eligibility Documentation No recent care coordination documentation related to TCM found. SUMMARY: -Pt discharged from [facility] on 06/02/2024. -Follow up appointment on [...] a head laceration documented in this encounter [facility] 06-06-2024 Note HNO ID: [id number] Author: BRIANA BAHENA LPN Service: ? Author Type: LICENSED NURSE Type: Progress Notes Filed: 06/06/2024 09:07 Note Text: .TRANSITION CARE MANAGEMENT (TCM) INITIAL CONTACT Provider Action/FYI: Patient does have a head laceration that was repaired in [facility] ER with multiple sutures that will need to be removed. Only recommended to take Tylenol or Advil for pain control. Initial contact with patient post discharge, spoke to No answer, patient already scheduled.. Patient identified by name and . TCM Eligibility Documentation No recent care coordination documentation related to TCM found. SUMMARY: -Pt discharged from [facility] on 06/02/2024. -Follow up appointment on [...] with mechanical fall and a head laceration [facility] 06-06-2024 Note Patient Outreach (FA MPWS) DIONNE FRAUSTO ([id number]) 1940 F Date Time Provider Department 06/06/24 BRIANA BAHENA During your visit today, we recorded the following information about you: Briana Bahena LPN 06/06/2024 9:07 AM Signed .TRANSITION CARE MANAGEMENT (TCM) INITIAL CONTACT Provider Action/FYI: Patient does have a head laceration that was repaired in [facility] ER with multiple sutures that will need to be removed. Only recommended to take Tylenol or Advil for pain control. Initial contact with patient post discharge, spoke to No answer, patient already scheduled.. Patient identified by name and . TCM Eligibility Documentation No recent care coordination documentation related to TCM found. SUMMARY: -Pt discharged from [facility] on 06/02/2024. -Follow up appointment on [...] for Visit: Transition Of Care [4074] Cmt: [facility] D/C 06/02/2024 Prescriptions as of 06/06/2024 [...] Encounter Status:Closed by HANY CALL on 06/06/24 [facility] 06-05-2024 Telephone encounter Note Call to Aziza, received confidential VM. Left detailed message with PCP's response below from Triage note. If questions to contact office and speak with Triage Nurse. Char Santa MA [facility] 06-05-2024 Miscellaneous Notes Call to [facility], received confidential VM. Left detailed message with PCP's response below from Triage note. If questions to contact office and speak with Triage Nurse. Char Santa MA OK for all the requests; Ok for verbal orders for all of them Charlene Ernst MD [facility] - PT- [facility] HH- phoned and given provider's message [...] healthy? Please phone [facility]iza- PT with verbal: [phone] Okay to proceed with home PT/OT. Hany Call APRN.CROWNING INSPECTOR Aziza with [facility] HH calls to ask if provider will follow care orders for PT and OT following hospitalization for fall with lacerations. Patient has degeneration of spine and they would like to work with getting her back to baseline. Please call [facility]iza back at [phone]. Corrie Kumar RN documented in this encounter [facility] 06-05-2024 Telephone encounter Note OK for all the requests; Ok for verbal orders for all of them Charlene Ernst MD [facility] 06-05-2024 Telephone encounter Note Aziza Hines PT- [facility] HH- phoned and given provider's message [...] healthy? Please phone Sue PT with verbal: [phone] [facility] 06-05-2024 Telephone encounter Note Okay to proceed with home PT/OT. Hany Call APRN.CROWNING INSPECTOR [facility] 06-02-2024 Note [facility] Medical Records Department [address] [place] [address] Discharge Summary 06/02/24 1638 MR#: [id number] Acct: [id number] Name: DIONNE FRAUSTO Rep #: [id number] : 1940 83 From: Radhames Catrer MD PCP: Dr. Cahrlene Ernst MD Status:ADM [place]OLANTA Location: [place] [address] Providers Date of Admission: 06/01/24 Primary Care [...] who presented to the emergency department at [facility] on 06/01/2024 after sustaining a mechanical fall [...] physical therapy evaluatio (more content not included)... [facility] 06-02-2024 Telephone encounter Note Aziza with [facility] calls to ask if provider will follow care orders for PT and OT following hospitalization for fall with lacerations. Patient has degeneration of spine and they would like to work with getting her back to baseline. Please call Aziza back at [phone]. Corrie Kumar, RN [facility] 02-04-2024 Telephone encounter Note Phone call to nikendell as instructed in phone notes. Requested an appointment around 4. Scheduled with [facility]iza. [facility] 02-04-2024 Miscellaneous Notes Phone call to niece as instructed in phone notes. Requested an appointment around 4. Scheduled with [facility]. Patient overdue for [employer] wellness exam and routine follow-up. Can we please assist with getting her scheduled? Hany Call APRN.CNP documented in this encounter [facility] 02-04-2024 Telephone encounter Note Patient overdue for [employer] Medicare wellness exam and routine follow-up. Can we please assist with getting her scheduled? Hany Call APRN.CNP [facility] 10-25-2023 Miscellaneous Notes The following approved medication requests have been transmitted electronically. Requested Prescriptions Pending Prescriptions Disp Refills benazepril (LOTENSIN) 20 mg tablet 90 tablet 3 Sig: Take 0.5 tablets by mouth once daily. Hany Call APRN.CNP [place]-08/24/23 Labs-08/27/26 NOV-none Fabi Rahman LPN documented in this encounter [facility] 10-25-2023 Telephone encounter Note The following approved medication requests have been transmitted electronically. Requested Prescriptions Pending Prescriptions Disp Refills benazepril (LOTENSIN) 20 mg tablet 90 tablet 3 Sig: Take 0.5 tablets by mouth once daily. Hany Call APRN.CROWNING INSPECTOR [facility] 10-25-2023 Telephone encounter Note [place]-08/24/23 Labs-08/27/26 NOV-none Fabi Rahman LPN [facility] 10-25-2023 History of Present illness Narrative POPULATION HEALTH NAVIGATION OUTREACH Action/I Medication Adherence Patient is on Medication Adherence List for review of the below medications: BENAZEPRIL HCL 20 MG TABLET due 10/20/2023 Pharmacy: [address] [address] [facility] [phone] Refused Disp Refills Start End benazepril (LOTENSIN) [...] attempt - Left Message 2nd attempt - V I Ohart message sent Reason for Outreach Med Adherence Patient Contacted: Unable or unnecessary to reach patient: Left message MyChart message sent Navigation Signature: Glo Stack MA October 25, 2023 7:36 AM documented in this encounter [facility] 09-24-2023 Telephone encounter Note Charlene Ernst MD If home care services are needed and [facility] is the agency of choice, please place a new order under Consult to [facility] At Home so that we can proceed. Also, per CMS guidelines your office note needs to include a discussion of HHC with the following: - why is HHC needed - why is the patient homebound - what is the diagnosis that HHC is seeing the patient for. Thank you, Lian Rojas LPN [facility] Work Phone: 09-24-2023 Miscellaneous Notes Charlene Ernst MD If home care services are needed and [facility] is the agency of choice, please place a new order under Consult to [facility] so that we can proceed. Also, per CMS guidelines your office note needs to include a discussion of HHC with the following: - why is HHC needed - why is the patient homebound - what is the diagnosis that C is seeing the patient for. Thank you, Lian Rojas LPN documented in this encounter [facility] 09-24-2023 Telephone encounter Note Marco López, phoned to report [facility] agency in network for patient: [facility] in [place], [place] Reports pcp will need to send referral, insurance info, & H & P to this company. Printed and faxed the requested information to [facility]. Marco informed patient's niece of this information. [facility] 09-24-2023 Miscellaneous Notes Marco López, phoned to report HHC agency in network for patient: [facility] in [facility]# [phone] Reports pcp will need to send referral, insurance info, & H & P to this company. Printed and faxed the requested information to [facility]. Marco informed patient's niece of this [...] to be sent. documented in this encounter [facility] 09-24-2023 Telephone encounter Note Patients niece called [...] on where referral needs to be sent. [facility] 2023 Telephone encounter Note Letter mailed to pt home of results. Kassandra Ramírez MA [facility] 2023 Miscellaneous Notes Letter mailed to pt home of results. Kassandra Ramírez MA Please notify patient that her lab results are stable. Her blood count is good. Stay on the same medications and follow up in 6 months as planned Charlene Ernst MD documented in this encounter [facility] 2023 Telephone encounter Note Please notify patient that her lab results are stable. Her blood count is good. Stay on the same medications and follow up in 6 months as planned Charlene Ernst MD [facility] 08-24-2023 History of Present illness Narrative Chief [...] visit. Either the patient or their legal business representative has been informed of the risks [...] Mir EGD N/A 03/28/2018 Dr. Hester at [facility] LAPAROSCOPIC APPENDECTOMY 06-25-08 PAST SURGICAL HISTORY OF Left 09/2017 melanoma excision @ [facility] Lt shoulder Family History FAMILY HISTORY Problem [...] BLOOD COUNT - IRON AND TIBC - NON-[facility] 4. Bilateral leg edema - ICD9: 782.3, ICD10: R60.0 - NON-[facility] 5. Impaired mobility - ICD9: 799.89, ICD10: Z74.09 - NON-[facility] OK for [facility]: will have them check with insurance to see what agency they can use Notify of lab results Follow up in 6 months I agree with the Chief Complaint, ROS, and Past Histories independently gathered by the clinical direct support professional caregiver and the remaining scribed note accurately describes my personal service to the patient. Charlene Ernst MD The documentation for this note was completed by Kassandra Ramírez MA acting as scribe for Charlene Ernst MD. August 24, 2023 1:57 PM. Kassandra Ramírez MA documented in this encounter [facility] 08-11-2023 History of Present illness Narrative POPULATION [...] 2023 10:17 AM documented in this encounter [facility] 06-02-2023 History of Present illness Narrative POPULATION HEALTH NAVIGATION OUTREACH Action/FYI HCC Gaps Due for: Annual Wellness Left VM; MyChart message sent Patient Identified by Name and : NO Outreach Outcome/Action Unable to reach patient: Left message MyChart message sent Did you use a PCP flex slot to schedule this appointment? N/A Reason for Outreach HCC or suspected condition Payer: Payor: [employer] / Plan: [employer] MEDICARE ADVANTAGE HMO / [...] 2023 11:50 AM documented in this encounter [facility] 03-30-2023 Miscellaneous Notes Noted Hany Call APRN.CNP [...] difficult to get aunt to come to [facility], she does not move about well at all. Asking for antibiotic rx to be sent to [facility]. Niece has not be successful doing a my chart virtual visit previously. Please advise documented in this encounter [facility] 02-23-2023 Miscellaneous Notes Order faxed to [facility] [...] from [facility] documented in this encounter [facility] 02-19-2023 History of Present illness Narrative FYI: This patient was seen during an extended IT system downtime that began February 19, 2023 at a regional facility. This means that important medical information may be missing from the record. If available, paper documentation can be referenced in the Scanned Documents tab of Chart Review. Hany Call APRN.ALIZE documented in this encounter [facility] 02-15-2023 History of Present illness Narrative SUBJECTIVE: [...] with soap and water. Has been using [id number] topical treatment, vitamin D to the open [...] Lymph 1.00 - 4.00 k/uL 0.78 (L) Gregg% % 13.9 Abs Gregg <0.87 k/uL 0.83 Eosin% % 1.7 Abs [...] PT for for lymphedema treatment. Trudy Boggs APRN.ASSISTANT CASE MANAGER Medical Decision Making: Problems: Low: Acute, uncomplicated illness or injury Risk: Moderate: Drug management Medical Decision Making Level: 3 - Low documented in this encounter [facility] 02-08-2023 History of Present illness Narrative Patient [...] Brendon Siddiqui MD documented in this encounter [facility] 10-15-2022 History of Present illness Narrative RADIOLOGY [...] safety can be found using this link: [email or web address] SIGNATURE: RT Peggy(R) PATIENT NAME: Dionne Frausto DATE: October 15, 2022 TIME: 1:20 PM PAGER/CONTACT #: documented in this encounter [facility] 09-28-2022 History of Present illness Narrative Radiology [...] 2022 10:38 AM documented in this encounter [facility] 09-15-2022 Miscellaneous Notes Patient notified of results, verbalizes understanding of instructions. Lalitha Low MA Please let the patient know that her Iron levels are sufficient. Kidney function is stable. One of her liver enzymes is elevated. We should determine why. I placed an order for additional blood work. Continue current medications. Hany Call APRN.ALIZE documented in this encounter [facility] 08-31-2022 History of Present illness Narrative 08/31/2022 [...] Sequeira PA-C 08/31/2022 documented in this encounter [facility] 02-23-2022 Miscellaneous Notes Letter created in [employer] encounter. Hany Call APRN.CNP The patient's niece, Marcela Metcalf, called to request a letter of medical recommendation that the mailbox is moved closer to the patient's house. Please contact the patient's niece if there are additional questions. documented in this encounter [facility] 02-23-2022 Miscellaneous Notes Letter created. Hany Call APRN.CNP documented in this encounter [facility] 11-10-2021 Miscellaneous Notes Pt notified of results via [employer]. Kassandra Ramírez Ma ----- Message from Hany Call APRN.CNP sent at 11/10/2021 4:44 PM EDT ----- Please let the patient know that her urine sample was normal, her UTI is gone. Hany Call CNP documented in this encounter [facility] 10-27-2021 Miscellaneous Notes Pt notified and verbalized [...] HANY CALL APRN.CNP. documented in this encounter [facility] 10-17-2021 Instructions Hany Call APRN.CNP - 10/17/2021 [...] Hany Call APRN.CNP documented in this encounter [facility] 10-17-2021 History of Present illness Narrative Chief [...] Mir EGD N/A 03/28/2018 Dr. Hester at [facility] LAPAROSCOPY, SURGICAL, APPENDECTOMY 06-25-08 PAST SURGICAL HISTORY OF Left 09/2017 melanoma excision @ [facility] Lt shoulder REMOVAL GALLBLADDER 1985 Cholecystectomy TOTAL [...] TABLET - BENAZEPRIL 20 MG TABLET Hany Call APRN.CNP RTO in 6 months, sooner if needed. This note was partly generated using Osper voice recognition dictation and may contain some misspelled or inaccurate words missed on review. documented in this encounter [facility] 09-22-2021 Miscellaneous Notes Patient notified. Will have [...] Fabi Rahman LPN documented in this encounter [facility] 09-08-2021 Miscellaneous Notes The following approved medication [...] Corrie Kumar RN documented in this encounter [facility] 05-09-2008 History of Past i llness Narrative Problem Noted Date Resolved Date APPENDICITIS ACUTE W RUPTURE 05/09/200809/2009 documented as of this encounter (statuses as of 09/08/2021) [facility] History of Past illness Narrative* Problem Noted Date Resolved Date APPENDICITIS ACUTE W RUPTURE 05/09/200809/2009 documented as of this encounter (statuses as of 09/22/2021) [facility] History of Past illness Narrative* Problem Noted Date Resolved Date APPENDICITIS ACUTE W RUPTURE 05/09/200809/2009 documented as of this encounter (statuses as of 10/17/2021) [facility] History of Past illness Narrative* Problem Noted Date Resolved Date APPENDICITIS ACUTE W RUPTURE 05/09/200809/2009 documented as of this encounter (statuses as of 10/27/2021) [facility] History of Past illness Narrative* Problem Noted Date Resolved Date APPENDICITIS ACUTE W RUPTURE 05/09/200809/2009 documented as of this encounter (statuses as of 11/10/2021) [facility] History of Past illness Narrative* Problem Noted Date Resolved Date APPENDICITIS ACUTE W RUPTURE 05/09/200809/2009 documented as of this encounter (statuses as of 02/23/2022) [facility] History of Past illness Narrative* Problem Noted Date Resolved Date APPENDICITIS ACUTE W RUPTURE 05/09/200809/2009 documented as of this encounter (statuses as of 02/25/2022) [facility] History of Past illness Narrative* Problem Noted Date Resolved Date APPENDICITIS ACUTE W RUPTURE 05/09/200809/2009 documented as of this encounter (statuses as of 09/01/2022) [facility] History of Past illness Narrative* Problem Noted Date Resolved Date APPENDICITIS ACUTE W RUPTURE 05/09/200809/2009 documented as of this encounter (statuses as of 09/15/2022) [address]-2009 History of Past illness Narrative* Problem Noted Date Diagnosed Date Resolved Date APPENDICITIS ACUTE W RUPTURE 05/09/2008 08/22/2009 documented as of this encounter (statuses as of 02/08/2023) [address]-2009 History of Past illness Narrative* Problem Noted Date Diagnosed Date Resolved Date APPENDICITIS ACUTE W RUPTURE 05/09/2008 08/22/2009 documented as of this encounter (statuses as of 02/15/2023) [address]-2009 History of Past illness Narrative* Problem Noted Date Diagnosed Date Resolved Date APPENDICITIS ACUTE W RUPTURE 05/09/2008 08/22/2009 documented as of this encounter (statuses as of 02/20/2023) [address]-2009 History of Past illness Narrative* Problem Noted Date Diagnosed Date Resolved Date APPENDICITIS ACUTE W RUPTURE 05/09/2008 08/22/2009 documented as of this encounter (statuses as of 02/21/2023) [address]-2009 History of Past illness Narrative* Problem Noted Date Diagnosed Date Resolved Date APPENDICITIS ACUTE W RUPTURE 05/09/2008 08/22/2009 documented as of this encounter (statuses as of 02/21/2023) [address]-2009 History of Past illness Narrative* Problem Noted Date Diagnosed Date Resolved Date APPENDICITIS ACUTE W RUPTURE 05/09/2008 08/22/2009 documented as of this encounter (statuses as of 02/21/2023) [address]-2009 History of Past illness Narrative* Problem Noted Date Diagnosed Date Resolved Date APPENDICITIS ACUTE W RUPTURE 05/09/2008 08/22/2009 documented as of this encounter (statuses as of 02/24/2023) [address]-2009 History of Past illness Narrative* Problem Noted Date Diagnosed Date Resolved Date APPENDICITIS ACUTE W RUPTURE 05/09/2008 08/22/2009 documented as of this encounter (statuses as of 03/31/2023) [address]2009 History of Past illness Narrative* Problem Noted Date Diagnosed Date Resolved Date APPENDICITIS ACUTE W RUPTURE 05/09/2008 08/22/2009 documented as of this encounter (statuses as of 06/02/2023) [facility] Essential hypertension, benign documented in [...] Primary Acute cystitis [facility] noteNo assessment information availableWOhioHealth [facility] Work Phone: Evaluation note* Diagnosis Abrasion of right lower extremity, initial encounter- Primary Cellulitis of right lower leg Cellulitis and abscess of leg, except foot [facility] Elevated alkaline phosphatase measurement- Primary Other nonspecific abnormal serum enzyme levels [facility] Diagnosis Cellulitis of right lower leg- Primary Cellulitis and abscess of leg, except foot Lymphedema Other lymphedema Stage 3 chronic kidney disease, unspecified whether stage 3a or 3b CKD (HCC) [facility]* Diagnosis Cellulitis of skin- Primary Cellulitis and abscess of unspecified site Abrasion of right lower extremity, subsequent encounter Lymphedema Other lymphedema [facility] Diagnosis Cellulitis of skin- Primary Cellulitis and abscess of unspecified site [facility] Diagnosis Elevated alkaline phosphatase measurement Other nonspecific abnormal serum enzyme levels [facility] Diagnosis Elevated alkaline phosphatase measurement Other nonspecific abnormal serum enzyme levels [facility] Diagnosis Cellulitis of skin- Primary Cellulitis and abscess of unspecified site Lymphedema Other lymphedema Leg weakness, bilateral Other musculoskeletal symptoms referable to limbs [facility] Diagnosis Iron deficiency anemia, unspecified [...] (moderate) (HCC) Monitor [facility] Diagnosis Essential hypertension, benign [facility] Diagnosis Essential hypertension, benign [facility]* Diagnosis Iron deficiency anemia, unspecified iron [...] Acute cystitis [facility] Diagnosis Iron deficiency anemia, unspecified iron [...] deficiency anemia type [facility] Diagnosis Iron deficiency anemia, unspecified iron deficiency anemia type- Primary Low serum potassium level Essential hypertension, benign Bilateral leg edema Edema Impaired mobility Other ill-defined conditions Malignant melanoma, unspecified site (HCC) PAF (paroxysmal atrial fibrillation) (HCC) Atrial fibrillation Stage 3 chronic kidney disease, unspecified whether stage 3a or 3b CKD (HCC) Essential hypertension, benign [facility] Diagnosis Iron deficiency anemia, unspecified iron deficiency anemia type- Primary Low serum potassium level Essential hypertension, benign Bilateral leg edema Edema Impaired mobility Other ill-defined conditions Malignant melanoma, unspecified site (HCC) PAF (paroxysmal atrial fibrillation) (HCC) Atrial fibrillation Stage 3 chronic kidney disease, unspecified whether stage 3a or 3b CKD (HCC) Essential hypertension, benign [facility] Diagnosis Iron deficiency anemia, unspecified iron deficiency anemia type- Primary Low serum potassium level Essential hypertension, benign Bilateral leg edema Edema Impaired mobility Other ill-defined conditions Malignant melanoma, unspecified site (HCC) PAF (paroxysmal atrial fibrillation) (HCC) Atrial fibrillation Stage 3 chronic kidney disease, unspecified whether stage 3a or 3b CKD (HCC) Low serum potassium level documented in this encounter [facility] Discharge instructions Additional Instructions Take Tylenol as needed for pain. Use compression stockings as we discussed and try to elevate your leg is much as possible. Especially after 2 days if you have progression or worsening of your symptoms please return to the emergency room.[facility] Work Phone: Reason for referral (narrative)* Diagnostic Procedure Only (Routine) - Closed Specialty Diagnoses / Procedures Referred By Amara alford Referred To Contact MOLECULAR & FUNCTIONAL IMAGING Diagnoses Elevated alkaline phosphatase measurement Procedures NM BONE WHOLE BODY BONE &/JOINT IMAGING WHOLE BODY Hany Call APRN.CNP [address] [place] [address] Molecular & Functional Imaging [address] [place] [address] Referral ID Status Reason Start Date Expiration Date V isits Requested Visits Authorized [id number] Closed Auto-Generate d Referral 09/22/2022 10/22/2023 1 1 [facility] for referral (narrative)* Diagnostic Procedure Only (Routine) - Closed Specialty Diagnoses / Procedures Referred By Amara alford Referred To Contact US IMAGING Diagnoses Elevated alkaline phosphatase measurement Procedures US ABD RIGHT UPPER QUADRANT US ABDOMINAL REAL TIME W/IMAGE LIMITED Oneyda, Hany, HOTEL GUEST SERVICE AGENT.CROWNING INSPECTOR [address] [place] [address] [place] [address] Referral ID Status Reason Start Date Expiration Date V isits Requested Visits Authorized [id number] Closed Auto-Generate d Referral 09/22/2022 10/22/2023 1 1 [facility] for visit Narrative* Diagnostic Procedure Only (Routine) - Closed Specialty Diagnoses / Procedures Referred By Contac t Referred To Contact MOLECULAR & FUNCTIONAL IMAGING Diagnoses Elevated alkaline phosphatase measurement Procedures NM BONE WHOLE BODY BONE &/JOINT IMAGING WHOLE BODY Hany Call APRN.CNP [address] [place] [address] Molecular & Functional Imaging [address] [place] [address] Referral ID Status Reason Start Date Expiration Date V isits Requested Visits Authorized [id number] Closed Auto-Generate d Referral 09/22/2022 10/22/2023 1 1 [facility] Summary Purpose Family History No Family History [...] No June 12 023 10:23am Power of Phlebotomist No June 12, 2022 10:23am Documents on File Type Date Recorded 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 Advance Directive(s) 06/27/2024 5:40 PM Chief Complaint and Reason for Visit Chief Complaint lower ext Additional Source Comments INFORMATION SOURCE (unrecogn ized section and content) DATE CREATED AUTHOR 10/05/2017 [facility] DATE CREATED AUTHOR AUTHOR'S ORGANIZ ATION 10/05/2017 [facility] DATE CREATED AUTHOR AUTHOR'S ORGANIZ ATION 10/06/2017 [facility] DATE CREATED AUTHOR AUTHOR'S ORGANIZ ATION 11/12/2017 [facility] DATE CREATED AUTHOR AUTHOR'S ORGANIZ ATION 06/17/2024 [facility] DATE CREATED AUTHOR AUTHOR'S ORGANIZ ATION 01/08/2025 [facility] Source Comments (unrecognize d section and content) In the event this informatio n is protected by the Federal Confidentiality of Alcohol and Drug Abuse Patient Records regulations: The Federal rules restrict any use of the information to criminally investigate or prosecute any alcohol or drug abuse patient.[facility] the event this information is protected by the Federal Confidentiality of Alcohol and Drug Abuse Patient Records regulations: The Federal rules restrict any use of the information to criminally investigate or prosecute any alcohol or drug abuse patient.[facility] the event this information is protected by the Federal Confidentiality of Alcohol and Drug Abuse Patient Records regulations: The Federal rules restrict any use of the information to criminally investigate or prosecute any alcohol or drug abuse patient.[facility] the event this information is protected by the Federal Confidentiality of Alcohol and Drug Abuse Patient Records regulations: The Federal rules restrict any use of the information to criminally investigate or prosecute any alcohol or drug abuse patient.[facility] the event this information is protected by the Federal Confidentiality of Alcohol and Drug Abuse Patient Records regulations: The Federal rules restrict any use of the information to criminally investigate or prosecute any alcohol or drug abuse patient.[facility] the event this information is protected by the Federal Confidentiality of Alcohol and Drug Abuse Patient Records regulations: The Federal rules restrict any use of the information to criminally investigate or prosecute any alcohol or drug abuse patient.[facility] the event this information is protected by the Federal Confidentiality of Alcohol and Drug Abuse Patient Records regulations: The Federal rules restrict any use of the information to criminally investigate or prosecute any alcohol or drug abuse patient.[facility] Center[facility] the event this information is protected by the Federal Confidentiality of Alcohol and Drug Abuse Patient Records regulations: The Federal rules restrict any use of the information to criminally investigate or prosecute any alcohol or drug abuse patient.[facility] Center[facility] the event this information is protected by the Federal Confidentiality of Alcohol and Drug Abuse Patient Records regulations: The Federal rules restrict any use of the information to criminally investigate or prosecute any alcohol or drug abuse patient.[facility] CenterIn the event this information is protected by the Federal Confidentiality of Alcohol and Drug Abuse Patient Records regulations: The Federal rules restrict any use of the information to criminally investigate or prosecute any alcohol or drug abuse patient.[facility] Center[facility] the event this information is protected by the Federal Confidentiality of Alcohol and Drug Abuse Patient Records regulations: The Federal rules restrict any use of the information to criminally investigate or prosecute any alcohol or drug abuse patient.[facility] the event this information is protected by the Federal Confidentiality of Alcohol and Drug Abuse Patient Records regulations: The Federal rules restrict any use of the information to criminally investigate or prosecute any alcohol or drug abuse patient.[facility] Center[facility] the event this information is protected by the Federal Confidentiality of Alcohol and Drug Abuse Patient Records regulations: The Federal rules restrict any use of the information to criminally investigate or prosecute any alcohol or drug abuse patient.[facility] Center[facility] the event this information is protected by the Federal Confidentiality of Alcohol and Drug Abuse Patient Records regulations: The Federal rules restrict any use of the information to criminally investigate or prosecute any alcohol or drug abuse patient.[facility] CenterIn the event this information is protected by the Federal Confidentiality of Alcohol and Drug Abuse Patient Records regulations: The Federal rules restrict any use of the information to criminally investigate or prosecute any alcohol or drug abuse patient.[facility] CenterIn the event this information is protected by the Federal Confidentiality of Alcohol and Drug Abuse Patient Records regulations: The Federal rules restrict any use of the information to criminally investigate or prosecute any alcohol or drug abuse patient.[facility] CenterIn the event this information is protected by the Federal Confidentiality of Alcohol and Drug Abuse Patient Records regulations: The Federal rules restrict any use of the information to criminally investigate or prosecute any alcohol or drug abuse patient.[facility] CenterIn the event this information is protected by the Federal Confidentiality of Alcohol and Drug Abuse Patient Records regulations: The Federal rules restrict any use of the information to criminally investigate or prosecute any alcohol or drug abuse patient.[facility] CenterIn the event this information is protected by the Federal Confidentiality of Alcohol and Drug Abuse Patient Records regulations: The Federal rules restrict any use of the information to criminally investigate or prosecute any alcohol or drug abuse patient.[facility] CenterIn the event this information is protected by the Federal Confidentiality of Alcohol and Drug Abuse Patient Records regulations: The Federal rules restrict any use of the information to criminally investigate or prosecute any alcohol or drug abuse patient.[facility] Center[facility] the event this information is protected by the Federal Confidentiality of Alcohol and Drug Abuse Patient Records regulations: The Federal rules restrict any use of the information to criminally investigate or prosecute any alcohol or drug abuse patient.[facility] CenterIn the event this information is protected by the Federal Confidentiality of Alcohol and Drug Abuse Patient Records regulations: The Federal rules restrict any use of the information to criminally investigate or prosecute any alcohol or drug abuse patient.[facility] CenterIn the event this information is protected by the Federal Confidentiality of Alcohol and Drug Abuse Patient Records regulations: The Federal rules restrict any use of the information to criminally investigate or prosecute any alcohol or drug abuse patient.[facility] CenterIn the event this information is protected by the Federal Confidentiality of Alcohol and Drug Abuse Patient Records regulations: The Federal rules restrict any use of the information to criminally investigate or prosecute any alcohol or drug abuse patient.[facility] Center[facility] the event this information is protected by the Federal Confidentiality of Alcohol and Drug Abuse Patient Records regulations: The Federal rules restrict any use of the information to criminally investigate or prosecute any alcohol or drug abuse patient.[facility] Center[facility] the event this information is protected by the Federal Confidentiality of Alcohol and Drug Abuse Patient Records regulations: The Federal rules restrict any use of the information to criminally investigate or prosecute any alcohol or drug abuse patient.[facility] CenterIn the event this information is protected by the Federal Confidentiality of Alcohol and Drug Abuse Patient Records regulations: The Federal rules restrict any use of the information to criminally investigate or prosecute any alcohol or drug abuse patient.[facility] CenterIn the event this information is protected by the Federal Confidentiality of Alcohol and Drug Abuse Patient Records regulations: The Federal rules restrict any use of the information to criminally investigate or prosecute any alcohol or drug abuse patient.[facility] CenterIn the event this information is protected by the Federal Confidentiality of Alcohol and Drug Abuse Patient Records regulations: The Federal rules restrict any use of the information to criminally investigate or prosecute any alcohol or drug abuse patient.[facility] CenterIn the event this information is protected by the Federal Confidentiality of Alcohol and Drug Abuse Patient Records regulations: The Federal rules restrict any use of the information to criminally investigate or prosecute any alcohol or drug abuse patient.[facility] CenterIn the event this information is protected by the Federal Confidentiality of Alcohol and Drug Abuse Patient Records regulations: The Federal rules restrict any use of the information to criminally investigate or prosecute any alcohol or drug abuse patient.[facility] CenterIn the event this information is protected by the Federal Confidentiality of Alcohol and Drug Abuse Patient Records regulations: The Federal rules restrict any use of the information to criminally investigate or prosecute any alcohol or drug abuse patient.[facility] CenterIn the event this information is protected by the Federal Confidentiality of Alcohol and Drug Abuse Patient Records regulations: The Federal rules restrict any use of the information to criminally investigate or prosecute any alcohol or drug abuse patient.[facility] CenterIn the event this information is protected by the Federal Confidentiality of Alcohol and Drug Abuse Patient Records regulations: The Federal rules restrict any use of the information to criminally investigate or prosecute any alcohol or drug abuse patient.[facility] CenterIn the event this information is protected by the Federal Confidentiality of Alcohol and Drug Abuse Patient Records regulations: The Federal rules restrict any use of the information to criminally investigate or prosecute any alcohol or drug abuse patient.[facility] the event this information is protected by the Federal Confidentiality of Alcohol and Drug Abuse Patient Records regulations: The Federal rules restrict any use of the information to criminally investigate or prosecute any alcohol or drug abuse patient.[facility] CenterIn the event this information is protected by the Federal Confidentiality of Alcohol and Drug Abuse Patient Records regulations: The Federal rules restrict any use of the information to criminally investigate or prosecute any alcohol or drug abuse patient.[facility] CenterIn the event this information is protected by [...] or prosecute any alcohol or drug abuse patient.[facility] Reason for Visit (unrecogniz ed section and [...] BONE &/JOINT IMAGING WHOLE BODY Hany Call APRN.CROWNING INSPECTOR [address] [place] [address] Molecular & Functional Imaging [address] [place] [address] Referral ID Status Reason Start Date Expiration Date V isits Requested Visits Authorized [id number] Closed Auto-Generate d Referral 09/22/2022 10/22/2023 1 1 Reason Comments Radiology US Specialty Diagnoses / Procedures Referred By Contac t Referred To Contact US IMAGING Diagnoses Elevated alkaline phosphatase measurement Procedures US ABD RIGHT UPPER QUADRANT US ABDOMINAL REAL TIME W/IMAGE LIMITED Hany Call APRN.CROWNING INSPECTOR [address] [place] [address] [place] [address] Referral ID Status Reason Start Date Expiration Date V isits Requested Visits Authorized [id number] Closed Auto-Generate d Referral 09/22/2022 10/22/2023 1 1 Reason Comments Medication Request Reason Onset Date Comments Population Health Navigation Outreach 06/02/2023 HCC Gaps Reason Onset Date Comments Population Health Navigation Outreach 08/11/2023 [place] AWV/HCC and care gaps Reason Comments Discussion Would like to discus s getting Home Health Care Reason Comments [facility] agency in network Reason Comments Home Penitentiary Care Reason Onset Date Comments Population Health Navigation Outreach 10/25/2023 Medication Adherence Reason Onset Date Comments Refill Request 10/25/2023 Reason Comments Orders [facility] PT POC- requesting verbal Reason Onset Date Comments Transition Of Care 06/06/2024 [facility] D/C 2024 Reason Comments Medication Update Reason Comments Transition Of Care [facility] fall 06/01/2023o ssible suture removal Reason Onset Date Comments Results 06/12/2024 Reason Comments Occupation Therapy Plan of Care Reason Comments Follow Up 1 month Reason Onset Date Comments Refill Request 09/29/2024 Care Teams (unrecognized sec tion and content) Hand Buffing Wheel Former Relationship Specialty Start Date End Date Charlene Ernst MD [address] [place] [address] PCP - General 10/26/06 Hand Buffing Wheel Former Relationship Specialty Start Date End Date Charlene Ernst MD [address] [place] [address] PCP - General 10/26/06 Hand Buffing Wheel Former Relationship Specialty Start Date End Date Charlene Ernst MD [address] [place] [address] PCP - General 10/26/06 Hand Buffing Wheel Former Relationship Specialty Start Date End Date Charlene Ernst MD [address] [place] [address] PCP - General 10/26/06 Hand Buffing Wheel Former Relationship Specialty Start Date End Date Charlene Ernst MD [address] [place] [address] PCP - General 10/26/06 Hand Buffing Wheel Former Relationship Specialty Start Date End Date Charlene Ernst MD [address] [place] [address] PCP - General 10/26/06 Team Status: Active Member Role Status Dates Dr. Charlene Ernst MD Family Provider Active Dr. Charlene Ernst MD Primary Care Provider Active Team Status: Inactive Member Role Status Dates Dr. Charlene Ernst MD Primary Care Provider Active Dr. Esperanza Mack , Emergency Provider Active Hand Buffing Wheel Former Relationship Specialty Start Date End Date Charlene Ernst MD [address] [place] [address] PCP - General 10/26/06 Hand Buffing Wheel Former Relationship Specialty Start Date End Date Charlene Ernst MD [address] [place] [address] PCP - General 10/26/06 Hand Buffing Wheel Former Relationship Specialty Start Date End Date Charlene Ernst MD [address] [place] [address] PCP - General 10/26/06 Hand Buffing Wheel Former Relationship Specialty Start Date End Date Charlene Ernst MD [address] [place] [address] PCP - General 10/26/06 Hand Buffing Wheel Former Relationship Specialty Start Date End Date Charlene Ernst MD [address] [place] [address] PCP - General 10/26/06 Hand Buffing Wheel Former Relationship Specialty Start Date End Date Charlene Ernst MD [address] [place] [address] PCP - General 10/26/06 Hand Buffing Wheel Former Relationship Specialty Start Date End Date Charlene Ernst MD [address] [place] [address] PCP - General 10/26/06 Hand Buffing Wheel Former Relationship Specialty Start Date End Date Charlene Ernst MD [address] [place] [address] PCP - General 10/26/06 Hand Buffing Wheel Former Relationship Specialty Start Date End Date Charlene Ernst MD [address] [place] [address] PCP - General 10/26/06 Hand Buffing Wheel Former Relationship Specialty Start Date End Date Charlene Ernst MD [address] [place] [address] PCP - General 10/26/06 Hand Buffing Wheel Former Relationship Specialty Start Date End Date Charlene Ernst MD [address] [place] [address] PCP - General 10/26/06 Hand Buffing Wheel Former Relationship Specialty Start Date End Date Charlene Ernst MD [address] [place] [address] PCP - General 10/26/06 Hand Buffing Wheel Former Relationship Specialty Start Date End Date Charlene Ernst MD [address] [place] [address] PCP - General 10/26/06 Hand Buffing Wheel Former Relationship Specialty Start Date End Date Charlene Ernst MD [address] [place] [address] PCP - General 10/26/06 Hand Buffing Wheel Former Relationship Specialty Start Date End Date Charlene Ernst MD [address] [place] [address] PCP - General 10/26/06 Aziza Suero APRN.CROWNING INSPECTOR [address] [place] [address] [facility] [place] 03/26/24 Hany Call APRN.CROWNING INSPECTOR [address] [place] [address] [place] [place] 04/04/24 Hand Buffing Wheel Former Relationship Specialty Start Date End Date Charlene Ernst MD [address] [place] [address] PCP - General 10/26/06 Aziza Suero APRN.CROWNING INSPECTOR [address] [place] [address] [place] 03/26/24 Hany Call APRN.CROWNING INSPECTOR [address] [place] [address] [place] 04/04/24 Hand Buffing Wheel Former Relationship Specialty Start Date End Date Charlene Ernst MD [address] [place] [address] PCP - General 10/26/06 Aziza Suero APRN.CROWNING INSPECTOR [address] [place] [address] [place] 03/26/24 Hany Call APRN.CROWNING INSPECTOR [address] [place] [address] Tight Barrel Inspector Family Medicine 04/04/24 Hand Buffing Wheel Former Relationship Specialty Start Date End Date Charlene Ernst MD [address] [place] [address] PCP - General 10/26/06 Aziza Suero APRN.CROWNING INSPECTOR [address] [place] [address] [facility] 03/26/24 Hany Call APRN.CROWNING INSPECTOR [address] [place] [address] [facility] 04/04/24 Hand Buffing Wheel Former Relationship Specialty Start Date End Date Charlene Ernst MD [address] [place] [address] PCP - General 10/26/06 Aziza Suero APRN.CROWNING INSPECTOR [address] [place] [address] [facility] 03/26/24 Hany Call APRN.CROWNING INSPECTOR [address] [place] [address] [facility] 04/04/24 Hand Buffing Wheel Former Relationship Specialty Start Date End Date Charlene Ernst MD [address] [place] [address] PCP - General 10/26/06 Aziza Suero APRN.CROWNING INSPECTOR [address] [place] [address] [facility] 03/26/24 Hany Call APRN.CROWNING INSPECTOR [address] [place] [address] Tight Barrel Inspector [facility] 04/04/24 Hand Buffing Wheel Former Relationship Specialty Start Date End Date Charlene Ernst MD [address] [place] [address] PCP - General 10/26/06 Aziza Suero, HOTEL GUEST SERVICE AGENT.CROWNING INSPECTOR [address] [place] [address] Tight Barrel Inspector [facility] Medicine 03/26/24 Hany Call HOTEL GUEST SERVICE AGENT.CROWNING INSPECTOR [address] [place] [address] [place] 04/04/24 Hand Buffing Wheel Former Relationship Specialty Start Date End Date Charlene Ernst MD [address] [place] [address] PCP - General 10/26/06 Hany Call HOTEL GUEST SERVICE AGENT.CROWNING INSPECTOR [address] [place] [address] [place] 04/04/24 Hand Buffing Wheel Former Relationship Specialty Start Date End Date Charlene Ernst MD [address] [place] [address] PCP - General 10/26/06 Hany Call APRN.CROWNING INSPECTOR [address] [place] [address] [place] 04/04/24 Hand Buffing Wheel Former Relationship Specialty Start Date End Date Charlene Ernst MD [address] [place], [place] [address] PCP - General 10/26/06 Hany Call APRN.CROWNING INSPECTOR [address] [place], [place] [address] Tight Barrel Inspector Family Medicine 04/04/24 Goals (unrecognized section and [...] BE BASED ON THE PRIMARY CLINICAL RECORDS. [employer] provides no warranty or guarantee of the accuracy or completeness of information in this document.
[2025-04-15 16:38] LABS: Troponin T High Sens 2 HR 48 ng/L (<=14)
[2025-04-15] MEDS: 0.9% Saline Lock 10 ML Syringe IV (18:29)
[2025-04-15] MEDS: APIXABAN 2.5 MG TABLET (WCH) PO (21:30)
[2025-04-16] VITALS (7 sets, daily range): BP systolic 97–107; BP diastolic 52–66; PULSE 84–98; RESP 16–18; TEMP 36.2–37.2; O2SAT 95–96; BMI 26.0
[2025-04-16 05:34] LABS: Hematocrit 29.8 % (37-47); Hemoglobin 10.0 g/dL (12.0-15.0); Immature Granulocytes Count 0.040 X10^3/uL (0.0-0.0); Mean Corp Hgb Conc 33.6 g/dL (32-36); Mean Corpuscular Volume 86.6 fL (81-99); Mean Platelet Vol. 10.6 fl (6.2-12.0); NRBC Flagged by Analyzer 0 % (0-5); Platelet Count 214 K/mm3 (150-450); RBC Distribution Width CV 14.4 % (11.6-14.6); RBC Distribution Width SD 44.8 fl (35.1-43.9); Red Blood Count 3.44 M/mm3 (4.2-5.4); White Blood Count 8.5 K/mm3 (4.4-11.0)
[2025-04-16 05:41] LABS: Cholesterol 117 mg/dL (<=200); Low Density Lipoprotein Calc. 61 mg/dL; Triglycerides 70 mg/dL; Very Low Density Lipoprotein 14 mg/dL (5-40); cholesterol:hdl ratio screen 2.79
[2025-04-16 05:50] LABS: AST(SGOT) 27 U/L (<=31); Alanine Aminotransfer ALT/SGPT 21 U/L (<=34); Albumin, Serum 3.1 g/dL (3.4-4.8); Alkaline Phosphatase 275 U/L (35-104); Anion Gap 9 (7-18); BUN 28 mg/dL (4-19); BUN/Creat Ratio 23.6 RATIO (10-20); Calcium,Total 8.5 mg/dL (7.6-11.0); Carbon Dioxide 27.0 mmol/L (20.0-29.0); Chloride 103 mmol/L (96-106); Estimated Creatinine Clearance 27.21 ml/min (50-250); Globulin 2.7 g/dL (2.2-4.2); Glucose 96 mg/dL (70-99); Potassium 3.8 mmol/L (3.5-5.1)
--- NOTE | 2025-04-16 05:55 | ECHOD_ITS ---
Reason For Study Reason For Study: PAF, CHF Procedure This was a 2D Doppler, Color Flow transthoracic echocardiogram. The patient is in an irregular rhythm. Exam performed portable in patient room. Left Ventricle Normal-sized left ventricle. Left ventricular systolic function by Gonzalez's biplane: 67%. Diastolic dysfunction grade indeterminate in the setting of arrhythmia. No regional wall motion abnormalities noted. Right Ventricle Moderate-severely enlarged right ventricle. Normal systolic function. RVSP estimated at 55 to 60 mmHg. Atria There is severe biatrial dilatation. Right atrial pressure estimated at: 3 mmHg. Mitral Valve Mitral annular calcification present. Moderate mitral regurgitation. No mitral stenosis. Tricuspid Valve Tricuspid valve appears to be coapting normally. There is moderate to severe tricuspid regurgitation. There is no tricuspid stenosis. No IVC dilation present, no hepatic reversal noted. Aortic Valve Trileaflet aortic valve. No hemodynamically significant aortic stenosis. No aortic regurgitation. Pulmonic Valve Normal pulmonic valve. Mild pulmonic regurgitation. No pulmonic stenosis. Great Vessels Normal sized aortic root. Normal ascending aorta. Pericardium/Pleural No pericardial effusion. MMode/2D Measurements & Calculations LVIDd: 4.0 cm IVSd: 0.87 cm Ao root diam: 3.0 cm LVIDs: 2.2 cm LVPWd: 0.90 cm RVDd: 4.3 cm FS: 44.0 % LAV(MOD-bp): 105.1 ml LVAd ap4: 18.1 cm2 SV(MOD-sp4): 31.4 ml LAV(MOD-bp) Indexed: 70.7 ml/m2 LVLd ap4: 5.8 cm SI(MOD-sp4): 21.1 ml/m2 LAV(MOD-sp2): 108.0 ml EDV(MOD-sp4): 46.6 ml LAV(MOD-sp4): 101.6 ml EDV(sp4-el): 48.3 ml LVAs ap4: 9.5 cm2 LVLs ap4: 4.9 cm ESV(MOD-sp4): 15.2 ml ESV(sp4-el): 15.8 ml EF(MOD-sp4): 67.4 % EF(sp4-el): 67.3 % SV(sp4-el): 32.5 ml LA A4 area: 30.2 cm2 LA dimension(2D): 5.6 cm RA A4 area: 30.7 cm2 TAPSE: 1.6 cm Doppler Measurements & Calculations MV E max krzysztof: 177.9 cm/sec MV V2 max: 221.4 cm/sec Ao V2 max: 140.3 cm/sec MV max P.6 mmHg Ao max P.9 mmHg MV V2 mean: 95.7 cm/sec Ao V2 mean: 96.1 cm/sec MV mean P.0 mmHg Ao mean P.1 mmHg MV V2 VTI: 38.6 cm Ao V2 VTI: 27.4 cm AV (velocity ratio): 0.64 LV V1 max: 91.7 cm/sec MR max krzysztof: 522.0 cm/sec PA V2 max: 124.7 cm/sec LV V1 max P.4 mmHg MR max P.0 mmHg LV V1 mean P.8 mmHg MR mean krzysztof: 401.6 cm/sec LV V1 mean: 61.5 cm/sec MR mean P.7 mmHg LV V1 VTI: 17.7 cm MR VTI: 136.2 cm TR max krzysztof: 373.7 cm/sec TR max P.9 mmHg ECHO/Echo Complete Interpretation Summary Rhythm on examination consistent with rate???controlled atrial fibrillation. Normal left ventricular systolic function, with EF by Gonzalez's biplane: 67% Moderate to severe right ventricular enlargement Normal right ventricular systolic function Severe biatrial enlargement Moderate to severe tricuspid regurgitation Ordering Physician: Alexia Retana Performed By: Gamaliel Edwards RCS
[2025-04-16] MEDS: Potassium Chloride Oral Tablet 10 MEQ PO (09:47)
[2025-04-16] MEDS: APIXABAN 2.5 MG TABLET (WCH) PO ×2 (09:47→21:38)
[2025-04-16] MEDS: 0.9% Saline Lock 10 ML Syringe IV ×2 (09:48→17:49)
--- NOTE | 2025-04-16 11:36 | PN_ITS ---
Subjective Subjective Patient seen and examined with her nurse by her bedside. She had no active complaints. She denied any shortness of breath. Her lower extremity swelling is improving. Review of systems is otherwise negative. She has remained hemodynamically stable. Objective Data Objective Data Vital Signs: Vital Signs Temp Pulse Resp BP Pulse Ox O2 Del Method 97.5 F L 98 16 97/60 95 Room Air 04/16/25 09:44 04/16/25 10:55 04/16/25 09:44 04/16/25 09:44 04/16/25 09:44 04/16/25 09:44 Oxygen Delivery Method Room Air Weight: 124 lb 12.506 oz Body Mass Index (BMI) 26.0 Intake & Output: Intake and Output for Last 24 Hours 04/14/25 04/15/25 04/16/25 23:59 23:59 23:59 Intake Total 270 / 270 50 / 50 Output Total 1000 / 1000 800 / 800 Balance -730 / -730 -750 / -750 Lab / Micro Data 04/16/25 05:08 04/16/25 05:08 Labs: Laboratory Results - last 24 hr 04/15/25 14:05: WBC 12.9 H, RBC 4.26, Hgb 12.1, Hct 37.8, MCV 88.7, MCH 28.4, MCHC 32.0, RDW Std Deviation 46.6 H, RDW Coeff of Bam 14.7 H, Plt Count 247, MPV 11.1, Immature Gran % (Auto) 0.600, Neut % (Auto) 82.4 H, Lymph % (Auto) 7.4 L, [place] % (Auto) 9.3, Eos % (Auto) 0.1, Baso % (Auto) 0.2, Absolute Neuts (auto) 10.7 H, Absolute Lymphs (auto) 0.95, Nucleated RBC % 0, Sodium 138, Potassium 5.1, Chloride 104, Carbon Dioxide 23.0, Anion Gap 12, BUN 29 H, Creatinine 1.31 H, Estim Creat Clear Calc 25.28 L, Est GFR (MDRD) Non-Af 40 L, BUN/Creatinine Ratio 22.2 H, Glucose 116 H, Calcium 9.1, Magnesium 2.1, Total Bilirubin 1.07, D irect Bilirubin 0.55 H, AST 42 H, ALT 30, Alkaline Phosphatase 370 H, Troponin T High Sens 49 H, NT pro BNP II 3517 H, Total Protein 7.4, Albumin 3.9, Globulin 3.6, TSH 1.420 04/15/25 15:20: Urine Color Straw, Urine Clarity Clear, Urine pH 7.0, Ur Specific [place] 1.005, Urine Protein Negative, Urine Glucose (UA) Normal, Urine Ketones Negative, Urine Occult Blood Negative, Urine Nitrite Positive H, Urine Bilirubin Negative, Urine Urobilinogen Normal, Ur Leukocyte Esterase 25 H, Urine RBC 0-5 SEEN, Urine WBC 10-25 SEEN, Ur Squamous Epith Cells 0-5 SEEN, Urine Bacteria 1+, Urine Mucus 0 SEEN 04/15/25 16:12: Troponin T Hi Sens 2 Hr 48 H 04/16/25 05:08: WBC 8.5, RBC 3.44 L, Hgb 10.0 L, Hct 29.8 L, MCV 86.6, MCH 29.1, MCHC 33.6, RDW Std Deviation 44.8 H, RDW Coeff of Bam 14.4, Plt Count 214, MPV 10.6, Immature Gran % (Auto) 0.500, Neut % (Auto) 79.8 H, Lymph % (Auto) 7.6 L, [place] % (Auto) 11.8 H, Eos % (Auto) 0.1, Baso % (Auto) 0.2, Absolute Neuts (auto) 6.7, Absolute Lymphs (auto) 0.64 L, Nucleated RBC % 0, Sodium 139, Potassium 3.8, Chloride 103, Carbon Dioxide 27.0, Anion Gap 9, BUN 28 H, Creatinine 1.19, Estim Creat Clear Calc 27.21 L, Est GFR (MDRD) Non-Af 45 L, BUN/Creatinine Ratio 23.6 H, Glucose 96, Calcium 8.5, Total Bilirubin 0.80, AST 27, ALT 21, Alkaline Phosphatase 275 H, Total Protein 5.8 L, Albumin 3.1 L, Globulin 2.7, Albumin/Globulin Ratio 1.2, Triglycerides 70, Cholesterol 117, LDL Cholesterol, Calc 61, VLDL Cholesterol 14, HDL Cholesterol 42, Cholesterol/HDL Ratio 2.79, TSH 0.988 Micro: Microbiology 04/15/25 15:20 Urine, Clean Catch Urine Culture - Preliminary GNR lactose womens health nurse practitioner Radiography Diagnostic Testing: Radiology Impression Chest X-Ray 04/15/25 14:55 IMPRESSION: No acute cardiopulmonary findings. Reading Location: [facility] Physical Exam Const alert, oriented x3 and no apparent distress General Appearance: cooperative HEENT normocephalic, head/scalp atraumatic, moist oral mucous membranes and oropharynx normal Eyes EOMs intact bilaterally Neck supple Lymph Lymphatic: no lymphedema noted Resp normal respiratory effort, normal air movement and clear to auscultation bilaterally Cardio regular rate, regular rhythm, S1 normal heart sound, S2 normal heart sound and no murmurs GI normal to inspection, nondistended, normoactive bowel sounds, soft to palpation and non-tender Extremity normal capillary refill, no clubbing, cyanosis or edema and no calf tenderness General Extremity: no tenderness to palpation of joints or extremities Skin Skin Narrative: 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 General Skin Exam: no breakdown Neuro no focal motor deficits and no sensory deficits noted Motor Exam: strength 5/5 throughout and general weakness Psych thought process normal, cooperative and affect normal Appearance: appropriate Assessment & Plan Assessment/Plan (1) UTI (urinary tract infection): (2) CHF (congestive heart failure): PLAN: Plan #Acute heart failure of unclear etiology. * admitted with a complaint of bilateral lower extremity edema and debility as well as serous discharge. * on IV lasix. 2D echo ordered and pending * #Paroxysmal afib * new onset. Now rate controlled. * on metoprolol and eliquis. * #Probable UTI * urinalysis showed evidence of UTI * on IV rocephin. 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 #GERD: has history of GI bleed as well as peptic ulcer disease. on PPI #Hypertension: on benazepril. was on atenolol but this was switched to PO metoprolol due to afib. IV hydralazine prn #History fo neurofibromatosis: stable. To follow up with dermatology on outpatient basis #DVT prophylais: started on eliquis for stroke prophylaxis for afib. Charges/Coding Visit Charges Inpatient E&M: 28138 Subs Hosp L2
--- NOTE | 2025-04-16 12:57 | WOUNDNOTE ---
wound photo: right lower leg
--- NOTE | 2025-04-16 12:57 | WOUNDNOTE ---
wound photo: left lower leg
--- NOTE | 2025-04-16 15:50 | CASEMGMT ---
GURMEET IGNACIO Assessment: Face to Face with pt for initial transition planning/care coordination assessment. RN SANDEE introduced self and role at [facility], pt voices understanding and consents to assessment. Pt is A&O x4 and answers all questions appropriately at this time. Pt lying in bed in no distress. Pt neice and sister sitting at bedside. Care providers, pharmacy, and demographics verified/updated. Strata:2 Admitting Dx: HF, New onset PAF PCP: Lorenzo Specialists: Denies Preferred Pharmacy: [facility] Insurance: [employer] [facility] Prescription Benefit: yes LNOK: Niece, Beckie; Sister, Martina Living Arrangements: Pt lives alone in a 1 level home with no steps to enter. ADLs: Pt states I with ADLs, does hire someone to assist with cleaning. Family helps with getting groceries. Transportation: Pt family provides transportation. DME: walker, cane, shower bench. HHC/SNF: Previously had [facility] HHC Pt states no concerns with going home at time of dc. Discussed HHC, Pt interested in [facility] HHC services again for SN, PT and OT. Pt states no further concerns/needs. CM to follow. Advised pt to ask CM if any further question/concerns/needs arise, voices understanding. Pt Goal: Home with HHC Plan: Home, follow wound nurse and therapy for HHC services. Follow for anticoags. Shawn LEVI CM
[2025-04-17 03:45] VITALS: BP 98/60; PULSE 77; RESP 18; TEMP 36.1; O2SAT 95
[2025-04-17 05:36] VITALS: BMI 25.1
[2025-04-17 06:35] LABS: Hematocrit 34.1 % (37-47); Hemoglobin 11.0 g/dL (12.0-15.0); Immature Granulocytes Count 0.050 X10^3/uL (0.0-0.0); Mean Corp Hgb Conc 32.3 g/dL (32-36); Mean Corpuscular Volume 86.1 fL (81-99); Mean Platelet Vol. 11.1 fl (6.2-12.0); NRBC Flagged by Analyzer 0 % (0-5); Platelet Count 227 K/mm3 (150-450); RBC Distribution Width CV 14.1 % (11.6-14.6); RBC Distribution Width SD 44.1 fl (35.1-43.9); Red Blood Count 3.96 M/mm3 (4.2-5.4); White Blood Count 5.9 K/mm3 (4.4-11.0)
[2025-04-17 07:03] LABS: Anion Gap 9 (7-18); BUN 33 mg/dL (4-19); BUN/Creat Ratio 26.2 RATIO (10-20); Calcium,Total 8.5 mg/dL (7.6-11.0); Carbon Dioxide 32.4 mmol/L (20.0-29.0); Chloride 101 mmol/L (96-106); Estimated Creatinine Clearance 23.45 ml/min (50-250); Glucose 85 mg/dL (70-99); Potassium 3.2 mmol/L (3.5-5.1)
[2025-04-17 08:40] VITALS: BP 109/65; PULSE 94; RESP 18; TEMP 36.7; O2SAT 94
[2025-04-17] MEDS: Potassium Chloride Oral Tablet 20 MEQ 40 MEQ PO (08:43)
[2025-04-17] MEDS: Potassium Chloride Oral Tablet 10 MEQ PO (08:44)
[2025-04-17] MEDS: APIXABAN 2.5 MG TABLET (WCH) PO ×2 (08:44→20:42)
[2025-04-17] MEDS: 0.9% Saline Lock 10 ML Syringe IV (08:45)
[2025-04-17 10:25] VITALS: BP 109/65; PULSE 94
--- NOTE | 2025-04-17 11:28 | PN_ITS ---
Subjective Subjective Patient seen and examined. Her niece was by her bedside along with her nurse. She had no active complaints. She felt her breathing had remained stable and the swelling in her legs had also improved. Review of systems otherwise negative. She has remained hemodynamically stable. Objective Data Objective Data Vital Signs: Vital Signs Temp Pulse Resp BP Pulse Ox O2 Del Method 98.1 F 94 18 109/65 94 Room Air 04/17/25 08:40 04/17/25 10:25 04/17/25 08:40 04/17/25 10:25 04/17/25 08:40 04/17/25 08:55 Oxygen Delivery Method Room Air Weight: 120 lb 5.958 oz Body Mass Index (BMI) 25.1 Intake & Output: Intake and Output for Last 24 Hours 04/15/25 04/16/25 04/17/25 23:59 23:59 23:59 Intake Total 270 / 270 1050 / 1050 50 / 50 Output Total 1000 / 1000 1700 / 1700 200 / 200 Balance -730 / -730 -650 / -650 -150 / -150 Lab / Micro Data 04/17/25 05:59 04/17/25 05:59 Labs: Laboratory Results - last 24 hr 04/17/25 05:59: WBC 5.9, RBC 3.96 L, Hgb 11.0 L, Hct 34.1 L, MCV 86.1, MCH 27.8, MCHC 32.3, RDW Std Deviation 44.1 H, RDW Coeff of Bam 14.1, Plt Count 227, MPV 11.1, Immature Gran % (Auto) 0.900, Neut % (Auto) 72.2 H, Lymph % (Auto) 12.9 L, [place] % (Auto) 12.8 H, Eos % (Auto) 1.0, Baso % (Auto) 0.2, Absolute Neuts (auto) 4.3, Absolute Lymphs (auto) 0.76 L, Nucleated RBC % 0, Sodium 142, Potassium 3.2 L, Chloride 101, Carbon Dioxide 32.4 H, Anion Gap 9, BUN 33 H, Creatinine 1.26 H , Estim Creat Clear Calc 23.45 L, Est GFR (MDRD) Non-Af 42 L, BUN/Creatinine Ratio 26.2 H, Glucose 85, Calcium 8.5 Micro: Microbiology 04/15/25 15:20 Urine, Clean Catch Urine Culture - Final Escherichia coli Radiography Diagnostic Testing: Radiology Impression Echocardiogram 04/16/25 05:55 Interpretation Summary Rhythm on examination consistent with rate???controlled atrial fibrillation. Normal left ventricular systolic function, with EF by Gonzalez's biplane: 67% Moderate to severe right ventricular enlargement Normal right ventricular systolic function Severe biatrial enlargement Moderate to severe tricuspid regurgitation Ordering Physician: Alexia Retana Performed By: Gamaliel Edwards RCS Physical Exam Const alert, oriented x3 and no apparent distress General Appearance: cooperative HEENT normocephalic, head/scalp atraumatic, moist oral mucous membranes and oropharynx normal Eyes EOMs intact bilaterally Neck supple Lymph Lymphatic: no lymphedema noted Resp normal respiratory effort, normal air movement and clear to auscultation bilaterally Cardio regular rate, regular rhythm, S1 normal heart sound, S2 normal heart sound and no murmurs GI normal to inspection, nondistended, normoactive bowel sounds, soft to palpation and non-tender Extremity normal capillary refill, no clubbing, cyanosis or edema and no calf tenderness General Extremity: no tenderness to palpation of joints or extremities Skin Skin Narrative: 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 General Skin Exam: no breakdown Neuro no focal motor deficits and no sensory deficits noted Motor Exam: strength 5/5 throughout and general weakness Psych thought process normal, cooperative and affect normal Appearance: appropriate Assessment & Plan Assessment/Plan (1) UTI (urinary tract infection): (2) CHF (congestive heart failure): PLAN: Plan #Acute heart failure of unclear etiology. * admitted with a complaint of bilateral lower extremity edema and debility as well as serous discharge. * on IV lasix. 2D echo showed EF of 67% with moderate to severe right ventricular enlargement and normal right ventricular systolic function as well as severe biatrial enlargement and moderate to severe tricuspid regurgitation * will switch to PO lasix today. * Referred to cardiology for follow-up on outpatient basis for the severe tricuspid regurgitation. #Paroxysmal afib * new onset. Now rate controlled. * on metoprolol and eliquis. * #Hypokalemia: K is 3.2. Will replace and trend. #ANISH: * Creatinine is 1.31. Creatinine 0.97 yesterday. Likely due to the use of Lasix. * He should improve now the Lasix held and switched to p.o. * Will monitor closely and adjust Lasix dose as needed. #Probable UTI * urinalysis showed evidence of UTI * on IV rocephin. * urine culture growing gram negative eh, lactose contract preparer. * #History of melanoma: has history of left shoulder melanoma s/p excision. #GERD: has history of GI bleed as well as peptic ulcer disease. on PPI #Hypertension: on benazepril. was on atenolol but this was switched to PO metoprolol due to afib. IV hydralazine prn #History fo neurofibromatosis: stable. To follow up with dermatology on outpatient basis #DVT prophylais: started on eliquis for stroke prophylaxis for afib. Charges/Coding Visit Charges Inpatient E&M: 07519 Subs Hosp L2
[2025-04-17 15:10] VITALS: BP 112/70; PULSE 96; RESP 18; TEMP 36.8; O2SAT 93
--- NOTE | 2025-04-17 16:14 | CASEMGMT ---
Addendum entered by Minda Dumont 04/17/25 16:32: Call received back from [facility]. They are able to accept pt if she is okay with SOC Wednesday or Wednesday. Pt made aware and states is okay with that. [facility] made aware. Original Note: GURMEET IGNACIO note: Reviewed therapy notes. Pt ambulated 40-60 ft w/use of walker, no additional therapy recommended. GURMEET IGNACIO to room. Pt resting in bed. Page Ibarra & Dionne, in room visiting. Discussed discharge planning. Pt states she would like [facility] for SN only but she does not feel she needs therapy. She was made aware to let [facility] SN know if she changes her mind. Pt states would like [facility], as she has had them before, and declines list of other [facility] agencies at this time. Call placed to [facility] @ [facility] and referral made. Per guillaume, pt's insurance is changing to [employer] [facility] 04-19-2025. [facility] notified of same. Pt currently on Eliquis. Discussed Eliquis and importance of taking. Provided w/Eliquis 30-day free trial-offer card and instructed on use. Made aware this is a [id number]-lifetime use card. They voice understanding. Pt and guillaume voice no further discharge needs or concerns at this time. Tad FELDMAN RN, CM
[2025-04-17 20:40] VITALS: BP 115/76; PULSE 106; RESP 18; TEMP 35.8; O2SAT 95
[2025-04-17 20:43] VITALS: PULSE 106
[2025-04-18 03:36] VITALS: BP 114/65; PULSE 93; RESP 18; TEMP 36; O2SAT 96
[2025-04-18 06:21] LABS: Hematocrit 34.7 % (37-47); Hemoglobin 11.0 g/dL (12.0-15.0); Immature Granulocytes Count 0.040 X10^3/uL (0.0-0.0); Mean Corp Hgb Conc 31.7 g/dL (32-36); Mean Corpuscular Volume 87.6 fL (81-99); Mean Platelet Vol. 10.7 fl (6.2-12.0); NRBC Flagged by Analyzer 0 % (0-5); Platelet Count 257 K/mm3 (150-450); RBC Distribution Width CV 13.8 % (11.6-14.6); RBC Distribution Width SD 44.2 fl (35.1-43.9); Red Blood Count 3.96 M/mm3 (4.2-5.4); White Blood Count 5.7 K/mm3 (4.4-11.0)
[2025-04-18 06:41] VITALS: O2SAT 94
[2025-04-18 06:46] LABS: Anion Gap 9 (7-18); BUN 32 mg/dL (4-19); BUN/Creat Ratio 28.7 RATIO (10-20); Calcium,Total 8.3 mg/dL (7.6-11.0); Carbon Dioxide 33.2 mmol/L (20.0-29.0); Chloride 99 mmol/L (96-106); Estimated Creatinine Clearance 26.14 ml/min (50-250); Glucose 87 mg/dL (70-99); Potassium 3.4 mmol/L (3.5-5.1)
[2025-04-18 09:15] VITALS: BP 107/71; PULSE 94; RESP 18; TEMP 36.7; O2SAT 94
[2025-04-18] MEDS: Potassium Chloride Oral Tablet 20 MEQ 40 MEQ PO (09:20)
[2025-04-18] MEDS: APIXABAN 2.5 MG TABLET (WCH) PO (09:22)
[2025-04-18] MEDS: Potassium Chloride Oral Tablet 10 MEQ PO (09:22)
[2025-04-18 10:25] VITALS: BP 107/71; PULSE 94
--- NOTE | 2025-04-18 11:11 | CASEMGMT ---
Addendum entered by Minda Dumont 04/18/25 12:01: Discharge order is in. Call placed to [facility] and left re: same. Original Note: GURMEET IGNACIO NOTE: Per Dr Vasquez, family inquiring about therapy, as they were wanting to see how she is doing getting around GURMEET IGNACIO spoke w/Lizette, PT, who states when they evaluated pt 04/16, pt was @ her baseline, they did not recommend additional therapy, and discharged pt from therapy services. She stated, if needed, they can re-evaluate the pt. GURMEET IGNACIO to room. Pt sitting up in chair. 2 family members @ bedside--one of them a nieceThi. Discussed w/pt and family concerns re: therapy and how pt is doing. Pt states she feels she is @ her baseline and does not want therapy. She does not feel she needs it again while @ [facility] and she again declines wanting therapy services w/[facility]. Pt states she feels safe being @ home alone & would like to discharge today. Family stated they do have concerns w/pt being home alone however, they are aware pt likes having her independence. They do check in on her frequently and pt does have a medical alert button. Discussed [facility] services. Pt declines wanting this at this time, but states would take information to have in the future if needed. Info sheet w/list of agencies provided. Family had questions about HHC: SN and therapy. Questions answered. They were made aware, if pt is agreeable to therapy services through [facility] once she returns home, they can inform [facility] about this and therapy can be added. They voice understanding and are agreeable to pt discharging home today w/[facility]: SN only. They are aware SOC slated for Wednesday or Wednesday. Family inquired about someone coming to see pt weekly even after [facility] discharges pt. Discussed CCN and info provided. Pt and family are interested in this and would like a referral. Pt asks for CCN to call her nieceThi. Order placed. Pt and family deny having further discharge needs or concerns. Tad FELDMAN RN, CM
--- NOTE | 2025-04-18 11:55 | DS.PCM_ITS ---
Providers Date of Admission: 04/15/25 Date of Discharge: 04/18/25 Primary Care Physician: Hany Ventura, NELL Consultations 04/16/25 02:02 Consult: Onc/Wound/second rigger Routine Comment: Reason For Visit: ? HF, NEW ONSET PAF Diagnosis Discharge Diagnosis (1) UTI (urinary tract infection): Status: Acute Code(s): N39.0 - Urinary tract infection, site not specified (2) CHF (congestive heart failure): Status: Acute Code(s): I50.9 - Heart failure, unspecified Plan #Acute heart failure of unclear etiology. * admitted with a complaint of bilateral lower extremity edema and debility as well as serous discharge. * on IV lasix. 2D echo showed EF of 67% with moderate to severe right ventricular enlargement and normal right ventricular systolic function as well as severe biatrial enlargement and moderate to severe tricuspid regurgitation * will switch to PO lasix today. * Referred to cardiology for follow-up on outpatient basis for the severe tricuspid regurgitation. #Paroxysmal afib * new onset. Now rate controlled. * on metoprolol and eliquis. * #Hypokalemia: K is 3.2. Will replace and trend. #ANISH: * Creatinine is 1.31. Creatinine 0.97 yesterday. Likely due to the use of Lasix. * He should improve now the Lasix held and switched to p.o. * Will monitor closely and adjust Lasix dose as needed. #Probable UTI * urinalysis showed evidence of UTI * on IV rocephin. 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 * #History of melanoma: has history of left shoulder melanoma s/p excision. #GERD: has history of GI bleed as well as peptic ulcer disease. on PPI #Hypertension: on benazepril. was on atenolol but this was switched to PO metoprolol due to afib. IV hydralazine prn #History fo neurofibromatosis: stable. To follow up with dermatology on outpatient basis #DVT prophylais: started on eliquis for stroke prophylaxis for afib. Medications at Discharge Home Medications docusate sodium 100 mg capsule 100 mg PO DAILY PRN Constipation 03/17/18 omeprazole 20 mg capsule,delayed release 20 mg PO BID GERD 03/17/18 potassium chloride 10 mEq capsule,extended release 10 meq PO DAILY supplement 03/17/18 acetaminophen 325 mg tablet 325 mg PO DAILY PRN pain 06/01/24 folic acid 800 mcg tablet 800 mcg PO DAILY supplement 06/01/24 apixaban 5 mg tablet (Eliquis) 2.5 mg (1/2 x 5 mg) PO BID #60 tabs 04/18/25 cefdinir 300 mg capsule 300 mg PO DAILY #5 caps 04/18/25 furosemide 40 mg tablet 40 mg PO DAILY #30 tabs 04/18/25 metoprolol tartrate 25 mg tablet 25 mg PO BID #60 tabs 04/18/25 Hospital Course Operations None Procedures 2-D Echocardiogram Summary of Care Provided Minutes Spent on Discharge: 46 Hospital Course: Patient is an 84-year-old female with a past medical history as outlined was admitted through the ED on 04/15/2025 with a complaint of worsening bilateral lower extremity swelling for about 3 weeks prior to admission with associated stasis blisters on her lower extremities. Was assisted with seeping. She was on hydrochlorothiazide at home. Her family brought her in for evaluation because of the symptoms. She denied any orthopnea and denied any weight gain. Review of systems otherwise negative. proBNP was 3517. Urinalysis showed evidence of UTI. She was admitted and managed for probable heart failure and also UTI. She was started on IV ceftriaxone and diuresed with IV Lasix. She was also found to be in new onset A-fib. She was started on p.o. metoprolol and her atenolol was discontinued. She was also placed on Eliquis 2.5 mg twice daily. Urine culture grew E. coli which was pansensitive. Her lower extremity swelling improved and she worked with therapy and was deemed as being able to go home with home health. She was switched to p.o. Lasix. Hospital course was complicated by some type of tension which was thought to be due to the IV Lasix. She was therefore switched to p.o. Lasix 40 mg daily. 2D echo showed EF of 67% with moderate to severe right ventricular enlargement and normal right ventricular systolic function with severe biatrial enlargement and moderate to severe tricuspid regurgitation. Was referred to cardiology to see them to establish care for the severe tricuspid regurgitation. She is to follow-up with her primary care doctor within 1 to 2 weeks. Patient seen and examined prior to discharge. Her niece and the relative were by her bedside and her nurse was also by her bedside. She has no active complaints. Review of systems otherwise negative. Labs and vitals reviewed. Home medication reviewed and reconciled. She was discharged with a prescription for p.o. Lasix and p.o. Eliquis 2.5 mg twice daily as well as p.o. cefdinir 300 mg daily for 5-day course. Physical Exam Const alert, oriented x3 and no apparent distress General Appearance: cooperative and comfortable HEENT normocephalic, head/scalp atraumatic, moist oral mucous membranes and oropharynx normal Mouth: oral and palatal mucosa normal Eyes EOMs intact bilaterally Neck supple Lymph Lymphatic: no lymphedema noted Resp normal respiratory effort, normal air movement and clear to auscultation bilaterally Cardio regular rate, regular rhythm, S1 normal heart sound, S2 normal heart sound and no murmurs GI normal to inspection, nondistended, normoactive bowel sounds, soft to palpation and non-tender Extremity normal capillary refill, no clubbing, cyanosis or edema and no calf tenderness General Extremity: no tenderness to palpation of joints or extremities Skin Skin Narrative: 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 General Skin Exam: no breakdown Neuro no focal motor deficits and no sensory deficits noted Motor Exam: strength 5/5 throughout and general weakness Psych thought process normal, cooperative and affect normal Appearance: appropriate Weight / BMI Weight Weight: 120 lb 5.958 oz Body Mass Index (BMI) 25.1 ABG / Lab / Microbiology Data 04/18/25 05:16 04/18/25 05:16 Laboratory: Laboratory Results - last 24 hr 04/18/25 05:16: WBC 5.7, RBC 3.96 L, Hgb 11.0 L, Hct 34.7 L, MCV 87.6, MCH 27.8, MCHC 31.7 L, RDW Std Deviation 44.2 H, RDW Coeff of Bam 13.8, Plt Count 257, MPV 10.7, Immature Gran % (Auto) 0.700, Neut % (Auto) 70.0, Lymph % (Auto) 15.3 L, M [place] % (Auto) 12.5 H, Eos % (Auto) 1.0, Baso % (Auto) 0.5, Absolute Neuts (auto) 4.0, Absolute Lymphs (auto) 0.88, Nucleated RBC % 0, Sodium 141, Potassium 3.4 L , Chloride 99, Carbon Dioxide 33.2 H, Anion Gap 9, BUN 32 H, Creatinine 1.13, E stim Creat Clear Calc 26.14 L, Est GFR (MDRD) Non-Af 48 L, BUN/Creatinine Ratio 28.7 H, Glucose 87, Calcium 8.3 Microbiology: Microbiology 04/15/25 15:20 Urine, Clean Catch Urine Culture - Final Escherichia coli D/C Instructions Discharge Activity: Return to Normal Activity Weight Bearing Status: Weight bearing as tolerated Call your doctor if you observe: Fever of 101 or Higher, Shortness of breath, Dizziness, Swelling in the ankles and Chest pain DC O2, CPAP, BIPAP Needs Home O2 Discharge instructions: No DC home with Oxygen: No Patient's Goals Of Care - F/U Goals Reviewed Goals of care reviewed with patient: Yes - No change Meaningful Use Info Meaningful Use Meaningful Use Diagnoses (Choose all that apply): CHF CHF ALEXX/ARB ordered at discharge?: No Reason ALEXX/ARB not ordered?: Not indicated Documented LVEF (%): 67 Discharge Plan Admission Admit Date/Time: 04/15/25 16:02 Primary Reason for Your Visit: acute exacerbation of heart failure Attending Provider: Trinidad Vasquez Primary Care Provider: Hany Ventura NP Consulting Providers: Alexia Retana Instructions Patient Instructions: Coping with Heart Failure, AFib Dc Additional Instructions / Restrictions: aspirin discontinued due to increased risk of bleeding whilst on eliquis also. Lisinopril discontinued due to BP running low. Check BP morning and evening at home and present log to PCP for adjustment of BP meds as needed Discharge Orders/Prescriptions Prescriptions: New furosemide 40 mg Tablet 40 mg PO DAILY Qty: 30 1RF metoprolol tartrate 25 mg Tablet 25 mg PO BID Qty: 60 1RF Eliquis 5 mg Tablet 2.5 mg PO BID Qty: 60 2RF cefdinir 300 mg capsule 300 mg PO DAILY Qty: 5 0RF Continued potassium chloride 10 mEq capsule, extended release 10 meq PO DAILY docusate sodium 100 mg capsule 100 mg PO DAILY PRN (Reason: Constipation) omeprazole 20 mg capsule,delayed release(DR/EC) 20 mg PO BID folic acid 800 mcg tablet 800 mcg PO DAILY acetaminophen 325 mg tablet 325 mg PO DAILY PRN (Reason: pain) Discontinued aspirin 81 MG tablet,delayed release (DR/EC) 81 mg PO DAILY Patient Comments: will stop 5 days prior benazepril 20 MG tablet 10 mg PO DAILY atenolol 25 MG tablet 25 mg PO DAILY Referrals / Follow Up: Giuseppe Lofton MD [Med Staff - Active Staff, Cardiology] - 04/30/25 10:00 am Referral Note: APPOINTMENT NEW PATIENT WITH DR. LANZA see to establish care for moderate to severe tricuspid regurgitation Jack Ernst MD [Non-Staff, Family Practice] - Within 1 Week Hany Ventura NP, MANAGER PRODUCTION-C [Primary Care Provider, Medical] Disposition Disposition (needs filled in before D/C Order can be placed): Home Health Service Charges/Coding Visit Charges Inpatient E&M: 10870 Disch Hosp >30min
--- NOTE | 2025-04-18 11:55 | DCINST_ITS ---
Discharge Instructions DC O2, CPAP, BIPAP needs Home O2 Discharge instructions: No Dressing / Incision Discharge Activity: Return to Normal Activity Weight Bearing Status: Weight bearing as tolerated Dressing / Incision Call your doctor if you observe: Fever of 101 or Higher, Shortness of breath, Dizziness, Swelling in the ankles and Chest pain Follow Up Care Test Results: Test results from this visit will be discussed in further detail at your follow- up appointment, if applicable. Discharge Plan Admission Admit Date/Time: 04/15/25 16:02 Primary Reason for Your Visit: acute exacerbation of heart failure Attending Provider: Trinidad Vasquez Primary Care Provider: Hany Ventura NP Consulting Providers: Alexia Retana Instructions Patient Instructions: Coping with Heart Failure, AFib Dc Additional Instructions / Restrictions: aspirin discontinued due to increased risk of bleeding whilst on eliquis also. Lisinopril discontinued due to BP running low. Check BP morning and evening at home and present log to PCP for adjustment of BP meds as needed Discharge Orders/Prescriptions Prescriptions: New furosemide 40 mg Tablet 40 mg PO DAILY Qty: 30 1RF metoprolol tartrate 25 mg Tablet 25 mg PO BID Qty: 60 1RF Eliquis 5 mg Tablet 2.5 mg PO BID Qty: 60 2RF cefdinir 300 mg capsule 300 mg PO DAILY Qty: 5 0RF Continued potassium chloride 10 mEq capsule, extended release 10 meq PO DAILY docusate sodium 100 mg capsule 100 mg PO DAILY PRN (Reason: Constipation) omeprazole 20 mg capsule,delayed release(DR/EC) 20 mg PO BID folic acid 800 mcg tablet 800 mcg PO DAILY acetaminophen 325 mg tablet 325 mg PO DAILY PRN (Reason: pain) Discontinued aspirin 81 MG tablet,delayed release (DR/EC) 81 mg PO DAILY Patient Comments: will stop 5 days prior benazepril 20 MG tablet 10 mg PO DAILY atenolol 25 MG tablet 25 mg PO DAILY Referrals / Follow Up: Giuseppe Lofton MD [Med Staff - Active Staff, Cardiology] - Within 1 Month Referral Note: see to establish care for moderate to severe tricuspid regurgitation Jack Ernst MD [Non-Staff, Family Practice] - Within 1 Week Hany Ventura NP, ELECTRICAL INSTRUMENT MAKER-C [Primary Care Provider, Medical] Disposition Disposition (needs filled in before D/C Order can be placed): Home Health Service
[2025-04-18 12:05] VITALS: BP 107/71; PULSE 94; RESP 18; TEMP 36.7; O2SAT 94
[2025-04-18 12:20] VITALS: O2SAT 90; O2SAT 95
--- NOTE | 2025-04-18 14:31 | PHA.DC.MR.R ---
Pharmacy [place] Med Reconciliation Pharmacy Service has performed discharge medication reconciliation for this patient. Medication education papers prepared, patient discharged when counseling was attempted. The patient's discharge medication list was reviewed for discrepancies and discrepancies were resolved. Medications at Discharge Home Medications docusate sodium 100 mg capsule 100 mg PO DAILY PRN Constipation 03/17/18 omeprazole 20 mg capsule,delayed release 20 mg PO BID GERD 03/17/18 potassium chloride 10 mEq capsule,extended release 10 meq PO DAILY supplement 03/17/18 acetaminophen 325 mg tablet 325 mg PO DAILY PRN pain 06/01/24 folic acid 800 mcg tablet 800 mcg PO DAILY supplement 06/01/24 apixaban 5 mg tablet (Eliquis) 2.5 mg (1/2 x 5 mg) PO BID #60 tabs 04/18/25 cefdinir 300 mg capsule 300 mg PO DAILY #5 caps 04/18/25 furosemide 40 mg tablet 40 mg PO DAILY #30 tabs 04/18/25 metoprolol tartrate 25 mg tablet 25 mg PO BID #60 tabs 04/18/25
== END 2025-04-18 13:58 | disposition home health service (06) | DRG 291 ==
LOC: ED 16:06 → PCU 16:24
PROVIDERS: Admitting Provider Family Medicine; Emergency Provider Emergency Medicine; PCP Nurse Practitioner Family; Visit Provider Student in an Organized Health Care Education/Training Program
DX: I13.0 Hypertensive heart and chronic kidney disease with heart failure and stage 1 through stage 4 chronic kidney disease, or unspecified chronic kidney disease (principal); I50.33 Acute on chronic diastolic (congestive) heart failure; N17.9 Acute kidney failure, unspecified; N39.0 Urinary tract infection, site not specified; Z66 Do not resuscitate; D50.9 Iron deficiency anemia, unspecified; I48.0 Paroxysmal atrial fibrillation; N18.2 Chronic kidney disease, stage 2 (mild); K21.9 Gastro-esophageal reflux disease without esophagitis; E87.6 Hypokalemia; B96.20 Unspecified Escherichia coli [E. coli] as the cause of diseases classified elsewhere; R53.81 Other malaise; Z85.820 Personal history of malignant melanoma of skin; Z79.82 Long term (current) use of aspirin; Z79.899 Other long term (current) drug therapy; Z90.49 Acquired absence of other specified parts of digestive tract; Z96.653 Presence of artificial knee joint, bilateral; R60.9 Edema, unspecified
CPT/HCPCS: 36415; 71045; 80048; 80053; 80061; 80076; 81001; 83735; 83880; 84443; 84484; 85025; 87077; 87086; 87088; 87186; 93005; 93306; 97161; 97165; 97802; 99285; Q9957; A4216; J1938